=== PATIENT | male | born 1950 | race Caucasian/White ===

== ENCOUNTER 2020-11-16 20:34 | Inpatient (IN) | payer OTHER, SELFPAY ==
[2020-11-16 21:10] VITALS: BP 170/78; PULSE 84; RESP 18; TEMP 36.5; O2SAT 98
[2020-11-16 21:12] VITALS: BMI 17.2
[2020-11-16] MEDS: Docusate Sodium 100 MG CAPSULE 200 MG PO (23:01)
[2020-11-16] MEDS: OLANZapine 10 MG TABLET PO (23:02)
[2020-11-16] MEDS: Melatonin 3 MG TABLET 6 MG PO (23:02)
[2020-11-16] MEDS: clonazePAM 0.5 MG TABLET PO (23:37)
--- NOTE | 2020-11-17 | ECG_ITS ---
Test Reason : r/o qtc prolongation Blood Pressure : / mmHG Vent. Rate : 068 BPM Atrial Rate : 068 BPM P-R Int : 144 ms QRS Dur : 128 ms QT Int : 420 ms P-R-T Axes : 067 081 053 degrees QTc Int : 446 ms Normal sinus rhythm Right bundle branch block Abnormal ECG No previous ECGs available Referred By: Ivan Bello Electronically Signed By:DANIEL WEST
--- NOTE | 2020-11-17 03:40 | PC.ADMIT ---
Pt. admitted to the [facility] on 11/16/2020 at 2055 from [facility] ([facility]) with a diagnosis of OCD. Pt. signed a CV. Pt. alert and oriented x3. Pt. denied SI, HI, AH and VH. Pt. presented with an anxious mood and affect. Pt. cooperative with admission assessment. Pt. reports medical history includes: BPH, arthritis, sleep apnea (pt. does not use a CPAP), constipation, hemorrhoid, high cholesterol. Pt. witnessed ambulating with slow but steady gait. Pt. reports he fell at [facility] due to disorientation. Pt. does not use DME for ambulation. Pt. wears glasses for near/farsightedness. Glasses are at home. Pt. is hard of hearing. Hearing aids are at home. Pt. reports he does not receive services at home but [facility] paperwork indicates pt. has an outpatient RN, Kraig. Pt. reports history of medication noncompliance. Pharmacy is reported to be [facility] which was closed at time of admission. Medications reconciled by list of medications pt. was taking at [facility]. windows server administrator provider notified. Admission orders received. Pt. has a hx of OCD characterized by frequent hand washing and fixation on bowel functioning. Pt. reports I'm covered with feces. RN assisting pt. with toileting noted small amount of feces upon cleaning pt. Pt. attempted to sit on the toilet but was unable to have a BM. Pt. wears a pull up. Pt. voided without difficulty. Pt. reported he has been neglecting ADLs stating, I'm getting lazy. I'm not even brushing my teeth everyday. Pt. reports he is very concerned about his housing. He has been in his apartment since 2013, but reports it's not safe because wild animals can enter it, like squirrels, mice and bats. Pt. reports he is fearful of being evicted, but denies any action on the part of the landlord. Pt. also reports he doesn't want to live there anymore but has nowhere else to go. Pt. lacks support in the community. Pt. feels lonely. Pt. requires assistance with ADLs. Pt. reports noncompliance with personal and dental hygiene. Pt. is 6ft and weighs 56kg. He reports poor appetite, difficulty chewing due to poor dentition, and GI issues. Pt. took HS medications. He is resting quietly. Pt. contracts for safety.
[2020-11-17 06:00] VITALS: BP 144/70; PULSE 58; TEMP 36.3; O2SAT 100
[2020-11-17] MEDS: Atorvastatin Calcium 20 MG TABLET PO (09:59)
[2020-11-17] MEDS: OLANZapine 5 MG TABLET PO (09:59)
[2020-11-17] MEDS: Thiamine HCL 100 MG TABLET PO (09:59)
[2020-11-17] MEDS: Memantine HCl 5 MG TABLET PO (09:59)
[2020-11-17] MEDS: Folic Acid 1 MG TABLET PO (09:59)
[2020-11-17] MEDS: clonazePAM 1 MG TABLET PO (09:59)
[2020-11-17] MEDS: Escitalopram Oxalate 20 MG TABLET PO (10:00)
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
[2020-11-17 15:33] VITALS: BMI 17.2
--- NOTE | 2020-11-17 15:42 | MHC.CLN ---
PT IS SEVERELY MALNOURISHED PT WITH SEVERELY DEPLETED SUBCUTANEOUS FAT AND MUSCLE MASS, BMI 17.2, CHRONIC POOR PO INTAKE AND PT REPORTED 90# WT LOSS X 1 YEAR DIET RX: REGULAR-APPROPRIATE PT PREFERS SOFT FOODS NSG REPORTED PT WITH SELF LIMITING FOOD RESTRICTIONS THAT AFFECT HIS DIET/WT. 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 PT DISLIKES: JELLY, GRILLED CHEESE, GREASY FOODS PT DOES LIKE ICE CREAM, BANANA, TURKEY, MASHED, GRAVY RECOMMEND TRIAL OF NUTRITION SUPPLEMENTS ENSURE TID TO PROVIDE 1050KCALS, 60G PROTEIN KITCHEN AWARE OF PT'S LIMITING FOOD PREFERENCES; GSR TO ASSIST IN MENU CHOICES MONITOR PO INTAKE AND WEEKLY WEIGHTS SEE ALSO CLINICAL NUTRITION ASSESSMENT
[2020-11-17 21:05] VITALS: BP 133/80; PULSE 107; RESP 20; TEMP 36.3; O2SAT 97
[2020-11-17] MEDS: Docusate Sodium 100 MG CAPSULE 200 MG PO (21:47)
[2020-11-17] MEDS: OLANZapine 10 MG TABLET PO (21:47)
[2020-11-17] MEDS: Melatonin 3 MG TABLET 6 MG PO (21:47)
[2020-11-17] MEDS: clonazePAM 0.5 MG TABLET PO (21:49)
[2020-11-18 07:12] LABS: MANUAL DIFF FLAG NO
[2020-11-18 07:21] LABS: Basophils Percent Auto 0.2 % (0-2); Hematocrit 37.8 % (42-52); Hemoglobin 12.7 g/dl (14.0-18.0); Imm Gran Abs Auto 0.01 X10*3/uL (0.00-0.03); Imm Gran Pct Auto 0.2 % (0.0-0.4); Lymphocytes Percent Auto 24.7 % (20-40); Mean Corpuscular HGB Conc 33.6 g/dl (31.0-36.0); Mean Corpuscular Hemoglobin 32.4 pg (27.0-33.0); Mean Corpuscular Volume 96.4 fL (80-98); Monocytes Absolute Auto 0.4 X10*3/uL (0.1-1.2); Monocytes Percent Auto 9.6 % (2-11); Neutrophils Absolute Auto 2.7 X10*3/uL (2.0-8.3); Neutrophils Percent Auto 64.3 % (45-73); Red Blood Count 3.92 X10*6/uL (4.60-5.80); Red Cell Distribution Width 12.4 % (11.0-16.0); White Blood Count 4.2 X10*3/uL (4.8-10.8)
[2020-11-18 07:34] LABS: Anion Gap 13 (12-20); Blood Urea Nitrogen 22 mg/dL (9-16); Calcium 8.7 mg/dL (8.4-10.2); Carbon Dioxide 29 mmol/L (22-29); Chloride 107 mmol/L (96-108); Cholesterol 134 mg/dL; Creatinine Clr Calc Pharmacy 83.6; Estimated Glomerular Filt Rate > 60; Glucose Random 96 mg/dL (60-115); HDL Cholesterol 64 mg/dL; LDL Cholesterol Calculated 63 mg/dl; Potassium 3.7 mmol/L (3.3-5.1); Sodium 145 mmol/L (135-145); Triglycerides 37 mg/dL
[2020-11-18 07:37] LABS: Mean Platelet Volume 9.6 fL (9.4-12.4); Platelet Count 91 X10*3/uL (160-400)
[2020-11-18 07:52] LABS: Thyroid Stimulating Hormone 0.73 uIU/mL (0.32-4.0)
[2020-11-18 08:11] LABS: Estimated Average Glucose 91 mg/dL; Hemoglobin A1c % 4.8 %
[2020-11-18 09:17] VITALS: BP 122/85; PULSE 60; RESP 18; TEMP 36.1; O2SAT 99
--- NOTE | 2020-11-18 10:22 | HO.PSYCHPN ---
Subjective Subjective Date of Service: 11/18/20 Reason For Visit: OCD F42.2 Subjective Notes: Conditional Voluntary Interim History: The nursing staff reported the patient has severe OCD, he has been washing his hands several times and he took a shower for several hours, he was convinced that he was covered in feces. He stated that he does not want to go back to his apartment. On interview, the patient denies new symptoms he reminds dysphoric, he has been sleeping most of the morning; we discussed treatment options and he agreed that [facility], but at the moment, we will increase his Lexapro up to 30 mg to target OCD. EKG came up with no qtc elongation. Review of Systems Acute medical concerns: No Medical Review of Systems: unchanged Mental Status Exam Mental Status Exam Patient Appearance: Unkempt Patient Orientation: Person and Situation Level of Consciousness: Awake and Alert Patient Behavior: Guarded, Passive and Suspicious Mood Description: Withdrawn, Constricted and Depressed Affect Description: Constricted Ability to Follow Directions: Fair Speech Pattern: Appropriate Hallucinations: None Delusions: Paranoid Ideation Thought Process: Disoriented Thought Content: positive for Circumstantial and positive for Perseveration Judgement: Fair Diagnostics Vital Signs (24Hr): Vital Signs - 24 hr 11/17/20 21:05 11/18/20 09:17 Temperature 97.3 F 96.9 F Pulse Rate 107 H 60 Respiratory Rate 20 18 Blood Pressure 133/80 122/85 Pulse Oximetry 97 99 Body Mass Index 17.2 Labs Results: 11/18/20 06:38 11/18/20 06:38 Labs: Laboratory Results - last 48 hr 11/18/20 11/18/20 11/18/20 06:38 06:38 06:38 WBC 4.2 L RBC 3.92 L Hgb 12.7 L Hct 37.8 L MCV 96.4 MCH 32.4 MCHC 33.6 RDW 12.4 Plt Count 91 L MPV 9.6 Immature Gran % (Auto) 0.2 Neut % (Auto) 64.3 Lymph % (Auto) 24.7 [place] % (Auto) 9.6 Eos % (Auto) 1.0 Baso % (Auto) 0.2 Lymph # (Auto) 1.0 L [place] # (Auto) 0.4 Eos # (Auto) 0.0 Baso # (Auto) 0.0 Abs Immat Gran (auto) 0.01 Absolute Neuts (auto) 2.7 Absolute Nucleated RBC 0.000 Nucleated RBC % (auto) 0.0 Sodium 145 Potassium 3.7 Chloride 107 Carbon Dioxide 29 Anion Gap 13 BUN 22 H Creatinine 0.65 Estim Creat Clear Calc 83.6 Estimated GFR > 60 Random Glucose 96 Estimat Average Glucose 91 Hemoglobin A1c % 4.8 Calcium 8.7 Triglycerides 37 Cholesterol 134 LDL Cholesterol, Calc 63 HDL Cholesterol 64 TSH 0.73 Medications Medications Current Medications Acetaminophen (Acetaminophen 325 Mg Tablet) 650 mg PO Q6H PRN PRN Reason: Headache/Pain Mild Scale (1-3) Al Hydroxide/Mg Hydroxide (Magnesium Hydrox/Alum Hydrox 30 Ml Oral.Susp) 30 ml PO Q6H PRN PRN Reason: Heartburn/Nausea Atorvastatin Calcium (Atorvastatin Calcium 20 Mg Tablet) 20 mg PO DAILY [facility] Last Admin: 11/17/20 09:59 Dose: 20 mg Documented by: Clonazepam (Clonazepam 1 Mg Tablet) 1 mg PO DAILY [facility] Last Admin: 11/17/20 09:59 Dose: 1 mg Documented by: Clonazepam (Clonazepam 0.5 Mg Tablet) 0.5 mg PO BEDTIME [facility] Last Admin: 11/17/20 21:49 Dose: 0.5 mg Documented by: Docusate Sodium (Docusate Sodium 100 Mg Capsule) 200 mg PO BID [facility] Last Admin: 11/17/20 21:47 Dose: 200 mg Documented by: Escitalopram Oxalate (Escitalopram Oxalate 20 Mg Tablet) 20 mg PO DAILY [facility] Last Admin: 11/17/20 10:00 Dose: 20 mg Documented by: Folic Acid (Folic Acid 1 Mg Tablet) 1 mg PO DAILY [facility] Last Admin: 11/17/20 09:59 Dose: 1 mg Documented by: Hydroxyzine HCl (Hydroxyzine Hcl 25 Mg Tablet) 25 mg PO BEDTIME PRN PRN Reason: Anxiety Magnesium Hydroxide (Milk Of Magnesia 30 Ml Oral.Susp) 30 ml PO DAILY PRN PRN Reason: Constipation Melatonin (Melatonin 3 Mg Tablet) 6 mg PO BEDTIME [facility] Last Admin: 11/17/20 21:47 Dose: 6 mg Documented by: Memantine (Memantine Hcl 5 Mg Tablet) 5 mg PO DAILY [facility] Last Admin: 11/17/20 09:59 Dose: 5 mg Documented by: Olanzapine (Olanzapine 5 Mg Tablet) 5 mg PO DAILY [facility] Last Admin: 09/28/21 09:59 Dose: 5 mg Documented by: Olanzapine (Olanzapine 10 Mg Tablet) 10 mg PO BEDTIME [facility] Last Admin: 11/17/20 21:47 Dose: 10 mg Documented by: Senna (Sennosides 8.6 Mg Tablet) 8.6 mg PO DAILY [facility] Last Admin: 11/17/20 10:03 Dose: Not Given Documented by: Thiamine HCl (Thiamine Hcl 100 Mg Tablet) 100 mg PO DAILY [facility] Last Admin: 11/17/20 09:59 Dose: 100 mg Documented by: Trazodone HCl (Trazodone Hcl 50 Mg Tablet) 50 mg PO BEDTIME PRN PRN Reason: Insomnia Allergies Allergies Allergy/AdvReac Type Severity Reaction Status Date / Time azithromycin Allergy Itching Verified 11/16/20 21:17 buspirone Allergy Headache Verified 11/16/20 21:17 mirtazapine Allergy Unknown Verified 11/16/20 21:17 Assessment & Plan Assessment & Plan (1) Major depressive disorder, recurrent episode with melancholic features: Status: Acute Code(s): F33.9 - Major depressive disorder, recurrent, unspecified (2) Obsessive compulsive disorder: Status: Acute Code(s): F42.9 - Obsessive-compulsive disorder, unspecified Assessment and Plan: The patient is an elderly male with a long history of OCD and depression who was admitted for an exacerbation of depressive symptoms of worsening in the last year with several neurovegetative symptoms such as severe weight loss, poor sleep and anhedonia. He also has severe OCD symptoms that impairs his functional eating a daily basis. Plan 1. Continue same medications. 2. Gather collateral information. 3. Consult with hospitalist. Greater than 50% of the session was spent on counseling and/or coordination of care Reason for contiued inpatient stay Substantial Risk for: inability to function and rapid decompensation
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
[2020-11-18] MEDS: Atorvastatin Calcium 20 MG TABLET PO (14:48)
[2020-11-18] MEDS: Memantine HCl 5 MG TABLET PO (14:48)
[2020-11-18] MEDS: Docusate Sodium 100 MG CAPSULE 200 MG PO ×2 (14:48→20:21)
[2020-11-18] MEDS: clonazePAM 1 MG TABLET PO (14:49)
[2020-11-18] MEDS: Thiamine HCL 100 MG TABLET PO (14:49)
[2020-11-18] MEDS: OLANZapine 5 MG TABLET PO (14:50)
[2020-11-18] MEDS: Folic Acid 1 MG TABLET PO (14:50)
[2020-11-18] MEDS: Escitalopram Oxalate 20 MG TABLET PO (14:50)
[2020-11-18] MEDS: Sennosides 8.6 MG TABLET PO (14:50)
[2020-11-18 18:00] VITALS: BP 100/65; PULSE 82; RESP 18; TEMP 36.5; O2SAT 100
[2020-11-18] MEDS: OLANZapine 10 MG TABLET PO (20:20)
[2020-11-18] MEDS: Melatonin 3 MG TABLET 6 MG PO (20:20)
[2020-11-18] MEDS: clonazePAM 0.5 MG TABLET PO (20:21)
[2020-11-19 09:42] VITALS: BP 107/63; PULSE 82; RESP 16; TEMP 37.2; O2SAT 100
[2020-11-19] MEDS: Folic Acid 1 MG TABLET PO (09:45)
[2020-11-19] MEDS: Escitalopram Oxalate 10 MG TABLET 30 MG PO (09:45)
[2020-11-19] MEDS: Memantine HCl 5 MG TABLET PO (09:46)
[2020-11-19] MEDS: Atorvastatin Calcium 20 MG TABLET PO (09:46)
[2020-11-19] MEDS: OLANZapine 5 MG TABLET PO (09:46)
[2020-11-19] MEDS: Thiamine HCL 100 MG TABLET PO (09:46)
[2020-11-19] MEDS: clonazePAM 1 MG TABLET PO (09:46)
--- NOTE | 2020-11-19 14:55 | MHC.CLN ---
F/U PT IS SEVERELY MALNOURISHED PT WITH SEVERELY DEPLETED SUBCUTANEOUS FAT AND MUSCLE MASS, BMI 17.2, CHRONIC POOR PO INTAKE AND PT REPORTED 90# WT LOSS X 1 YEAR DIET RX: REGULAR-APPROPRIATE PT PREFERS SOFT FOODS NSG REPORTED PT WITH SELF LIMITING FOOD RESTRICTIONS THAT AFFECT HIS DIET/WT. 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 PT RECEIVED TRIAL OF NUTRITION SUPPLEMENTS ENSURE TID TO PROVIDE 1050KCALS, 60G PROTEIN PT REPORTED HE DISLIKES ENSURE AND DOES NOT WANT WITH HIS MEALS PT STATED HE ATE ABOUT HALF HIS BREAKFAST TODAY, BUT REFUSED LUNCH KITCHEN AWARE OF PT'S LIMITING FOOD PREFERENCES; GSR TO ASSIST IN MENU CHOICES CONTINUE TO MONITOR PO INTAKE AND WEEKLY WEIGHTS WILL D/C ENSURE PER PT'S REQUEST
--- NOTE | 2020-11-19 15:58 | P.PNPSI_ITS ---
Subjective Subjective Date of Service: 11/19/20 Reason For Visit: OCD F42.2 Subjective Notes: Conditional Voluntary Interim History: The staff has reported that the patient has spent a lot of time in the shower, very OCD and concerned that he can have feces around him. He slept most of the day. On interview, the patient reports that he is very anxious perseverative Medication Compliance: Yes Review of Systems Acute medical concerns: No Medical Review of Systems: unchanged Mental Status Exam Mental Status Exam Patient Appearance: Well Grooomed (On hospital gowns) Patient Orientation: Person and Situation Level of Consciousness: Awake Patient Behavior: Passive, Suspicious and Restless Mood Description: Constricted Affect Description: Labile Patient Cognition Impaired: Yes Ability to Follow Directions: Good Speech Pattern: Clear Delusions: Not Present Thought Process: Slowed Thinking Thought Content: positive for Perseveration Judgement: Fair Diagnostics Vital Signs (24Hr): Vital Signs - 24 hr 11/18/20 18:00 11/19/20 09:42 Temperature 97.7 F 98.9 F Pulse Rate 82 82 Respiratory Rate 18 16 Blood Pressure 100/65 107/63 Pulse Oximetry 100 100 Body Mass Index 17.2 Labs Results: 11/18/20 06:38 11/18/20 06:38 Labs: Laboratory Results - last 48 hr 11/18/20 11/18/20 11/18/20 06:38 06:38 06:38 WBC 4.2 L RBC 3.92 L Hgb 12.7 L Hct 37.8 L MCV 96.4 MCH 32.4 MCHC 33.6 RDW 12.4 Plt Count 91 L MPV 9.6 Immature Gran % (Auto) 0.2 Neut % (Auto) 64.3 Lymph % (Auto) 24.7 [place] % (Auto) 9.6 Eos % (Auto) 1.0 Baso % (Auto) 0.2 Lymph # (Auto) 1.0 L [place] # (Auto) 0.4 Eos # (Auto) 0.0 Baso # (Auto) 0.0 Abs Immat Gran (auto) 0.01 Absolute Neuts (auto) 2.7 Absolute Nucleated RBC 0.000 Nucleated RBC % (auto) 0.0 Sodium 145 Potassium 3.7 Chloride 107 Carbon Dioxide 29 Anion Gap 13 BUN 22 H Creatinine 0.65 Estim Creat Clear Calc 83.6 Estimated GFR > 60 Random Glucose 96 Estimat Average Glucose 91 Hemoglobin A1c % 4.8 Calcium 8.7 Triglycerides 37 Cholesterol 134 LDL Cholesterol, Calc 63 HDL Cholesterol 64 TSH 0.73 Medications Medications Current Medications Acetaminophen (Acetaminophen 325 Mg Tablet) 650 mg PO Q6H PRN PRN Reason: Headache/Pain Mild Scale (1-3) Al Hydroxide/Mg Hydroxide (Magnesium Hydrox/Alum Hydrox 30 Ml Oral.Susp) 30 ml PO Q6H PRN PRN Reason: Heartburn/Nausea Atorvastatin Calcium (Atorvastatin Calcium 20 Mg Tablet) 20 mg PO DAILY [facility] Last Admin: 11/19/20 09:46 Dose: 20 mg Documented by: Clonazepam (Clonazepam 1 Mg Tablet) 1 mg PO DAILY [facility] Last Admin: 11/19/20 09:46 Dose: 1 mg Documented by: Clonazepam (Clonazepam 0.5 Mg Tablet) 0.5 mg PO BEDTIME [facility] Last Admin: 11/18/20 20:21 Dose: 0.5 mg Documented by: Docusate Sodium (Docusate Sodium 100 Mg Capsule) 200 mg PO BID [facility] Last Admin: 11/19/20 09:51 Dose: Not Given Documented by: Escitalopram Oxalate (Escitalopram Oxalate 10 Mg Tablet) 30 mg PO DAILY [facility] Last Admin: 11/19/20 09:45 Dose: 30 mg Documented by: Folic Acid (Folic Acid 1 Mg Tablet) 1 mg PO DAILY [facility] Last Admin: 11/19/20 09:45 Dose: 1 mg Documented by: Hydroxyzine HCl (Hydroxyzine Hcl 25 Mg Tablet) 25 mg PO BEDTIME PRN PRN Reason: Anxiety Magnesium Hydroxide (Milk Of Magnesia 30 Ml Oral.Susp) 30 ml PO DAILY PRN PRN Reason: Constipation Melatonin (Melatonin 3 Mg Tablet) 6 mg PO BEDTIME [facility] Last Admin: 11/18/20 20:20 Dose: 6 mg Documented by: Memantine (Memantine Hcl 5 Mg Tablet) 5 mg PO DAILY [facility] Last Admin: 11/19/20 09:46 Dose: 5 mg Documented by: Olanzapine (Olanzapine 5 Mg Tablet) 5 mg PO DAILY [facility] Last Admin: 11/19/20 09:46 Dose: 5 mg Documented by: Olanzapine (Olanzapine 10 Mg Tablet) 10 mg PO BEDTIME [facility] Last Admin: 11/18/20 20:20 Dose: 10 mg Documented by: Senna (Sennosides 8.6 Mg Tablet) 8.6 mg PO DAILY [facility] Last Admin: 11/19/20 09:51 Dose: Not Given Documented by: Thiamine HCl (Thiamine Hcl 100 Mg Tablet) 100 mg PO DAILY [facility] Last Admin: 11/19/20 09:46 Dose: 100 mg Documented by: Trazodone HCl (Trazodone Hcl 50 Mg Tablet) 50 mg PO BEDTIME PRN PRN Reason: Insomnia Allergies Allergies Allergy/AdvReac Type Severity Reaction Status Date / Time azithromycin Allergy Itching Verified 11/16/20 21:17 buspirone Allergy Headache Verified 11/16/20 21:17 mirtazapine Allergy Unknown Verified 11/16/20 21:17 Assessment & Plan Assessment & Plan (1) Major depressive disorder, recurrent episode with melancholic features: Status: Acute Code(s): F33.9 - Major depressive disorder, recurrent, unspecified (2) Obsessive compulsive disorder: Status: Acute Code(s): F42.9 - Obsessive-compulsive disorder, unspecified (3) Hyperlipidemia: Status: Acute Code(s): E78.5 - Hyperlipidemia, unspecified Assessment and Plan: 70-year-old man admitted to Geriatric psych at [facility] transferred from [facility]. Hyperlipidemia. LDL 63 Continue statin Pancytopenia May follow-up with PCP or Hematology as an outpatient, no need for acute inpatient follow-up Mental health Continue Lexapro increased up to 30 mg to target of OCD Greater than 50% of the session was spent on counseling and/or coordination of care Reason for contiued inpatient stay Substantial Risk for: inability to function, rapid decompensation and med/psych decompensation
[2020-11-19 18:00] VITALS: BP 110/64; PULSE 65; RESP 16; TEMP 37.1; O2SAT 99
[2020-11-19] MEDS: clonazePAM 0.5 MG TABLET PO (21:00)
[2020-11-19] MEDS: Docusate Sodium 100 MG CAPSULE 200 MG PO (21:00)
[2020-11-19] MEDS: Melatonin 3 MG TABLET 6 MG PO (21:00)
[2020-11-19] MEDS: OLANZapine 10 MG TABLET PO (21:00)
[2020-11-20 08:00] VITALS: BP 110/62; PULSE 76; TEMP 37; O2SAT 98
[2020-11-20] MEDS: Escitalopram Oxalate 10 MG TABLET 30 MG PO (09:32)
[2020-11-20] MEDS: Docusate Sodium 100 MG CAPSULE 200 MG PO (09:32)
[2020-11-20] MEDS: Atorvastatin Calcium 20 MG TABLET PO (09:32)
[2020-11-20] MEDS: Sennosides 8.6 MG TABLET PO (09:33)
[2020-11-20] MEDS: OLANZapine 5 MG TABLET PO (09:33)
[2020-11-20] MEDS: Thiamine HCL 100 MG TABLET PO (09:33)
[2020-11-20] MEDS: Memantine HCl 5 MG TABLET PO (09:33)
[2020-11-20] MEDS: Folic Acid 1 MG TABLET PO (09:33)
[2020-11-20] MEDS: clonazePAM 1 MG TABLET PO (09:33)
--- NOTE | 2020-11-20 13:57 | HO.PSYCHPN ---
Subjective Subjective Date of Service: 11/20/20 Reason For Visit: OCD F42.2 Subjective Notes: Conditional Voluntary Interim History: The nursing staff reported the patient has been isolative, he refused breakfast today in the morning and he has not been eating. We could contact the DC and that does collateral information. On interview, the patient was in bed most of the day a refused to participate home unit activities. Yesterday we increased Lexapro up to 30 mg p.o. daily and we continue Namenda in as per off FDA use for OCD. Review of Systems Acute medical concerns: No Medical Review of Systems: unchanged Mental Status Exam Mental Status Exam Patient Appearance: Fatigued and Disheveled Patient Orientation: Person Level of Consciousness: Drowsy Patient Behavior: Guarded Mood Description: Constricted Affect Description: Constricted Patient Cognition Impaired: Yes Ability to Follow Directions: Fair Speech Pattern: Clear Hallucinations: None Delusions: Paranoid Ideation Thought Process: Slowed Thinking Thought Content: positive for Perseveration and positive for Thought Blocking Judgement: Fair Diagnostics Vital Signs (24Hr): Vital Signs - 24 hr 11/19/20 18:00 Temperature 98.7 F Pulse Rate 65 Respiratory Rate 16 Blood Pressure 110/64 Pulse Oximetry 99 Body Mass Index 17.2 Labs Results: 11/18/20 06:38 11/18/20 06:38 Medications Medications Current Medications Acetaminophen (Acetaminophen 325 Mg Tablet) 650 mg PO Q6H PRN PRN Reason: Headache/Pain Mild Scale (1-3) Al Hydroxide/Mg Hydroxide (Magnesium Hydrox/Alum Hydrox 30 Ml Oral.Susp) 30 ml PO Q6H PRN PRN Reason: Heartburn/Nausea Atorvastatin Calcium (Atorvastatin Calcium 20 Mg Tablet) 20 mg PO DAILY [facility] Last Admin: 11/20/20 09:32 Dose: 20 mg Documented by: Clonazepam (Clonazepam 1 Mg Tablet) 1 mg PO DAILY [facility] Last Admin: 11/20/20 09:33 Dose: 1 mg Documented by: Clonazepam (Clonazepam 0.5 Mg Tablet) 0.5 mg PO BEDTIME [facility] Last Admin: 11/19/20 21:00 Dose: 0.5 mg Documented by: Escitalopram Oxalate (Escitalopram Oxalate 10 Mg Tablet) 30 mg PO DAILY [facility] Last Admin: 11/20/20 09:32 Dose: 30 mg Documented by: Folic Acid (Folic Acid 1 Mg Tablet) 1 mg PO DAILY [facility] Last Admin: 11/20/20 09:33 Dose: 1 mg Documented by: Hydrocortisone (Hydrocortisone 2.5 % Rectal Cr 30 Gm Tube) 1 appl [place] BID PRN PRN Reason: hemorrhoids Hydroxyzine HCl (Hydroxyzine Hcl 25 Mg Tablet) 25 mg PO BEDTIME PRN PRN Reason: Anxiety Magnesium Hydroxide (Milk Of Magnesia 30 Ml Oral.Susp) 30 ml PO DAILY PRN PRN Reason: Constipation Melatonin (Melatonin 3 Mg Tablet) 6 mg PO BEDTIME [facility] Last Admin: 11/19/20 21:00 Dose: 6 mg Documented by: Memantine (Memantine Hcl 5 Mg Tablet) 5 mg PO DAILY [facility] Last Admin: 11/20/20 09:33 Dose: 5 mg Documented by: Olanzapine (Olanzapine 5 Mg Tablet) 5 mg PO DAILY [facility] Last Admin: 11/20/20 09:33 Dose: 5 mg Documented by: Olanzapine (Olanzapine 10 Mg Tablet) 10 mg PO BEDTIME [facility] Last Admin: 11/19/20 21:00 Dose: 10 mg Documented by: Thiamine HCl (Thiamine Hcl 100 Mg Tablet) 100 mg PO DAILY [facility] Last Admin: 11/20/20 09:33 Dose: 100 mg Documented by: Trazodone HCl (Trazodone Hcl 50 Mg Tablet) 50 mg PO BEDTIME PRN PRN Reason: Insomnia Allergies Allergies Allergy/AdvReac Type Severity Reaction Status Date / Time azithromycin Allergy Itching Verified 11/16/20 21:17 buspirone Allergy Headache Verified 11/16/20 21:17 mirtazapine Allergy Unknown Verified 11/16/20 21:17 Assessment & Plan Assessment & Plan (1) Major depressive disorder, recurrent episode with melancholic features: Status: Acute Code(s): F33.9 - Major depressive disorder, recurrent, unspecified (2) Obsessive compulsive disorder: Status: Acute Code(s): F42.9 - Obsessive-compulsive disorder, unspecified (3) Hyperlipidemia: Status: Acute Code(s): E78.5 - Hyperlipidemia, unspecified Assessment and Plan: 70-year-old man admitted to Geriatric psych at [facility] transferred from [facility]. Hyperlipidemia. LDL 63 Continue statin Pancytopenia May follow-up with PCP or Hematology as an outpatient, no need for acute inpatient follow-up Mental health Continue Lexapro increased up to 30 mg to target of OCD Greater than 50% of the session was spent on counseling and/or coordination of care Reason for contiued inpatient stay Substantial Risk for: inability to function, rapid decompensation and med/psych decompensation
--- NOTE | 2020-11-20 13:57 | MHC.CLN ---
F/U NURSE REPORTED THAT PATIENT DID NOT EAT BREAKFAST TODAY AND ATE ABOUT 95% AT LUNCH. SUPPLEMENTS DISCONTINUED SINCE PATIENT DISLIKES. CONTINUE TO FOLLOW.
[2020-11-20] MEDS: OLANZapine 10 MG TABLET PO (20:15)
[2020-11-20] MEDS: clonazePAM 0.5 MG TABLET PO (20:15)
[2020-11-20] MEDS: Melatonin 3 MG TABLET 6 MG PO (20:16)
[2020-11-20 20:30] VITALS: BP 154/86; PULSE 80; RESP 18; TEMP 36.6; O2SAT 97
[2020-11-21 06:00] VITALS: BP 143/82; PULSE 64; TEMP 36.4; O2SAT 98
[2020-11-21] MEDS: Escitalopram Oxalate 10 MG TABLET 30 MG PO (10:43)
[2020-11-21] MEDS: Atorvastatin Calcium 20 MG TABLET PO (10:44)
[2020-11-21] MEDS: Memantine HCl 5 MG TABLET PO (10:44)
[2020-11-21] MEDS: Folic Acid 1 MG TABLET PO (10:44)
[2020-11-21] MEDS: OLANZapine 5 MG TABLET PO (10:44)
[2020-11-21] MEDS: Thiamine HCL 100 MG TABLET PO (10:44)
[2020-11-21] MEDS: clonazePAM 1 MG TABLET PO (10:44)
--- NOTE | 2020-11-21 12:51 | HO.PSYCHPN ---
Subjective Subjective Date of Service: 11/21/20 Reason For Visit: OCD F42.2 Interim History: pt reports he is having a hard time sleeping, asks for MD to review his meds and makes any changes which might help. somnolent during interview, falling asleep repeatedly throughout. no other complaints or requests. per staff, pt has been sleeping a lot during the day. obsessed with his bowel movements and feces. had watery stool yesterday, senna and docusate cancelled. wound consult for reddened coccyx pending. not eating very much. Mental Status Exam Mental Status Exam Patient Appearance: Fatigued and Disheveled Patient Orientation: Person Level of Consciousness: Drowsy Patient Behavior: Guarded Mood Description: Constricted Affect Description: Constricted Patient Cognition Impaired: Yes Ability to Follow Directions: Fair Speech Pattern: Clear Hallucinations: None Delusions: Paranoid Ideation Thought Process: Slowed Thinking Judgement: Fair Diagnostics Vital Signs (24Hr): Vital Signs - 24 hr 11/20/20 20:30 Temperature 97.8 F Pulse Rate 80 Respiratory Rate 18 Blood Pressure 154/86 H Pulse Oximetry 97 Body Mass Index 17.2 Labs Results: 11/18/20 06:38 11/18/20 06:38 Medications Medications Current Medications Acetaminophen (Acetaminophen 325 Mg Tablet) 650 mg PO Q6H PRN PRN Reason: Headache/Pain Mild Scale (1-3) Al Hydroxide/Mg Hydroxide (Magnesium Hydrox/Alum Hydrox 30 Ml Oral.Susp) 30 ml PO Q6H PRN PRN Reason: Heartburn/Nausea Atorvastatin Calcium (Atorvastatin Calcium 20 Mg Tablet) 20 mg PO DAILY [facility] Last Admin: 11/21/20 10:44 Dose: 20 mg Documented by: Clonazepam (Clonazepam 1 Mg Tablet) 1 mg PO DAILY [facility] Last Admin: 11/21/20 10:44 Dose: 1 mg Documented by: Clonazepam (Clonazepam 0.5 Mg Tablet) 0.5 mg PO BEDTIME [facility] Last Admin: 11/20/20 20:15 Dose: 0.5 mg Documented by: Escitalopram Oxalate (Escitalopram Oxalate 10 Mg Tablet) 30 mg PO DAILY [facility] Last Admin: 11/21/20 10:43 Dose: 30 mg Documented by: Folic Acid (Folic Acid 1 Mg Tablet) 1 mg PO DAILY [facility] Last Admin: 11/21/20 10:44 Dose: 1 mg Documented by: Hydrocortisone (Hydrocortisone 2.5 % Rectal Cr 30 Gm Tube) 1 appl [place] BID PRN PRN Reason: hemorrhoids Hydroxyzine HCl (Hydroxyzine Hcl 25 Mg Tablet) 25 mg PO BEDTIME PRN PRN Reason: Anxiety Magnesium Hydroxide (Milk Of Magnesia 30 Ml Oral.Susp) 30 ml PO DAILY PRN PRN Reason: Constipation Melatonin (Melatonin 3 Mg Tablet) 6 mg PO BEDTIME [facility] Last Admin: 11/20/20 20:16 Dose: 6 mg Documented by: Memantine (Memantine Hcl 5 Mg Tablet) 5 mg PO DAILY [facility] Last Admin: 11/21/20 10:44 Dose: 5 mg Documented by: Olanzapine (Olanzapine 5 Mg Tablet) 5 mg PO DAILY [facility] Last Admin: 11/21/20 10:44 Dose: 5 mg Documented by: Olanzapine (Olanzapine 10 Mg Tablet) 10 mg PO BEDTIME [facility] Last Admin: 11/20/20 20:15 Dose: 10 mg Documented by: Thiamine HCl (Thiamine Hcl 100 Mg Tablet) 100 mg PO DAILY [facility] Last Admin: 11/21/20 10:44 Dose: 100 mg Documented by: Trazodone HCl (Trazodone Hcl 50 Mg Tablet) 50 mg PO BEDTIME PRN PRN Reason: Insomnia Allergies Allergies Allergy/AdvReac Type Severity Reaction Status Date / Time azithromycin Allergy Itching Verified 11/16/20 21:17 buspirone Allergy Headache Verified 11/16/20 21:17 mirtazapine Allergy Unknown Verified 11/16/20 21:17 Assessment & Plan Assessment & Plan (1) Major depressive disorder, recurrent episode with melancholic features: Status: Acute Code(s): F33.9 - Major depressive disorder, recurrent, unspecified (2) Obsessive compulsive disorder: Status: Acute Code(s): F42.9 - Obsessive-compulsive disorder, unspecified (3) Hyperlipidemia: Status: Acute Code(s): E78.5 - Hyperlipidemia, unspecified Assessment and Plan: 70-year-old man admitted to Geriatric psych at [facility] transferred from [facility]. Hyperlipidemia. LDL 63 Continue statin Pancytopenia May follow-up with PCP or Hematology as an outpatient, no need for acute inpatient follow-up Mental health Continue Lexapro increased up to 30 mg to target of OCD Greater than 50% of the session was spent on counseling and/or coordination of care Reason for contiued inpatient stay Substantial Risk for: inability to function
--- NOTE | 2020-11-21 19:34 | PC.NURSE ---
Kelsey Geller gave order for EPC to coccyx (red area). Pt advised to sleep on his side not his back.
[2020-11-21] MEDS: Melatonin 3 MG TABLET 6 MG PO (20:35)
[2020-11-21] MEDS: OLANZapine 10 MG TABLET PO (20:37)
[2020-11-21] MEDS: clonazePAM 0.5 MG TABLET PO (20:38)
[2020-11-21 20:51] VITALS: BP 120/81; PULSE 95; RESP 18; TEMP 36.7; O2SAT 99
[2020-11-22] MEDS: Atorvastatin Calcium 20 MG TABLET PO (08:35)
[2020-11-22] MEDS: Memantine HCl 5 MG TABLET PO (08:35)
[2020-11-22] MEDS: Thiamine HCL 100 MG TABLET PO (08:35)
[2020-11-22] MEDS: Escitalopram Oxalate 10 MG TABLET 30 MG PO (08:35)
[2020-11-22] MEDS: Folic Acid 1 MG TABLET PO (08:35)
[2020-11-22] MEDS: OLANZapine 5 MG TABLET PO (08:35)
[2020-11-22] MEDS: clonazePAM 1 MG TABLET PO (08:35)
[2020-11-22 08:54] VITALS: BP 140/82; PULSE 75; RESP 20; TEMP 36.6; O2SAT 99
--- NOTE | 2020-11-22 13:55 | P.PNPSI_ITS ---
Subjective Subjective Date of Service: 11/22/20 Reason For Visit: OCD F42.2 Interim History: pt again found lying in his bed sleeping late morning. he was rousable to voice and stated he had not slept well last night. MD stated he would not make any changes to pt's regimen now as MD is aware the challenges he is facing are long-standing and better addressed with his attending physician. MD broached the concept of ECT and pt stated he would not be interested in such an approach. per staff, pt had poor appetite yesterday but at all of his breakfast this morning. contamination focus. barrier cream being applied to coccyx. Mental Status Exam Mental Status Exam Patient Appearance: Fatigued and Disheveled Patient Orientation: Person Level of Consciousness: Drowsy Patient Behavior: Guarded Mood Description: Constricted Affect Description: Constricted Patient Cognition Impaired: Yes Ability to Follow Directions: Fair Speech Pattern: Clear Hallucinations: None Delusions: Paranoid Ideation Thought Process: Slowed Thinking Judgement: Fair Diagnostics Vital Signs (24Hr): Vital Signs - 24 hr 11/21/20 20:51 11/22/20 08:54 Temperature 98.1 F 97.9 F Pulse Rate 95 75 Respiratory Rate 18 20 Blood Pressure 120/81 140/82 H Pulse Oximetry 99 99 Body Mass Index 17.2 Labs Results: 11/18/20 06:38 11/18/20 06:38 Medications Medications Current Medications Acetaminophen (Acetaminophen 325 Mg Tablet) 650 mg PO Q6H PRN PRN Reason: Headache/Pain Mild Scale (1-3) Al Hydroxide/Mg Hydroxide (Magnesium Hydrox/Alum Hydrox 30 Ml Oral.Susp) 30 ml PO Q6H PRN PRN Reason: Heartburn/Nausea Atorvastatin Calcium (Atorvastatin Calcium 20 Mg Tablet) 20 mg PO DAILY [facility] Last Admin: 11/22/20 08:35 Dose: 20 mg Documented by: Clonazepam (Clonazepam 1 Mg Tablet) 1 mg PO DAILY [facility] Last Admin: 11/22/20 08:35 Dose: 1 mg Documented by: Clonazepam (Clonazepam 0.5 Mg Tablet) 0.5 mg PO BEDTIME [facility] Last Admin: 11/21/20 20:38 Dose: 0.5 mg Documented by: Escitalopram Oxalate (Escitalopram Oxalate 10 Mg Tablet) 30 mg PO DAILY [facility] Last Admin: 11/22/20 08:35 Dose: 30 mg Documented by: Folic Acid (Folic Acid 1 Mg Tablet) 1 mg PO DAILY [facility] Last Admin: 11/22/20 08:35 Dose: 1 mg Documented by: Hydrocortisone (Hydrocortisone 2.5 % Rectal Cr 30 Gm Tube) 1 appl [place] BID PRN PRN Reason: hemorrhoids Hydroxyzine HCl (Hydroxyzine Hcl 25 Mg Tablet) 25 mg PO BEDTIME PRN PRN Reason: Anxiety Magnesium Hydroxide (Milk Of Magnesia 30 Ml Oral.Susp) 30 ml PO DAILY PRN PRN Reason: Constipation Melatonin (Melatonin 3 Mg Tablet) 6 mg PO BEDTIME [facility] Last Admin: 11/21/20 20:35 Dose: 6 mg Documented by: Memantine (Memantine Hcl 5 Mg Tablet) 5 mg PO DAILY [facility] Last Admin: 11/22/20 08:35 Dose: 5 mg Documented by: Olanzapine (Olanzapine 5 Mg Tablet) 5 mg PO DAILY [facility] Last Admin: 11/22/20 08:35 Dose: 5 mg Documented by: Olanzapine (Olanzapine 10 Mg Tablet) 10 mg PO BEDTIME [facility] Last Admin: 11/21/20 20:37 Dose: 10 mg Documented by: Thiamine HCl (Thiamine Hcl 100 Mg Tablet) 100 mg PO DAILY [facility] Last Admin: 11/22/20 08:35 Dose: 100 mg Documented by: Trazodone HCl (Trazodone Hcl 50 Mg Tablet) 50 mg PO BEDTIME PRN PRN Reason: Insomnia Allergies Allergies Allergy/AdvReac Type Severity Reaction Status Date / Time azithromycin Allergy Itching Verified 11/16/20 21:17 buspirone Allergy Headache Verified 11/16/20 21:17 mirtazapine Allergy Unknown Verified 11/16/20 21:17 Assessment & Plan Assessment & Plan (1) Major depressive disorder, recurrent episode with melancholic features: Status: Acute Code(s): F33.9 - Major depressive disorder, recurrent, unspecified (2) Obsessive compulsive disorder: Status: Acute Code(s): F42.9 - Obsessive-compulsive disorder, unspecified (3) Hyperlipidemia: Status: Acute Code(s): E78.5 - Hyperlipidemia, unspecified Assessment and Plan: 70-year-old man admitted to Geriatric psych at [facility] transferred from [facility]. Hyperlipidemia. LDL 63 Continue statin Pancytopenia May follow-up with PCP or Hematology as an outpatient, no need for acute inpatie nt follow-up Mental health Continue Lexapro increased up to 30 mg to target of OCD Greater than 50% of the session was spent on counseling and/or coordination of care Reason for contiued inpatient stay Substantial Risk for: inability to function and med/psych decompensation
[2020-11-22 18:00] VITALS: BP 107/67; PULSE 82; RESP 18; TEMP 36.6; O2SAT 98
[2020-11-22] MEDS: clonazePAM 0.5 MG TABLET PO (20:18)
[2020-11-22] MEDS: Melatonin 3 MG TABLET 6 MG PO (20:18)
[2020-11-22] MEDS: OLANZapine 10 MG TABLET PO (20:18)
[2020-11-23] MEDS: clonazePAM 1 MG TABLET PO (09:29)
[2020-11-23] MEDS: Escitalopram Oxalate 10 MG TABLET 30 MG PO (09:29)
[2020-11-23] MEDS: Memantine HCl 5 MG TABLET PO (09:29)
[2020-11-23] MEDS: Folic Acid 1 MG TABLET PO (09:29)
[2020-11-23] MEDS: Atorvastatin Calcium 20 MG TABLET PO (09:29)
[2020-11-23] MEDS: OLANZapine 5 MG TABLET PO (09:29)
[2020-11-23] MEDS: Thiamine HCL 100 MG TABLET PO (09:29)
--- NOTE | 2020-11-23 12:14 | HO.PSYCHPN ---
Subjective Subjective Date of Service: 11/23/20 Reason For Visit: OCD F42.2 Subjective Notes: Conditional Voluntary Interim History: The nursing staff reported that he was angry since the staff is not wiping his anus for 15 minutes since he is obsessed with feces. His appetite is low, he has eaten minimally. On interview, he was sleeping on his room, he was mostly secclussive. [facility] Memantadine off FDA for OCD. Review of Systems Acute medical concerns: No Medical Review of Systems: unchanged Mental Status Exam Mental Status Exam Patient Appearance: Disheveled and Unkempt Patient Orientation: Person Level of Consciousness: Awake and Disoriented Patient Behavior: Guarded and Passive Mood Description: Constricted Affect Description: Constricted Patient Cognition Impaired: Yes Ability to Follow Directions: Good Speech Pattern: Appropriate Delusions: Paranoid Ideation Thought Content: positive for Perseveration and positive for Poverty of Content Judgement: Poor Diagnostics Vital Signs (24Hr): Vital Signs - 24 hr 11/22/20 18:00 Temperature 97.9 F Pulse Rate 82 Respiratory Rate 18 Blood Pressure 107/67 Pulse Oximetry 98 Body Mass Index 17.2 Labs Results: 11/18/20 06:38 11/18/20 06:38 Medications Medications Current Medications Acetaminophen (Acetaminophen 325 Mg Tablet) 650 mg PO Q6H PRN PRN Reason: Headache/Pain Mild Scale (1-3) Al Hydroxide/Mg Hydroxide (Magnesium Hydrox/Alum Hydrox 30 Ml Oral.Susp) 30 ml PO Q6H PRN PRN Reason: Heartburn/Nausea Atorvastatin Calcium (Atorvastatin Calcium 20 Mg Tablet) 20 mg PO DAILY [facility] Last Admin: 11/23/20 09:29 Dose: 20 mg Documented by: Clonazepam (Clonazepam 1 Mg Tablet) 1 mg PO DAILY [facility] Last Admin: 11/23/20 09:29 Dose: 1 mg Documented by: Escitalopram Oxalate (Escitalopram Oxalate 10 Mg Tablet) 30 mg PO DAILY [facility] Last Admin: 11/23/20 09:29 Dose: 30 mg Documented by: Folic Acid (Folic Acid 1 Mg Tablet) 1 mg PO DAILY [facility] Last Admin: 11/23/20 09:29 Dose: 1 mg Documented by: Hydrocortisone (Hydrocortisone 2.5 % Rectal Cr 30 Gm Tube) 1 appl [place] BID PRN PRN Reason: hemorrhoids Hydroxyzine HCl (Hydroxyzine Hcl 25 Mg Tablet) 25 mg PO BEDTIME PRN PRN Reason: Anxiety Magnesium Hydroxide (Milk Of Magnesia 30 Ml Oral.Susp) 30 ml PO DAILY PRN PRN Reason: Constipation Melatonin (Melatonin 3 Mg Tablet) 6 mg PO BEDTIME [facility] Last Admin: 11/22/20 20:18 Dose: 6 mg Documented by: Memantine (Memantine Hcl 5 Mg Tablet) 5 mg PO DAILY [facility] Last Admin: 11/23/20 09:29 Dose: 5 mg Documented by: Olanzapine (Olanzapine 5 Mg Tablet) 5 mg PO DAILY [facility] Last Admin: 11/23/20 09:29 Dose: 5 mg Documented by: Olanzapine (Olanzapine 10 Mg Tablet) 10 mg PO BEDTIME [facility] Last Admin: 11/22/20 20:18 Dose: 10 mg Documented by: Thiamine HCl (Thiamine Hcl 100 Mg Tablet) 100 mg PO DAILY [facility] Last Admin: 11/23/20 09:29 Dose: 100 mg Documented by: Trazodone HCl (Trazodone Hcl 50 Mg Tablet) 50 mg PO BEDTIME PRN PRN Reason: Insomnia Allergies Allergies Allergy/AdvReac Type Severity Reaction Status Date / Time azithromycin Allergy Itching Verified 11/16/20 21:17 buspirone Allergy Headache Verified 11/16/20 21:17 mirtazapine Allergy Unknown Verified 11/16/20 21:17 Assessment & Plan Assessment & Plan (1) Major depressive disorder, recurrent episode with melancholic features: Status: Acute Code(s): F33.9 - Major depressive disorder, recurrent, unspecified (2) Obsessive compulsive disorder: Status: Acute Code(s): F42.9 - Obsessive-compulsive disorder, unspecified (3) Hyperlipidemia: Status: Acute Code(s): E78.5 - Hyperlipidemia, unspecified Assessment and Plan: 70-year-old man admitted to Geriatric psych at [facility] transferred from [facility]. Hyperlipidemia. LDL 63 Continue statin Pancytopenia May follow-up with PCP or Hematology as an outpatient, no need for acute inpatient follow-up Mental health Continue Lexapro increased up to 40 mg to target of OCD Greater than 50% of the session was spent on counseling and/or coordination of care Reason for contiued inpatient stay Substantial Risk for: inability to function, rapid decompensation and med/psych decompensation
--- NOTE | 2020-11-23 15:12 | MHC.CLN ---
NUTRITION CONSULT PATIENT WITH STAGE I TO COCCYX. DIET=REGULAR. SUPPLEMENT ENSURE 240 ML TID (1050 KCAL, 60 G PROTEIN). STAFF REPORTS THAT PATIENT ATE BOTH MEALS TODAY. CONTINUE REGULAR DIET WITH ENSURE TID.
[2020-11-23 18:00] VITALS: BP 126/75; PULSE 83; RESP 17; TEMP 37.2; O2SAT 99
[2020-11-23] MEDS: Melatonin 3 MG TABLET 6 MG PO (20:40)
[2020-11-23] MEDS: OLANZapine 10 MG TABLET PO (20:40)
[2020-11-23] MEDS: Escitalopram Oxalate 20 MG TABLET PO (20:40)
[2020-11-24 06:00] VITALS: BP 111/75; PULSE 73; RESP 16; TEMP 36; O2SAT 97
[2020-11-24] MEDS: Folic Acid 1 MG TABLET PO (09:09)
[2020-11-24] MEDS: Thiamine HCL 100 MG TABLET PO (09:10)
[2020-11-24] MEDS: clonazePAM 1 MG TABLET PO (09:10)
[2020-11-24] MEDS: OLANZapine 5 MG TABLET PO (09:10)
[2020-11-24] MEDS: Memantine HCl 5 MG TABLET PO (09:10)
[2020-11-24] MEDS: Atorvastatin Calcium 20 MG TABLET PO (09:11)
[2020-11-24] MEDS: Escitalopram Oxalate 20 MG TABLET PO ×2 (09:11→20:43)
--- NOTE | 2020-11-24 15:04 | HO.PSYCHPN ---
Subjective Subjective Date of Service: 11/24/20 Reason For Visit: OCD F42.2 Subjective Notes: Conditional Voluntary Interim History: The nursing staff reports the patient states most of the time in his room, he eats minimally his meals. The staff reported that yesterday he has not spoken regarding ?feces? . On interview, the patient reports feeling dysphoric and anxious with poor appetite Review of Systems Acute medical concerns: No Medical Review of Systems: unchanged Mental Status Exam Mental Status Exam Patient Appearance: Disheveled and Unkempt Patient Orientation: Person and Situation Level of Consciousness: Awake Patient Behavior: Guarded and Suspicious Mood Description: Depressed Affect Description: Constricted Patient Cognition Impaired: Yes Ability to Follow Directions: Fair Speech Pattern: Monotone Hallucinations: None Delusions: Paranoid Ideation Thought Process: Linear Thought Content: positive for Perseveration and positive for Poverty of Content Judgement: Poor Diagnostics Vital Signs (24Hr): Vital Signs - 24 hr 11/23/20 18:00 11/24/20 06:00 Temperature 99 F 96.8 F Pulse Rate 83 73 Respiratory Rate 17 16 Blood Pressure 126/75 111/75 Pulse Oximetry 99 97 Body Mass Index 17.2 Labs Results: 11/18/20 06:38 11/18/20 06:38 Medications Medications Current Medications Acetaminophen (Acetaminophen 325 Mg Tablet) 650 mg PO Q6H PRN PRN Reason: Headache/Pain Mild Scale (1-3) Al Hydroxide/Mg Hydroxide (Magnesium Hydrox/Alum Hydrox 30 Ml Oral.Susp) 30 ml PO Q6H PRN PRN Reason: Heartburn/Nausea Atorvastatin Calcium (Atorvastatin Calcium 20 Mg Tablet) 20 mg PO DAILY [facility] B[facility]S AT [facility] Last Admin: 11/24/20 09:11 Dose: 20 mg Documented by: Clonazepam (Clonazepam 1 Mg Tablet) 1 mg PO DAILY [facility] B[facility]S AT [facility] Last Admin: 11/24/20 09:10 Dose: 1 mg Documented by: Escitalopram Oxalate (Escitalopram Oxalate 20 Mg Tablet) 20 mg PO BID [facility] 234 BEDS AT [facility] Last Admin: 11/24/20 09:11 Dose: 20 mg Documented by: Folic Acid (Folic Acid 1 Mg Tablet) 1 mg PO DAILY [facility] 234 BEDS AT [facility] Last Admin: 11/24/20 09:09 Dose: 1 mg Documented by: Hydrocortisone (Hydrocortisone 2.5 % Rectal Cr 30 Gm Tube) 1 appl [place] BID PRN PRN Reason: hemorrhoids Hydroxyzine HCl (Hydroxyzine Hcl 25 Mg Tablet) 25 mg PO BEDTIME PRN PRN Reason: Anxiety Magnesium Hydroxide (Milk Of Magnesia 30 Ml Oral.Susp) 30 ml PO DAILY PRN PRN Reason: Constipation Melatonin (Melatonin 3 Mg Tablet) 6 mg PO BEDTIME [facility] 234 BEDS AT [facility] Last Admin: 11/23/20 20:40 Dose: 6 mg Documented by: Memantine (Memantine Hcl 5 Mg Tablet) 5 mg PO DAILY [facility] 234 BEDS AT [facility] Last Admin: 11/24/20 09:10 Dose: 5 mg Documented by: Olanzapine (Olanzapine 5 Mg Tablet) 5 mg PO DAILY [facility] 234 BEDS AT [facility] Last Admin: 11/24/20 09:10 Dose: 5 mg Documented by: Olanzapine (Olanzapine 10 Mg Tablet) 10 mg PO BEDTIME [facility] 234 BEDS AT [facility] Last Admin: 11/23/20 20:40 Dose: 10 mg Documented by: Thiamine HCl (Thiamine Hcl 100 Mg Tablet) 100 mg PO DAILY [facility] 234 BEDS AT [facility] Last Admin: 11/24/20 09:10 Dose: 100 mg Documented by: Trazodone HCl (Trazodone Hcl 50 Mg Tablet) 50 mg PO BEDTIME PRN PRN Reason: Insomnia Allergies Allergies Allergy/AdvReac Type Severity Reaction Status Date / Time azithromycin Allergy Itching Verified 11/16/20 21:17 buspirone Allergy Headache Verified 11/16/20 21:17 mirtazapine Allergy Unknown Verified 11/16/20 21:17 Assessment & Plan Assessment & Plan (1) Major depressive disorder, recurrent episode with melancholic features: Status: Acute Code(s): F33.9 - Major depressive disorder, recurrent, unspecified (2) Obsessive compulsive disorder: Status: Acute Code(s): F42.9 - Obsessive-compulsive disorder, unspecified (3) Hyperlipidemia: Status: Acute Code(s): E78.5 - Hyperlipidemia, unspecified Assessment and Plan: 70-year-old man admitted to Geriatric psych at [facility] transferred from [facility] due to exacerbation of depression and OCD symptoms. The patient [facility] but he has refused any treatment at the [facility] due to past but experiences. Plan 1. Keep Celexa increased up to 20 mg p.o. b.i.d. to target depression and OCD. 2. Add Ensure t.i.d. formal nutrition. Greater than 50% of the session was spent on counseling and/or coordination of care Reason for contiued inpatient stay Substantial Risk for: inability to function, rapid decompensation and med/psych decompensation
[2020-11-24 18:00] VITALS: BP 108/57; PULSE 88; RESP 18; TEMP 36.1; O2SAT 99
[2020-11-24] MEDS: OLANZapine 10 MG TABLET PO (20:43)
[2020-11-24] MEDS: Melatonin 3 MG TABLET 6 MG PO (20:43)
[2020-11-25] MEDS: Atorvastatin Calcium 20 MG TABLET PO (08:15)
[2020-11-25] MEDS: Thiamine HCL 100 MG TABLET PO (08:15)
[2020-11-25] MEDS: Folic Acid 1 MG TABLET PO (08:15)
[2020-11-25] MEDS: clonazePAM 1 MG TABLET PO (08:15)
[2020-11-25] MEDS: Memantine HCl 5 MG TABLET PO (08:16)
[2020-11-25] MEDS: OLANZapine 5 MG TABLET PO (08:16)
[2020-11-25] MEDS: Escitalopram Oxalate 20 MG TABLET PO ×2 (08:16→20:19)
[2020-11-25 09:26] VITALS: BP 134/69; PULSE 87; RESP 20; TEMP 36.4; O2SAT 98
--- NOTE | 2020-11-25 09:56 | MHC.CLN ---
F/U CONTINUES WITH STAGE I TO COCCYX. REPORTED THAT ATE WELL THIS MORNING. WILL TAKE ENSURE, ASKED FOR TWICE A DAY, [employer] FLAVOR. UPDATED ORDER AND ADVISED KITCHEN OF FLAVOR PREFERENCE. ENSURE TO PROVIDE 700 KCAL, 40 G PROTEIN. CONTINUE TO FOLLOW.
--- NOTE | 2020-11-25 13:40 | P.PNPSI_ITS ---
Subjective Subjective Date of Service: 11/25/20 Reason For Visit: OCD F42.2 Subjective Notes: Conditional Voluntary Interim History: The nursing staff reported the patient has been isolative mostly in his room. He admitted that he feels depressed and anxious but denies suicidal ideation. The social worker health services contacted the [facility] and got part of his records. On interview, the patient reports that he still feeling dysphoric but no active suicidal ideation. He has not decided whether to go either, his apartment or any other facility. Mental Status Exam Mental Status Exam Patient Appearance: Well Grooomed Patient Orientation: Person Level of Consciousness: Awake Patient Behavior: Appropriate and Passive Mood Description: Depressed Affect Description: Constricted Patient Cognition Impaired: No Ability to Follow Directions: Good Speech Pattern: Clear Hallucinations: None Delusions: Not Present Thought Process: Goal Oriented Thought Content: positive for Poverty of Content Judgement: Fair Diagnostics Vital Signs (24Hr): Vital Signs - 24 hr 11/24/20 18:00 11/25/20 09:26 Temperature 97.0 F 97.5 F Pulse Rate 88 87 Respiratory Rate 18 20 Blood Pressure 108/57 L 134/69 Pulse Oximetry 99 98 Body Mass Index 17.2 Labs Results: 11/18/20 06:38 11/18/20 06:38 Medications Medications Current Medications Acetaminophen (Acetaminophen 325 Mg Tablet) 650 mg PO Q6H PRN PRN Reason: Headache/Pain Mild Scale (1-3) Al Hydroxide/Mg Hydroxide (Magnesium Hydrox/Alum Hydrox 30 Ml Oral.Susp) 30 ml PO Q6H PRN PRN Reason: Heartburn/Nausea Atorvastatin Calcium (Atorvastatin Calcium 20 Mg Tablet) 20 mg PO DAILY [facility] Last Admin: 11/25/20 08:15 Dose: 20 mg Documented by: Clonazepam (Clonazepam 1 Mg Tablet) 1 mg PO DAILY [facility] Last Admin: 11/25/20 08:15 Dose: 1 mg Documented by: Escitalopram Oxalate (Escitalopram Oxalate 20 Mg Tablet) 20 mg PO BID [facility] Last Admin: 11/25/20 08:16 Dose: 20 mg Documented by: Folic Acid (Folic Acid 1 Mg Tablet) 1 mg PO DAILY [facility] Last Admin: 11/25/20 08:15 Dose: 1 mg Documented by: Hydrocortisone (Hydrocortisone 2.5 % Rectal Cr 30 Gm Tube) 1 appl [place] BID PRN PRN Reason: hemorrhoids Hydroxyzine HCl (Hydroxyzine Hcl 25 Mg Tablet) 25 mg PO BEDTIME PRN PRN Reason: Anxiety Magnesium Hydroxide (Milk Of Magnesia 30 Ml Oral.Susp) 30 ml PO DAILY PRN PRN Reason: Constipation Melatonin (Melatonin 3 Mg Tablet) 6 mg PO BEDTIME [facility] Last Admin: 11/24/20 20:43 Dose: 6 mg Documented by: Memantine (Memantine Hcl 5 Mg Tablet) 5 mg PO DAILY [facility] Last Admin: 11/25/20 08:16 Dose: 5 mg Documented by: Olanzapine (Olanzapine 5 Mg Tablet) 5 mg PO DAILY [facility] Last Admin: 11/25/20 08:16 Dose: 5 mg Documented by: Olanzapine (Olanzapine 10 Mg Tablet) 10 mg PO BEDTIME [facility] Last Admin: 11/24/20 20:43 Dose: 10 mg Documented by: Thiamine HCl (Thiamine Hcl 100 Mg Tablet) 100 mg PO DAILY [facility] Last Admin: 11/25/20 08:15 Dose: 100 mg Documented by: Trazodone HCl (Trazodone Hcl 50 Mg Tablet) 50 mg PO BEDTIME PRN PRN Reason: Insomnia Allergies Allergies Allergy/AdvReac Type Severity Reaction Status Date / Time azithromycin Allergy Itching Verified 11/16/20 21:17 buspirone Allergy Headache Verified 11/16/20 21:17 mirtazapine Allergy Unknown Verified 11/16/20 21:17 Assessment & Plan Assessment & Plan (1) Major depressive disorder, recurrent episode with melancholic features: Status: Acute Code(s): F33.9 - Major depressive disorder, recurrent, unspecified (2) Obsessive compulsive disorder: Status: Acute Code(s): F42.9 - Obsessive-compulsive disorder, unspecified (3) Hyperlipidemia: Status: Acute Code(s): E78.5 - Hyperlipidemia, unspecified Assessment and Plan: 70-year-old man admitted to Geriatric psych at [facility] transferred from [facility] due to exacerbation of depression and OCD symptoms. The [facility] but he has refused any treatment at the [facility] due to past but experiences. Plan 1. Keep Celexa increased up to 20 mg p.o. b.i.d. to target depression and OCD. 2. Add Ensure t.i.d. formal nutrition. Greater than 50% of the session was spent on counseling and/or coordination of care Reason for contiued inpatient stay Substantial Risk for: inability to function, rapid decompensation and med/psych decompensation
[2020-11-25 19:47] VITALS: BP 104/64; PULSE 75; RESP 18; TEMP 36.4; O2SAT 98
[2020-11-25] MEDS: Melatonin 3 MG TABLET 6 MG PO (20:19)
[2020-11-25] MEDS: OLANZapine 10 MG TABLET PO (20:19)
[2020-11-26 06:00] VITALS: BP 122/81; PULSE 102; RESP 16; TEMP 36.1; O2SAT 99
[2020-11-26 07:00] VITALS: BMI 17.5
[2020-11-26] MEDS: OLANZapine 5 MG TABLET PO (08:57)
[2020-11-26] MEDS: Escitalopram Oxalate 20 MG TABLET PO ×2 (08:57→20:11)
[2020-11-26] MEDS: Memantine HCl 5 MG TABLET PO (08:57)
[2020-11-26] MEDS: Atorvastatin Calcium 20 MG TABLET PO (08:58)
[2020-11-26] MEDS: Folic Acid 1 MG TABLET PO (08:58)
[2020-11-26] MEDS: clonazePAM 1 MG TABLET PO (08:58)
[2020-11-26] MEDS: Thiamine HCL 100 MG TABLET PO (08:58)
--- NOTE | 2020-11-26 11:23 | P.PNPSI_ITS ---
Subjective Subjective Date of Service: 11/26/20 Reason For Visit: OCD F42.2 Subjective Notes: Conditional Voluntary Interim History: The nursing staff reported the patient was complaining of pain yesterday that he took some p.r.n. medications. He has been eating more he slept well but he has been isolative in his room. The social service director talk with him and he was ambivalent about his disposition. He does not want to go back to his home but he is unsure her she should go. On interview, the patient denies new symptoms he still is feeling depressed but we have not seen the obsessive-compulsive behaviors of the admission regarding feces. Still he has hypoactive mostly in bed during the day. Medication Compliance: Yes Side effects from medications: No Attending Groups: No Review of Systems Acute medical concerns: No Medical Review of Systems: unchanged Mental Status Exam Mental Status Exam Patient Appearance: Disheveled and Unkempt Patient Orientation: Person, Place and Situation Level of Consciousness: Awake Patient Behavior: Guarded and Passive Mood Description: Calm Affect Description: Depressed Patient Cognition Impaired: Yes Ability to Follow Directions: Fair Speech Pattern: Clear Hallucinations: None Delusions: Paranoid Ideation Thought Process: Evasive Thought Content: positive for Perseveration, positive for Poverty of Content and positive for Thought Blocking Depressive Symptoms: Feelings of Guilt Judgement: Poor Diagnostics Vital Signs (24Hr): Vital Signs - 24 hr 11/25/20 19:47 11/26/20 06:00 Temperature 97.6 F 97.0 F Pulse Rate 75 102 H Respiratory Rate 18 16 Blood Pressure 104/64 122/81 Pulse Oximetry 98 99 Body Mass Index 17.2 Labs Results: 11/18/20 06:38 11/18/20 06:38 Medications Medications Current Medications Acetaminophen (Acetaminophen 325 Mg Tablet) 650 mg PO Q6H PRN PRN Reason: Headache/Pain Mild Scale (1-3) Al Hydroxide/Mg Hydroxide (Magnesium Hydrox/Alum Hydrox 30 Ml Oral.Susp) 30 ml PO Q6H PRN PRN Reason: Heartburn/Nausea Atorvastatin Calcium (Atorvastatin Calcium 20 Mg Tablet) 20 mg PO DAILY [facility] Last Admin: 11/26/20 08:58 Dose: 20 mg Documented by: Clonazepam (Clonazepam 1 Mg Tablet) 1 mg PO DAILY [facility] Last Admin: 11/26/20 08:58 Dose: 1 mg Documented by: Escitalopram Oxalate (Escitalopram Oxalate 20 Mg Tablet) 20 mg PO BID [facility] Last Admin: 11/26/20 08:57 Dose: 20 mg Documented by: Folic Acid (Folic Acid 1 Mg Tablet) 1 mg PO DAILY [facility] Last Admin: 11/26/20 08:58 Dose: 1 mg Documented by: Hydrocortisone (Hydrocortisone 2.5 % Rectal Cr 30 Gm Tube) 1 appl [place] BID PRN PRN Reason: hemorrhoids Hydroxyzine HCl (Hydroxyzine Hcl 25 Mg Tablet) 25 mg PO BEDTIME PRN PRN Reason: Anxiety Magnesium Hydroxide (Milk Of Magnesia 30 Ml Oral.Susp) 30 ml PO DAILY PRN PRN Reason: Constipation Melatonin (Melatonin 3 Mg Tablet) 6 mg PO BEDTIME [facility] Last Admin: 11/25/20 20:19 Dose: 6 mg Documented by: Memantine (Memantine Hcl 5 Mg Tablet) 5 mg PO DAILY [facility] Last Admin: 11/26/20 08:57 Dose: 5 mg Documented by: Olanzapine (Olanzapine 5 Mg Tablet) 5 mg PO DAILY [facility] Last Admin: 11/26/20 08:57 Dose: 5 mg Documented by: Olanzapine (Olanzapine 10 Mg Tablet) 10 mg PO BEDTIME [facility] Last Admin: 11/25/20 20:19 Dose: 10 mg Documented by: Thiamine HCl (Thiamine Hcl 100 Mg Tablet) 100 mg PO DAILY [facility] Last Admin: 11/26/20 08:58 Dose: 100 mg Documented by: Trazodone HCl (Trazodone Hcl 50 Mg Tablet) 50 mg PO BEDTIME PRN PRN Reason: Insomnia Allergies Allergies Allergy/AdvReac Type Severity Reaction Status Date / Time azithromycin Allergy Itching Verified 11/16/20 21:17 buspirone Allergy Headache Verified 11/16/20 21:17 mirtazapine Allergy Unknown Verified 11/16/20 21:17 Assessment & Plan Assessment & Plan (1) Major depressive disorder, recurrent episode with melancholic features: Status: Acute Code(s): F33.9 - Major depressive disorder, recurrent, unspecified (2) Obsessive compulsive disorder: Status: Acute Code(s): F42.9 - Obsessive-compulsive disorder, unspecified (3) Hyperlipidemia: Status: Acute Code(s): E78.5 - Hyperlipidemia, unspecified Assessment and Plan: 70-year-old man [facility] due to exacerbation of depression and OCD symptoms. The patient follows treatment at the [facility] but he has refused any treatment at the [facility] due to past but experiences. Plan 1. Keep Celexa increased up to 20 mg p.o. b.i.d. to target depression and OCD. 2. Add Ensure t.i.d. formal nutrition. Greater than 50% of the session was spent on counseling and/or coordination of care Reason for contiued inpatient stay Substantial Risk for: inability to function, rapid decompensation and med/psych decompensation
[2020-11-26 18:00] VITALS: BP 104/68; PULSE 69; RESP 16; TEMP 36; O2SAT 97
[2020-11-26] MEDS: OLANZapine 10 MG TABLET PO (20:10)
[2020-11-26] MEDS: Melatonin 3 MG TABLET 6 MG PO (20:10)
[2020-11-27 06:00] VITALS: BP 122/85; PULSE 93; TEMP 35.8; O2SAT 99
[2020-11-27] MEDS: Atorvastatin Calcium 20 MG TABLET PO (08:18)
[2020-11-27] MEDS: OLANZapine 5 MG TABLET PO (08:18)
[2020-11-27] MEDS: Memantine HCl 5 MG TABLET PO (08:18)
[2020-11-27] MEDS: Escitalopram Oxalate 20 MG TABLET PO ×2 (08:18→20:12)
[2020-11-27] MEDS: Thiamine HCL 100 MG TABLET PO (08:18)
[2020-11-27] MEDS: Folic Acid 1 MG TABLET PO (08:18)
--- NOTE | 2020-11-27 09:50 | MHC.CLN ---
F/U NO CHANGE NOTED TO STAGE I ON COCCYX. WENT TO [facility] FOR BREAKFAST TODAY WITH FAIR INTAKE. SMALL, FAVORABLE WEIGHT GAIN X 1 WEEK.
--- NOTE | 2020-11-27 17:35 | P.PNPSI_ITS ---
Subjective Subjective Date of Service: 11/27/20 Reason For Visit: OCD F42.2 Subjective Notes: Conditional Voluntary Interim History: I evaluated the pt this evening and upon interview he reports he is not very well and that its my GI problem that's killing me, I cant control my bowels. He reports having frequent soft stool, denies that any PRN medication helps with this. Says he is mostly eating. Reports interrupted sleep due to needing to get up to use the bathroom. Says his mood is depressed and im suffering from anxiety and OCD. Denies SI/SIB/HI. Says he feels safe in the hospital. Denies agitation or aggression, feels more frustration. Denies h allucinations. Has been walking some in the halls. Fixated on issues with BM throughout interview. Medication Compliance: Yes Side effects from medications: No Attending Groups: No Review of Systems Medical Review of Systems: unchanged Mental Status Exam Mental Status Exam Narrative: Patient Appearance:?Disheveled and Unkempt Patient Orientation:?Person, Place and Situation Level of Consciousness:?Awake Patient Behavior:?Guarded and Passive Mood Description:?Calm Affect Description:?Depressed Patient Cognition Impaired:?Yes Ability to Follow Directions:?Fair Speech Pattern:?Clear Hallucinations:?None Delusions:?Paranoid Ideation Thought Process:?Evasive Thought Content:?positive for Perseveration, positive for Poverty of Content and positive for Thought Blocking Depressive Symptoms:?Feelings of Guilt Judgement:?Poor Diagnostics Vital Signs (24Hr): Vital Signs - 24 hr 11/26/20 18:00 11/27/20 06:00 Temperature 96.8 F 96.5 F L Pulse Rate 69 93 Respiratory Rate 16 Blood Pressure 104/68 122/85 Pulse Oximetry 97 99 Body Mass Index 17.5 Labs Results: 11/18/20 06:38 11/18/20 06:38 Medications Medications Current Medications Acetaminophen (Acetaminophen 325 Mg Tablet) 650 mg PO Q6H PRN PRN Reason: Headache/Pain Mild Scale (1-3) Al Hydroxide/Mg Hydroxide (Magnesium Hydrox/Alum Hydrox 30 Ml Oral.Susp) 30 ml PO Q6H PRN PRN Reason: Heartburn/Nausea Atorvastatin Calcium (Atorvastatin Calcium 20 Mg Tablet) 20 mg PO DAILY [facility] Last Admin: 11/27/20 08:18 Dose: 20 mg Documented by: Escitalopram Oxalate (Escitalopram Oxalate 20 Mg Tablet) 20 mg PO BID [facility] Last Admin: 11/27/20 08:18 Dose: 20 mg Documented by: Folic Acid (Folic Acid 1 Mg Tablet) 1 mg PO DAILY [facility] Last Admin: 11/27/20 08:18 Dose: 1 mg Documented by: Hydrocortisone (Hydrocortisone 2.5 % Rectal Cr 30 Gm Tube) 1 appl [place] BID PRN PRN Reason: hemorrhoids Hydroxyzine HCl (Hydroxyzine Hcl 25 Mg Tablet) 25 mg PO BEDTIME PRN PRN Reason: Anxiety Magnesium Hydroxide (Milk Of Magnesia 30 Ml Oral.Susp) 30 ml PO DAILY PRN PRN Reason: Constipation Melatonin (Melatonin 3 Mg Tablet) 6 mg PO BEDTIME [facility] Last Admin: 11/26/20 20:10 Dose: 6 mg Documented by: Memantine (Memantine Hcl 5 Mg Tablet) 5 mg PO DAILY [facility] Last Admin: 11/27/20 08:18 Dose: 5 mg Documented by: Olanzapine (Olanzapine 5 Mg Tablet) 5 mg PO DAILY [facility] Last Admin: 11/27/20 08:18 Dose: 5 mg Documented by: Olanzapine (Olanzapine 10 Mg Tablet) 10 mg PO BEDTIME [facility] Last Admin: 11/26/20 20:10 Dose: 10 mg Documented by: Thiamine HCl (Thiamine Hcl 100 Mg Tablet) 100 mg PO DAILY [facility] Last Admin: 11/27/20 08:18 Dose: 100 mg Documented by: Trazodone HCl (Trazodone Hcl 50 Mg Tablet) 50 mg PO BEDTIME PRN PRN Reason: Insomnia Allergies Allergies Allergy/AdvReac Type Severity Reaction Status Date / Time azithromycin Allergy Itching Verified 11/16/20 21:17 buspirone Allergy Headache Verified 11/16/20 21:17 mirtazapine Allergy Unknown Verified 11/16/20 21:17 Assessment & Plan Assessment & Plan (1) Major depressive disorder, recurrent episode with melancholic features: Status: Acute Code(s): F33.9 - Major depressive disorder, recurrent, unspecified (2) Obsessive compulsive disorder: Status: Acute Code(s): F42.9 - Obsessive-compulsive disorder, unspecified (3) Hyperlipidemia: Status: Acute Code(s): E78.5 - Hyperlipidemia, unspecified Assessment and Plan: 70-year-old man admitted to Geriatric psych at [facility] from [facility] due to exacerbation of depression and OCD symptoms. The patient follows treatment at the [facility] but he has refused any treatment at the [facility] due to past but experiences. Plan 1. Keep Lexapro 20 mg p.o. b.i.d. to target depression and OCD. 2. Add Ensure t.i.d. formal nutrition. Greater than 50% of the session was spent on counseling and/or coordination of care Reason for contiued inpatient stay Substantial Risk for: inability to function, rapid decompensation and med/psych decompensation
[2020-11-27 18:00] VITALS: BP 146/82; PULSE 87; RESP 18; TEMP 36.3; O2SAT 99
[2020-11-27] MEDS: OLANZapine 10 MG TABLET PO (20:12)
[2020-11-27] MEDS: Melatonin 3 MG TABLET 6 MG PO (20:12)
[2020-11-28 08:45] VITALS: BP 110/58; PULSE 95; RESP 14; TEMP 36.4; O2SAT 100
[2020-11-28] MEDS: Thiamine HCL 100 MG TABLET PO (09:07)
[2020-11-28] MEDS: Memantine HCl 5 MG TABLET PO (09:08)
[2020-11-28] MEDS: Escitalopram Oxalate 20 MG TABLET PO ×2 (09:08→20:16)
[2020-11-28] MEDS: Atorvastatin Calcium 20 MG TABLET PO (09:08)
[2020-11-28] MEDS: OLANZapine 5 MG TABLET PO (09:08)
[2020-11-28] MEDS: Folic Acid 1 MG TABLET PO (09:08)
[2020-11-28] MEDS: hydrOXYzine HCL 25 MG TABLET PO (12:11)
[2020-11-28 18:00] VITALS: BP 122/75; PULSE 88; RESP 17; TEMP 37; O2SAT 100
[2020-11-28] MEDS: Melatonin 3 MG TABLET 6 MG PO (20:16)
[2020-11-28] MEDS: OLANZapine 10 MG TABLET PO (20:17)
--- NOTE | 2020-11-28 22:23 | HO.PSYCHPN ---
Subjective Subjective Date of Service: 11/28/20 Reason For Visit: OCD F42.2 Interim History: pt reports he's not too good... he says feces are leaking out constantly, though nursing denies this. Diet Attendant asked when this started to which he says i don't know...since it started. He also says he's lost much weight, 100 lbs and that no one seems to be doing anything about it. Reports depression but denies any SI/HI. Diet Attendant discussed with nursing who will re-order nutrition consult; pt has ensure ordered and group underwriter increased to TID. Mental Status Exam Mental Status Exam Narrative: Patient Appearance:?Unkempt hair and facial hair Patient Orientation:?Person, Place Level of Consciousness:?Awake Patient Behavior:?cooperative but irritable Mood Description: Not too good Affect Description:?Depressed and frustrated Patient Cognition Impaired:?Yes Ability to Follow Directions:?Fair Speech Pattern:?Clear Hallucinations:?None Delusions of constant diarrhea Thought Process:?goal oriented but concrete Thought Content:?perseverative on bowel issues and lost wt; denies any SI/HI Judgment:?Poor Diagnostics Vital Signs (24Hr): Vital Signs - 24 hr 11/28/20 08:45 11/28/20 18:00 Temperature 97.6 F 98.6 F Pulse Rate 95 88 Respiratory Rate 14 17 Blood Pressure 110/58 L 122/75 Pulse Oximetry 100 100 Body Mass Index 17.5 Labs Results: 11/18/20 06:38 11/18/20 06:38 Medications Medications Current Medications Acetaminophen (Acetaminophen 325 Mg Tablet) 650 mg PO Q6H PRN PRN Reason: Headache/Pain Mild Scale (1-3) Al Hydroxide/Mg Hydroxide (Magnesium Hydrox/Alum Hydrox 30 Ml Oral.Susp) 30 ml PO Q6H PRN PRN Reason: Heartburn/Nausea Atorvastatin Calcium (Atorvastatin Calcium 20 Mg Tablet) 20 mg PO DAILY [facility] Last Admin: 11/28/20 09:08 Dose: 20 mg Documented by: Escitalopram Oxalate (Escitalopram Oxalate 20 Mg Tablet) 20 mg PO BID [facility] Last Admin: 11/28/20 20:16 Dose: 20 mg Documented by: Folic Acid (Folic Acid 1 Mg Tablet) 1 mg PO DAILY [facility] Last Admin: 11/28/20 09:08 Dose: 1 mg Documented by: Hydrocortisone (Hydrocortisone 2.5 % Rectal Cr 30 Gm Tube) 1 appl [place] BID PRN PRN Reason: hemorrhoids Hydroxyzine HCl (Hydroxyzine Hcl 25 Mg Tablet) 25 mg PO TID PRN PRN Reason: Anxiety Magnesium Hydroxide (Milk Of Magnesia 30 Ml Oral.Susp) 30 ml PO DAILY PRN PRN Reason: Constipation Melatonin (Melatonin 3 Mg Tablet) 6 mg PO BEDTIME [facility] Last Admin: 11/28/20 20:16 Dose: 6 mg Documented by: Memantine (Memantine Hcl 5 Mg Tablet) 5 mg PO DAILY [facility] Last Admin: 11/28/20 09:08 Dose: 5 mg Documented by: Olanzapine (Olanzapine 5 Mg Tablet) 5 mg PO DAILY [facility] Last Admin: 11/28/20 09:08 Dose: 5 mg Documented by: Olanzapine (Olanzapine 10 Mg Tablet) 10 mg PO BEDTIME [facility] Last Admin: 11/28/20 20:17 Dose: 10 mg Documented by: Thiamine HCl (Thiamine Hcl 100 Mg Tablet) 100 mg PO DAILY [facility] Last Admin: 11/28/20 09:07 Dose: 100 mg Documented by: Trazodone HCl (Trazodone Hcl 50 Mg Tablet) 50 mg PO BEDTIME PRN PRN Reason: Insomnia Allergies Allergies Allergy/AdvReac Type Severity Reaction Status Date / Time azithromycin Allergy Itching Verified 11/16/20 21:17 buspirone Allergy Headache Verified 11/16/20 21:17 mirtazapine Allergy Unknown Verified 11/16/20 21:17 Assessment & Plan Assessment & Plan (1) Major depressive disorder, recurrent episode with melancholic features: Status: Acute Code(s): F33.9 - Major depressive disorder, recurrent, unspecified (2) Obsessive compulsive disorder: Status: Acute Code(s): F42.9 - Obsessive-compulsive disorder, unspecified (3) Hyperlipidemia: Status: Acute Code(s): E78.5 - Hyperlipidemia, unspecified Assessment and Plan: Diet Attendant covering pt seen on 11/28 -no changes to current tx plan (other than reordered dietary consult) -might consider increasing lexapro or switching olanzapine to Risperdal -might consider work up for wt loss; will defer to primary team -hydroxyzine in there as PRN; while typically avoid anti-cholinergic meds in geriatric pt, nursing gave so will leave as option to see if helpful 70-year-old man admitted to Geriatric psych at [facility] transferred from [facility] due to exacerbation of depression and OCD symptoms. The patient follows treatment at the [facility] but he has refused any treatment at the [facility] due to past but experiences. Plan 1. Keep Lexapro 20 mg p.o. b.i.d. to target depression and OCD. 2. Add Ensure t.i.d. formal nutrition. Greater than 50% of the session was spent on counseling and/or coordination of care Reason for contiued inpatient stay Substantial Risk for: inability to function
[2020-11-29 06:00] VITALS: BP 141/84; PULSE 92; RESP 20; TEMP 36.6; O2SAT 100
[2020-11-29] MEDS: OLANZapine 5 MG TABLET PO (08:14)
[2020-11-29] MEDS: Escitalopram Oxalate 20 MG TABLET PO ×2 (08:14→20:08)
[2020-11-29] MEDS: Atorvastatin Calcium 20 MG TABLET PO (08:15)
[2020-11-29] MEDS: Thiamine HCL 100 MG TABLET PO (08:15)
[2020-11-29] MEDS: Memantine HCl 5 MG TABLET PO (08:15)
[2020-11-29] MEDS: Folic Acid 1 MG TABLET PO (08:15)
[2020-11-29 20:00] VITALS: BP 106/65; PULSE 90; RESP 18; TEMP 36.6; O2SAT 100
[2020-11-29] MEDS: OLANZapine 10 MG TABLET PO (20:08)
[2020-11-29] MEDS: Melatonin 3 MG TABLET 6 MG PO (20:08)
--- NOTE | 2020-11-30 | ECG_ITS ---
Test Reason : chest pain Blood Pressure : / mmHG Vent. Rate : 082 BPM Atrial Rate : 082 BPM P-R Int : 136 ms QRS Dur : 128 ms QT Int : 422 ms P-R-T Axes : 067 085 067 degrees QTc Int : 493 ms Normal sinus rhythm with sinus arrhythmia Right bundle branch block Abnormal ECG When compared with ECG of 17-NOV-2020 15:06, No significant change was found Referred By: Fermin Barroso Electronically Signed By:FRANCES LEE MD
[2020-11-30 08:48] VITALS: BP 139/71; PULSE 87; RESP 18; TEMP 36.3; O2SAT 100
[2020-11-30] MEDS: OLANZapine 5 MG TABLET PO (08:58)
[2020-11-30] MEDS: Folic Acid 1 MG TABLET PO (08:58)
[2020-11-30] MEDS: Thiamine HCL 100 MG TABLET PO (08:58)
[2020-11-30] MEDS: Atorvastatin Calcium 20 MG TABLET PO (08:58)
[2020-11-30] MEDS: Escitalopram Oxalate 20 MG TABLET PO ×2 (08:58→19:46)
[2020-11-30] MEDS: Memantine HCl 5 MG TABLET PO (08:58)
--- NOTE | 2020-11-30 12:36 | PC.NURSE ---
Pt had post void residual of 74ml (1230 on 11/30/2020).
[2020-11-30 14:32] LABS: Troponin-I High Sensitivity < 3.5 ng/L (<3.5-35.0)
--- NOTE | 2020-11-30 16:14 | MHC.CLN ---
Addendum entered by Jo Beth, MARQUISE 11/30/20 16:18: RD TO FOLLOW WEEKLY. Original Note: F/U PATIENT NOT AVAILABLE AT TIME OF VISIT. MD INCREASED ENSURE FROM BID TO TID. STAFF REPORTED THAT HE WILL TAKE ENSURE AT LUNCH ONLY. CONTINUE TO SEND TID/OFFER THREE TIMES DAILY. HAS SPECIFIC FOOD CHOICES THAT LIMITS FOOD VARIETY. GSRs AWARE OF FOOD PREFERENCES. CONTINUE TO ENCOURAGE MEAL AND SUPPLEMENT INTAKE.
[2020-11-30 18:00] VITALS: BP 112/70; PULSE 76; RESP 18; TEMP 37.6; O2SAT 99
[2020-11-30] MEDS: OLANZapine 10 MG TABLET PO (19:47)
[2020-11-30] MEDS: Melatonin 3 MG TABLET 6 MG PO (19:47)
--- NOTE | 2020-11-30 21:44 | P.PNPSI_ITS ---
Subjective Subjective Date of Service: 11/29/20 Reason For Visit: OCD F42.2 Interim History: pt seen 11/29 pt says he's not so good today, formed stool feel out of his underwear and pt was yelling, distressed that feces were all over him despite showering and being clean; however, soon a fterward, he was no longer on leaking stool but rather reported he cannot urinate and then when did urinate, could not empty his bladder. Post void residual showed ~350cc's but not done right after voided. Pt willing to drink more fluids. Anxious and easily upset Mental Status Exam Mental Status Exam Narrative: Patient Appearance:?Unkempt hair and facial hair but clean Patient Orientation:?Person, Place? Level of Consciousness:?Awake Patient Behavior:?cooperative but irritable Mood Description: Not too good Affect Description:?Depressed and frustrated Patient Cognition Impaired:?Yes Ability to Follow Directions:?Fair Speech Pattern:?Clear Hallucinations:?None Delusions of being covered in stool Thought Process:?goal oriented but concrete Thought Content:?perseverative on tolieting issues; denies any SI/HI insight/Judgment:?Poor Diagnostics Vital Signs (24Hr): Vital Signs - 24 hr 11/30/20 08:48 11/30/20 18:00 Temperature 97.4 F 99.6 F Pulse Rate 87 76 Respiratory Rate 18 18 Blood Pressure 139/71 112/70 Pulse Oximetry 100 99 Body Mass Index 17.5 Labs Results: 11/18/20 06:38 11/18/20 06:38 Labs: Laboratory Results - last 48 hr 11/30/20 14:04 Troponin I High Sens < 3.5 Medications Medications Current Medications Acetaminophen (Acetaminophen 325 Mg Tablet) 650 mg PO Q6H PRN PRN Reason: Headache/Pain Mild Scale (1-3) Al Hydroxide/Mg Hydroxide (Magnesium Hydrox/Alum Hydrox 30 Ml Oral.Susp) 30 ml PO Q6H PRN PRN Reason: Heartburn/Nausea Artificial Tears (Artificial Tears 15 Ml Drops) 1 drop EYE-BOTH Q4H PRN PRN Reason: Dry Eyes Atorvastatin Calcium (Atorvastatin Calcium 20 Mg Tablet) 20 mg PO DAILY [facility] Last Admin: 11/30/20 08:58 Dose: 20 mg Documented by: Escitalopram Oxalate (Escitalopram Oxalate 20 Mg Tablet) 20 mg PO BID [facility] Last Admin: 11/30/20 19:46 Dose: 20 mg Documented by: Folic Acid (Folic Acid 1 Mg Tablet) 1 mg PO DAILY [facility] Last Admin: 11/30/20 08:58 Dose: 1 mg Documented by: Hydrocortisone (Hydrocortisone 2.5 % Rectal Cr 30 Gm Tube) 1 appl [place] BID PRN PRN Reason: hemorrhoids Hydroxyzine HCl (Hydroxyzine Hcl 25 Mg Tablet) 25 mg PO TID PRN PRN Reason: Anxiety Magnesium Hydroxide (Milk Of Magnesia 30 Ml Oral.Susp) 30 ml PO DAILY PRN PRN Reason: Constipation Melatonin (Melatonin 3 Mg Tablet) 6 mg PO BEDTIME [facility] Last Admin: 11/30/20 19:47 Dose: 6 mg Documented by: Memantine (Memantine Hcl 5 Mg Tablet) 5 mg PO DAILY [facility] Last Admin: 11/30/20 08:58 Dose: 5 mg Documented by: Olanzapine (Olanzapine 5 Mg Tablet) 5 mg PO DAILY [facility] Last Admin: 11/30/20 08:58 Dose: 5 mg Documented by: Olanzapine (Olanzapine 10 Mg Tablet) 10 mg PO BEDTIME [facility] Last Admin: 11/30/20 19:47 Dose: 10 mg Documented by: Thiamine HCl (Thiamine Hcl 100 Mg Tablet) 100 mg PO DAILY [facility] Last Admin: 11/30/20 08:58 Dose: 100 mg Documented by: Trazodone HCl (Trazodone Hcl 50 Mg Tablet) 50 mg PO BEDTIME PRN PRN Reason: Insomnia Allergies Allergies Allergy/AdvReac Type Severity Reaction Status Date / Time azithromycin Allergy Itching Verified 11/16/20 21:17 buspirone Allergy Headache Verified 11/16/20 21:17 mirtazapine Allergy Unknown Verified 11/16/20 21:17 Assessment & Plan Assessment & Plan (1) Major depressive disorder, recurrent episode with melancholic features: Status: Acute Code(s): F33.9 - Major depressive disorder, recurrent, unspecified (2) Obsessive compulsive disorder: Status: Acute Code(s): F42.9 - Obsessive-compulsive disorder, unspecified (3) Hyperlipidemia: Status: Acute Code(s): E78.5 - Hyperlipidemia, unspecified Assessment and Plan: Manager Managed Care covering pt seen on 11/29 -no changes to current tx plan (other than reordered dietary consult) - consider increasing lexapro as OCD frequently takes higher than typical max doses; consider switching olanzapine to Risperdal; however, will defer to primary team for med change - consider work up for wt loss; will defer to primary team -hydroxyzine in there as PRN; while typically avoid anti-cholinergic meds in geriatric pt, nursing gave so will leave as option to see if helpful 70-year-old man admitted to Geriatric psych at [facility] transferred from [facility] due to exacerbation of depression and OCD symptoms. The patient follows treatment at the [facility] but he has refused any treatment at the [facility] due to past but experiences. Plan 1. Keep Lexapro 20 mg p.o. b.i.d. to target depression and OCD. 2. Add Ensure t.i.d. formal nutrition. Greater than 50% of the session was spent on counseling and/or coordination of care Reason for contiued inpatient stay Substantial Risk for: inability to function
--- NOTE | 2020-11-30 21:51 | HO.PSYCHPN ---
Subjective Subjective Date of Service: 11/30/20 Reason For Visit: OCD F42.2 Interim History: pt c/o chest pain in AM before editorial writer arrived; nursing staff reported Vitals WNL, no diaphoresis, SOB and that pain quickly dissipated and did not return. Pt is distressed with questions often saying i don't know the answers to the questions you are asking me however was able to calm down when reassured this was ok; he said it was a sharp stabbing pain; he thinks it was short lived but is not sure; has not returned; denies radiated down arm; denies being SOB or diaphoretic or that it's happened before. EKG unremarkable Trops ordered and WNL Hospitalist contacted who reviewed results and said no furhter work up needed. regarding OCD, pt says he hopes for some relief from symptoms soon and is open to med changes nursing reports: pt cleaning hands but insisted still not clean at first refused post-void US; later allowed and it was 74CC's Mental Status Exam Mental Status Exam Narrative: Patient Appearance:?Unkempt hair and facial hair but clean Patient Orientation:?Person, Place? Level of Consciousness:?Awake Patient Behavior:?cooperative but irritable Mood Description: Not good Affect Description:?Depressed and frustrated Patient Cognition Impaired:?Yes Ability to Follow Directions:?Fair Speech Pattern:?Clear Hallucinations:?None Delusions of being covered in stool Thought Process:?goal oriented but concrete Thought Content:?perseverative on tolieting issues; denies any SI/HI insight/Judgment:?Poor Diagnostics Vital Signs (24Hr): Vital Signs - 24 hr 11/30/20 08:48 11/30/20 18:00 Temperature 97.4 F 99.6 F Pulse Rate 87 76 Respiratory Rate 18 18 Blood Pressure 139/71 112/70 Pulse Oximetry 100 99 Body Mass Index 17.5 Labs Results: 11/18/20 06:38 11/18/20 06:38 Labs: Laboratory Results - last 48 hr 11/30/20 14:04 Troponin I High Sens < 3.5 Medications Medications Current Medications Acetaminophen (Acetaminophen 325 Mg Tablet) 650 mg PO Q6H PRN PRN Reason: Headache/Pain Mild Scale (1-3) Al Hydroxide/Mg Hydroxide (Magnesium Hydrox/Alum Hydrox 30 Ml Oral.Susp) 30 ml PO Q6H PRN PRN Reason: Heartburn/Nausea Artificial Tears (Artificial Tears 15 Ml Drops) 1 drop EYE-BOTH Q4H PRN PRN Reason: Dry Eyes Atorvastatin Calcium (Atorvastatin Calcium 20 Mg Tablet) 20 mg PO DAILY [facility] Last Admin: 11/30/20 08:58 Dose: 20 mg Documented by: Escitalopram Oxalate (Escitalopram Oxalate 20 Mg Tablet) 20 mg PO BID [facility] Last Admin: 11/30/20 19:46 Dose: 20 mg Documented by: Folic Acid (Folic Acid 1 Mg Tablet) 1 mg PO DAILY [facility] Last Admin: 11/30/20 08:58 Dose: 1 mg Documented by: Hydrocortisone (Hydrocortisone 2.5 % Rectal Cr 30 Gm Tube) [address] BID PRN PRN Reason: hemorrhoids Hydroxyzine HCl (Hydroxyzine Hcl 25 Mg Tablet) 25 mg PO TID PRN PRN Reason: Anxiety Magnesium Hydroxide (Milk Of Magnesia 30 Ml Oral.Susp) 30 ml PO DAILY PRN PRN Reason: Constipation Melatonin (Melatonin 3 Mg Tablet) 6 mg PO BEDTIME [facility] Last Admin: 11/30/20 19:47 Dose: 6 mg Documented by: Memantine (Memantine Hcl 5 Mg Tablet) 5 mg PO DAILY [facility] Last Admin: 11/30/20 08:58 Dose: 5 mg Documented by: Olanzapine (Olanzapine 5 Mg Tablet) 5 mg PO DAILY [facility] Last Admin: 11/30/20 08:58 Dose: 5 mg Documented by: Olanzapine (Olanzapine 10 Mg Tablet) 10 mg PO BEDTIME [facility] Last Admin: 11/30/20 19:47 Dose: 10 mg Documented by: Thiamine HCl (Thiamine Hcl 100 Mg Tablet) 100 mg PO DAILY [facility] Last Admin: 11/30/20 08:58 Dose: 100 mg Documented by: Trazodone HCl (Trazodone Hcl 50 Mg Tablet) 50 mg PO BEDTIME PRN PRN Reason: Insomnia Allergies Allergies Allergy/AdvReac Type Severity Reaction Status Date / Time azithromycin Allergy Itching Verified 11/16/20 21:17 buspirone Allergy Headache Verified 11/16/20 21:17 mirtazapine Allergy Unknown Verified 11/16/20 21:17 Assessment & Plan Assessment & Plan (1) Major depressive disorder, recurrent episode with melancholic features: Status: Acute Code(s): F33.9 - Major depressive disorder, recurrent, unspecified (2) Obsessive compulsive disorder: Status: Acute Code(s): F42.9 - Obsessive-compulsive disorder, unspecified (3) Hyperlipidemia: Status: Acute Code(s): E78.5 - Hyperlipidemia, unspecified Assessment and Plan: Computer Numerical Control Grinder covering pt seen on 11/30 -chest pain in AM; EKG unremarkable; Trops WnL; hospitalist signed off -no changes to current tx plan (other than reordered dietary consult) - consider increasing lexapro as OCD frequently takes higher than typical max doses; consider switching olanzapine to Risperdal; however, will defer to primary team for med change - consider work up for wt loss; will defer to primary team -hydroxyzine in there as PRN; while typically avoid anti-cholinergic meds in geriatric pt, nursing gave so will leave as option to see if helpful 70-year-old man admitted to Geriatric psych at [facility] transferred from [facility] due to exacerbation of depression and OCD symptoms. The patient follows treatment at the [facility] but he has refused any treatment at the [facility] due to past but experiences. Plan 1. Keep Lexapro 20 mg p.o. b.i.d. to target depression and OCD. 2. Add Ensure t.i.d. formal nutrition. Greater than 50% of the session was spent on counseling and/or coordination of care Reason for contiued inpatient stay Substantial Risk for: inability to function
[2020-12-01 06:00] VITALS: BP 109/60; PULSE 86; RESP 16; TEMP 36; O2SAT 100
[2020-12-01] MEDS: OLANZapine 5 MG TABLET PO (08:52)
[2020-12-01] MEDS: Escitalopram Oxalate 20 MG TABLET PO ×2 (08:52→20:28)
[2020-12-01] MEDS: Memantine HCl 5 MG TABLET PO (08:53)
[2020-12-01] MEDS: Folic Acid 1 MG TABLET PO (08:53)
[2020-12-01] MEDS: Atorvastatin Calcium 20 MG TABLET PO (08:53)
[2020-12-01] MEDS: Thiamine HCL 100 MG TABLET PO (08:53)
[2020-12-01] MEDS: hydrOXYzine HCL 25 MG TABLET PO (12:05)
--- NOTE | 2020-12-01 13:56 | P.PNPSI_ITS ---
Subjective Subjective Date of Service: 12/01/20 Reason For Visit: OCD F42.2 Interim History: The nursing staff reported that yesterday had problems with a prominent and his bathroom was soiled with feces and his anxiety worsened. On interview, the patient was very disturbed and anxious and with more symptoms of OCD. Apparently yesterday he had an EKG for chest pain any was negative, it seems that his chest pain is most related to anxiety. He agreed to the change of p.r.n. medications Review of Systems Acute medical concerns: No Medical Review of Systems: changed Mental Status Exam Mental Status Exam Patient Appearance: Well Grooomed Patient Orientation: Person Level of Consciousness: Restless Patient Behavior: Guarded and Suspicious Mood Description: Labile, Nervous and Apprehensive Affect Description: Anxious Patient Cognition Impaired: No Ability to Follow Directions: Good Speech Pattern: Rambling Memory Description: Intact Hallucinations: None Delusions: Not Present Thought Process: Distracted Thought Content: positive for Preoccupation and positive for Thought Blocking Judgement: Fair Diagnostics Vital Signs (24Hr): Vital Signs - 24 hr 11/30/20 18:00 12/01/20 06:00 Temperature 99.6 F 96.8 F Pulse Rate 76 86 Respiratory Rate 18 16 Blood Pressure 112/70 109/60 Pulse Oximetry 99 100 Body Mass Index 17.5 Labs Results: 11/18/20 06:38 11/18/20 06:38 Labs: Laboratory Results - last 48 hr 11/30/20 14:04 Troponin I High Sens < 3.5 Medications Medications Current Medications Acetaminophen (Acetaminophen 325 Mg Tablet) 650 mg PO Q6H PRN PRN Reason: Headache/Pain Mild Scale (1-3) Al Hydroxide/Mg Hydroxide (Magnesium Hydrox/Alum Hydrox 30 Ml Oral.Susp) 30 ml PO Q6H PRN PRN Reason: Heartburn/Nausea Artificial Tears (Artificial Tears 15 Ml Drops) 1 drop EYE-BOTH Q4H PRN PRN Reason: Dry Eyes Atorvastatin Calcium (Atorvastatin Calcium 20 Mg Tablet) 20 mg PO DAILY [facility] Last Admin: 12/01/20 08:53 Dose: 20 mg Documented by: Escitalopram Oxalate (Escitalopram Oxalate 20 Mg Tablet) 20 mg PO BID [facility] Last Admin: 12/01/20 08:52 Dose: 20 mg Documented by: Folic Acid (Folic Acid 1 Mg Tablet) 1 mg PO DAILY [facility] Last Admin: 12/01/20 08:53 Dose: 1 mg Documented by: Hydrocortisone (Hydrocortisone 2.5 % Rectal Cr 30 Gm Tube) 1 appl [place] BID PRN PRN Reason: hemorrhoids Hydroxyzine HCl (Hydroxyzine Hcl 25 Mg Tablet) 25 mg PO TID PRN PRN Reason: Anxiety Last Admin: 12/01/20 12:05 Dose: 25 mg Documented by: Magnesium Hydroxide (Milk Of Magnesia 30 Ml Oral.Susp) 30 ml PO DAILY PRN PRN Reason: Constipation Melatonin (Melatonin 3 Mg Tablet) 6 mg PO BEDTIME [facility] Last Admin: 11/30/20 19:47 Dose: 6 mg Documented by: Memantine (Memantine Hcl 5 Mg Tablet) 5 mg PO DAILY [facility] Last Admin: 12/01/20 08:53 Dose: 5 mg Documented by: Olanzapine (Olanzapine 5 Mg Tablet) 5 mg PO DAILY [facility] Last Admin: 12/01/20 08:52 Dose: 5 mg Documented by: Olanzapine (Olanzapine 10 Mg Tablet) 10 mg PO BEDTIME [facility] Last Admin: 11/30/20 19:47 Dose: 10 mg Documented by: Thiamine HCl (Thiamine Hcl 100 Mg Tablet) 100 mg PO DAILY [facility] Last Admin: 12/01/20 08:53 Dose: 100 mg Documented by: Trazodone HCl (Trazodone Hcl 50 Mg Tablet) 50 mg PO BEDTIME PRN PRN Reason: Insomnia Allergies Allergies Allergy/AdvReac Type Severity Reaction Status Date / Time azithromycin Allergy Itching Verified 11/16/20 21:17 buspirone Allergy Headache Verified 11/16/20 21:17 mirtazapine Allergy Unknown Verified 11/16/20 21:17 Assessment & Plan Assessment & Plan (1) Major depressive disorder, recurrent episode with melancholic features: Status: Acute Code(s): F33.9 - Major depressive disorder, recurrent, unspecified (2) Obsessive compulsive disorder: Status: Acute Code(s): F42.9 - Obsessive-compulsive disorder, unspecified (3) Hyperlipidemia: Status: Acute Code(s): E78.5 - Hyperlipidemia, unspecified Assessment and Plan: Special Education Assistant covering pt seen on 11/30 -chest pain in AM; EKG unremarkable; Trops WnL; hospitalist signed off -no changes to current tx plan (other than reordered dietary consult) - consider increasing lexapro as OCD frequently takes higher than typical max doses; consider switching olanzapine to Risperdal; however, will defer to primary team for med change - consider work up for wt loss; will defer to primary team -hydroxyzine in there as PRN; while typically avoid anti-cholinergic meds in geriatric pt, nursing gave so will leave as option to see if helpful 70-year-old man admitted to Geriatric psych at [facility] transferred from [facility] due to exacerbation of depression and OCD symptoms. The [facility] but he has refused any treatment at the [facility] due to past but experiences. Plan 1. Keep Lexapro 20 mg p.o. b.i.d. to target depression and OCD. 2. Add Ensure t.i.d. formal nutrition. 3. Increase the dose of the p.r.n. Klonopin. Greater than 50% of the session was spent on counseling and/or coordination of care Reason for contiued inpatient stay Substantial Risk for: inability to function, rapid decompensation and med/psych decompensation
[2020-12-01 18:00] VITALS: BP 124/71; PULSE 69; RESP 18; TEMP 35.9; O2SAT 100
[2020-12-01] MEDS: Melatonin 3 MG TABLET 6 MG PO (20:28)
[2020-12-01] MEDS: OLANZapine 10 MG TABLET PO (20:29)
[2020-12-02] MEDS: Thiamine HCL 100 MG TABLET PO (07:39)
[2020-12-02] MEDS: Escitalopram Oxalate 20 MG TABLET PO ×2 (07:39→20:29)
[2020-12-02] MEDS: Memantine HCl 5 MG TABLET PO (07:39)
[2020-12-02] MEDS: Folic Acid 1 MG TABLET PO (07:39)
[2020-12-02] MEDS: Atorvastatin Calcium 20 MG TABLET PO (07:39)
[2020-12-02] MEDS: OLANZapine 5 MG TABLET PO (07:40)
[2020-12-02 09:37] VITALS: BP 128/79; PULSE 80; TEMP 36.6; O2SAT 100
[2020-12-02] MEDS: clonazePAM 0.5 MG TABLET PO (14:18)
--- NOTE | 2020-12-02 15:12 | HO.PSYCHPN ---
Subjective Subjective Date of Service: 12/02/20 Reason For Visit: OCD F42.2 Subjective Notes: Conditional Voluntary Interim History: The nursing staff reports that he has been more anxious than usual due to the problems in the bathroom. He is given the loose thinking that he is covered in feces. He refused to go out or interact with any other peer. On interview the patient denies that he is feeling well, he is very anxious and OCD. Mental Status Exam Mental Status Exam Patient Appearance: Disheveled, Inappropriate and Unkempt Patient Orientation: Person, Place, Time and Situation Level of Consciousness: Awake, Restless and Alert Patient Behavior: Guarded, Suspicious, Wandering and Anxious Mood Description: Depressed Affect Description: Constricted Patient Cognition Impaired: Yes Ability to Follow Directions: Fair Speech Pattern: Clear and Rapid Hallucinations: None Delusions: Not Present Thought Process: Linear Thought Content: positive for Perseveration and positive for Poverty of Content Judgement: Fair Diagnostics Vital Signs (24Hr): Vital Signs - 24 hr 12/01/20 18:00 12/02/20 09:37 Temperature 96.6 F L 97.8 F Pulse Rate 69 80 Respiratory Rate 18 Blood Pressure 124/71 128/79 Pulse Oximetry 100 100 Body Mass Index 17.5 Labs Results: 11/18/20 06:38 11/18/20 06:38 Medications Medications Current Medications Acetaminophen (Acetaminophen 325 Mg Tablet) 650 mg PO Q6H PRN PRN Reason: Headache/Pain Mild Scale (1-3) Al Hydroxide/Mg Hydroxide (Magnesium Hydrox/Alum Hydrox 30 Ml Oral.Susp) 30 ml PO Q6H PRN PRN Reason: Heartburn/Nausea Artificial Tears (Artificial Tears 15 Ml Drops) 1 drop EYE-BOTH Q4H PRN PRN Reason: Dry Eyes Atorvastatin Calcium (Atorvastatin Calcium 20 Mg Tablet) 20 mg PO DAILY [facility] Last Admin: 12/02/20 07:39 Dose: 20 mg Documented by: Clonazepam (Clonazepam 0.5 Mg Tablet) 0.5 mg PO TID PRN PRN Reason: Anxiety Last Admin: 12/02/20 14:18 Dose: 0.5 mg Documented by: Escitalopram Oxalate (Escitalopram Oxalate 20 Mg Tablet) 20 mg PO BID [facility] Last Admin: 12/02/20 07:39 Dose: 20 mg Documented by: Folic Acid (Folic Acid 1 Mg Tablet) 1 mg PO DAILY [facility] Last Admin: 12/02/20 07:39 Dose: 1 mg Documented by: Hydrocortisone (Hydrocortisone 2.5 % Rectal Cr 30 Gm Tube) 1 appl [place] BID PRN PRN Reason: hemorrhoids Hydroxyzine HCl (Hydroxyzine Hcl 25 Mg Tablet) 25 mg PO TID PRN PRN Reason: Anxiety Last Admin: 12/01/20 12:05 Dose: 25 mg Documented by: Magnesium Hydroxide (Milk Of Magnesia 30 Ml Oral.Susp) 30 ml PO DAILY PRN PRN Reason: Constipation Melatonin (Melatonin 3 Mg Tablet) 6 mg PO BEDTIME [facility] Last Admin: 12/01/20 20:28 Dose: 6 mg Documented by: Memantine (Memantine Hcl 5 Mg Tablet) 5 mg PO DAILY [facility] Last Admin: 12/02/20 07:39 Dose: 5 mg Documented by: Olanzapine (Olanzapine 5 Mg Tablet) 5 mg PO DAILY [facility] Last Admin: 12/02/20 07:40 Dose: 5 mg Documented by: Olanzapine (Olanzapine 10 Mg Tablet) 10 mg PO BEDTIME [facility] Last Admin: 12/01/20 20:29 Dose: 10 mg Documented by: Thiamine HCl (Thiamine Hcl 100 Mg Tablet) 100 mg PO DAILY [facility] Last Admin: 12/02/20 07:39 Dose: 100 mg Documented by: Trazodone HCl (Trazodone Hcl 50 Mg Tablet) 50 mg PO BEDTIME PRN PRN Reason: Insomnia Allergies Allergies Allergy/AdvReac Type Severity Reaction Status Date / Time azithromycin Allergy Itching Verified 11/16/20 21:17 buspirone Allergy Headache Verified 11/16/20 21:17 mirtazapine Allergy Unknown Verified 11/16/20 21:17 Assessment & Plan Assessment & Plan (1) Major depressive disorder, recurrent episode with melancholic features: Status: Acute Code(s): F33.9 - Major depressive disorder, recurrent, unspecified (2) Obsessive compulsive disorder: Status: Acute Code(s): F42.9 - Obsessive-compulsive disorder, unspecified (3) Hyperlipidemia: Status: Acute Code(s): E78.5 - Hyperlipidemia, unspecified Assessment and Plan: Net Sql Developer covering pt seen on 11/30 -chest pain in AM; EKG unremarkable; Trops WnL; hospitalist signed off -no changes to current tx plan (other than reordered dietary consult) - consider increasing lexapro as OCD frequently takes higher than typical max doses; consider switching olanzapine to Risperdal; however, will defer to primary team for med change - consider work up for wt loss; will defer to primary team -hydroxyzine in there as PRN; while typically avoid anti-cholinergic meds in geriatric pt, nursing gave so will leave as option to see if helpful 70-year-old man admitted to Geriatric psych at [facility] transferred from [facility] due to exacerbation of depression and OCD symptoms. The [facility] but he has refused any treatment at the [facility] due to past but experiences. Plan 1. Keep Lexapro 20 mg p.o. b.i.d. to target depression and OCD. 2. Add Ensure t.i.d. formal nutrition. 3. Increase the dose of the p.r.n. Klonopin. 4. Increase Zyprexa Greater than 50% of the session was spent on counseling and/or coordination of care Reason for contiued inpatient stay Substantial Risk for: inability to function, rapid decompensation and med/psych decompensation
[2020-12-02 18:00] VITALS: BP 119/70; PULSE 78; RESP 18; TEMP 36.2; O2SAT 98
[2020-12-02] MEDS: Melatonin 3 MG TABLET 6 MG PO (20:29)
[2020-12-02] MEDS: OLANZapine 10 MG TABLET PO (20:29)
[2020-12-02] MEDS: hydrOXYzine HCL 25 MG TABLET PO (20:46)
[2020-12-03 06:00] VITALS: BP 107/71; PULSE 91; RESP 18; TEMP 36.4; O2SAT 97
[2020-12-03 07:00] VITALS: BMI 17.6
[2020-12-03] MEDS: Memantine HCl 5 MG TABLET PO (10:21)
[2020-12-03] MEDS: Folic Acid 1 MG TABLET PO (10:22)
[2020-12-03] MEDS: OLANZapine 7.5 MG TABLET PO (10:22)
[2020-12-03] MEDS: Thiamine HCL 100 MG TABLET PO (10:22)
[2020-12-03] MEDS: Atorvastatin Calcium 20 MG TABLET PO (10:22)
[2020-12-03] MEDS: Escitalopram Oxalate 20 MG TABLET PO ×2 (10:22→21:04)
--- NOTE | 2020-12-03 11:53 | P.PNPSI_ITS ---
Subjective Subjective Date of Service: 12/03/20 Reason For Visit: OCD F42.2 Subjective Notes: Conditional Voluntary and 3 Day Interim History: The nursing staff reported the patient was very anxious at night but to cataracts and responded fairly well. Yesterday he has been isolated and is scared of being covered in feces and contaminating. The social services manager yesterday work with him and try to have meals outside. The patient has refused to go to the [facility] [place] [facility]. On interview, the patient is very anxious and he does not have a clear idea about disposition. Medication Compliance: Yes Side effects from medications: No Attending Groups: Intermittent Mental Status Exam Mental Status Exam Patient Appearance: Disheveled and Unkempt Patient Orientation: Person and Situation Level of Consciousness: Awake, Restless and Alert Patient Behavior: Timid, Avoidant and Isolative Mood Description: Depressed Affect Description: Constricted Patient Cognition Impaired: Yes Ability to Follow Directions: Fair Speech Pattern: Appropriate and Rapid Hallucinations: None Delusions: Paranoid Ideation Thought Process: Linear and Evasive Thought Content: positive for Obsessional Thoughts, positive for Poverty of Content and positive for Hypochondriasis Judgement: Fair Diagnostics Vital Signs (24Hr): Vital Signs - 24 hr 12/02/20 18:00 12/03/20 06:00 Temperature 97.1 F 97.6 F Pulse Rate 78 91 Respiratory Rate 18 18 Blood Pressure 119/70 107/71 Pulse Oximetry 98 97 Body Mass Index 17.6 Labs Results: 11/18/20 06:38 11/18/20 06:38 Medications Medications Current Medications Acetaminophen (Acetaminophen 325 Mg Tablet) 650 mg PO Q6H PRN PRN Reason: Headache/Pain Mild Scale (1-3) Al Hydroxide/Mg Hydroxide (Magnesium Hydrox/Alum Hydrox 30 Ml Oral.Susp) 30 ml PO Q6H PRN PRN Reason: Heartburn/Nausea Artificial Tears (Artificial Tears 15 Ml Drops) 1 drop EYE-BOTH Q4H PRN PRN Reason: Dry Eyes Atorvastatin Calcium (Atorvastatin Calcium 20 Mg Tablet) 20 mg PO DAILY [facility] Last Admin: 12/03/20 10:22 Dose: 20 mg Documented by: Clonazepam (Clonazepam 0.5 Mg Tablet) 0.5 mg PO TID PRN PRN Reason: Anxiety Last Admin: 12/02/20 14:18 Dose: 0.5 mg Documented by: Escitalopram Oxalate (Escitalopram Oxalate 20 Mg Tablet) 20 mg PO BID [facility] Last Admin: 12/03/20 10:22 Dose: 20 mg Documented by: Folic Acid (Folic Acid 1 Mg Tablet) 1 mg PO DAILY [facility] Last Admin: 12/03/20 10:22 Dose: 1 mg Documented by: Hydrocortisone (Hydrocortisone 2.5 % Rectal Cr 30 Gm Tube) [address] BID PRN PRN Reason: hemorrhoids Hydroxyzine HCl (Hydroxyzine Hcl 25 Mg Tablet) 25 mg PO TID PRN PRN Reason: Anxiety Last Admin: 12/02/20 20:46 Dose: 25 mg Documented by: Magnesium Hydroxide (Milk Of Magnesia 30 Ml Oral.Susp) 30 ml PO DAILY PRN PRN Reason: Constipation Melatonin (Melatonin 3 Mg Tablet) 6 mg PO BEDTIME [facility] Last Admin: 12/02/20 20:29 Dose: 6 mg Documented by: Memantine (Memantine Hcl 5 Mg Tablet) 5 mg PO DAILY [facility] Last Admin: 12/03/20 10:21 Dose: 5 mg Documented by: Olanzapine (Olanzapine 10 Mg Tablet) 10 mg PO BEDTIME [facility] Last Admin: 12/02/20 20:29 Dose: 10 mg Documented by: Olanzapine (Olanzapine 7.5 Mg Tablet) 7.5 mg PO DAILY [facility] Last Admin: 12/03/20 10:22 Dose: 7.5 mg Documented by: Thiamine HCl (Thiamine Hcl 100 Mg Tablet) 100 mg PO DAILY [facility] Last Admin: 12/03/20 10:22 Dose: 100 mg Documented by: Trazodone HCl (Trazodone Hcl 50 Mg Tablet) 50 mg PO BEDTIME PRN PRN Reason: Insomnia Allergies Allergies Allergy/AdvReac Type Severity Reaction Status Date / Time azithromycin Allergy Itching Verified 11/16/20 21:17 buspirone Allergy Headache Verified 11/16/20 21:17 mirtazapine Allergy Unknown Verified 11/16/20 21:17 Assessment & Plan Assessment & Plan (1) Major depressive disorder, recurrent episode with melancholic features: Status: Acute Code(s): F33.9 - Major depressive disorder, recurrent, unspecified (2) Obsessive compulsive disorder: Status: Acute Code(s): F42.9 - Obsessive-compulsive disorder, unspecified (3) Hyperlipidemia: Status: Acute Code(s): E78.5 - Hyperlipidemia, unspecified Assessment and Plan: Pie Baker covering pt seen on 11/30 -chest pain in AM; EKG unremarkable; Trops WnL; hospitalist signed off -no changes to current tx plan (other than reordered dietary consult) - consider increasing lexapro as OCD frequently takes higher than typical max doses; consider switching olanzapine to Risperdal; however, will defer to primary team for med change - consider work up for wt loss; will defer to primary team -hydroxyzine in there as PRN; while typically avoid anti-cholinergic meds in geriatric pt, nursing gave so will leave as option to see if helpful 70-year-old man admitted to Geriatric psych at [facility] transferred from [facility] due to exacerbation of depression and OCD symptoms. The patient follows [facility] but he has refused any treatment at the [facility] due to past but experiences. Plan 1. Keep Lexapro 20 mg p.o. b.i.d. to target depression and OCD. 2. Keep Ensure t.i.d. but the patient is taking only once a day 3. Keep the dose of the p.r.n. Klonopin. 4. Keep Zyprexa 7.5 p.o. q.a.m. and 10 mg p.o. q.h.s. Greater than 50% of the session was spent on counseling and/or coordination of care Reason for contiued inpatient stay Substantial Risk for: inability to function, rapid decompensation and med/psych decompensation
[2020-12-03] MEDS: Artificial Tears 15 ML DROPS 1 DROP EYE-BOTH ×2 (12:43→21:11)
[2020-12-03 20:23] VITALS: BP 120/75; PULSE 79; RESP 18; TEMP 36.9; O2SAT 100
[2020-12-03] MEDS: OLANZapine 10 MG TABLET PO (21:04)
[2020-12-03] MEDS: Melatonin 3 MG TABLET 6 MG PO (21:04)
[2020-12-03] MEDS: clonazePAM 0.5 MG TABLET PO (21:11)
[2020-12-04 06:00] VITALS: BP 145/81; PULSE 82; RESP 18; TEMP 36.1; O2SAT 100
[2020-12-04] MEDS: Folic Acid 1 MG TABLET PO (08:06)
[2020-12-04] MEDS: Memantine HCl 5 MG TABLET PO (08:06)
[2020-12-04] MEDS: Escitalopram Oxalate 20 MG TABLET PO ×2 (08:06→20:12)
[2020-12-04] MEDS: Atorvastatin Calcium 20 MG TABLET PO (08:06)
[2020-12-04] MEDS: Thiamine HCL 100 MG TABLET PO (08:06)
[2020-12-04] MEDS: OLANZapine 7.5 MG TABLET PO ×2 (08:06→08:09)
--- NOTE | 2020-12-04 11:44 | MHC.CLN ---
F/U PATIENT LYING IN BED AND RECEPTIVE TO VISIT. STATED THAT HAS NO APPETITE BUT IS TAKING ENSURE. STAGE I TO [facility]. SMALL, FAVORABLE WEIGHT GAIN SINCE ADMISSION, +2.6%. LIMITED FOOD LIKES. ASKED PATIENT WHAT HE WOULD LIKE TO EAT AND REPLIED I CAN'T THINK OF ANYTHING . SAID HE WOULD EAT A TURKEY BURGER AND ADVISED STAFF OF LUNCH CHOICE. CONTINUE TO PROVIDE FOOD PREFERENCES AND SUPPLEMENT. ENCOURAGE FOOD AND SUPPLEMENT INTAKE.
--- NOTE | 2020-12-04 14:10 | HO.PSYCHPN ---
Subjective Subjective Date of Service: 12/04/20 Reason For Visit: OCD F42.2 Subjective Notes: Conditional Voluntary Interim History: The nursing staff reported that the patient complained of urinary retention but her bladder scan was negative. On interview, the patient denies new symptoms still with OCD Mental Status Exam Mental Status Exam Patient Appearance: Disheveled and Unkempt Patient Orientation: Person Level of Consciousness: Awake Patient Behavior: Guarded and Suspicious Mood Description: Depressed Affect Description: Constricted Patient Cognition Impaired: No Ability to Follow Directions: Fair Speech Pattern: Clear Hallucinations: None Delusions: Not Present Thought Process: Goal Oriented Thought Content: positive for Intact Judgement: Fair Diagnostics Vital Signs (24Hr): Vital Signs - 24 hr 12/03/20 20:23 12/04/20 06:00 Temperature 98.5 F 97.0 F Pulse Rate 79 82 Respiratory Rate 18 18 Blood Pressure 120/75 145/81 H Pulse Oximetry 100 100 Body Mass Index 17.6 Labs Results: 11/18/20 06:38 11/18/20 06:38 Medications Medications Current Medications Acetaminophen (Acetaminophen 325 Mg Tablet) 650 mg PO Q6H PRN PRN Reason: Headache/Pain Mild Scale (1-3) Al Hydroxide/Mg Hydroxide (Magnesium Hydrox/Alum Hydrox 30 Ml Oral.Susp) 30 ml PO Q6H PRN PRN Reason: Heartburn/Nausea Artificial Tears (Artificial Tears 15 Ml Drops) 1 drop EYE-BOTH Q4H PRN PRN Reason: Dry Eyes Last Admin: 12/03/20 21:11 Dose: 1 drop Documented by: Atorvastatin Calcium (Atorvastatin Calcium 20 Mg Tablet) 20 mg PO DAILY [facility] Last Admin: 12/04/20 08:06 Dose: 20 mg Documented by: Clonazepam (Clonazepam 0.5 Mg Tablet) 0.5 mg PO TID PRN PRN Reason: Anxiety Last Admin: 12/03/20 21:11 Dose: 0.5 mg Documented by: Escitalopram Oxalate (Escitalopram Oxalate 20 Mg Tablet) 20 mg PO BID [facility] Last Admin: 12/04/20 08:06 Dose: 20 mg Documented by: Folic Acid (Folic Acid 1 Mg Tablet) 1 mg PO DAILY [facility] Last Admin: 12/04/20 08:06 Dose: 1 mg Documented by: Hydrocortisone (Hydrocortisone 2.5 % Rectal Cr 30 Gm Tube) 1 appl [place] BID PRN PRN Reason: hemorrhoids Hydroxyzine HCl (Hydroxyzine Hcl 25 Mg Tablet) 25 mg PO TID PRN PRN Reason: Anxiety Last Admin: 12/02/20 20:46 Dose: 25 mg Documented by: Magnesium Hydroxide (Milk Of Magnesia 30 Ml Oral.Susp) 30 ml PO DAILY PRN PRN Reason: Constipation Melatonin (Melatonin 3 Mg Tablet) 6 mg PO BEDTIME [facility] Last Admin: 12/03/20 21:04 Dose: 6 mg Documented by: Memantine (Memantine Hcl 5 Mg Tablet) 5 mg PO DAILY [facility] Last Admin: 12/04/20 08:06 Dose: 5 mg Documented by: Olanzapine (Olanzapine 10 Mg Tablet) 10 mg PO BEDTIME [facility] Last Admin: 12/03/20 21:04 Dose: 10 mg Documented by: Olanzapine (Olanzapine 7.5 Mg Tablet) 7.5 mg PO DAILY [facility] Last Admin: 12/04/20 08:09 Dose: 7.5 mg Documented by: Thiamine HCl (Thiamine Hcl 100 Mg Tablet) 100 mg PO DAILY [facility] Last Admin: 12/04/20 08:06 Dose: 100 mg Documented by: Trazodone HCl (Trazodone Hcl 50 Mg Tablet) 50 mg PO BEDTIME PRN PRN Reason: Insomnia Allergies Allergies Allergy/AdvReac Type Severity Reaction Status Date / Time azithromycin Allergy Itching Verified 11/16/20 21:17 buspirone Allergy Headache Verified 11/16/20 21:17 mirtazapine Allergy Unknown Verified 11/16/20 21:17 Assessment & Plan Assessment & Plan (1) Major depressive disorder, recurrent episode with melancholic features: Status: Acute Code(s): F33.9 - Major depressive disorder, recurrent, unspecified (2) Obsessive compulsive disorder: Status: Acute Code(s): F42.9 - Obsessive-compulsive disorder, unspecified (3) Hyperlipidemia: Status: Acute Code(s): E78.5 - Hyperlipidemia, unspecified Assessment and Plan: Neurosurgical Nurse covering pt seen on 11/30 -chest pain in AM; EKG unremarkable; Trops WnL; hospitalist signed off -no changes to current tx plan (other than reordered dietary consult) - consider increasing lexapro as OCD frequently takes higher than typical max doses; consider switching olanzapine to Risperdal; however, will defer to primary team for med change - consider work up for wt loss; will defer to primary team -hydroxyzine in there as PRN; while typically avoid anti-cholinergic meds in geriatric pt, nursing gave so will leave as option to see if helpful 70-year-old man admitted to Geriatric psych at [facility] transferred from [facility] due to exacerbation of depression and OCD symptoms. The [facility] but he has refused any treatment at the [facility] due to past but experiences. Plan 1. Keep Lexapro 20 mg p.o. b.i.d. to target depression and OCD. 2. Keep Ensure t.i.d. but the patient is taking only once a day 3. Keep the dose of the p.r.n. Klonopin. 4. Keep Zyprexa 7.5 p.o. q.a.m. and 10 mg p.o. q.h.s. Greater than 50% of the session was spent on counseling and/or coordination of care Reason for contiued inpatient stay Substantial Risk for: inability to function, rapid decompensation and med/psych decompensation
[2020-12-04] MEDS: clonazePAM 0.5 MG TABLET PO (16:42)
[2020-12-04 20:09] VITALS: BP 95/62; PULSE 72; RESP 18; TEMP 36.9; O2SAT 100
[2020-12-04] MEDS: OLANZapine 10 MG TABLET PO (20:11)
[2020-12-04] MEDS: hydrOXYzine HCL 25 MG TABLET PO (20:12)
[2020-12-04] MEDS: Melatonin 3 MG TABLET 6 MG PO (20:12)
[2020-12-05 06:00] VITALS: BP 120/65; PULSE 81; RESP 16; TEMP 36; O2SAT 100
[2020-12-05] MEDS: Folic Acid 1 MG TABLET PO (09:55)
[2020-12-05] MEDS: Thiamine HCL 100 MG TABLET PO (09:56)
[2020-12-05] MEDS: Memantine HCl 5 MG TABLET PO (09:56)
[2020-12-05] MEDS: Atorvastatin Calcium 20 MG TABLET PO (09:56)
[2020-12-05] MEDS: Escitalopram Oxalate 20 MG TABLET PO ×2 (09:56→20:20)
[2020-12-05] MEDS: clonazePAM 0.5 MG TABLET PO ×2 (14:40→20:20)
[2020-12-05] MEDS: Artificial Tears 15 ML DROPS 1 DROP EYE-BOTH (14:42)
[2020-12-05 18:00] VITALS: BP 95/62; PULSE 80; RESP 16; TEMP 36.1; O2SAT 99
--- NOTE | 2020-12-05 18:15 | HO.PSYCHPN ---
Subjective Subjective Date of Service: 12/05/20 Reason For Visit: OCD F42.2 Interim History: Patient seen and discussed with team. Patient evaluated this morning and upon interview he reports he is not too good, im a bundle of nerves, i got a lot of anxiety. Says he is anxious about where im gonna end up, wants to be [facility] in [facility] care but concerned he will get a bed placement that's far from his family. Says he is not sure if his meds are helping. Discussed situational anxiety.? In the milieu, patient is safe but isolative and withdrawn in behavior. Denies SI/SIB/HI upon inquiry. Denies irritability or assaultive ideation. Says he feels safe. Medication Compliance: Yes Side effects from medications: No Attending Groups: No Review of Systems Acute medical concerns: No Medical Review of Systems: unchanged Mental Status Exam Mental Status Exam Narrative: Patient Appearance:?Disheveled and Unkempt Patient Orientation:?Person Level of Consciousness:?Awake Patient Behavior:?Guarded and Suspicious Mood Description:?Depressed Affect Description:?Constricted Patient Cognition Impaired:?No Ability to Follow Directions:?Fair Speech Pattern:?Clear Hallucinations:?None Delusions:?Not Present Thought Process:?Goal Oriented Thought Content:?positive for Intact Judgement:?Fair Diagnostics Vital Signs (24Hr): Vital Signs - 24 hr 12/04/20 20:09 12/05/20 06:00 Temperature 98.4 F 96.8 F Pulse Rate 72 81 Respiratory Rate 18 16 Blood Pressure 95/62 120/65 Pulse Oximetry 100 100 Body Mass Index 17.6 Labs Results: 11/18/20 06:38 11/18/20 06:38 Medications Medications Current Medications Acetaminophen (Acetaminophen 325 Mg Tablet) 650 mg PO Q6H PRN PRN Reason: Headache/Pain Mild Scale (1-3) Al Hydroxide/Mg Hydroxide (Magnesium Hydrox/Alum Hydrox 30 Ml Oral.Susp) 30 ml PO Q6H PRN PRN Reason: Heartburn/Nausea Artificial Tears (Artificial Tears 15 Ml Drops) 1 drop EYE-BOTH Q4H PRN PRN Reason: Dry Eyes Last Admin: 12/05/20 14:42 Dose: 1 drop Documented by: Atorvastatin Calcium (Atorvastatin Calcium 20 Mg Tablet) 20 mg PO DAILY [facility] Last Admin: 12/05/20 09:56 Dose: 20 mg Documented by: Clonazepam (Clonazepam 0.5 Mg Tablet) 0.5 mg PO TID PRN PRN Reason: Anxiety Last Admin: 12/05/20 14:40 Dose: 0.5 mg Documented by: Escitalopram Oxalate (Escitalopram Oxalate 20 Mg Tablet) 20 mg PO BID [facility] Last Admin: 12/05/20 09:56 Dose: 20 mg Documented by: Folic Acid (Folic Acid 1 Mg Tablet) 1 mg PO DAILY [facility] Last Admin: 12/05/20 09:55 Dose: 1 mg Documented by: Hydrocortisone (Hydrocortisone 2.5 % Rectal Cr 30 Gm Tube) 1 appl [place] BID PRN PRN Reason: hemorrhoids Hydroxyzine HCl (Hydroxyzine Hcl 25 Mg Tablet) 25 mg PO TID PRN PRN Reason: Anxiety Last Admin: 12/04/20 20:12 Dose: 25 mg Documented by: Magnesium Hydroxide (Milk Of Magnesia 30 Ml Oral.Susp) 30 ml PO DAILY PRN PRN Reason: Constipation Melatonin (Melatonin 3 Mg Tablet) 6 mg PO BEDTIME [facility] Last Admin: 12/04/20 20:12 Dose: 6 mg Documented by: Memantine (Memantine Hcl 5 Mg Tablet) 5 mg PO DAILY [facility] Last Admin: 12/05/20 09:56 Dose: 5 mg Documented by: Olanzapine (Olanzapine 10 Mg Tablet) 10 mg PO BEDTIME [facility] Last Admin: 12/04/20 20:11 Dose: 10 mg Documented by: Olanzapine (Olanzapine 7.5 Mg Tablet) 7.5 mg PO DAILY [facility] Last Admin: 12/04/20 08:09 Dose: 7.5 mg Documented by: Thiamine HCl (Thiamine Hcl 100 Mg Tablet) 100 mg PO DAILY [facility] Last Admin: 12/05/20 09:56 Dose: 100 mg Documented by: Trazodone HCl (Trazodone Hcl 50 Mg Tablet) 50 mg PO BEDTIME PRN PRN Reason: Insomnia Allergies Allergies Allergy/AdvReac Type Severity Reaction Status Date / Time azithromycin Allergy Itching Verified 11/16/20 21:17 buspirone Allergy Headache Verified 11/16/20 21:17 mirtazapine Allergy Unknown Verified 11/16/20 21:17 Assessment & Plan Assessment & Plan (1) Major depressive disorder, recurrent episode with melancholic features: Status: Acute Code(s): F33.9 - Major depressive disorder, recurrent, unspecified (2) Obsessive compulsive disorder: Status: Acute Code(s): F42.9 - Obsessive-compulsive disorder, unspecified (3) Hyperlipidemia: Status: Acute Code(s): E78.5 - Hyperlipidemia, unspecified Assessment and Plan: 70-year-old man admitted to Geriatric psych at [facility] transferred from [facility] due to exacerbation of depression and OCD symptoms. The patient follows treatment at the [facility] but he has refused any treatment at the [facility] due to past but experiences. Plan 1. Keep Lexapro 20 mg p.o. b.i.d. to target depression and OCD. 2. Keep Ensure t.i.d. but the patient is taking only once a day 3. Keep the dose of the p.r.n. Klonopin. 4. Keep Zyprexa 7.5 p.o. q.a.m. and 10 mg p.o. q.h.s. Weekend coverage: no changes made to primary med plan, pt continues to present with feelings of helplessness, hopelessness. Greater than 50% of the session was spent on counseling and/or coordination of care Reason for contiued inpatient stay Substantial Risk for: inability to function and med/psych decompensation
[2020-12-05] MEDS: OLANZapine 10 MG TABLET PO (20:19)
[2020-12-05] MEDS: Melatonin 3 MG TABLET 6 MG PO (20:19)
[2020-12-05] MEDS: hydrOXYzine HCL 25 MG TABLET PO (20:19)
[2020-12-06 06:00] VITALS: BP 124/71; PULSE 81; RESP 16; TEMP 36.1; O2SAT 99
[2020-12-06] MEDS: Thiamine HCL 100 MG TABLET PO (10:12)
[2020-12-06] MEDS: OLANZapine 7.5 MG TABLET PO (10:12)
[2020-12-06] MEDS: Folic Acid 1 MG TABLET PO (10:13)
[2020-12-06] MEDS: Escitalopram Oxalate 20 MG TABLET PO ×2 (10:13→21:04)
[2020-12-06] MEDS: Memantine HCl 5 MG TABLET PO (10:13)
[2020-12-06] MEDS: Atorvastatin Calcium 20 MG TABLET PO (10:13)
--- NOTE | 2020-12-06 12:46 | P.PNPSI_ITS ---
Subjective Subjective Date of Service: 12/06/20 Reason For Visit: OCD F42.2 Interim History: Patient seen and discussed with team. Patient evaluated this morning and upon interview he reports Im not very good but that I don't want to get into it, prefers to speak to primary psychiatris t. When T/W gently appreoached him again, he presented as agitated, stated I already said i dont want to talk. Has no questions or concerns. Says sleep was not good. Appetite is okay, ate meals.? In the milieu, patient is withdrawn and isolative in behavior. Denies SI/SIB/HI upon inquiry. Denies irritability or assaultive ideation. Says he feels safe. Mental Status Exam Mental Status Exam Narrative: Narrative:?Patient Appearance:?Disheveled and Unkempt Patient Orientation:?Person Level of Consciousness:?Awake Patient Behavior:?Guarded and Suspicious Mood Description:?Depressed Affect Description:?Constricted Patient Cognition Impaired:?No Ability to Follow Directions:?Fair Speech Pattern:?Clear Hallucinations:?None Delusions:?Not Present Thought Process:?Goal Oriented Thought Content:?positive for Intact Judgement:?Fair Diagnostics Vital Signs (24Hr): Vital Signs - 24 hr 12/05/20 18:00 12/06/20 06:00 Temperature 97.0 F 97.0 F Pulse Rate 80 81 Respiratory Rate 16 16 Blood Pressure 95/62 124/71 Pulse Oximetry 99 99 Body Mass Index 17.6 Labs Results: 11/18/20 06:38 11/18/20 06:38 Medications Medications Current Medications Acetaminophen (Acetaminophen 325 Mg Tablet) 650 mg PO Q6H PRN PRN Reason: Headache/Pain Mild Scale (1-3) Al Hydroxide/Mg Hydroxide (Magnesium Hydrox/Alum Hydrox 30 Ml Oral.Susp) 30 ml PO Q6H PRN PRN Reason: Heartburn/Nausea Artificial Tears (Artificial Tears 15 Ml Drops) 1 drop EYE-BOTH Q4H PRN PRN Reason: Dry Eyes Last Admin: 12/05/20 14:42 Dose: 1 drop Documented by: Atorvastatin Calcium (Atorvastatin Calcium 20 Mg Tablet) 20 mg PO DAILY [facility] Last Admin: 12/06/20 10:13 Dose: 20 mg Documented by: Clonazepam (Clonazepam 0.5 Mg Tablet) 0.5 mg PO TID PRN PRN Reason: Anxiety Last Admin: 12/05/20 20:20 Dose: 0.5 mg Documented by: Escitalopram Oxalate (Escitalopram Oxalate 20 Mg Tablet) 20 mg PO BID [facility] Last Admin: 12/06/20 10:13 Dose: 20 mg Documented by: Folic Acid (Folic Acid 1 Mg Tablet) 1 mg PO DAILY [facility] Last Admin: 12/06/20 10:13 Dose: 1 mg Documented by: Hydrocortisone (Hydrocortisone 2.5 % Rectal Cr 30 Gm Tube) 1 appl [place] BID PRN PRN Reason: hemorrhoids Hydroxyzine HCl (Hydroxyzine Hcl 25 Mg Tablet) 25 mg PO TID PRN PRN Reason: Anxiety Last Admin: 12/05/20 20:19 Dose: 25 mg Documented by: Magnesium Hydroxide (Milk Of Magnesia 30 Ml Oral.Susp) 30 ml PO DAILY PRN PRN Reason: Constipation Melatonin (Melatonin 3 Mg Tablet) 6 mg PO BEDTIME [facility] Last Admin: 12/05/20 20:19 Dose: 6 mg Documented by: Memantine (Memantine Hcl 5 Mg Tablet) 5 mg PO DAILY [facility] Last Admin: 12/06/20 10:13 Dose: 5 mg Documented by: Olanzapine (Olanzapine 10 Mg Tablet) 10 mg PO BEDTIME [facility] Last Admin: 12/05/20 20:19 Dose: 10 mg Documented by: Olanzapine (Olanzapine 7.5 Mg Tablet) 7.5 mg PO DAILY [facility] Last Admin: 12/06/20 10:12 Dose: 7.5 mg Documented by: Thiamine HCl (Thiamine Hcl 100 Mg Tablet) 100 mg PO DAILY [facility] Last Admin: 12/06/20 10:12 Dose: 100 mg Documented by: Trazodone HCl (Trazodone Hcl 50 Mg Tablet) 50 mg PO BEDTIME PRN PRN Reason: Insomnia Allergies Allergies Allergy/AdvReac Type Severity Reaction Status Date / Time azithromycin Allergy Itching Verified 11/16/20 21:17 buspirone Allergy Headache Verified 11/16/20 21:17 mirtazapine Allergy Unknown Verified 11/16/20 21:17 Assessment & Plan Assessment & Plan (1) Major depressive disorder, recurrent episode with melancholic features: Status: Acute Code(s): F33.9 - Major depressive disorder, recurrent, unspecified (2) Obsessive compulsive disorder: Status: Acute Code(s): F42.9 - Obsessive-compulsive disorder, unspecified (3) Hyperlipidemia: Status: Acute Code(s): E78.5 - Hyperlipidemia, unspecified Assessment and Plan: 70-year-old man admitted to Geriatric psych at [facility] transferred from [facility] due to exacerbation of depression and OCD symptoms. The patient follows treatment at the [facility] but he has refused any treatment at the [facility] due to past but experiences. Plan 1. Keep Lexapro 20 mg p.o. b.i.d. to target depression and OCD. 2. Keep Ensure t.i.d. but the patient is taking only once a day 3. Keep the dose of the p.r.n. Klonopin. 4. Keep Zyprexa 7.5 p.o. q.a.m. and 10 mg p.o. q.h.s. Weekend coverage: no changes in medication regimen, pt continues to present with sx of depression including helplessness, hopelessness. Greater than 50% of the session was spent on counseling and/or coordination of care Reason for contiued inpatient stay Substantial Risk for: inability to function and med/psych decompensation
[2020-12-06] MEDS: Artificial Tears 15 ML DROPS 1 DROP EYE-BOTH (13:54)
[2020-12-06 18:00] VITALS: BP 139/78; PULSE 71; RESP 16; TEMP 36.4; O2SAT 100
[2020-12-06] MEDS: OLANZapine 10 MG TABLET PO (21:04)
[2020-12-06] MEDS: Melatonin 3 MG TABLET 6 MG PO (21:04)
[2020-12-07] MEDS: Escitalopram Oxalate 20 MG TABLET PO ×2 (08:23→21:25)
[2020-12-07] MEDS: Memantine HCl 5 MG TABLET PO (08:23)
[2020-12-07] MEDS: Thiamine HCL 100 MG TABLET PO (08:23)
[2020-12-07] MEDS: Folic Acid 1 MG TABLET PO (08:23)
[2020-12-07] MEDS: Atorvastatin Calcium 20 MG TABLET PO (08:23)
[2020-12-07] MEDS: OLANZapine 7.5 MG TABLET PO (08:23)
[2020-12-07 09:30] VITALS: BP 109/71; PULSE 94; RESP 18; TEMP 36.6; O2SAT 100
--- NOTE | 2020-12-07 10:39 | P.PNPSI_ITS ---
Subjective Subjective Date of Service: 12/07/20 Reason For Visit: OCD F42.2 Subjective Notes: Conditional Voluntary Medication Compliance: Yes Side effects from medications: No Attending Groups: No Review of Systems Acute medical concerns: No Medical Review of Systems: unchanged Mental Status Exam Mental Status Exam Patient Appearance: Well Grooomed Patient Orientation: Person and Place Level of Consciousness: Awake and Restless Patient Behavior: Guarded and Suspicious Mood Description: Depressed Affect Description: Constricted Ability to Follow Directions: Good Speech Pattern: Clear Hallucinations: None Delusions: Not Present Thought Process: Linear and Evasive Thought Content: positive for Circumstantial Judgement: Fair Diagnostics Vital Signs (24Hr): Vital Signs - 24 hr 12/06/20 18:00 12/07/20 09:30 Temperature 97.6 F 97.8 F Pulse Rate 71 94 Respiratory Rate 16 18 Blood Pressure 139/78 109/71 Pulse Oximetry 100 100 Body Mass Index 17.6 Labs Results: 11/18/20 06:38 11/18/20 06:38 Medications Medications Current Medications Acetaminophen (Acetaminophen 325 Mg Tablet) 650 mg PO Q6H PRN PRN Reason: Headache/Pain Mild Scale (1-3) Al Hydroxide/Mg Hydroxide (Magnesium Hydrox/Alum Hydrox 30 Ml Oral.Susp) 30 ml PO Q6H PRN PRN Reason: Heartburn/Nausea Artificial Tears (Artificial Tears 15 Ml Drops) 1 drop EYE-BOTH Q4H PRN PRN Reason: Dry Eyes Last Admin: 12/06/20 13:54 Dose: 1 drop Documented by: Atorvastatin Calcium (Atorvastatin Calcium 20 Mg Tablet) 20 mg PO DAILY [facility] Last Admin: 12/07/20 08:23 Dose: 20 mg Documented by: Escitalopram Oxalate (Escitalopram Oxalate 20 Mg Tablet) 20 mg PO BID [facility] Last Admin: 12/07/20 08:23 Dose: 20 mg Documented by: Folic Acid (Folic Acid 1 Mg Tablet) 1 mg PO DAILY [facility] Last Admin: 12/07/20 08:23 Dose: 1 mg Documented by: Hydrocortisone (Hydrocortisone 2.5 % Rectal Cr 30 Gm Tube) 1 appl [place] BID PRN PRN Reason: hemorrhoids Hydroxyzine HCl (Hydroxyzine Hcl 25 Mg Tablet) 25 mg PO TID PRN PRN Reason: Anxiety Last Admin: 12/05/20 20:19 Dose: 25 mg Documented by: Magnesium Hydroxide (Milk Of Magnesia 30 Ml Oral.Susp) 30 ml PO DAILY PRN PRN Reason: Constipation Melatonin (Melatonin 3 Mg Tablet) 6 mg PO BEDTIME [facility] Last Admin: 12/06/20 21:04 Dose: 6 mg Documented by: Memantine (Memantine Hcl 5 Mg Tablet) 5 mg PO DAILY [facility] Last Admin: 12/07/20 08:23 Dose: 5 mg Documented by: Olanzapine (Olanzapine 10 Mg Tablet) 10 mg PO BEDTIME [facility] Last Admin: 12/06/20 21:04 Dose: 10 mg Documented by: Olanzapine (Olanzapine 7.5 Mg Tablet) 7.5 mg PO DAILY [facility] Last Admin: 12/07/20 08:23 Dose: 7.5 mg Documented by: Thiamine HCl (Thiamine Hcl 100 Mg Tablet) 100 mg PO DAILY [facility] Last Admin: 12/07/20 08:23 Dose: 100 mg Documented by: Trazodone HCl (Trazodone Hcl 50 Mg Tablet) 50 mg PO BEDTIME PRN PRN Reason: Insomnia Allergies Allergies Allergy/AdvReac Type Severity Reaction Status Date / Time azithromycin Allergy Itching Verified 11/16/20 21:17 buspirone Allergy Headache Verified 11/16/20 21:17 mirtazapine Allergy Unknown Verified 11/16/20 21:17 Assessment & Plan Assessment & Plan (1) Major depressive disorder, recurrent episode with melancholic features: Status: Acute Code(s): F33.9 - Major depressive disorder, recurrent, unspecified (2) Obsessive compulsive disorder: Status: Acute Code(s): F42.9 - Obsessive-compulsive disorder, unspecified (3) Hyperlipidemia: Status: Acute Code(s): E78.5 - Hyperlipidemia, unspecified Assessment and Plan: 70-year-old man admitted to Geriatric psych at [facility] from [facility] due to exacerbation of depression and OCD symptoms. The patient follows treatment at the [facility] but he has refused any treatment at the [facility] due to past but experiences. Plan 1. Keep same treatment. Greater than 50% of the session was spent on counseling and/or coordination of care Reason for contiued inpatient stay Substantial Risk for: inability to function, rapid decompensation and med/psych decompensation
--- NOTE | 2020-12-07 14:54 | MHC.CLN ---
F/U CONTINUES REGULAR DIET WITH ENSURE SUPPLEMENT TID. NO NEW NUTRITION CONCERNS REPORTED. RD TO FOLLOW WEEKLY.
[2020-12-07] MEDS: Artificial Tears 15 ML DROPS 1 DROP EYE-BOTH (16:07)
[2020-12-07] MEDS: Melatonin 3 MG TABLET 6 MG PO (21:25)
[2020-12-07] MEDS: OLANZapine 10 MG TABLET PO (21:25)
[2020-12-07 21:30] VITALS: BP 144/93; PULSE 76; RESP 18; TEMP 36.5; O2SAT 100
[2020-12-08] MEDS: Thiamine HCL 100 MG TABLET PO (08:58)
[2020-12-08] MEDS: Folic Acid 1 MG TABLET PO (08:58)
[2020-12-08] MEDS: Escitalopram Oxalate 20 MG TABLET PO ×2 (08:58→21:25)
[2020-12-08] MEDS: Atorvastatin Calcium 20 MG TABLET PO (08:58)
[2020-12-08] MEDS: Memantine HCl 5 MG TABLET PO (08:58)
[2020-12-08] MEDS: OLANZapine 7.5 MG TABLET PO (08:58)
[2020-12-08 09:00] VITALS: BP 106/67; PULSE 91; TEMP 35.7; O2SAT 99
--- NOTE | 2020-12-08 15:05 | P.PNPSI_ITS ---
Subjective Subjective Date of Service: 12/08/20 Reason For Visit: OCD F42.2 Subjective Notes: Conditional Voluntary Interim History: The nursing staff reports no changes in his mental status. On interview the patient reminds with depressive mood and obsessive-compulsive symptoms. Medication Compliance: Yes Side effects from medications: No Attending Groups: No Review of Systems Acute medical concerns: No Medical Review of Systems: unchanged Mental Status Exam Mental Status Exam Patient Appearance: Well Grooomed Patient Orientation: Person, Place and Situation Level of Consciousness: Awake Patient Behavior: Guarded and Suspicious Mood Description: Depressed Affect Description: Constricted Ability to Follow Directions: Fair Speech Pattern: Clear Hallucinations: None Delusions: Paranoid Ideation Thought Process: Distracted Thought Content: positive for Perseveration, positive for Poverty of Content and positive for Thought Blocking Judgement: Fair Diagnostics Vital Signs (24Hr): Vital Signs - 24 hr 12/07/20 21:30 12/08/20 09:00 Temperature 97.7 F 96.2 F L Pulse Rate 76 91 Respiratory Rate 18 Blood Pressure 144/93 H 106/67 Pulse Oximetry 100 99 Body Mass Index 17.6 Labs Results: 11/18/20 06:38 11/18/20 06:38 Medications Medications Current Medications Acetaminophen (Acetaminophen 325 Mg Tablet) 650 mg PO Q6H PRN PRN Reason: Headache/Pain Mild Scale (1-3) Al Hydroxide/Mg Hydroxide (Magnesium Hydrox/Alum Hydrox 30 Ml Oral.Susp) 30 ml PO Q6H PRN PRN Reason: Heartburn/Nausea Artificial Tears (Artificial Tears 15 Ml Drops) 1 drop EYE-BOTH Q4H PRN PRN Reason: Dry Eyes Last Admin: 12/07/20 16:07 Dose: 1 drop Documented by: Atorvastatin Calcium (Atorvastatin Calcium 20 Mg Tablet) 20 mg PO DAILY [facility] Last Admin: 12/08/20 08:58 Dose: 20 mg Documented by: Escitalopram Oxalate (Escitalopram Oxalate 20 Mg Tablet) 20 mg PO BID [facility] Last Admin: 12/08/20 08:58 Dose: 20 mg Documented by: Folic Acid (Folic Acid 1 Mg Tablet) 1 mg PO DAILY [facility] Last Admin: 12/08/20 08:58 Dose: 1 mg Documented by: Hydrocortisone (Hydrocortisone 2.5 % Rectal Cr 30 Gm Tube) 1 appl [place] BID PRN PRN Reason: hemorrhoids Hydroxyzine HCl (Hydroxyzine Hcl 25 Mg Tablet) 25 mg PO TID PRN PRN Reason: Anxiety Last Admin: 12/05/20 20:19 Dose: 25 mg Documented by: Magnesium Hydroxide (Milk Of Magnesia 30 Ml Oral.Susp) 30 ml PO DAILY PRN PRN Reason: Constipation Melatonin (Melatonin 3 Mg Tablet) 6 mg PO BEDTIME [facility] Last Admin: 12/07/20 21:25 Dose: 6 mg Documented by: Memantine (Memantine Hcl 5 Mg Tablet) 5 mg PO DAILY [facility] Last Admin: 12/08/20 08:58 Dose: 5 mg Documented by: Olanzapine (Olanzapine 10 Mg Tablet) 10 mg PO BEDTIME [facility] Last Admin: 12/07/20 21:25 Dose: 10 mg Documented by: Olanzapine (Olanzapine 7.5 Mg Tablet) 7.5 mg PO DAILY [facility] Last Admin: 12/08/20 08:58 Dose: 7.5 mg Documented by: Thiamine HCl (Thiamine Hcl 100 Mg Tablet) 100 mg PO DAILY [facility] Last Admin: 12/08/20 08:58 Dose: 100 mg Documented by: Trazodone HCl (Trazodone Hcl 50 Mg Tablet) 50 mg PO BEDTIME PRN PRN Reason: Insomnia Allergies Allergies Allergy/AdvReac Type Severity Reaction Status Date / Time azithromycin Allergy Itching Verified 11/16/20 21:17 buspirone Allergy Headache Verified 11/16/20 21:17 mirtazapine Allergy Unknown Verified 11/16/20 21:17 Assessment & Plan Assessment & Plan (1) Major depressive disorder, recurrent episode with melancholic features: Status: Acute Code(s): F33.9 - Major depressive disorder, recurrent, unspecified (2) Obsessive compulsive disorder: Status: Acute Code(s): F42.9 - Obsessive-compulsive disorder, unspecified (3) Hyperlipidemia: Status: Acute Code(s): E78.5 - Hyperlipidemia, unspecified Assessment and Plan: 70-year-old man admitted to Geriatric psych at [facility] transferred from [facility] due to exacerbation of depression and OCD symptoms. The patient [facility] but [facility]. Plan 1. Keep same treatment. I spent minutes with the patient and/or on the patient floor today, greater than?50% of which was spent counseling/coordinating care. Reason for contiued inpatient stay Substantial Risk for: inability to function, rapid decompensation and med/psych decompensation
[2020-12-08 20:58] VITALS: BP 131/82; PULSE 82; RESP 20; TEMP 36.3; O2SAT 100
[2020-12-08] MEDS: OLANZapine 10 MG TABLET PO (21:25)
[2020-12-08] MEDS: Melatonin 3 MG TABLET 6 MG PO (21:25)
[2020-12-08] MEDS: hydrOXYzine HCL 25 MG TABLET PO (23:33)
[2020-12-09 06:00] VITALS: BP 123/62; PULSE 88; TEMP 36.8; O2SAT 92
[2020-12-09] MEDS: Memantine HCl 5 MG TABLET PO (08:08)
[2020-12-09] MEDS: Folic Acid 1 MG TABLET PO (08:08)
[2020-12-09] MEDS: Escitalopram Oxalate 20 MG TABLET PO ×2 (08:08→20:21)
[2020-12-09] MEDS: Atorvastatin Calcium 20 MG TABLET PO (08:08)
[2020-12-09] MEDS: Thiamine HCL 100 MG TABLET PO (08:08)
[2020-12-09] MEDS: OLANZapine 7.5 MG TABLET PO (08:08)
[2020-12-09] MEDS: clonazePAM 0.5 MG TABLET PO ×2 (14:56→22:10)
--- NOTE | 2020-12-09 15:47 | P.PNPSI_ITS ---
Subjective Subjective Date of Service: 12/09/20 Reason For Visit: OCD F42.2 Subjective Notes: Conditional Voluntary Interim History: The nursing staff reports no change in his mental status, yesterday he used all the toilet paper in his room. Yesterday, the staff d iscussed the possibility of other treatment options such as ECT and he refused any other intervention. On interview, the patient denies new symptoms, he is unable to take care by himself without help due to his OCD symptoms that has not respond to previous trials. We are waiting for placement Medication Compliance: Yes Side effects from medications: No Attending Groups: Intermittent Review of Systems Acute medical concerns: No Medical Review of Systems: unchanged Mental Status Exam Mental Status Exam Patient Appearance: Disheveled and Unkempt Patient Orientation: Person and Situation Level of Consciousness: Awake Patient Behavior: Guarded and Suspicious Mood Description: Depressed Affect Description: Constricted Ability to Follow Directions: Fair Speech Pattern: Monotone Hallucinations: None Delusions: Paranoid Ideation Thought Process: Linear Thought Content: positive for Perseveration and positive for Poverty of Content Judgement: Fair Diagnostics Vital Signs (24Hr): Vital Signs - 24 hr 12/08/20 20:58 12/09/20 06:00 Temperature 97.4 F 98.3 F Pulse Rate 82 88 Respiratory Rate 20 Blood Pressure 131/82 123/62 Pulse Oximetry 100 92 Body Mass Index 17.6 Labs Results: 11/18/20 06:38 11/18/20 06:38 Medications Medications Current Medications Acetaminophen (Acetaminophen 325 Mg Tablet) 650 mg PO Q6H PRN PRN Reason: Headache/Pain Mild Scale (1-3) Al Hydroxide/Mg Hydroxide (Magnesium Hydrox/Alum Hydrox 30 Ml Oral.Susp) 30 ml PO Q6H PRN PRN Reason: Heartburn/Nausea Artificial Tears (Artificial Tears 15 Ml Drops) 1 drop EYE-BOTH Q4H PRN PRN Reason: Dry Eyes Last Admin: 12/07/20 16:07 Dose: 1 drop Documented by: Atorvastatin Calcium (Atorvastatin Calcium 20 Mg Tablet) 20 mg PO DAILY [facility] Last Admin: 12/09/20 08:08 Dose: 20 mg Documented by: Clonazepam (Clonazepam 0.5 Mg Tablet) 0.5 mg PO TID PRN PRN Reason: Anxiety Last Admin: 12/09/20 14:56 Dose: 0.5 mg Documented by: Escitalopram Oxalate (Escitalopram Oxalate 20 Mg Tablet) 20 mg PO BID [facility] Last Admin: 12/09/20 08:08 Dose: 20 mg Documented by: Folic Acid (Folic Acid 1 Mg Tablet) 1 mg PO DAILY [facility] Last Admin: 12/09/20 08:08 Dose: 1 mg Documented by: Hydrocortisone (Hydrocortisone 2.5 % Rectal Cr 30 Gm Tube) 1 appl [place] BID PRN PRN Reason: hemorrhoids Hydroxyzine HCl (Hydroxyzine Hcl 25 Mg Tablet) 25 mg PO TID PRN PRN Reason: Anxiety Last Admin: 12/08/20 23:33 Dose: 25 mg Documented by: Magnesium Hydroxide (Milk Of Magnesia 30 Ml Oral.Susp) 30 ml PO DAILY PRN PRN Reason: Constipation Melatonin (Melatonin 3 Mg Tablet) 6 mg PO BEDTIME [facility] Last Admin: 12/08/20 21:25 Dose: 6 mg Documented by: Memantine (Memantine Hcl 5 Mg Tablet) 5 mg PO DAILY [facility] Last Admin: 12/09/20 08:08 Dose: 5 mg Documented by: Olanzapine (Olanzapine 10 Mg Tablet) 10 mg PO BEDTIME [facility] Last Admin: 12/08/20 21:25 Dose: 10 mg Documented by: Olanzapine (Olanzapine 7.5 Mg Tablet) 7.5 mg PO DAILY [facility] Last Admin: 12/09/20 08:08 Dose: 7.5 mg Documented by: Thiamine HCl (Thiamine Hcl 100 Mg Tablet) 100 mg PO DAILY [facility] Last Admin: 12/09/20 08:08 Dose: 100 mg Documented by: Trazodone HCl (Trazodone Hcl 50 Mg Tablet) 50 mg PO BEDTIME PRN PRN Reason: Insomnia Allergies Allergies Allergy/AdvReac Type Severity Reaction Status Date / Time azithromycin Allergy Itching Verified 11/16/20 21:17 buspirone Allergy Headache Verified 11/16/20 21:17 mirtazapine Allergy Unknown Verified 11/16/20 21:17 Assessment & Plan Assessment & Plan (1) Major depressive disorder, recurrent episode with melancholic features: Status: Acute Code(s): F33.9 - Major depressive disorder, recurrent, unspecified (2) Obsessive compulsive disorder: Status: Acute Code(s): F42.9 - Obsessive-compulsive disorder, unspecified (3) Hyperlipidemia: Status: Acute Code(s): E78.5 - Hyperlipidemia, unspecified Assessment and Plan: 70-year-old man admitted to Geriatric psych at [facility] transferred from [facility] due to exacerbation of depression and OCD symptoms. [facility] but [facility]. Plan 1. Keep same treatment. I spent minutes with the patient and/or on the patient floor today, greater than?50% of which was spent counseling/coordinating care. Reason for contiued inpatient stay Substantial Risk for: inability to function, rapid decompensation and med/psych decompensation
[2020-12-09] MEDS: Melatonin 3 MG TABLET 6 MG PO (20:21)
[2020-12-09] MEDS: OLANZapine 10 MG TABLET PO (20:21)
[2020-12-09 21:00] VITALS: BP 140/93; PULSE 86; RESP 18; TEMP 36.4; O2SAT 95
[2020-12-10] MEDS: Memantine HCl 5 MG TABLET PO (08:40)
[2020-12-10] MEDS: Atorvastatin Calcium 20 MG TABLET PO (08:40)
[2020-12-10] MEDS: OLANZapine 7.5 MG TABLET PO (08:40)
[2020-12-10] MEDS: Escitalopram Oxalate 20 MG TABLET PO ×2 (08:40→20:23)
[2020-12-10] MEDS: Thiamine HCL 100 MG TABLET PO (08:41)
[2020-12-10] MEDS: Folic Acid 1 MG TABLET PO (08:41)
[2020-12-10 08:51] VITALS: BP 125/82; PULSE 97; TEMP 35.5; O2SAT 99
[2020-12-10] MEDS: Acetaminophen 325 MG TABLET 650 MG PO (10:54)
[2020-12-10] MEDS: Magnesium Hydrox/Alum Hydrox 30 ML ORAL.SUSP PO (10:56)
--- NOTE | 2020-12-10 12:09 | P.PNPSI_ITS ---
Subjective Subjective Date of Service: 12/10/20 Reason For Visit: OCD F42.2 Subjective Notes: Conditional Voluntary Interim History: The nursing staff reports that he stills with OCD symptoms still perseverative and washing his hands frequently. He responds to verbal redirection but still he seclusive. On interview, the patient reports depression and he is worried about his disposition. He refused other interventions for OCD. Medication Compliance: Yes Side effects from medications: No Attending Groups: Intermittent Review of Systems Acute medical concerns: No Medical Review of Systems: unchanged Mental Status Exam Mental Status Exam Patient Appearance: Disheveled (very thin) and Unkempt Patient Orientation: Person, Place and Situation Level of Consciousness: Awake and Restless Patient Behavior: Passive, Suspicious and Avoidant Mood Description: Depressed Affect Description: Constricted Ability to Follow Directions: Good Speech Pattern: Clear Hallucinations: None Thought Process: Goal Oriented Judgement: Fair Diagnostics Vital Signs (24Hr): Vital Signs - 24 hr 12/09/20 21:00 12/10/20 08:51 Temperature 97.6 F 96 F L Pulse Rate 86 97 Respiratory Rate 18 Blood Pressure 140/93 H 125/82 Pulse Oximetry 95 99 Body Mass Index 17.6 Labs Results: 11/18/20 06:38 11/18/20 06:38 Medications Medications Current Medications Acetaminophen (Acetaminophen 325 Mg Tablet) 650 mg PO Q6H PRN PRN Reason: Headache/Pain Mild Scale (1-3) Last Admin: 12/10/20 10:54 Dose: 650 mg Documented by: Al Hydroxide/Mg Hydroxide (Magnesium Hydrox/Alum Hydrox 30 Ml Oral.Susp) 30 ml PO Q6H PRN PRN Reason: Heartburn/Nausea Last Admin: 12/10/20 10:56 Dose: 30 ml Documented by: Artificial Tears (Artificial Tears 15 Ml Drops) 1 drop EYE-BOTH Q4H PRN PRN Reason: Dry Eyes Last Admin: 12/07/20 16:07 Dose: 1 drop Documented by: Atorvastatin Calcium (Atorvastatin Calcium 20 Mg Tablet) 20 mg PO DAILY [facility] Last Admin: 12/10/20 08:40 Dose: 20 mg Documented by: Clonazepam (Clonazepam 0.5 Mg Tablet) 0.5 mg PO TID PRN PRN Reason: Anxiety Last Admin: 12/09/20 22:10 Dose: 0.5 mg Documented by: Escitalopram Oxalate (Escitalopram Oxalate 20 Mg Tablet) 20 mg PO BID [facility] Last Admin: 12/10/20 08:40 Dose: 20 mg Documented by: Folic Acid (Folic Acid 1 Mg Tablet) 1 mg PO DAILY [facility] Last Admin: 12/10/20 08:41 Dose: 1 mg Documented by: Hydrocortisone (Hydrocortisone 2.5 % Rectal Cr 30 Gm Tube) 1 appl [place] BID PRN PRN Reason: hemorrhoids Hydroxyzine HCl (Hydroxyzine Hcl 25 Mg Tablet) 25 mg PO TID PRN PRN Reason: Anxiety Last Admin: 12/08/20 23:33 Dose: 25 mg Documented by: Magnesium Hydroxide (Milk Of Magnesia 30 Ml Oral.Susp) 30 ml PO DAILY PRN PRN Reason: Constipation Melatonin (Melatonin 3 Mg Tablet) 6 mg PO BEDTIME [facility] Last Admin: 12/09/20 20:21 Dose: 6 mg Documented by: Memantine (Memantine Hcl 5 Mg Tablet) 5 mg PO DAILY [facility] Last Admin: 12/10/20 08:40 Dose: 5 mg Documented by: Olanzapine (Olanzapine 10 Mg Tablet) 10 mg PO BEDTIME [facility] Last Admin: 12/09/20 20:21 Dose: 10 mg Documented by: Olanzapine (Olanzapine 7.5 Mg Tablet) 7.5 mg PO DAILY [facility] Last Admin: 12/10/20 08:40 Dose: 7.5 mg Documented by: Thiamine HCl (Thiamine Hcl 100 Mg Tablet) 100 mg PO DAILY [facility] Last Admin: 12/10/20 08:41 Dose: 100 mg Documented by: Trazodone HCl (Trazodone Hcl 50 Mg Tablet) 50 mg PO BEDTIME PRN PRN Reason: Insomnia Allergies Allergies Allergy/AdvReac Type Severity Reaction Status Date / Time azithromycin Allergy Itching Verified 11/16/20 21:17 buspirone Allergy Headache Verified 11/16/20 21:17 mirtazapine Allergy Unknown Verified 11/16/20 21:17 Assessment & Plan Assessment & Plan (1) Major depressive disorder, recurrent episode with melancholic features: Status: Acute Code(s): F33.9 - Major depressive disorder, recurrent, unspecified (2) Obsessive compulsive disorder: Status: Acute Code(s): F42.9 - Obsessive-compulsive disorder, unspecified (3) Hyperlipidemia: Status: Acute Code(s): E78.5 - Hyperlipidemia, unspecified Assessment and Plan: 70-year-old man admitted to Geriatric psych at [facility] transferred from [facility] due to exacerbation of depression and OCD symptoms. [facility] due to past but experiences. Plan 1. Keep same treatment. 2. [facility]. I spent minutes with the patient and/or on the patient floor today, greater than?50% of which was spent counseling/coordinating care. Reason for contiued inpatient stay Substantial Risk for: inability to function, rapid decompensation and med/psych decompensation
[2020-12-10] MEDS: Artificial Tears 15 ML DROPS 1 DROP EYE-BOTH (14:38)
[2020-12-10 20:00] VITALS: BP 139/79; PULSE 91; RESP 16; TEMP 36.6; O2SAT 95
[2020-12-10] MEDS: clonazePAM 0.5 MG TABLET PO (20:23)
[2020-12-10] MEDS: OLANZapine 10 MG TABLET PO (20:23)
[2020-12-10] MEDS: Melatonin 3 MG TABLET 6 MG PO (20:23)
[2020-12-10] MEDS: Loperamide HCl 2 MG CAPSULE PO (22:50)
[2020-12-10] MEDS: traZODone HCL 50 MG TABLET PO (22:53)
[2020-12-11 06:00] VITALS: BP 118/68; PULSE 60; TEMP 36.9; O2SAT 98
[2020-12-11] MEDS: OLANZapine 7.5 MG TABLET PO (08:03)
[2020-12-11] MEDS: Folic Acid 1 MG TABLET PO (08:03)
[2020-12-11] MEDS: hydrOXYzine HCL 25 MG TABLET PO ×2 (08:03→13:04)
[2020-12-11] MEDS: Atorvastatin Calcium 20 MG TABLET PO (08:03)
[2020-12-11] MEDS: Memantine HCl 5 MG TABLET PO (08:03)
[2020-12-11] MEDS: Escitalopram Oxalate 20 MG TABLET PO ×2 (08:03→20:45)
[2020-12-11] MEDS: clonazePAM 0.5 MG TABLET PO ×3 (08:03→20:44)
[2020-12-11] MEDS: Thiamine HCL 100 MG TABLET PO (08:03)
[2020-12-11] MEDS: Loperamide HCl 2 MG CAPSULE PO ×3 (08:03→20:43)
--- NOTE | 2020-12-11 13:59 | P.PNPSI_ITS ---
Subjective Subjective Date of Service: 12/11/20 Reason For Visit: OCD F42.2 Subjective Notes: Conditional Voluntary Interim History: The nursing staff reported the patient has loose stools that he has been awake all night long very obsessive. He has took Imodium but so far he is very anxious. On interview, the patient was dysphoric and at baseline with OCD behaviors We will order new bloodwork for Monday. Medication Compliance: Yes Side effects from medications: No Attending Groups: No Review of Systems Acute medical concerns: No Medical Review of Systems: unchanged Review of Systems Review of Systems Yes all other systems are reviewed and are negative Mental Status Exam Mental Status Exam Patient Appearance: Unkempt Patient Orientation: Person, Place and Situation Level of Consciousness: Awake, Restless and Alert Patient Behavior: Guarded Mood Description: Constricted Affect Description: Constricted Ability to Follow Directions: Fair Speech Pattern: Rapid Hallucinations: None Delusions: Paranoid Ideation Thought Process: Evasive Thought Content: positive for Perseveration and positive for Poverty of Content Judgement: Fair Diagnostics Vital Signs (24Hr): Vital Signs - 24 hr 12/10/20 20:00 12/11/20 06:00 Temperature 97.8 F 98.4 F Pulse Rate 91 60 Respiratory Rate 16 Blood Pressure 139/79 118/68 Pulse Oximetry 95 98 Body Mass Index 17.6 Labs Results: 11/18/20 06:38 11/18/20 06:38 Medications Medications Current Medications Acetaminophen (Acetaminophen 325 Mg Tablet) 650 mg PO Q6H PRN PRN Reason: Headache/Pain Mild Scale (1-3) Last Admin: 12/10/20 10:54 Dose: 650 mg Documented by: Al Hydroxide/Mg Hydroxide (Magnesium Hydrox/Alum Hydrox 30 Ml Oral.Susp) 30 ml PO Q6H PRN PRN Reason: Heartburn/Nausea Last Admin: 12/10/20 10:56 Dose: 30 ml Documented by: Artificial Tears (Artificial Tears 15 Ml Drops) 1 drop EYE-BOTH Q4H PRN PRN Reason: Dry Eyes Last Admin: 12/10/20 14:38 Dose: 1 drop Documented by: Atorvastatin Calcium (Atorvastatin Calcium 20 Mg Tablet) 20 mg PO DAILY [facility] Last Admin: 12/11/20 08:03 Dose: 20 mg Documented by: Clonazepam (Clonazepam 0.5 Mg Tablet) 0.5 mg PO TID PRN PRN Reason: Anxiety Last Admin: 12/11/20 08:03 Dose: 0.5 mg Documented by: Escitalopram Oxalate (Escitalopram Oxalate 20 Mg Tablet) 20 mg PO BID [facility] Last Admin: 12/11/20 08:03 Dose: 20 mg Documented by: Folic Acid (Folic Acid 1 Mg Tablet) 1 mg PO DAILY [facility] Last Admin: 12/11/20 08:03 Dose: 1 mg Documented by: Hydrocortisone (Hydrocortisone 2.5 % Rectal Cr 30 Gm Tube) 1 appl [place] BID PRN PRN Reason: hemorrhoids Hydroxyzine HCl (Hydroxyzine Hcl 25 Mg Tablet) 25 mg PO TID PRN PRN Reason: Anxiety Last Admin: 12/11/20 13:04 Dose: 25 mg Documented by: Loperamide HCl (Loperamide Hcl 2 Mg Capsule) 2 mg PO Q4H PRN PRN Reason: Diarrhea Last Admin: 12/11/20 13:04 Dose: 2 mg Documented by: Magnesium Hydroxide (Milk Of Magnesia 30 Ml Oral.Susp) 30 ml PO DAILY PRN PRN Reason: Constipation Melatonin (Melatonin 3 Mg Tablet) 6 mg PO BEDTIME [facility] Last Admin: 12/10/20 20:23 Dose: 6 mg Documented by: Memantine (Memantine Hcl 5 Mg Tablet) 5 mg PO DAILY [facility] Last Admin: 12/11/20 08:03 Dose: 5 mg Documented by: Olanzapine (Olanzapine 10 Mg Tablet) 10 mg PO BEDTIME [facility] Last Admin: 12/10/20 20:23 Dose: 10 mg Documented by: Olanzapine (Olanzapine 7.5 Mg Tablet) 7.5 mg PO DAILY [facility] Last Admin: 12/11/20 08:03 Dose: 7.5 mg Documented by: Thiamine HCl (Thiamine Hcl 100 Mg Tablet) 100 mg PO DAILY [facility] Last Admin: 12/11/20 08:03 Dose: 100 mg Documented by: Trazodone HCl (Trazodone Hcl 50 Mg Tablet) 50 mg PO BEDTIME PRN PRN Reason: Insomnia Last Admin: 12/10/20 22:53 Dose: 50 mg Documented by: Allergies Allergies Allergy/AdvReac Type Severity Reaction Status Date / Time azithromycin Allergy Itching Verified 11/16/20 21:17 buspirone Allergy Headache Verified 11/16/20 21:17 mirtazapine Allergy Unknown Verified 11/16/20 21:17 Assessment & Plan Assessment & Plan (1) Major depressive disorder, recurrent episode with melancholic features: Status: Acute Code(s): F33.9 - Major depressive disorder, recurrent, unspecified (2) Obsessive compulsive disorder: Status: Acute Code(s): F42.9 - Obsessive-compulsive disorder, unspecified (3) Hyperlipidemia: Status: Acute Code(s): E78.5 - Hyperlipidemia, unspecified Assessment and Plan: 70-year-old man admitted to Geriatric psych at [facility] transferred from [facility] due to exacerbation of depression and OCD symptoms. [facility] due to past but experiences. Plan 1. Keep same treatment. 2. [facility]. I spent minutes with the patient and/or on the patient floor today, greater than?50% of which was spent counseling/coordinating care. Reason for contiued inpatient stay Substantial Risk for: inability to function, rapid decompensation and med/psych decompensation
[2020-12-11 20:00] VITALS: BP 128/72; PULSE 88; RESP 18; TEMP 36.6; O2SAT 98
[2020-12-11] MEDS: OLANZapine 10 MG TABLET PO (20:43)
[2020-12-11] MEDS: Melatonin 3 MG TABLET 6 MG PO (20:43)
[2020-12-12 06:00] VITALS: BP 122/68; PULSE 60; TEMP 36.9; O2SAT 98
[2020-12-12 08:20] LABS: Basophils Percent Auto 0.2 % (0-2); Imm Gran Abs Auto 0.01 X10*3/uL (0.00-0.03); Imm Gran Pct Auto 0.2 % (0.0-0.4); MANUAL DIFF FLAG SCAN; PLT CLUMP 1; Red Cell Distribution Width 13.4 % (11.0-16.0); SCAN SMEAR FLAG 1
[2020-12-12] MEDS: hydrOXYzine HCL 25 MG TABLET PO (08:21)
[2020-12-12] MEDS: Memantine HCl 5 MG TABLET PO (08:21)
[2020-12-12] MEDS: Atorvastatin Calcium 20 MG TABLET PO (08:21)
[2020-12-12] MEDS: Thiamine HCL 100 MG TABLET PO (08:21)
[2020-12-12] MEDS: OLANZapine 7.5 MG TABLET PO (08:21)
[2020-12-12] MEDS: clonazePAM 0.5 MG TABLET PO ×2 (08:21→20:57)
[2020-12-12] MEDS: Escitalopram Oxalate 20 MG TABLET PO ×2 (08:21→20:57)
[2020-12-12] MEDS: Folic Acid 1 MG TABLET PO (08:21)
[2020-12-12] MEDS: Loperamide HCl 2 MG CAPSULE PO ×2 (08:21→20:57)
[2020-12-12 08:22] LABS: Eosinophils Percent Auto 0.7 % (0-4); Hematocrit 37.1 % (42-52); Hemoglobin 12.4 g/dl (14.0-18.0); Lymphocytes Absolute Auto 1.1 X10*3/uL (1.2-4.9); Lymphocytes Percent Auto 23.7 % (20-40); Mean Corpuscular HGB Conc 33.4 g/dl (31.0-36.0); Mean Corpuscular Hemoglobin 33.1 pg (27.0-33.0); Mean Corpuscular Volume 98.9 fL (80-98); Mean Platelet Volume 9.4 fL (9.4-12.4); Monocytes Absolute Auto 0.5 X10*3/uL (0.1-1.2); Neutrophils Percent Auto 65.2 % (45-73); Platelet Count 150 X10*3/uL (160-400); Red Blood Count 3.75 X10*6/uL (4.60-5.80); White Blood Count 4.6 X10*3/uL (4.8-10.8)
[2020-12-12 08:34] LABS: Anion Gap 10 (12-20); Blood Urea Nitrogen 20 mg/dL (9-16); Calcium 8.8 mg/dL (8.4-10.2); Carbon Dioxide 32 mmol/L (22-29); Chloride 104 mmol/L (96-108); Creatinine Clr Calc Pharmacy 84.5; Estimated Glomerular Filt Rate > 60; Glucose Random 79 mg/dL (60-115); Sodium 142 mmol/L (135-145)
--- NOTE | 2020-12-12 12:37 | HO.PSYCHPN ---
Subjective Subjective Date of Service: 12/12/20 Reason For Visit: OCD F42.2 Interim History: The nursing staff reported the patient has loose stools. On Imodium. Continues obsessive. Perseverating on his BM's. Washes excessively. Refuses to have bowel movement in the hat so it can b e sent for analysis. 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 Bloodwork reviewed. Medication Compliance: Yes Side effects from medications: No Attending Groups: No Review of Systems Acute medical concerns: No Medical Review of Systems: unchanged Review of Systems Review of Systems Denies any recent fever chills or decrease in appetite respiratory denies any shortness of breath coverage production cardiovascular denies chest pain gastrointestinal denies any dysphagia abdominal pain nausea vomiting or diarrhea genitourinary denies any dysuria frequency or hematuria musculoskeletal denies any joint pain or swelling neuropsych denies any weakness or seizures all other systems reviewed are negative Yes all other systems are reviewed and are negative Mental Status Exam Mental Status Exam Narrative: Narrative:?Patient Appearance:?Disheveled and Unkempt Patient Orientation:?Person Level of Consciousness:?Awake Patient Behavior:?Guarded and Suspicious Mood Description:?Depressed Affect Description:?Constricted Patient Cognition Impaired:?No Ability to Follow Directions:?Fair Speech Pattern:?Clear Hallucinations:?None Delusions:?Not Present Thought Process:?Goal Oriented Thought Content:?positive for Intact Judgement:?Fair Patient Appearance: Unkempt Patient Orientation: Person, Place and Situation Level of Consciousness: Awake, Restless and Alert Patient Behavior: Guarded Mood Description: Constricted Affect Description: Constricted Patient Cognition Impaired: No Ability to Follow Directions: Fair Speech Pattern: Rapid Memory Description: Intact Diagnostics Vital Signs (24Hr): Vital Signs - 24 hr 12/11/20 20:00 12/12/20 06:00 Temperature 97.9 F 98.4 F Pulse Rate 88 60 Respiratory Rate 18 Blood Pressure 128/72 122/68 Pulse Oximetry 98 98 Body Mass Index 17.6 Labs Results: 12/12/20 08:10 12/12/20 08:10 Labs: Laboratory Results - last 48 hr 12/12/20 12/12/20 08:10 08:10 WBC 4.6 L RBC 3.75 L Hgb 12.4 L Hct 37.1 L MCV 98.9 H MCH 33.1 H MCHC 33.4 RDW 13.4 Plt Count 150 L D MPV 9.4 Immature Gran % (Auto) 0.2 Neut % (Auto) 65.2 Lymph % (Auto) 23.7 [place] % (Auto) 10.0 Eos % (Auto) 0.7 Baso % (Auto) 0.2 Lymph # (Auto) 1.1 L [place] # (Auto) 0.5 Eos # (Auto) 0.0 Baso # (Auto) 0.0 Abs Immat Gran (auto) 0.01 Absolute Neuts (auto) 3.0 Absolute Nucleated RBC 0.000 Nucleated RBC % (auto) 0.0 Smear Tech's Comments Not Reportable Sodium 142 Potassium 4.0 Chloride 104 Carbon Dioxide 32 H Anion Gap 10 L BUN 20 H Creatinine 0.66 Estim Creat Clear Calc 84.5 Estimated GFR > 60 Random Glucose 79 Calcium 8.8 Medications Medications Current Medications Acetaminophen (Acetaminophen 325 Mg Tablet) 650 mg PO Q6H PRN PRN Reason: Headache/Pain Mild Scale (1-3) Last Admin: 12/10/20 10:54 Dose: 650 mg Documented by: Al Hydroxide/Mg Hydroxide (Magnesium Hydrox/Alum Hydrox 30 Ml Oral.Susp) 30 ml PO Q6H PRN PRN Reason: Heartburn/Nausea Last Admin: 12/10/20 10:56 Dose: 30 ml Documented by: Artificial Tears (Artificial Tears 15 Ml Drops) 1 drop EYE-BOTH Q4H PRN PRN Reason: Dry Eyes Last Admin: 12/10/20 14:38 Dose: 1 drop Documented by: Atorvastatin Calcium (Atorvastatin Calcium 20 Mg Tablet) 20 mg PO DAILY [facility] Last Admin: 12/12/20 08:21 Dose: 20 mg Documented by: Clonazepam (Clonazepam 0.5 Mg Tablet) 0.5 mg PO TID PRN PRN Reason: Anxiety Last Admin: 12/12/20 08:21 Dose: 0.5 mg Documented by: Escitalopram Oxalate (Escitalopram Oxalate 20 Mg Tablet) 20 mg PO BID [facility] Last Admin: 12/12/20 08:21 Dose: 20 mg Documented by: Folic Acid (Folic Acid 1 Mg Tablet) 1 mg PO DAILY [facility] Last Admin: 12/12/20 08:21 Dose: 1 mg Documented by: Hydrocortisone (Hydrocortisone 2.5 % Rectal Cr 30 Gm Tube) 1 appl [place] BID PRN PRN Reason: hemorrhoids Hydroxyzine HCl (Hydroxyzine Hcl 25 Mg Tablet) 25 mg PO TID PRN PRN Reason: Anxiety Last Admin: 12/12/20 08:21 Dose: 25 mg Documented by: Loperamide HCl (Loperamide Hcl 2 Mg Capsule) 2 mg PO Q4H PRN PRN Reason: Diarrhea Last Admin: 12/12/20 08:21 Dose: 2 mg Documented by: Magnesium Hydroxide (Milk Of Magnesia 30 Ml Oral.Susp) 30 ml PO DAILY PRN PRN Reason: Constipation Melatonin (Melatonin 3 Mg Tablet) 6 mg PO BEDTIME [facility] Last Admin: 12/11/20 20:43 Dose: 6 mg Documented by: Memantine (Memantine Hcl 5 Mg Tablet) 5 mg PO DAILY [facility] Last Admin: 12/12/20 08:21 Dose: 5 mg Documented by: Olanzapine (Olanzapine 10 Mg Tablet) 10 mg PO BEDTIME [facility] Last Admin: 12/11/20 20:43 Dose: 10 mg Documented by: Olanzapine (Olanzapine 7.5 Mg Tablet) 7.5 mg PO DAILY [facility] Last Admin: 12/12/20 08:21 Dose: 7.5 mg Documented by: Thiamine HCl (Thiamine Hcl 100 Mg Tablet) 100 mg PO DAILY [facility] Last Admin: 12/12/20 08:21 Dose: 100 mg Documented by: Trazodone HCl (Trazodone Hcl 50 Mg Tablet) 50 mg PO BEDTIME PRN PRN Reason: Insomnia Last Admin: 12/10/20 22:53 Dose: 50 mg Documented by: Allergies Allergies Allergy/AdvReac Type Severity Reaction Status Date / Time azithromycin Allergy Itching Verified 11/16/20 21:17 buspirone Allergy Headache Verified 11/16/20 21:17 mirtazapine Allergy Unknown Verified 11/16/20 21:17 Assessment & Plan Assessment & Plan (1) Major depressive disorder, recurrent episode with melancholic features: Status: Acute Code(s): F33.9 - Major depressive disorder, recurrent, unspecified (2) Obsessive compulsive disorder: Status: Acute Code(s): F42.9 - Obsessive-compulsive disorder, unspecified (3) Hyperlipidemia: Status: Acute Code(s): E78.5 - Hyperlipidemia, unspecified Assessment and Plan: 70-year-old man admitted to Geriatric psych at [facility] transferred from [facility] due to exacerbation of depression and OCD symptoms. [facility] due to past but experiences. Plan 1. Keep same treatment. 2. [facility] the [facility]. I spent minutes with the patient and/or on the patient floor today, greater than?50% of which was spent counseling/coordinating care. Reason for contiued inpatient stay Substantial Risk for: inability to function and rapid decompensation
[2020-12-12] MEDS: Melatonin 3 MG TABLET 6 MG PO (20:56)
[2020-12-12] MEDS: OLANZapine 10 MG TABLET PO (20:56)
[2020-12-12 21:12] VITALS: BP 132/78; PULSE 81; TEMP 36.9; O2SAT 98
[2020-12-13 06:00] VITALS: BP 172/88; PULSE 87; RESP 14; TEMP 36.5; O2SAT 99
[2020-12-13] MEDS: OLANZapine 7.5 MG TABLET PO (07:43)
[2020-12-13] MEDS: Thiamine HCL 100 MG TABLET PO (07:43)
[2020-12-13] MEDS: Memantine HCl 5 MG TABLET PO (07:43)
[2020-12-13] MEDS: Folic Acid 1 MG TABLET PO (07:43)
[2020-12-13] MEDS: Atorvastatin Calcium 20 MG TABLET PO (07:44)
[2020-12-13] MEDS: Escitalopram Oxalate 20 MG TABLET PO ×2 (07:44→20:32)
[2020-12-13] MEDS: clonazePAM 0.5 MG TABLET PO (14:47)
--- NOTE | 2020-12-13 16:55 | PC.NURSE ---
Addendum entered by Suad Mcghee RN 12/13/20 17:45: PVR 87 ml's following catheterization. Original Note: Patient has been perseverating on not being able to urinate or have BM. He was retaining urine on previous shift and was catheterized. Patient urinated normally this morning at start of shift. At 1100 Patient began c/o retention. Bladder scan at that time showed 543 ml. Patient attempted to urinate but was unable to do so. Next bladder scan at 1600 was [address] reporter attempted to catheterize and was unsuccessful. [facility] was called and patient was catheterized for 1000mls. Will continue to monitor with bladder scanning q 4 hours. Will also notify
--- NOTE | 2020-12-13 19:28 | P.PNPSI_ITS ---
Subjective Subjective Date of Service: 12/13/20 Reason For Visit: OCD F42.2 Interim History: Patient reports he doing lousy . He was seen in the dining room and he was eating. He had a good appetite. He had not been eating well the last couple of days prior. He continues obsessive. Perseverating on his BM's. Washes excessively. Discussed with the patient ECT as an option. He refused considering it. Discussed with the [facility] on the floor who was accampanying the patient. Provided some educational material about ECT to the [facility] and encouraged the patient to watch the videos together. 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 Bloodwork reviewed. Review of Systems Review of Systems Denies any recent fever chills or decrease in appetite respiratory denies any shortness of breath coverage production cardiovascular denies chest pain gastrointestinal denies any dysphagia abdominal pain nausea vomiting or diarrhea genitourinary denies any dysuria frequency or hematuria musculoskeletal denies any joint pain or swelling neuropsych denies any weakness or seizures all other systems reviewed are negative Yes all other systems are reviewed and are negative Mental Status Exam Mental Status Exam Narrative: Narrative:?Patient Appearance:?Disheveled and Unkempt Patient Orientation:?Person Level of Consciousness:?Awake Patient Behavior:?Guarded and Suspicious Mood Description:?Depressed Affect Description:?Constricted Patient Cognition Impaired:?No Ability to Follow Directions:?Fair Speech Pattern:?Clear Hallucinations:?None Delusions:?Not Present Thought Process:?Goal Oriented Thought Content:?positive for Intact Judgement:?Fair Patient Appearance: Unkempt Patient Orientation: Person, Place and Situation Level of Consciousness: Awake, Restless and Alert Patient Behavior: Guarded Mood Description: Constricted Affect Description: Constricted Patient Cognition Impaired: No Ability to Follow Directions: Fair Speech Pattern: Rapid Memory Description: Intact Diagnostics Vital Signs (24Hr): Vital Signs - 24 hr 12/12/20 21:12 12/13/20 06:00 Temperature 98.5 F 97.7 F Pulse Rate 81 87 Respiratory Rate 14 Blood Pressure 132/78 172/88 H Pulse Oximetry 98 99 Body Mass Index 17.6 Labs Results: 12/12/20 08:10 12/12/20 08:10 Labs: Laboratory Results - last 48 hr 12/12/20 12/12/20 08:10 08:10 WBC 4.6 L RBC 3.75 L Hgb 12.4 L Hct 37.1 L MCV 98.9 H MCH 33.1 H MCHC 33.4 RDW 13.4 Plt Count 150 L D MPV 9.4 Immature Gran % (Auto) 0.2 Neut % (Auto) 65.2 Lymph % (Auto) 23.7 Marin % (Auto) 10.0 Eos % (Auto) 0.7 Baso % (Auto) 0.2 Lymph # (Auto) 1.1 L Marin # (Auto) 0.5 Eos # (Auto) 0.0 Baso # (Auto) 0.0 Abs Immat Gran (auto) 0.01 Absolute Neuts (auto) 3.0 Absolute Nucleated RBC 0.000 Nucleated RBC % (auto) 0.0 Smear Tech's Comments Not Reportable Sodium 142 Potassium 4.0 Chloride 104 Carbon Dioxide 32 H Anion Gap 10 L BUN 20 H Creatinine 0.66 Estim Creat Clear Calc 84.5 Estimated GFR > 60 Random Glucose 79 Calcium 8.8 Medications Medications Current Medications Acetaminophen (Acetaminophen 325 Mg Tablet) 650 mg PO Q6H PRN PRN Reason: Headache/Pain Mild Scale (1-3) Last Admin: 12/10/20 10:54 Dose: 650 mg Documented by: Al Hydroxide/Mg Hydroxide (Magnesium Hydrox/Alum Hydrox 30 Ml Oral.Susp) 30 ml PO Q6H PRN PRN Reason: Heartburn/Nausea Last Admin: 12/10/20 10:56 Dose: 30 ml Documented by: Artificial Tears (Artificial Tears 15 Ml Drops) 1 drop EYE-BOTH Q4H PRN PRN Reason: Dry Eyes Last Admin: 12/10/20 14:38 Dose: 1 drop Documented by: Atorvastatin Calcium (Atorvastatin Calcium 20 Mg Tablet) 20 mg PO DAILY TRINH Last Admin: 12/13/20 07:44 Dose: 20 mg Documented by: Clonazepam (Clonazepam 0.5 Mg Tablet) 0.5 mg PO TID PRN PRN Reason: Anxiety Last Admin: 12/13/20 14:47 Dose: 0.5 mg Documented by: Escitalopram Oxalate (Escitalopram Oxalate 20 Mg Tablet) 20 mg PO BID TRINH Last Admin: 12/13/20 07:44 Dose: 20 mg Documented by: Folic Acid (Folic Acid 1 Mg Tablet) 1 mg PO DAILY [facility] Last Admin: 12/13/20 07:43 Dose: 1 mg Documented by: Hydrocortisone (Hydrocortisone 2.5 % Rectal Cr 30 Gm Tube) 1 appl [place] BID PRN PRN Reason: hemorrhoids Hydroxyzine HCl (Hydroxyzine Hcl 25 Mg Tablet) 25 mg PO TID PRN PRN Reason: Anxiety Last Admin: 12/12/20 08:21 Dose: 25 mg Documented by: Loperamide HCl (Loperamide Hcl 2 Mg Capsule) 2 mg PO Q4H PRN PRN Reason: Diarrhea Last Admin: 12/12/20 20:57 Dose: 2 mg Documented by: Magnesium Hydroxide (Milk Of Magnesia 30 Ml Oral.Susp) 30 ml PO DAILY PRN PRN Reason: Constipation Melatonin (Melatonin 3 Mg Tablet) 6 mg PO BEDTIME [facility] Last Admin: 12/12/20 20:56 Dose: 6 mg Documented by: Memantine (Memantine Hcl 5 Mg Tablet) 5 mg PO DAILY [facility] Last Admin: 12/13/20 07:43 Dose: 5 mg Documented by: Olanzapine (Olanzapine 10 Mg Tablet) 10 mg PO BEDTIME [facility] Last Admin: 12/12/20 20:56 Dose: 10 mg Documented by: Olanzapine (Olanzapine 7.5 Mg Tablet) 7.5 mg PO DAILY [facility] Last Admin: 12/13/20 07:43 Dose: 7.5 mg Documented by: Thiamine HCl (Thiamine Hcl 100 Mg Tablet) 100 mg PO DAILY [facility] Last Admin: 12/13/20 07:43 Dose: 100 mg Documented by: Trazodone HCl (Trazodone Hcl 50 Mg Tablet) 50 mg PO BEDTIME PRN PRN Reason: Insomnia Last Admin: 12/10/20 22:53 Dose: 50 mg Documented by: Allergies Allergies Allergy/AdvReac Type Severity Reaction Status Date / Time azithromycin Allergy Itching Verified 11/16/20 21:17 buspirone Allergy Headache Verified 11/16/20 21:17 mirtazapine Allergy Unknown Verified 11/16/20 21:17 Assessment & Plan Assessment & Plan (1) Major depressive disorder, recurrent episode with melancholic features: Status: Acute Code(s): F33.9 - Major depressive disorder, recurrent, unspecified (2) Obsessive compulsive disorder: Status: Acute Code(s): F42.9 - Obsessive-compulsive disorder, unspecified (3) Hyperlipidemia: Status: Acute Code(s): E78.5 - Hyperlipidemia, unspecified Assessment and Plan: 70-year-old man admitted to Geriatric psych at [facility] transferred from [facility] due to exacerbation of depression and OCD symptoms. [facility] due [facility] but experiences. Plan 1. Keep same treatment. Encouraged him to review educational material on ECT. 2. [facility]. I spent minutes with the patient and/or on the patient floor today, greater than?50% of which was spent counseling/coordinating care. Reason for contiued inpatient stay Substantial Risk for: inability to function and rapid decompensation
[2020-12-13] MEDS: OLANZapine 10 MG TABLET PO (20:32)
[2020-12-13] MEDS: Melatonin 3 MG TABLET 6 MG PO (20:32)
[2020-12-13 20:56] VITALS: BP 100/56; PULSE 90; RESP 18; TEMP 36.7; O2SAT 100
[2020-12-14 06:00] VITALS: BP 158/88; PULSE 90; RESP 14; TEMP 36.4; O2SAT 100
[2020-12-14] MEDS: Atorvastatin Calcium 20 MG TABLET PO (08:11)
[2020-12-14] MEDS: Folic Acid 1 MG TABLET PO (08:11)
[2020-12-14] MEDS: OLANZapine 7.5 MG TABLET PO (08:12)
[2020-12-14] MEDS: Escitalopram Oxalate 20 MG TABLET PO ×2 (08:12→21:03)
[2020-12-14] MEDS: Thiamine HCL 100 MG TABLET PO (08:12)
[2020-12-14] MEDS: Memantine HCl 5 MG TABLET PO (08:12)
--- NOTE | 2020-12-14 13:01 | P.PNPSI_ITS ---
Subjective Subjective Date of Service: 12/14/20 Reason For Visit: OCD F42.2 Subjective Notes: Conditional Voluntary Interim History: The nursing staff reported that over the weekend the patient has been laying on his bed most of the time. On Monday he complained that he could not urinate he was a straight cath. Apparently he has been complaining of urinary retention. On interview, the patient reports that he sign shows. I discussed with him that that were already she is going to see him. Still waiting for placement Mental Status Exam Mental Status Exam Patient Appearance: Disheveled Patient Orientation: Person and Situation Level of Consciousness: Appropriate Patient Behavior: Guarded, Cooperative and Passive Mood Description: Constricted Affect Description: Depressed Patient Cognition Impaired: Yes Ability to Follow Directions: Good Speech Pattern: Clear Hallucinations: None Delusions: Not Present Thought Process: Linear Thought Content: positive for Circumstantial and positive for Perseveration Judgement: Fair Diagnostics Vital Signs (24Hr): Vital Signs - 24 hr 12/13/20 20:56 12/14/20 06:00 Temperature 98.0 F 97.5 F Pulse Rate 90 90 Respiratory Rate 18 14 Blood Pressure 100/56 L 158/88 H Pulse Oximetry 100 100 Body Mass Index 17.6 Labs Results: 12/12/20 08:10 12/12/20 08:10 Medications Medications Current Medications Acetaminophen (Acetaminophen 325 Mg Tablet) 650 mg PO Q6H PRN PRN Reason: Headache/Pain Mild Scale (1-3) Last Admin: 12/10/20 10:54 Dose: 650 mg Documented by: Al Hydroxide/Mg Hydroxide (Magnesium Hydrox/Alum Hydrox 30 Ml Oral.Susp) 30 ml PO Q6H PRN PRN Reason: Heartburn/Nausea Last Admin: 12/10/20 10:56 Dose: 30 ml Documented by: Artificial Tears (Artificial Tears 15 Ml Drops) 1 drop EYE-BOTH Q4H PRN PRN Reason: Dry Eyes Last Admin: 12/10/20 14:38 Dose: 1 drop Documented by: Atorvastatin Calcium (Atorvastatin Calcium 20 Mg Tablet) 20 mg PO DAILY TRINH Last Admin: 12/14/20 08:11 Dose: 20 mg Documented by: Clonazepam (Clonazepam 0.5 Mg Tablet) 0.5 mg PO TID PRN PRN Reason: Anxiety Last Admin: 12/13/20 14:47 Dose: 0.5 mg Documented by: Escitalopram Oxalate (Escitalopram Oxalate 20 Mg Tablet) 20 mg PO BID [facility] Last Admin: 12/14/20 08:12 Dose: 20 mg Documented by: Folic Acid (Folic Acid 1 Mg Tablet) 1 mg PO DAILY [facility] Last Admin: 12/14/20 08:11 Dose: 1 mg Documented by: Hydrocortisone (Hydrocortisone 2.5 % Rectal Cr 30 Gm Tube) 1 appl [place] BID PRN PRN Reason: hemorrhoids Hydroxyzine HCl (Hydroxyzine Hcl 25 Mg Tablet) 25 mg PO TID PRN PRN Reason: Anxiety Last Admin: 12/12/20 08:21 Dose: 25 mg Documented by: Loperamide HCl (Loperamide Hcl 2 Mg Capsule) 2 mg PO Q4H PRN PRN Reason: Diarrhea Last Admin: 12/12/20 20:57 Dose: 2 mg Documented by: Magnesium Hydroxide (Milk Of Magnesia 30 Ml Oral.Susp) 30 ml PO DAILY PRN PRN Reason: Constipation Melatonin (Melatonin 3 Mg Tablet) 6 mg PO BEDTIME [facility] Last Admin: 12/13/20 20:32 Dose: 6 mg Documented by: Memantine (Memantine Hcl 5 Mg Tablet) 5 mg PO DAILY [facility] Last Admin: 12/14/20 08:12 Dose: 5 mg Documented by: Olanzapine (Olanzapine 10 Mg Tablet) 10 mg PO BEDTIME [facility] Last Admin: 12/13/20 20:32 Dose: 10 mg Documented by: Olanzapine (Olanzapine 7.5 Mg Tablet) 7.5 mg PO DAILY [facility] Last Admin: 12/14/20 08:12 Dose: 7.5 mg Documented by: Thiamine HCl (Thiamine Hcl 100 Mg Tablet) 100 mg PO DAILY [facility] Last Admin: 12/14/20 08:12 Dose: 100 mg Documented by: Trazodone HCl (Trazodone Hcl 50 Mg Tablet) 50 mg PO BEDTIME PRN PRN Reason: Insomnia Last Admin: 12/10/20 22:53 Dose: 50 mg Documented by: Allergies Allergies Allergy/AdvReac Type Severity Reaction Status Date / Time azithromycin Allergy Itching Verified 11/16/20 21:17 buspirone Allergy Headache Verified 11/16/20 21:17 mirtazapine Allergy Unknown Verified 11/16/20 21:17 Assessment & Plan Assessment & Plan (1) Major depressive disorder, recurrent episode with melancholic features: Status: Acute Code(s): F33.9 - Major depressive disorder, recurrent, unspecified (2) Obsessive compulsive disorder: Status: Acute Code(s): F42.9 - Obsessive-compulsive disorder, unspecified (3) Hyperlipidemia: Status: Acute Code(s): E78.5 - Hyperlipidemia, unspecified Assessment and Plan: 70-year-old man admitted to Geriatric psych at [facility] transferred from [facility] due to exacerbation of depression and OCD symptoms. The [facility] but he has refused any treatment at the [facility] due to past but experiences. Plan 1. Keep same treatment. Encouraged him to review educational material on ECT. 2. [facility] 3. Urology consult I spent minutes with the patient and/or on the patient floor today, greater than?50% of which was spent counseling/coordinating care. Reason for contiued inpatient stay Substantial Risk for: inability to function, rapid decompensation and med/psych decompensation
[2020-12-14] MEDS: hydrOXYzine HCL 25 MG TABLET PO ×2 (14:50→21:05)
--- NOTE | 2020-12-14 15:21 | MHC.CLN ---
F/U STAGE I TO COCCYX CONTINUES. DIET=REGULAR, ENSURE TID (1050 KCAL, 60 G PROTEIN). NO NEW REPORTED NUTRITION CONCERNS. CONTINUE TO FOLLOW WEEKLY.
[2020-12-14 16:21] LABS: Appearance Urine CLEAR; Color Urine YELLOW; Glucose Urine UA NEG (NEG); Leukocyte Esterase Urine NEG (NEG); Nitrite Urine NEG (NEG); Urine Blood NEG (NEG); Urine Ketones NEG (NEG); Urine Protein NEG (NEG-TRACE)
[2020-12-14] MEDS: Melatonin 3 MG TABLET 6 MG PO (21:02)
[2020-12-14] MEDS: Loperamide HCl 2 MG CAPSULE PO (21:02)
[2020-12-14] MEDS: OLANZapine 10 MG TABLET PO (21:02)
[2020-12-15 06:00] VITALS: BP 121/73; PULSE 98; RESP 16; TEMP 36.8; O2SAT 95
--- NOTE | 2020-12-15 08:38 | P.CNUR_ITS ---
History of Present Illness Consult details Consult date: 12/15/20 Narrative: Incomplete bladder emptying Initiate alpha-tamika and finasteride Bladder protocol Review of Systems 2 Constitutional: Constitutional: Reports as per HPI and Reports no additional constitutional complaints Cardiovascular: Cardiovascular: Reports as per HPI and Reports no additional cardiovascular complaints Respiratory: Respiratory: Reports as per HPI and Reports no additional respiratory complaints Gastrointestinal: Gastrointestinal: Reports as per HPI and Reports no additional gastrointestinal complaints Genitourinary: Genitourinary: Reports as per HPI Musculoskeletal: Musculoskeletal: Reports no additional musculoskeletal complaints and Reports as per HPI Neurologic: Reports system reviewed and no additional complaints, except as documented and Reports as per HPI PMF Past Medical History Medical History Arthritis BPH (benign prostatic hyperplasia) GERD (gastroesophageal reflux disease) Obstructive sleep apnea PTSD (post-traumatic stress disorder) Surgical History Surgical History Cataract extraction status H/O cystoscopy H/O hernia repair History of esophagogastroduodenoscopy (EGD) S/P TURP Social History Social History Household Members: None Housing: Apartment Do you presently have visiting nurse or other home services: No Comment: 1:1 Sitter Patient Tobacco Use Status: Former Tobacco user Quit Date: 17 years ago Tobacco use type: Cigarette Cigarette Packs Per Day: 2 Cigarettes Per Day: 40.0 Years Smoked: many e-Cigarette/Vaping Use: Never Used Second Hand Smoke Exposure: No service: Yes Current occupational status: retired Meds Allergies Allergy/AdvReac Type Severity Reaction Status Date / Time azithromycin Allergy Itching Verified 11/16/20 21:17 buspirone Allergy Headache Verified 11/16/20 21:17 mirtazapine Allergy Unknown Verified 11/16/20 21:17 Active Medications: Current Medications Acetaminophen (Acetaminophen 325 Mg Tablet) 650 mg PO Q6H PRN PRN Reason: Headache/Pain Mild Scale (1-3) Last Admin: 12/10/20 10:54 Dose: 650 mg Documented by: Al Hydroxide/Mg Hydroxide (Magnesium Hydrox/Alum Hydrox 30 Ml Oral.Susp) 30 ml PO Q6H PRN PRN Reason: Heartburn/Nausea Last Admin: 12/10/20 10:56 Dose: 30 ml Documented by: Artificial Tears (Artificial Tears 15 Ml Drops) 1 drop EYE-BOTH Q4H PRN PRN Reason: Dry Eyes Last Admin: 12/10/20 14:38 Dose: 1 drop Documented by: Atorvastatin Calcium (Atorvastatin Calcium 20 Mg Tablet) 20 mg PO DAILY [facility] Last Admin: 12/14/20 08:11 Dose: 20 mg Documented by: Escitalopram Oxalate (Escitalopram Oxalate 20 Mg Tablet) 20 mg PO BID [facility] Last Admin: 12/14/20 21:03 Dose: 20 mg Documented by: Folic Acid (Folic Acid 1 Mg Tablet) 1 mg PO DAILY [facility] Last Admin: 12/14/20 08:11 Dose: 1 mg Documented by: Hydrocortisone (Hydrocortisone 2.5 % Rectal Cr 30 Gm Tube) 1 appl HI BID PRN PRN Reason: hemorrhoids Hydroxyzine HCl (Hydroxyzine Hcl 25 Mg Tablet) 25 mg PO TID PRN PRN Reason: Anxiety Last Admin: 12/14/20 21:05 Dose: 25 mg Documented by: Loperamide HCl (Loperamide Hcl 2 Mg Capsule) 2 mg PO Q4H PRN PRN Reason: Diarrhea Last Admin: 12/14/20 21:02 Dose: 2 mg Documented by: Magnesium Hydroxide (Milk Of Magnesia 30 Ml Oral.Susp) 30 ml PO DAILY PRN PRN Reason: Constipation Melatonin (Melatonin 3 Mg Tablet) 6 mg PO BEDTIME [facility] Last Admin: 12/14/20 21:02 Dose: 6 mg Documented by: Memantine (Memantine Hcl 5 Mg Tablet) 5 mg PO DAILY [facility] Last Admin: 12/14/20 08:12 Dose: 5 mg Documented by: Olanzapine (Olanzapine 10 Mg Tablet) 10 mg PO BEDTIME [facility] Last Admin: 12/14/20 21:02 Dose: 10 mg Documented by: Olanzapine (Olanzapine 7.5 Mg Tablet) 7.5 mg PO DAILY [facility] Last Admin: 12/14/20 08:12 Dose: 7.5 mg Documented by: Thiamine HCl (Thiamine Hcl 100 Mg Tablet) 100 mg PO DAILY [facility] Last Admin: 12/14/20 08:12 Dose: 100 mg Documented by: Trazodone HCl (Trazodone Hcl 50 Mg Tablet) 50 mg PO BEDTIME PRN PRN Reason: Insomnia Last Admin: 12/10/20 22:53 Dose: 50 mg Documented by: Home Medications Medication Instructions Recorded Confirmed Last Taken Type clonazepam 0.5 mg PO BEDTIME 11/16/20 12/25/20 Unknown History clonazepam 1 mg tablet 1 mg PO DAILY 11/16/20 12/25/20 Unknown History docusate sodium 100 mg capsule 200 mg PO BID 11/16/20 12/25/20 Unknown History escitalopram oxalate 20 mg tablet 20 mg PO DAILY 11/16/20 12/25/20 Unknown History folic acid 1 mg tablet 1 mg PO DAILY 11/16/20 12/25/20 Unknown History melatonin 5 mg tablet 5 mg PO BEDTIME 11/16/20 12/25/20 Unknown History memantine 5 mg tablet 5 mg PO QAM 11/16/20 12/25/20 Unknown History olanzapine 10 mg tablet 10 mg PO BEDTIME 11/16/20 12/25/20 Unknown History olanzapine 5 mg tablet 5 mg PO DAILY 11/16/20 12/25/20 Unknown History sennosides 8.6 mg tablet (senna) 8.6 mg PO DAILY 11/16/20 12/25/20 Unknown History simvastatin 40 mg tablet 40 mg PO DAILY 11/16/20 12/25/20 Unknown History thiamine HCl (vitamin B1) 100 mg 100 mg PO DAILY 11/16/20 12/25/20 Unknown History tablet Physical Exam 2 Vital Signs: Vital Signs: Last Vital Signs Temp 97.5 F 12/14/20 06:00 Pulse 90 12/14/20 06:00 Resp 14 12/14/20 06:00 BP 158/88 H 12/14/20 06:00 Pulse Ox 100 12/14/20 06:00 Body Mass Index 17.6 Const: General: cooperative, healthy appearing, comfortable and no acute distress Orientation/consciousness: patient oriented x3 HENMT: Face and sinus: Yes normal facial exam Mouth: moist mucous membranes Neck: Neck: Yes normal visual inspection, Yes full ROM and Yes trachea midline Chest: Chest palpation & inspection: normal inspection of the chest Resp: Effort & Inspection: normal respiratory effort, able to speak in complete sentences and no respiratory distress GI: Inspection: Yes normal to inspection Back/Spine/Pelvis: Cervical Spine: normal cervical lordosis Thoracic/Lumbar Spine: thoracic and lumbar spine normal to inspection Skin: General skin exam: no rashes or lesions noted Neuro: General: patient oriented x3, tone normal and moves all extremities Extrem: General: Yes normal to inspection and Yes capillary refill normal Results Labs 12/25/20 16:39 12/25/20 16:39 Labs: Urine 12/14/20 Range/Units 10:23 Urine Color YELLOW Urine Appearance CLEAR Urine pH 6.0 (5.0-8.0) Ur Specific [place] 1.020 (1.005-1.025) Urine Protein NEG (NEG-TRACE) MG/DL Urine Glucose (UA) NEG (NEG) MG/DL All other labs normal. Assessment and Plan (1) Urinary retention with incomplete bladder emptying: Status: Acute Plan voding trial per protocol Procedures Date of Service Date of Service: 12/15/20
[2020-12-15] MEDS: Escitalopram Oxalate 20 MG TABLET PO ×2 (08:56→21:36)
[2020-12-15] MEDS: Memantine HCl 5 MG TABLET PO (08:56)
[2020-12-15] MEDS: OLANZapine 7.5 MG TABLET PO (08:56)
[2020-12-15] MEDS: Folic Acid 1 MG TABLET PO (08:56)
[2020-12-15] MEDS: Thiamine HCL 100 MG TABLET PO (08:57)
[2020-12-15] MEDS: Finasteride 5 MG TABLET PO (08:57)
[2020-12-15] MEDS: Atorvastatin Calcium 20 MG TABLET PO (08:57)
[2020-12-15] MEDS: hydrOXYzine HCL 25 MG TABLET PO (09:43)
[2020-12-15] MEDS: Acetaminophen 325 MG TABLET 650 MG PO (09:43)
[2020-12-15] MEDS: Loperamide HCl 2 MG CAPSULE PO (10:23)
--- NOTE | 2020-12-15 15:48 | P.PNPSI_ITS ---
Subjective Subjective Date of Service: 12/15/20 Reason For Visit: OCD F42.2 Subjective Notes: Conditional Voluntary Interim History: The nursing staff reported the patient remains in his room most of the time. Darin he was so him and they will assess the he will need a straight catheter. He was started on alpha blockers. On interview the patient remains anxious use, no changes in his mental status. Continue waiting for [facility] Mental Status Exam Mental Status Exam Patient Appearance: Disheveled Patient Orientation: Person Level of Consciousness: Awake Patient Behavior: Guarded Mood Description: Constricted Affect Description: Constricted Ability to Follow Directions: Good Speech Pattern: Clear Memory Description: Intact Hallucinations: None Delusions: Not Present Thought Process: Evasive Thought Content: positive for Circumstantial, positive for Perseveration and positive for Poverty of Content Judgement: Fair Diagnostics Vital Signs (24Hr): Vital Signs - 24 hr 12/15/20 06:00 Temperature 98.3 F Pulse Rate 98 Respiratory Rate 16 Blood Pressure 121/73 Pulse Oximetry 95 Body Mass Index 17.6 Labs Results: 12/12/20 08:10 12/12/20 08:10 Labs: Laboratory Results - last 48 hr 12/14/20 10:23 Urine Color YELLOW Urine Appearance CLEAR Urine pH 6.0 Ur Specific [place] 1.020 Urine Protein NEG Urine Glucose (UA) NEG Urine Ketones NEG Urine Blood NEG Urine Nitrite NEG Ur Leukocyte Esterase NEG Medications Medications Current Medications Acetaminophen (Acetaminophen 325 Mg Tablet) 650 mg PO Q6H PRN PRN Reason: Headache/Pain Mild Scale (1-3) Last Admin: 12/15/20 09:43 Dose: 650 mg Documented by: Al Hydroxide/Mg Hydroxide (Magnesium Hydrox/Alum Hydrox 30 Ml Oral.Susp) 30 ml PO Q6H PRN PRN Reason: Heartburn/Nausea Last Admin: 12/10/20 10:56 Dose: 30 ml Documented by: Artificial Tears (Artificial Tears 15 Ml Drops) 1 drop EYE-BOTH Q4H PRN PRN Reason: Dry Eyes Last Admin: 12/10/20 14:38 Dose: 1 drop Documented by: Atorvastatin Calcium (Atorvastatin Calcium 20 Mg Tablet) 20 mg PO DAILY [facility] Last Admin: 12/15/20 08:57 Dose: 20 mg Documented by: Doxazosin Mesylate (Doxazosin Mesylate 2 Mg Tablet) 4 mg PO BEDTIME [facility]; Protocol Escitalopram Oxalate (Escitalopram Oxalate 20 Mg Tablet) 20 mg PO BID [facility] Last Admin: 12/15/20 08:56 Dose: 20 mg Documented by: Finasteride (Finasteride 5 Mg Tablet) 5 mg PO DAILY [facility] Last Admin: 12/15/20 08:57 Dose: 5 mg Documented by: Folic Acid (Folic Acid 1 Mg Tablet) 1 mg PO DAILY [facility] Last Admin: 12/15/20 08:56 Dose: 1 mg Documented by: Hydrocortisone (Hydrocortisone 2.5 % Rectal Cr 30 Gm Tube) 1 appl [place] BID PRN PRN Reason: hemorrhoids Hydroxyzine HCl (Hydroxyzine Hcl 25 Mg Tablet) 25 mg PO TID PRN PRN Reason: Anxiety Last Admin: 12/15/20 09:43 Dose: 25 mg Documented by: Loperamide HCl (Loperamide Hcl 2 Mg Capsule) 2 mg PO Q4H PRN PRN Reason: Diarrhea Last Admin: 12/15/20 10:23 Dose: 2 mg Documented by: Magnesium Hydroxide (Milk Of Magnesia 30 Ml Oral.Susp) 30 ml PO DAILY PRN PRN Reason: Constipation Melatonin (Melatonin 3 Mg Tablet) 6 mg PO BEDTIME [facility] Last Admin: 12/14/20 21:02 Dose: 6 mg Documented by: Memantine (Memantine Hcl 5 Mg Tablet) 5 mg PO DAILY [facility] Last Admin: 12/15/20 08:56 Dose: 5 mg Documented by: Olanzapine (Olanzapine 10 Mg Tablet) 10 mg PO BEDTIME [facility] Last Admin: 12/14/20 21:02 Dose: 10 mg Documented by: Olanzapine (Olanzapine 7.5 Mg Tablet) 7.5 mg PO DAILY [facility] Last Admin: 12/15/20 08:56 Dose: 7.5 mg Documented by: Thiamine HCl (Thiamine Hcl 100 Mg Tablet) 100 mg PO DAILY [facility] Last Admin: 12/15/20 08:57 Dose: 100 mg Documented by: Trazodone HCl (Trazodone Hcl 50 Mg Tablet) 50 mg PO BEDTIME PRN PRN Reason: Insomnia Last Admin: 12/10/20 22:53 Dose: 50 mg Documented by: Allergies Allergies Allergy/AdvReac Type Severity Reaction Status Date / Time azithromycin Allergy Itching Verified 11/16/20 21:17 buspirone Allergy Headache Verified 11/16/20 21:17 mirtazapine Allergy Unknown Verified 11/16/20 21:17 Assessment & Plan Assessment & Plan (1) Major depressive disorder, recurrent episode with melancholic features: Status: Acute Code(s): F33.9 - Major depressive disorder, recurrent, unspecified (2) Obsessive compulsive disorder: Status: Acute Code(s): F42.9 - Obsessive-compulsive disorder, unspecified (3) Hyperlipidemia: Status: Acute Code(s): E78.5 - Hyperlipidemia, unspecified Assessment and Plan: 70-year-old man admitted to Geriatric psych at [facility] transferre d from [facility] due to exacerbation of depression and OCD symptoms. The [facility] but he has refused any treatment [facility] due to past but experiences. Plan 1. Keep same treatment. Encouraged him to review educational material on ECT. [facility]. [facility] 3. Urology consult I spent minutes with the patient and/or on the patient floor today, greater than?50% of which was spent counseling/coordinating care. Reason for contiued inpatient stay Substantial Risk for: inability to function, rapid decompensation and med/psych decompensation
[2020-12-15 18:00] VITALS: BP 136/80; PULSE 88; RESP 17; TEMP 36.3; O2SAT 100
[2020-12-15] MEDS: Melatonin 3 MG TABLET 6 MG PO (21:36)
[2020-12-15] MEDS: Doxazosin Mesylate 2 MG TABLET 4 MG PO (21:36)
[2020-12-15] MEDS: OLANZapine 10 MG TABLET PO (21:36)
--- NOTE | 2020-12-16 00:31 | PC.NURSE ---
Addendum entered by Judith Lewis RN 12/16/20 00:35: PVR 0cc after straight cath Original Note: Patient was in bathroom several times between 9pm and midnight, reported urinating and having bowel movements. Bladder scanned at midnight, PRV 515cc; straight catheterization 650cc concentrated yellow urine.
[2020-12-16] MEDS: Atorvastatin Calcium 20 MG TABLET PO (08:18)
[2020-12-16] MEDS: Finasteride 5 MG TABLET PO (08:18)
[2020-12-16] MEDS: Escitalopram Oxalate 20 MG TABLET PO ×2 (08:18→20:41)
[2020-12-16] MEDS: Folic Acid 1 MG TABLET PO (08:18)
[2020-12-16] MEDS: Thiamine HCL 100 MG TABLET PO (08:18)
[2020-12-16] MEDS: Memantine HCl 5 MG TABLET PO (08:18)
[2020-12-16] MEDS: OLANZapine 7.5 MG TABLET PO (08:18)
[2020-12-16 08:22] VITALS: BP 137/84; PULSE 111; TEMP 35.9; O2SAT 99
--- NOTE | 2020-12-16 08:43 | PC.NURSE ---
Patient was complaining that he was not urinate from midnight until this morning. Bladder scanned PRV : 317 cc. Will monitor and scan again around 11: 00 Am.
--- NOTE | 2020-12-16 12:26 | PC.NURSE ---
Patient reported difficulty to urinate . Bladder scanned this morning around 8:00 AM:317 ml. Scanned again at 11:30 AM :464 ml. Will continue to monitor, and will scan again PRV around 2:00PM for eventual catheterization.
--- NOTE | 2020-12-16 14:51 | PC.NURSE ---
Patient was complaining for suprapubic pain with difficulty to urinate. Bladder scanned at 2:25 PM, PRV : 644 ml. Straight catheterized 620 ml yellow concentrate urine out. Will continue to monitor.
--- NOTE | 2020-12-16 15:53 | HO.PSYCHPN ---
Subjective Subjective Date of Service: 12/16/20 Reason For Visit: OCD F42.2 Subjective Notes: Conditional Voluntary Interim History: The nursing staff reports the patient remains obsessive when he comes to the bathroom every 5 minutes. He was seen by Neurology and he was started the medication. On interview the patient denies new symptoms he reported he is still dysphoric. Waiting for placement Mental Status Exam Mental Status Exam Patient Appearance: Disheveled Patient Orientation: Person Level of Consciousness: Awake Patient Behavior: Guarded and Passive Mood Description: Constricted Affect Description: Constricted Patient Cognition Impaired: No Ability to Follow Directions: Fair Speech Pattern: Clear Hallucinations: None Delusions: Not Present Thought Process: Linear Thought Content: positive for Poverty of Content Judgement: Fair Diagnostics Vital Signs (24Hr): Vital Signs - 24 hr 12/15/20 18:00 12/16/20 08:22 Temperature 97.4 F 96.6 F L Pulse Rate 88 111 H Respiratory Rate 17 Blood Pressure 136/80 137/84 Pulse Oximetry 100 99 Body Mass Index 17.6 Labs Results: 12/12/20 08:10 12/12/20 08:10 Labs: Laboratory Results - last 48 hr 12/14/20 10:23 Urine Color YELLOW Urine Appearance CLEAR Urine pH 6.0 Ur Specific [place] 1.020 Urine Protein NEG Urine Glucose (UA) NEG Urine Ketones NEG Urine Blood NEG Urine Nitrite NEG Ur Leukocyte Esterase NEG Medications Medications Current Medications Acetaminophen (Acetaminophen 325 Mg Tablet) 650 mg PO Q6H PRN PRN Reason: Headache/Pain Mild Scale (1-3) Last Admin: 12/15/20 09:43 Dose: 650 mg Documented by: Al Hydroxide/Mg Hydroxide (Magnesium Hydrox/Alum Hydrox 30 Ml Oral.Susp) 30 ml PO Q6H PRN PRN Reason: Heartburn/Nausea Last Admin: 12/10/20 10:56 Dose: 30 ml Documented by: Artificial Tears (Artificial Tears 15 Ml Drops) 1 drop EYE-BOTH Q4H PRN PRN Reason: Dry Eyes Last Admin: 12/10/20 14:38 Dose: 1 drop Documented by: Atorvastatin Calcium (Atorvastatin Calcium 20 Mg Tablet) 20 mg PO DAILY [facility] Last Admin: 12/16/20 08:18 Dose: 20 mg Documented by: Doxazosin Mesylate (Doxazosin Mesylate 2 Mg Tablet) 4 mg PO BEDTIME [facility]; Protocol Last Admin: 12/15/20 21:36 Dose: 4 mg Documented by: Escitalopram Oxalate (Escitalopram Oxalate 20 Mg Tablet) 20 mg PO BID [facility] Last Admin: 12/16/20 08:18 Dose: 20 mg Documented by: Finasteride (Finasteride 5 Mg Tablet) 5 mg PO DAILY [facility] Last Admin: 12/16/20 08:18 Dose: 5 mg Documented by: Folic Acid (Folic Acid 1 Mg Tablet) 1 mg PO DAILY [facility] Last Admin: 12/16/20 08:18 Dose: 1 mg Documented by: Hydrocortisone (Hydrocortisone 2.5 % Rectal Cr 30 Gm Tube) 1 appl [place] BID PRN PRN Reason: hemorrhoids Hydroxyzine HCl (Hydroxyzine Hcl 25 Mg Tablet) 25 mg PO TID PRN PRN Reason: Anxiety Last Admin: 12/15/20 09:43 Dose: 25 mg Documented by: Loperamide HCl (Loperamide Hcl 2 Mg Capsule) 2 mg PO Q4H PRN PRN Reason: Diarrhea Last Admin: 12/15/20 10:23 Dose: 2 mg Documented by: Magnesium Hydroxide (Milk Of Magnesia 30 Ml Oral.Susp) 30 ml PO DAILY PRN PRN Reason: Constipation Melatonin (Melatonin 3 Mg Tablet) 6 mg PO BEDTIME [facility] Last Admin: 12/15/20 21:36 Dose: 6 mg Documented by: Memantine (Memantine Hcl 5 Mg Tablet) 5 mg PO DAILY [facility] Last Admin: 12/16/20 08:18 Dose: 5 mg Documented by: Olanzapine (Olanzapine 10 Mg Tablet) 10 mg PO BEDTIME [facility] Last Admin: 12/15/20 21:36 Dose: 10 mg Documented by: Olanzapine (Olanzapine 7.5 Mg Tablet) 7.5 mg PO DAILY [facility] Last Admin: 12/16/20 08:18 Dose: 7.5 mg Documented by: Thiamine HCl (Thiamine Hcl 100 Mg Tablet) 100 mg PO DAILY [facility] Last Admin: 12/16/20 08:18 Dose: 100 mg Documented by: Trazodone HCl (Trazodone Hcl 50 Mg Tablet) 50 mg PO BEDTIME PRN PRN Reason: Insomnia Last Admin: 12/10/20 22:53 Dose: 50 mg Documented by: Allergies Allergies Allergy/AdvReac Type Severity Reaction Status Date / Time azithromycin Allergy Itching Verified 11/16/20 21:17 buspirone Allergy Headache Verified 11/16/20 21:17 mirtazapine Allergy Unknown Verified 11/16/20 21:17 Assessment & Plan Assessment & Plan (1) Major depressive disorder, recurrent episode with melancholic features: Status: Acute Code(s): F33.9 - Major depressive disorder, recurrent, unspecified (2) Obsessive compulsive disorder: Status: Acute Code(s): F42.9 - Obsessive-compulsive disorder, unspecified (3) Hyperlipidemia: Status: Acute Code(s): E78.5 - Hyperlipidemia, unspecified Assessment and Plan: 70-year-old man admitted to Geriatric psych at [facility] transferred from [facility] due to exacerbation of depression and OCD symptoms. The [facility] but [facility]. Plan 1. Keep same treatment. Encouraged him to review educational material on ECT. 2. [facility]. 3. Urology consult I spent minutes with the patient and/or on the patient floor today, greater than?50% of which was spent counseling/coordinating care. Reason for contiued inpatient stay Substantial Risk for: inability to function, rapid decompensation and med/psych decompensation
[2020-12-16 18:00] VITALS: BP 132/88; PULSE 103; RESP 18; TEMP 36.9; O2SAT 100
[2020-12-16] MEDS: OLANZapine 10 MG TABLET PO (20:41)
[2020-12-16 20:42] VITALS: BP 132/88; PULSE 103
[2020-12-16] MEDS: Doxazosin Mesylate 2 MG TABLET 4 MG PO (20:42)
[2020-12-16] MEDS: Melatonin 3 MG TABLET 6 MG PO (20:42)
[2020-12-17] MEDS: OLANZapine 7.5 MG TABLET PO (09:10)
[2020-12-17] MEDS: Folic Acid 1 MG TABLET PO (09:10)
[2020-12-17] MEDS: Escitalopram Oxalate 20 MG TABLET PO ×2 (09:10→21:31)
[2020-12-17] MEDS: Memantine HCl 5 MG TABLET PO (09:10)
[2020-12-17] MEDS: Finasteride 5 MG TABLET PO (09:10)
[2020-12-17] MEDS: Thiamine HCL 100 MG TABLET PO (09:10)
[2020-12-17] MEDS: Atorvastatin Calcium 20 MG TABLET PO (09:10)
[2020-12-17 10:18] VITALS: BP 120/62; PULSE 91; TEMP 35.8; O2SAT 97
[2020-12-17] MEDS: hydrOXYzine HCL 25 MG TABLET PO ×2 (14:39→21:32)
--- NOTE | 2020-12-17 16:39 | HO.PSYCHPN ---
Subjective Subjective Date of Service: 12/17/20 Reason For Visit: OCD F42.2 Subjective Notes: Conditional Voluntary Interim History: The nursing staff reported that the patient has being mostly his room. He has bladder scans frequently he is obsessed with his urination. On interview the patient reported that there were no improvement on his OCD symptoms Mental Status Exam Mental Status Exam Patient Appearance: Disheveled Patient Orientation: Person Level of Consciousness: Disoriented Patient Behavior: Guarded and Passive Mood Description: Depressed Affect Description: Constricted Patient Cognition Impaired: Yes Ability to Follow Directions: Good Speech Pattern: Clear Hallucinations: None Delusions: Not Present Thought Process: Linear Thought Content: positive for Perseveration and positive for Poverty of Content Judgement: Fair Diagnostics Vital Signs (24Hr): Vital Signs - 24 hr 12/16/20 18:00 12/16/20 20:42 12/17/20 10:18 Temperature 98.5 F 96.4 F L Pulse Rate 103 H 103 H 91 Respiratory Rate 18 Blood Pressure 132/88 132/88 120/62 Pulse Oximetry 100 97 Body Mass Index 17.6 Labs Results: 12/12/20 08:10 12/12/20 08:10 Medications Medications Current Medications Acetaminophen (Acetaminophen 325 Mg Tablet) 650 mg PO Q6H PRN PRN Reason: Headache/Pain Mild Scale (1-3) Last Admin: 12/15/20 09:43 Dose: 650 mg Documented by: Al Hydroxide/Mg Hydroxide (Magnesium Hydrox/Alum Hydrox 30 Ml Oral.Susp) 30 ml PO Q6H PRN PRN Reason: Heartburn/Nausea Last Admin: 12/10/20 10:56 Dose: 30 ml Documented by: Artificial Tears (Artificial Tears 15 Ml Drops) 1 drop EYE-BOTH Q4H PRN PRN Reason: Dry Eyes Last Admin: 12/10/20 14:38 Dose: 1 drop Documented by: Atorvastatin Calcium (Atorvastatin Calcium 20 Mg Tablet) 20 mg PO DAILY [facility] Last Admin: 12/17/20 09:10 Dose: 20 mg Documented by: Doxazosin Mesylate (Doxazosin Mesylate 2 Mg Tablet) 4 mg PO BEDTIME [facility]; Protocol Last Admin: 12/16/20 20:42 Dose: 4 mg Documented by: Escitalopram Oxalate (Escitalopram Oxalate 20 Mg Tablet) 20 mg PO BID [facility] Last Admin: 12/17/20 09:10 Dose: 20 mg Documented by: Finasteride (Finasteride 5 Mg Tablet) 5 mg PO DAILY [facility] Last Admin: 12/17/20 09:10 Dose: 5 mg Documented by: Folic Acid (Folic Acid 1 Mg Tablet) 1 mg PO DAILY [facility] Last Admin: 12/17/20 09:10 Dose: 1 mg Documented by: Hydrocortisone (Hydrocortisone 2.5 % Rectal Cr 30 Gm Tube) 1 appl [place] BID PRN PRN Reason: hemorrhoids Hydroxyzine HCl (Hydroxyzine Hcl 25 Mg Tablet) 25 mg PO TID PRN PRN Reason: Anxiety Last Admin: 12/17/20 14:39 Dose: 25 mg Documented by: Loperamide HCl (Loperamide Hcl 2 Mg Capsule) 2 mg PO Q4H PRN PRN Reason: Diarrhea Last Admin: 12/15/20 10:23 Dose: 2 mg Documented by: Magnesium Hydroxide (Milk Of Magnesia 30 Ml Oral.Susp) 30 ml PO DAILY PRN PRN Reason: Constipation Melatonin (Melatonin 3 Mg Tablet) 6 mg PO BEDTIME [facility] Last Admin: 12/16/20 20:42 Dose: 6 mg Documented by: Memantine (Memantine Hcl 5 Mg Tablet) 5 mg PO DAILY [facility] Last Admin: 12/17/20 09:10 Dose: 5 mg Documented by: Olanzapine (Olanzapine 10 Mg Tablet) 10 mg PO BEDTIME [facility] Last Admin: 12/16/20 20:41 Dose: 10 mg Documented by: Olanzapine (Olanzapine 7.5 Mg Tablet) 7.5 mg PO DAILY [facility] Last Admin: 12/17/20 09:10 Dose: 7.5 mg Documented by: Thiamine HCl (Thiamine Hcl 100 Mg Tablet) 100 mg PO DAILY [facility] Last Admin: 12/17/20 09:10 Dose: 100 mg Documented by: Trazodone HCl (Trazodone Hcl 50 Mg Tablet) 50 mg PO BEDTIME PRN PRN Reason: Insomnia Last Admin: 12/10/20 22:53 Dose: 50 mg Documented by: Allergies Allergies Allergy/AdvReac Type Severity Reaction Status Date / Time azithromycin Allergy Itching Verified 11/16/20 21:17 buspirone Allergy Headache Verified 11/16/20 21:17 mirtazapine Allergy Unknown Verified 11/16/20 21:17 Assessment & Plan Assessment & Plan (1) Major depressive disorder, recurrent episode with melancholic features: Status: Acute Code(s): F33.9 - Major depressive disorder, recurrent, unspecified (2) Obsessive compulsive disorder: Status: Acute Code(s): F42.9 - Obsessive-compulsive disorder, unspecified (3) Hyperlipidemia: Status: Acute Code(s): E78.5 - Hyperlipidemia, unspecified Assessment and Plan: 70-year-old man admitted to Geriatric psych at [facility] transferred from [facility] due to exacerbation of depression and OCD symptoms. The patient [facility] but he has refused any treatment at the [facility] due to past but experiences. Plan 1. Keep same treatment. Encouraged him to review educational material on ECT. 2. [facility] 3. Urology consult I spent minutes with the patient and/or on the patient floor today, greater than?50% of which was spent counseling/coordinating care. Reason for contiued inpatient stay Substantial Risk for: inability to function, rapid decompensation and med/psych decompensation
--- NOTE | 2020-12-17 18:50 | PC.NURSE ---
Patient complained of discomfort and unable to urinate. Patient bladder scanned at 947 mls. Patient then urinated and post residual bladder scan at 87 mls.
[2020-12-17 21:14] VITALS: BP 129/74; PULSE 92; RESP 19; TEMP 36.4; O2SAT 100
[2020-12-17] MEDS: Melatonin 3 MG TABLET 6 MG PO (21:31)
[2020-12-17 21:32] VITALS: BP 110/62; PULSE 88
[2020-12-17] MEDS: OLANZapine 10 MG TABLET PO (21:32)
[2020-12-17] MEDS: Doxazosin Mesylate 2 MG TABLET 4 MG PO (21:32)
[2020-12-17] MEDS: traZODone HCL 50 MG TABLET PO (21:33)
[2020-12-18] MEDS: OLANZapine 7.5 MG TABLET PO (08:23)
[2020-12-18] MEDS: Escitalopram Oxalate 20 MG TABLET PO ×2 (08:23→21:27)
[2020-12-18] MEDS: Thiamine HCL 100 MG TABLET PO (08:23)
[2020-12-18] MEDS: Memantine HCl 5 MG TABLET PO (08:23)
[2020-12-18] MEDS: Finasteride 5 MG TABLET PO (08:23)
[2020-12-18] MEDS: Atorvastatin Calcium 20 MG TABLET PO (08:24)
[2020-12-18] MEDS: Folic Acid 1 MG TABLET PO (08:24)
--- NOTE | 2020-12-18 14:08 | HO.PSYCHPN ---
Subjective Subjective Date of Service: 12/18/20 Reason For Visit: OCD F42.2 Subjective Notes: Conditional Voluntary Interim History: The nursing staff reported that the patient remains obsessive with going to the bathroom every 5 minutes. We came up with a behavior contract and he would have access to the bathroom in an assertive manner. On interview, the patient denies new symptoms he remains obsessed with urine, feces and washing his hands Medication Compliance: Yes Side effects from medications: No Attending Groups: No Review of Systems Acute medical concerns: No Medical Review of Systems: unchanged Mental Status Exam Mental Status Exam Patient Appearance: Disheveled Patient Orientation: Person Level of Consciousness: Awake Patient Behavior: Guarded and Passive Mood Description: Depressed Affect Description: Constricted Patient Cognition Impaired: No Ability to Follow Directions: Fair Speech Pattern: Clear Hallucinations: None Delusions: Not Present Thought Process: Distracted and Evasive Thought Content: positive for Circumstantial, positive for Perseveration and positive for Poverty of Content Judgement: Fair Diagnostics Vital Signs (24Hr): Vital Signs - 24 hr 12/17/20 21:14 12/17/20 21:32 Temperature 97.6 F Pulse Rate 92 88 Respiratory Rate 19 Blood Pressure 129/74 110/62 Pulse Oximetry 100 Body Mass Index 17.6 Labs Results: 12/12/20 08:10 12/12/20 08:10 Medications Medications Current Medications Acetaminophen (Acetaminophen 325 Mg Tablet) 650 mg PO Q6H PRN PRN Reason: Headache/Pain Mild Scale (1-3) Last Admin: 12/15/20 09:43 Dose: 650 mg Documented by: Al Hydroxide/Mg Hydroxide (Magnesium Hydrox/Alum Hydrox 30 Ml Oral.Susp) 30 ml PO Q6H PRN PRN Reason: Heartburn/Nausea Last Admin: 12/10/20 10:56 Dose: 30 ml Documented by: Artificial Tears (Artificial Tears 15 Ml Drops) 1 drop EYE-BOTH Q4H PRN PRN Reason: Dry Eyes Last Admin: 12/10/20 14:38 Dose: 1 drop Documented by: Atorvastatin Calcium (Atorvastatin Calcium 20 Mg Tablet) 20 mg PO DAILY [facility] Last Admin: 12/18/20 08:24 Dose: 20 mg Documented by: Doxazosin Mesylate (Doxazosin Mesylate 2 Mg Tablet) 4 mg PO BEDTIME [facility]; Protocol Last Admin: 12/17/20 21:32 Dose: 4 mg Documented by: Escitalopram Oxalate (Escitalopram Oxalate 20 Mg Tablet) 20 mg PO BID [facility] Last Admin: 12/18/20 08:23 Dose: 20 mg Documented by: Finasteride (Finasteride 5 Mg Tablet) 5 mg PO DAILY [facility] Last Admin: 12/18/20 08:23 Dose: 5 mg Documented by: Folic Acid (Folic Acid 1 Mg Tablet) 1 mg PO DAILY [facility] Last Admin: 12/18/20 08:24 Dose: 1 mg Documented by: Hydrocortisone (Hydrocortisone 2.5 % Rectal Cr 30 Gm Tube) 1 appl [place] BID PRN PRN Reason: hemorrhoids Hydroxyzine HCl (Hydroxyzine Hcl 25 Mg Tablet) 25 mg PO TID PRN PRN Reason: Anxiety Last Admin: 12/17/20 21:32 Dose: 25 mg Documented by: Loperamide HCl (Loperamide Hcl 2 Mg Capsule) 2 mg PO Q4H PRN PRN Reason: Diarrhea Last Admin: 12/15/20 10:23 Dose: 2 mg Documented by: Magnesium Hydroxide (Milk Of Magnesia 30 Ml Oral.Susp) 30 ml PO DAILY PRN PRN Reason: Constipation Melatonin (Melatonin 3 Mg Tablet) 6 mg PO BEDTIME [facility] Last Admin: 12/17/20 21:31 Dose: 6 mg Documented by: Memantine (Memantine Hcl 5 Mg Tablet) 5 mg PO DAILY [facility] Last Admin: 12/18/20 08:23 Dose: 5 mg Documented by: Olanzapine (Olanzapine 10 Mg Tablet) 10 mg PO BEDTIME [facility] Last Admin: 12/17/20 21:32 Dose: 10 mg Documented by: Olanzapine (Olanzapine 7.5 Mg Tablet) 7.5 mg PO DAILY [facility] Last Admin: 12/18/20 08:23 Dose: 7.5 mg Documented by: Thiamine HCl (Thiamine Hcl 100 Mg Tablet) 100 mg PO DAILY [facility] Last Admin: 12/18/20 08:23 Dose: 100 mg Documented by: Trazodone HCl (Trazodone Hcl 50 Mg Tablet) 50 mg PO BEDTIME PRN PRN Reason: Insomnia Last Admin: 12/17/20 21:33 Dose: 50 mg Documented by: Allergies Allergies Allergy/AdvReac Type Severity Reaction Status Date / Time azithromycin Allergy Itching Verified 11/16/20 21:17 buspirone Allergy Headache Verified 11/16/20 21:17 mirtazapine Allergy Unknown Verified 11/16/20 21:17 Assessment & Plan Assessment & Plan (1) Major depressive disorder, recurrent episode with melancholic features: Status: Acute Code(s): F33.9 - Major depressive disorder, recurrent, unspecified (2) Obsessive compulsive disorder: Status: Acute Code(s): F42.9 - Obsessive-compulsive disorder, unspecified (3) Hyperlipidemia: Status: Acute Code(s): E78.5 - Hyperlipidemia, unspecified Assessment and Plan: 70-year-old man admitted to Geriatric psych at [facility] transferred from [facility] due to exacerbation of depression and OCD symptoms. The patient [facility] but [facility] but [facility]. Plan 1. Keep same treatment. Encouraged him to review educational material on ECT. 2. [facility]. she is waiting for placement I spent minutes with the patient and/or on the patient floor today, greater than?50% of which was spent counseling/coordinating care. Reason for contiued inpatient stay Substantial Risk for: inability to function, rapid decompensation and med/psych decompensation
[2020-12-18] MEDS: Loperamide HCl 2 MG CAPSULE PO ×2 (17:26→21:27)
[2020-12-18] MEDS: hydrOXYzine HCL 25 MG TABLET PO (17:26)
[2020-12-18 18:00] VITALS: BP 133/84; PULSE 99; RESP 18; TEMP 36.6; O2SAT 100
[2020-12-18 21:26] VITALS: BP 112/64; PULSE 66
[2020-12-18] MEDS: Doxazosin Mesylate 2 MG TABLET 4 MG PO (21:26)
[2020-12-18] MEDS: OLANZapine 10 MG TABLET PO (21:28)
[2020-12-18] MEDS: Melatonin 3 MG TABLET 6 MG PO (21:28)
[2020-12-19] MEDS: Finasteride 5 MG TABLET PO (08:50)
[2020-12-19] MEDS: Escitalopram Oxalate 20 MG TABLET PO ×2 (08:50→19:39)
[2020-12-19] MEDS: Atorvastatin Calcium 20 MG TABLET PO (08:51)
[2020-12-19] MEDS: Memantine HCl 5 MG TABLET PO (08:51)
[2020-12-19] MEDS: Thiamine HCL 100 MG TABLET PO (08:51)
[2020-12-19] MEDS: OLANZapine 7.5 MG TABLET PO (08:51)
[2020-12-19] MEDS: Folic Acid 1 MG TABLET PO (08:51)
[2020-12-19 08:59] VITALS: BP 107/67; PULSE 82; TEMP 35.5; O2SAT 98
[2020-12-19] MEDS: Loperamide HCl 2 MG CAPSULE PO ×2 (14:27→19:44)
--- NOTE | 2020-12-19 17:23 | HO.PSYCHPN ---
Subjective Subjective Date of Service: 12/19/20 Reason For Visit: OCD F42.2 Interim History: pt found lying in bed in his room. awake, alert. c/o loose stools and anxiety, not real good sleep. per staff, pt spending the lion's share of his time in bed. med-compliant. calm, quiet. loperamide PRN. loose BMs this morning. sleeping nights. Mental Status Exam Mental Status Exam Patient Appearance: Disheveled Patient Orientation: Person Level of Consciousness: Awake Patient Behavior: Guarded and Passive Mood Description: Depressed Affect Description: Constricted Patient Cognition Impaired: No Ability to Follow Directions: Fair Speech Pattern: Clear Hallucinations: None Delusions: Not Present Thought Process: Distracted and Evasive Thought Content: positive for Circumstantial, positive for Perseveration and positive for Poverty of Content Judgement: Fair Diagnostics Vital Signs (24Hr): Vital Signs - 24 hr 12/18/20 18:00 12/18/20 21:26 12/19/20 08:59 Temperature 98 F 96 F L Pulse Rate 99 66 82 Respiratory Rate 18 Blood Pressure 133/84 112/64 107/67 Pulse Oximetry 100 98 Body Mass Index 17.6 Labs Results: 12/12/20 08:10 12/12/20 08:10 Medications Medications Current Medications Acetaminophen (Acetaminophen 325 Mg Tablet) 650 mg PO Q6H PRN PRN Reason: Headache/Pain Mild Scale (1-3) Last Admin: 12/15/20 09:43 Dose: 650 mg Documented by: Al Hydroxide/Mg Hydroxide (Magnesium Hydrox/Alum Hydrox 30 Ml Oral.Susp) 30 ml PO Q6H PRN PRN Reason: Heartburn/Nausea Last Admin: 12/10/20 10:56 Dose: 30 ml Documented by: Artificial Tears (Artificial Tears 15 Ml Drops) 1 drop EYE-BOTH Q4H PRN PRN Reason: Dry Eyes Last Admin: 12/10/20 14:38 Dose: 1 drop Documented by: Atorvastatin Calcium (Atorvastatin Calcium 20 Mg Tablet) 20 mg PO DAILY [facility] Last Admin: 12/19/20 08:51 Dose: 20 mg Documented by: Doxazosin Mesylate (Doxazosin Mesylate 2 Mg Tablet) 4 mg PO BEDTIME [facility]; Protocol Last Admin: 12/18/20 21:26 Dose: 4 mg Documented by: Escitalopram Oxalate (Escitalopram Oxalate 20 Mg Tablet) 20 mg PO BID [facility] Last Admin: 12/19/20 08:50 Dose: 20 mg Documented by: Finasteride (Finasteride 5 Mg Tablet) 5 mg PO DAILY [facility] Last Admin: 12/19/20 08:50 Dose: 5 mg Documented by: Folic Acid (Folic Acid 1 Mg Tablet) 1 mg PO DAILY [facility] Last Admin: 12/19/20 08:51 Dose: 1 mg Documented by: Hydrocortisone (Hydrocortisone 2.5 % Rectal Cr 30 Gm Tube) 1 appl [place] BID PRN PRN Reason: hemorrhoids Hydroxyzine HCl (Hydroxyzine Hcl 25 Mg Tablet) 25 mg PO TID PRN PRN Reason: Anxiety Last Admin: 12/18/20 17:26 Dose: 25 mg Documented by: Loperamide HCl (Loperamide Hcl 2 Mg Capsule) 2 mg PO Q4H PRN PRN Reason: Diarrhea Last Admin: 12/19/20 14:27 Dose: 2 mg Documented by: Magnesium Hydroxide (Milk Of Magnesia 30 Ml Oral.Susp) 30 ml PO DAILY PRN PRN Reason: Constipation Melatonin (Melatonin 3 Mg Tablet) 6 mg PO BEDTIME [facility] Last Admin: 12/18/20 21:28 Dose: 6 mg Documented by: Memantine (Memantine Hcl 5 Mg Tablet) 5 mg PO DAILY [facility] Last Admin: 12/19/20 08:51 Dose: 5 mg Documented by: Olanzapine (Olanzapine 10 Mg Tablet) 10 mg PO BEDTIME [facility] Last Admin: 12/18/20 21:28 Dose: 10 mg Documented by: Olanzapine (Olanzapine 7.5 Mg Tablet) 7.5 mg PO DAILY [facility] Last Admin: 12/19/20 08:51 Dose: 7.5 mg Documented by: Thiamine HCl (Thiamine Hcl 100 Mg Tablet) 100 mg PO DAILY [facility] Last Admin: 12/19/20 08:51 Dose: 100 mg Documented by: Trazodone HCl (Trazodone Hcl 50 Mg Tablet) 50 mg PO BEDTIME PRN PRN Reason: Insomnia Last Admin: 12/17/20 21:33 Dose: 50 mg Documented by: Allergies Allergies Allergy/AdvReac Type Severity Reaction Status Date / Time azithromycin Allergy Itching Verified 11/16/20 21:17 buspirone Allergy Headache Verified 11/16/20 21:17 mirtazapine Allergy Unknown Verified 11/16/20 21:17 Assessment & Plan Assessment & Plan (1) Major depressive disorder, recurrent episode with melancholic features: Status: Acute Code(s): F33.9 - Major depressive disorder, recurrent, unspecified (2) Obsessive compulsive disorder: Status: Acute Code(s): F42.9 - Obsessive-compulsive disorder, unspecified (3) Hyperlipidemia: Status: Acute Code(s): E78.5 - Hyperlipidemia, unspecified Assessment and Plan: 70-year-old man admitted to Geriatric psych at [facility] transferred from [facility] due to exacerbation of depression and OCD symptoms. [facility]. Plan 1. Keep same treatment. Encouraged him to review educational material on ECT. 2. [facility]. he is [facility] for placement I spent minutes with the patient and/or on the patient floor today, greater than?50% of which was spent counseling/coordinating care. Reason for contiued inpatient stay Substantial Risk for: inability to function and rapid decompensation
[2020-12-19 19:39] VITALS: BP 116/94; PULSE 94
[2020-12-19] MEDS: Doxazosin Mesylate 2 MG TABLET 4 MG PO (19:39)
[2020-12-19] MEDS: Melatonin 3 MG TABLET 6 MG PO (19:44)
[2020-12-19] MEDS: hydrOXYzine HCL 25 MG TABLET PO (19:44)
[2020-12-19] MEDS: OLANZapine 10 MG TABLET PO (19:44)
[2020-12-19 19:47] VITALS: BP 116/86; PULSE 94; RESP 18; TEMP 36.7; O2SAT 94
[2020-12-20] MEDS: Loperamide HCl 2 MG CAPSULE PO ×3 (03:25→20:13)
[2020-12-20] MEDS: OLANZapine 7.5 MG TABLET PO (08:45)
[2020-12-20] MEDS: Memantine HCl 5 MG TABLET PO (08:46)
[2020-12-20] MEDS: Folic Acid 1 MG TABLET PO (08:46)
[2020-12-20] MEDS: Atorvastatin Calcium 20 MG TABLET PO (08:46)
[2020-12-20] MEDS: Finasteride 5 MG TABLET PO (08:46)
[2020-12-20] MEDS: Thiamine HCL 100 MG TABLET PO (08:46)
[2020-12-20] MEDS: Escitalopram Oxalate 20 MG TABLET PO ×2 (08:46→20:13)
[2020-12-20 08:51] VITALS: BP 116/71; PULSE 96; TEMP 36; O2SAT 98
[2020-12-20 14:59] LABS: Appearance Urine HAZY; Color Urine YELLOW; Glucose Urine UA NEG (NEG); Leukocyte Esterase Urine 3+ (NEG); Nitrite Urine POS (NEG); Specific Gravity - Urine 1.025 (1.005-1.025); UACC Culture Trigger YES; Urine Blood TRACE (NEG); Urine Ketones 5 MG/DL (NEG); Urine Protein NEG (NEG-TRACE)
--- NOTE | 2020-12-20 15:00 | P.PNPSI_ITS ---
Subjective Subjective Date of Service: 12/20/20 Reason For Visit: OCD F42.2 Interim History: pt reports he did not really sleep well last night. he otherwise has no complaints or requests for MD. per staff, med-compliant, ate breakfast, slept on and off through the night. c/o inability to urinate, UA ordered. perseverative re bowels and bladder. loose BMs today. Mental Status Exam Mental Status Exam Patient Appearance: Well Grooomed Patient Orientation: Person Level of Consciousness: Awake Patient Behavior: Guarded and Passive Mood Description: Depressed Affect Description: Constricted Patient Cognition Impaired: No Ability to Follow Directions: Fair Speech Pattern: Clear Delusions: Not Present Thought Process: Distracted and Evasive Thought Content: positive for Circumstantial, positive for Perseveration and positive for Poverty of Content Judgement: Fair Diagnostics Vital Signs (24Hr): Vital Signs - 24 hr 12/19/20 19:39 12/19/20 19:47 12/20/20 08:51 Temperature 98.1 F 96.8 F Pulse Rate 94 94 96 Respiratory Rate 18 Blood Pressure 116/94 H 116/86 116/71 Pulse Oximetry 94 98 Body Mass Index 17.6 Labs Results: 12/12/20 08:10 12/12/20 08:10 Medications Medications Current Medications Acetaminophen (Acetaminophen 325 Mg Tablet) 650 mg PO Q6H PRN PRN Reason: Headache/Pain Mild Scale (1-3) Last Admin: 12/15/20 09:43 Dose: 650 mg Documented by: Al Hydroxide/Mg Hydroxide (Magnesium Hydrox/Alum Hydrox 30 Ml Oral.Susp) 30 ml PO Q6H PRN PRN Reason: Heartburn/Nausea Last Admin: 12/10/20 10:56 Dose: 30 ml Documented by: Artificial Tears (Artificial Tears 15 Ml Drops) 1 drop EYE-BOTH Q4H PRN PRN Reason: Dry Eyes Last Admin: 12/10/20 14:38 Dose: 1 drop Documented by: Atorvastatin Calcium (Atorvastatin Calcium 20 Mg Tablet) 20 mg PO DAILY [facility] Last Admin: 12/20/20 08:46 Dose: 20 mg Documented by: Doxazosin Mesylate (Doxazosin Mesylate 2 Mg Tablet) 4 mg PO BEDTIME [facility]; Protocol Last Admin: 12/19/20 19:39 Dose: 4 mg Documented by: Escitalopram Oxalate (Escitalopram Oxalate 20 Mg Tablet) 20 mg PO BID [facility] Last Admin: 12/20/20 08:46 Dose: 20 mg Documented by: Finasteride (Finasteride 5 Mg Tablet) 5 mg PO DAILY [facility] Last Admin: 12/20/20 08:46 Dose: 5 mg Documented by: Folic Acid (Folic Acid 1 Mg Tablet) 1 mg PO DAILY [facility] Last Admin: 12/20/20 08:46 Dose: 1 mg Documented by: Hydrocortisone (Hydrocortisone 2.5 % Rectal Cr 30 Gm Tube) 1 appl [place] BID PRN PRN Reason: hemorrhoids Hydroxyzine HCl (Hydroxyzine Hcl 25 Mg Tablet) 25 mg PO TID PRN PRN Reason: Anxiety Last Admin: 12/19/20 19:44 Dose: 25 mg Documented by: Loperamide HCl (Loperamide Hcl 2 Mg Capsule) 2 mg PO Q4H PRN PRN Reason: Diarrhea Last Admin: 12/20/20 08:46 Dose: 2 mg Documented by: Magnesium Hydroxide (Milk Of Magnesia 30 Ml Oral.Susp) 30 ml PO DAILY PRN PRN Reason: Constipation Melatonin (Melatonin 3 Mg Tablet) 6 mg PO BEDTIME [facility] Last Admin: 12/19/20 19:44 Dose: 6 mg Documented by: Memantine (Memantine Hcl 5 Mg Tablet) 5 mg PO DAILY [facility] Last Admin: 12/20/20 08:46 Dose: 5 mg Documented by: Olanzapine (Olanzapine 10 Mg Tablet) 10 mg PO BEDTIME [facility] Last Admin: 12/19/20 19:44 Dose: 10 mg Documented by: Olanzapine (Olanzapine 7.5 Mg Tablet) 7.5 mg PO DAILY [facility] Last Admin: 12/20/20 08:45 Dose: 7.5 mg Documented by: Thiamine HCl (Thiamine Hcl 100 Mg Tablet) 100 mg PO DAILY [facility] Last Admin: 12/20/20 08:46 Dose: 100 mg Documented by: Trazodone HCl (Trazodone Hcl 50 Mg Tablet) 50 mg PO BEDTIME PRN PRN Reason: Insomnia Last Admin: 12/17/20 21:33 Dose: 50 mg Documented by: Allergies Allergies Allergy/AdvReac Type Severity Reaction Status Date / Time azithromycin Allergy Itching Verified 11/16/20 21:17 buspirone Allergy Headache Verified 11/16/20 21:17 mirtazapine Allergy Unknown Verified 11/16/20 21:17 Assessment & Plan Assessment & Plan (1) Major depressive disorder, recurrent episode with melancholic features: Status: Acute Code(s): F33.9 - Major depressive disorder, recurrent, unspecified (2) Obsessive compulsive disorder: Status: Acute Code(s): F42.9 - Obsessive-compulsive disorder, unspecified (3) Hyperlipidemia: Status: Acute Code(s): E78.5 - Hyperlipidemia, unspecified Assessment and Plan: 70-year-old man admitted to Geriatric psych at [facility] transferred from [facility] due to exacerbation of depression and OCD symptoms. The patient [facility] but [facility]. Plan 1. Keep same treatment. Encouraged him to review educational material on ECT. 2. [facility]. he is waiting for placement 3. UA being sent 12/20 for dysuria I spent minutes with the patient and/or on the patient floor today, greater than?50% of which was spent counseling/coordinating care. Reason for contiued inpatient stay Substantial Risk for: inability to function and rapid decompensation
[2020-12-20] MEDS: hydrOXYzine HCL 25 MG TABLET PO (15:14)
[2020-12-20 15:22] LABS: Bacteria Urine 3+ /LPF; Mucus Urine TRACE /LPF; RBC Urine 0-2 /HPF (0); Squamous Epithelial Cell Urine TRACE /LPF; WBC Urine TNTC /HPF (0-4)
[2020-12-20] MEDS: levoFLOXacin 750 MG TABLET PO (17:24)
[2020-12-20 18:00] VITALS: BP 131/63; PULSE 92; RESP 20; TEMP 36.6; O2SAT 95
[2020-12-20 20:13] VITALS: BP 131/63; PULSE 92
[2020-12-20] MEDS: OLANZapine 10 MG TABLET PO (20:13)
[2020-12-20] MEDS: Melatonin 3 MG TABLET 6 MG PO (20:13)
[2020-12-20] MEDS: Doxazosin Mesylate 2 MG TABLET 4 MG PO (20:13)
[2020-12-20 21:00] VITALS: BP 123/75; PULSE 110; RESP 20; TEMP 36.8; O2SAT 94
--- NOTE | 2020-12-20 23:52 | PC.NURSE ---
At 2100 patient found on his hands and knees after slipping on diarrhea, No injury patient assisted to bathroom given hygiene care, Slight pink to bilateral knees. HR 110 other vs stable. Neuros intact. Reported to Dr. Perez and rehabilitation supervisor Mary. Patient denies and c/o pain.
[2020-12-21 01:05] VITALS: BP 132/78; PULSE 86; RESP 19; O2SAT 98
[2020-12-21] MEDS: hydrOXYzine HCL 25 MG TABLET PO (01:12)
[2020-12-21] MEDS: traZODone HCL 50 MG TABLET PO (01:24)
--- NOTE | 2020-12-21 05:03 | PC.NURSE ---
At about 00:50, patient was observed pacing the room confused with hallucinations. patient reports that place is full of asbestos and its dangerous. I can't go in there. Patient was redirected to bed to which patient declined. This RN offered to sit in [facility] area with patient and patient agreed. while walking from patient's room to [facility] area, patient was observed by this RN grabbing side bar and slowly lowering to floor. This RN immediately assisted patient to floor to a sitting position. This RN immediately proceeded to assess and ensure patient was stable. No injuries present, noted or reported and vital signs are all stable (check flow-sheet). MD Perez and nursing supervisors informed
[2020-12-21 08:15] VITALS: BP 106/63; PULSE 103; RESP 16; O2SAT 94
[2020-12-21] MEDS: Thiamine HCL 100 MG TABLET PO (09:00)
[2020-12-21] MEDS: OLANZapine 7.5 MG TABLET PO (09:00)
[2020-12-21] MEDS: Memantine HCl 5 MG TABLET PO (09:01)
[2020-12-21] MEDS: Finasteride 5 MG TABLET PO (09:01)
[2020-12-21] MEDS: Atorvastatin Calcium 20 MG TABLET PO (09:01)
[2020-12-21] MEDS: Escitalopram Oxalate 20 MG TABLET PO ×2 (09:01→21:22)
[2020-12-21] MEDS: Folic Acid 1 MG TABLET PO (09:01)
--- NOTE | 2020-12-21 15:54 | MHC.CLN ---
F/U STAGE I TO COCCYX CONTINUES. LAST WEIGHT 12/03=59.1 KG. INTAKE IS VARIABLE. CONTINUE REGULAR DIET PLUS ENSURE TID. RD TO FOLLOW WEEKLY.
[2020-12-21] MEDS: Loperamide HCl 2 MG CAPSULE PO (16:27)
[2020-12-21] MEDS: levoFLOXacin 750 MG TABLET PO (16:27)
--- NOTE | 2020-12-21 16:36 | HO.PSYCHPN ---
Subjective Subjective Date of Service: 12/21/20 Reason For Visit: OCD F42.2 Subjective Notes: Conditional Voluntary Interim History: The nursing staff reports that the patient has been on one-to-one since he fell twice. He has been a straight catheter and apparently he has a UTI on antibiotics with Levaquin right 9. He reported auditory hallucinations last evening. On interview, the patient was on his room, very tired unable to fully engage in the interview Mental Status Exam Mental Status Exam Patient Appearance: Unkempt Patient Orientation: Person Level of Consciousness: Awake Patient Behavior: Guarded and Passive Mood Description: Depressed Affect Description: Constricted Patient Cognition Impaired: Yes Ability to Follow Directions: Fair Speech Pattern: Clear Hallucinations: None Delusions: Not Present Thought Process: Linear Thought Content: positive for Perseveration and positive for Poverty of Content Judgement: Poor Diagnostics Vital Signs (24Hr): Vital Signs - 24 hr 12/20/20 18:00 12/20/20 20:13 12/20/20 21:00 Temperature 98 F 98.2 F Pulse Rate 92 92 110 H Respiratory Rate 20 20 Blood Pressure 131/63 131/63 123/75 Pulse Oximetry 95 94 12/21/20 01:05 12/21/20 08:15 Temperature Pulse Rate 86 103 H Respiratory Rate 19 16 Blood Pressure 132/78 106/63 Pulse Oximetry 98 94 Body Mass Index 17.6 Labs Results: 12/12/20 08:10 12/12/20 08:10 Labs: Laboratory Results - last 48 hr 12/20/20 14:00 Urine Color YELLOW Urine Appearance HAZY Urine pH 6.0 Ur Specific [place] 1.025 Urine Protein NEG Urine Glucose (UA) NEG Urine Ketones 5 Urine Blood TRACE Urine Nitrite POS H Ur Leukocyte Esterase 3+ H Urine RBC 0-2 Urine WBC TNTC H Ur Squamous Epith Cells TRACE Urine Bacteria 3+ Urine Mucus TRACE Medications Medications Current Medications Acetaminophen (Acetaminophen 325 Mg Tablet) 650 mg PO Q6H PRN PRN Reason: Headache/Pain Mild Scale (1-3) Last Admin: 12/15/20 09:43 Dose: 650 mg Documented by: Al Hydroxide/Mg Hydroxide (Magnesium Hydrox/Alum Hydrox 30 Ml Oral.Susp) 30 ml PO Q6H PRN PRN Reason: Heartburn/Nausea Last Admin: 12/10/20 10:56 Dose: 30 ml Documented by: Artificial Tears (Artificial Tears 15 Ml Drops) 1 drop EYE-BOTH Q4H PRN PRN Reason: Dry Eyes Last Admin: 12/10/20 14:38 Dose: 1 drop Documented by: Atorvastatin Calcium (Atorvastatin Calcium 20 Mg Tablet) 20 mg PO DAILY [facility] Last Admin: 12/21/20 09:01 Dose: 20 mg Documented by: Doxazosin Mesylate (Doxazosin Mesylate 2 Mg Tablet) 4 mg PO BEDTIME [facility]; Protocol Last Admin: 12/20/20 20:13 Dose: 4 mg Documented by: Escitalopram Oxalate (Escitalopram Oxalate 20 Mg Tablet) 20 mg PO BID [facility] Last Admin: 12/21/20 09:01 Dose: 20 mg Documented by: Finasteride (Finasteride 5 Mg Tablet) 5 mg PO DAILY [facility] Last Admin: 12/21/20 09:01 Dose: 5 mg Documented by: Folic Acid (Folic Acid 1 Mg Tablet) 1 mg PO DAILY [facility] Last Admin: 12/21/20 09:01 Dose: 1 mg Documented by: Hydrocortisone (Hydrocortisone 2.5 % Rectal Cr 30 Gm Tube) 1 appl [place] BID PRN PRN Reason: hemorrhoids Hydroxyzine HCl (Hydroxyzine Hcl 25 Mg Tablet) 25 mg PO TID PRN PRN Reason: Anxiety Last Admin: 12/21/20 01:12 Dose: 25 mg Documented by: Levofloxacin (Levofloxacin 750 Mg Tablet) 750 mg PO Q24H [facility] Last Admin: 12/21/20 16:27 Dose: 750 mg Documented by: Loperamide HCl (Loperamide Hcl 2 Mg Capsule) 2 mg PO Q4H PRN PRN Reason: Diarrhea Last Admin: 12/21/20 16:27 Dose: 2 mg Documented by: Magnesium Hydroxide (Milk Of Magnesia 30 Ml Oral.Susp) 30 ml PO DAILY PRN PRN Reason: Constipation Melatonin (Melatonin 3 Mg Tablet) 6 mg PO BEDTIME [facility] Last Admin: 12/20/20 20:13 Dose: 6 mg Documented by: Memantine (Memantine Hcl 5 Mg Tablet) 5 mg PO DAILY [facility] Last Admin: 12/21/20 09:01 Dose: 5 mg Documented by: Olanzapine (Olanzapine 10 Mg Tablet) 10 mg PO BEDTIME [facility] Last Admin: 12/20/20 20:13 Dose: 10 mg Documented by: Olanzapine (Olanzapine 7.5 Mg Tablet) 7.5 mg PO DAILY [facility] Last Admin: 12/21/20 09:00 Dose: 7.5 mg Documented by: Thiamine HCl (Thiamine Hcl 100 Mg Tablet) 100 mg PO DAILY [facility] Last Admin: 12/21/20 09:00 Dose: 100 mg Documented by: Trazodone HCl (Trazodone Hcl 50 Mg Tablet) 50 mg PO BEDTIME PRN PRN Reason: Insomnia Last Admin: 12/21/20 01:24 Dose: 50 mg Documented by: Allergies Allergies Allergy/AdvReac Type Severity Reaction Status Date / Time azithromycin Allergy Itching Verified 11/16/20 21:17 buspirone Allergy Headache Verified 11/16/20 21:17 mirtazapine Allergy Unknown Verified 11/16/20 21:17 Assessment & Plan Assessment & Plan (1) Major depressive disorder, recurrent episode with melancholic features: Status: Acute Code(s): F33.9 - Major depressive disorder, recurrent, unspecified (2) Obsessive compulsive disorder: Status: Acute Code(s): F42.9 - Obsessive-compulsive disorder, unspecified (3) Hyperlipidemia: Status: Acute Code(s): E78.5 - Hyperlipidemia, unspecified Assessment and Plan: 70-year-old man admitted to Geriatric psych at [facility] transferred from [facility] due to exacerbation of depression and OCD symptoms. The patient follows [facility] but [facility]. Plan 1. Keep same treatment. Encouraged him to review educational material on ECT. 2. [facility]. he is waiting for placement 3. UA being sent 12/20 for dysuria I spent minutes with the patient and/or on the patient floor today, greater than?50% of which was spent counseling/coordinating care. Reason for contiued inpatient stay Substantial Risk for: inability to function, rapid decompensation and med/psych decompensation
[2020-12-21 18:00] VITALS: BP 104/71; PULSE 92; RESP 18; TEMP 36.2; O2SAT 100
[2020-12-21 21:21] VITALS: BP 104/71; PULSE 92
[2020-12-21] MEDS: Doxazosin Mesylate 2 MG TABLET 4 MG PO (21:21)
[2020-12-21] MEDS: Melatonin 3 MG TABLET 6 MG PO (21:22)
[2020-12-21] MEDS: OLANZapine 10 MG TABLET PO (21:23)
[2020-12-22] MEDS: traZODone HCL 50 MG TABLET PO ×2 (00:17→03:01)
[2020-12-22] MEDS: hydrOXYzine HCL 25 MG TABLET PO ×2 (00:25→20:17)
[2020-12-22 06:00] VITALS: BP 104/59; PULSE 84; RESP 18; TEMP 36.7; O2SAT 96
[2020-12-22 07:16] LABS: MANUAL DIFF FLAG NO
[2020-12-22 07:18] LABS: Eosinophils Percent Auto 0.2 % (0-4); Hematocrit 31.8 % (42.0-52.0); Hemoglobin 10.6 g/dl (14.0-18.0); Imm Gran Abs Auto 0.02 X10*3/uL (0.00-0.03); Imm Gran Pct Auto 0.5 % (0.0-0.4); Lymphocytes Absolute Auto 0.5 X10*3/uL (1.2-4.9); Lymphocytes Percent Auto 10.9 % (20-40); Mean Corpuscular HGB Conc 33.3 g/dl (31.0-36.0); Mean Corpuscular Hemoglobin 32.6 pg (27.0-33.0); Mean Corpuscular Volume 97.8 fL (80.0-98.0); Mean Platelet Volume 8.9 fL (9.4-12.4); Monocytes Absolute Auto 0.4 X10*3/uL (0.1-1.2); Monocytes Percent Auto 8.8 % (2-11); Neutrophils Absolute Auto 3.45 x10*3/uL (2.0-8.3); Neutrophils Percent Auto 79.6 % (45-73); Platelet Count 116 X10*3/uL (160-400); Red Blood Count 3.25 X10*6/uL (4.60-5.80); Red Cell Distribution Width 13.2 % (11.0-16.0); White Blood Count 4.3 X10*3/uL (4.8-10.8)
[2020-12-22 07:41] LABS: Anion Gap 11 (12-20); Blood Urea Nitrogen 29 mg/dL (9-16); Calcium 8.3 mg/dL (8.4-10.2); Carbon Dioxide 28 mmol/L (22-29); Chloride 108 mmol/L (96-108); Creatinine Clr Calc Pharmacy 74.4; Estimated Glomerular Filt Rate > 60; Glucose Random 129 mg/dL (60-115); Potassium 3.8 mmol/L (3.3-5.1); Sodium 143 mmol/L (135-145)
[2020-12-22] MEDS: Atorvastatin Calcium 20 MG TABLET PO (09:14)
[2020-12-22] MEDS: Thiamine HCL 100 MG TABLET PO (09:14)
[2020-12-22] MEDS: Memantine HCl 5 MG TABLET PO (09:14)
[2020-12-22] MEDS: OLANZapine 7.5 MG TABLET PO (09:14)
[2020-12-22] MEDS: Folic Acid 1 MG TABLET PO (09:14)
[2020-12-22] MEDS: Finasteride 5 MG TABLET PO (09:15)
[2020-12-22] MEDS: Escitalopram Oxalate 20 MG TABLET PO ×2 (09:15→20:03)
--- NOTE | 2020-12-22 14:30 | P.PNPSI_ITS ---
Subjective Subjective Date of Service: 12/22/20 Reason For Visit: OCD F42.2 Subjective Notes: Conditional Voluntary Interim History: The nursing staff reported the patient has been on one-to-one, on his bed, he looks acutely sick. The urine culture came back to aphylococcus epidermidis that he is resistant to several antibiotics. He was assessed at bedside he looks acutely sick, he was partially alert and oriented. We will consult with Medicine regarding antibiotic treatment. Review of Systems Acute medical concerns: Yes UTI Mental Status Exam Mental Status Exam Patient Appearance: Disheveled and Unkempt Patient Orientation: Person Level of Consciousness: Awake, Drowsy and Disoriented Patient Behavior: Cooperative Mood Description: Depressed Affect Description: Constricted Patient Cognition Impaired: Yes Ability to Follow Directions: Good Speech Pattern: Clear Hallucinations: None Delusions: Not Present Thought Process: Evasive and Slowed Thinking Thought Content: positive for Circumstantial Judgement: Fair Diagnostics Vital Signs (24Hr): Vital Signs - 24 hr 12/21/20 18:00 12/21/20 21:21 12/22/20 06:00 Temperature 97.2 F 98.1 F Pulse Rate 92 92 84 Respiratory Rate 18 18 Blood Pressure 104/71 104/71 104/59 L Pulse Oximetry 100 96 Body Mass Index 17.6 Labs Results: 12/22/20 07:11 12/22/20 07:11 Labs: Laboratory Results - last 48 hr 12/20/20 12/22/20 12/22/20 14:00 07:11 07:11 WBC 4.3 L RBC 3.25 L Hgb 10.6 L Hct 31.8 L MCV 97.8 MCH 32.6 MCHC 33.3 RDW 13.2 Plt Count 116 L MPV 8.9 L Immature Gran % (Auto) 0.5 H Neut % (Auto) 79.6 H Lymph % (Auto) 10.9 L [place] % (Auto) 8.8 Eos % (Auto) 0.2 Baso % (Auto) 0.0 Lymph # (Auto) 0.5 L [place] # (Auto) 0.4 Eos # (Auto) 0.0 Baso # (Auto) 0.0 Abs Immat Gran (auto) 0.02 Absolute Neuts (auto) 3.45 Absolute Nucleated RBC 0.000 Nucleated RBC % (auto) 0.0 Sodium 143 Potassium 3.8 Chloride 108 Carbon Dioxide 28 Anion Gap 11 L BUN 29 H Creatinine 0.75 Estim Creat Clear Calc 74.4 Estimated GFR > 60 Random Glucose 129 H D Calcium 8.3 L Urine Color YELLOW Urine Appearance HAZY Urine pH 6.0 Ur Specific [place] 1.025 Urine Protein NEG Urine Glucose (UA) NEG Urine Ketones 5 Urine Blood TRACE Urine Nitrite POS H Ur Leukocyte Esterase 3+ H Urine RBC 0-2 Urine WBC TNTC H Ur Squamous Epith Cells TRACE Urine Bacteria 3+ Urine Mucus TRACE Medications Medications Current Medications Acetaminophen (Acetaminophen 325 Mg Tablet) 650 mg PO Q6H PRN PRN Reason: Headache/Pain Mild Scale (1-3) Last Admin: 12/15/20 09:43 Dose: 650 mg Documented by: Al Hydroxide/Mg Hydroxide (Magnesium Hydrox/Alum Hydrox 30 Ml Oral.Susp) 30 ml PO Q6H PRN PRN Reason: Heartburn/Nausea Last Admin: 12/10/20 10:56 Dose: 30 ml Documented by: Artificial Tears (Artificial Tears 15 Ml Drops) 1 drop EYE-BOTH Q4H PRN PRN Reason: Dry Eyes Last Admin: 12/10/20 14:38 Dose: 1 drop Documented by: Atorvastatin Calcium (Atorvastatin Calcium 20 Mg Tablet) 20 mg PO DAILY [facility] Last Admin: 12/22/20 09:14 Dose: 20 mg Documented by: Doxazosin Mesylate (Doxazosin Mesylate 2 Mg Tablet) 4 mg PO BEDTIME [facility]; Protocol Last Admin: 12/21/20 21:21 Dose: 4 mg Documented by: Escitalopram Oxalate (Escitalopram Oxalate 20 Mg Tablet) 20 mg PO BID [facility] Last Admin: 12/22/20 09:15 Dose: 20 mg Documented by: Finasteride (Finasteride 5 Mg Tablet) 5 mg PO DAILY [facility] Last Admin: 12/22/20 09:15 Dose: 5 mg Documented by: Folic Acid (Folic Acid 1 Mg Tablet) 1 mg PO DAILY [facility] Last Admin: 12/22/20 09:14 Dose: 1 mg Documented by: Hydrocortisone (Hydrocortisone 2.5 % Rectal Cr 30 Gm Tube) 1 appl [place] BID PRN PRN Reason: hemorrhoids Hydroxyzine HCl (Hydroxyzine Hcl 25 Mg Tablet) 25 mg PO TID PRN PRN Reason: Anxiety Last Admin: 12/22/20 00:25 Dose: 25 mg Documented by: Levofloxacin (Levofloxacin 750 Mg Tablet) 750 mg PO Q24H [facility] Last Admin: 12/21/20 16:27 Dose: 750 mg Documented by: Loperamide HCl (Loperamide Hcl 2 Mg Capsule) 2 mg PO Q4H PRN PRN Reason: Diarrhea Last Admin: 12/21/20 16:27 Dose: 2 mg Documented by: Magnesium Hydroxide (Milk Of Magnesia 30 Ml Oral.Susp) 30 ml PO DAILY PRN PRN Reason: Constipation Melatonin (Melatonin 3 Mg Tablet) 6 mg PO BEDTIME [facility] Last Admin: 12/21/20 21:22 Dose: 6 mg Documented by: Memantine (Memantine Hcl 5 Mg Tablet) 5 mg PO DAILY [facility] Last Admin: 12/22/20 09:14 Dose: 5 mg Documented by: Olanzapine (Olanzapine 10 Mg Tablet) 10 mg PO BEDTIME [facility] Last Admin: 12/21/20 21:23 Dose: 10 mg Documented by: Olanzapine (Olanzapine 7.5 Mg Tablet) 7.5 mg PO DAILY [facility] Last Admin: 12/22/20 09:14 Dose: 7.5 mg Documented by: Thiamine HCl (Thiamine Hcl 100 Mg Tablet) 100 mg PO DAILY [facility] Last Admin: 12/22/20 09:14 Dose: 100 mg Documented by: Trazodone HCl (Trazodone Hcl 50 Mg Tablet) 50 mg PO BEDTIME PRN PRN Reason: Insomnia Last Admin: 12/22/20 03:01 Dose: 50 mg Documented by: Allergies Allergies Allergy/AdvReac Type Severity Reaction Status Date / Time azithromycin Allergy Itching Verified 11/16/20 21:17 buspirone Allergy Headache Verified 11/16/20 21:17 mirtazapine Allergy Unknown Verified 11/16/20 21:17 Assessment & Plan Assessment & Plan (1) Major depressive disorder, recurrent episode with melancholic features: Status: Acute Code(s): F33.9 - Major depressive disorder, recurrent, unspecified (2) Obsessive compulsive disorder: Status: Acute Code(s): F42.9 - Obsessive-compulsive disorder, unspecified (3) Hyperlipidemia: Status: Acute Code(s): E78.5 - Hyperlipidemia, unspecified Assessment and Plan: 70-year-old man admitted to Geriatric psych at [facility] transferred from [facility] due to exacerbation of depression and OCD symptoms. The patient follows treatment at the [facility] but he has refused any treatment at the [facility] due to past bad experiences. Plan 1. Keep same treatment. Encouraged him to review educational material on ECT. 2. [facility] for [facility] 3. UA being sent 12/20 for dysuria. 4. Hospitalist consult for antibiotic therapy. The patient is acutely sick on acute delirium. Blood work came back without any major changes I spent minutes with the patient and/or on the patient floor today, greater than?50% of which was spent counseling/coordinating care. Reason for contiued inpatient stay Substantial Risk for: inability to function, rapid decompensation and med/psych decompensation
[2020-12-22] MEDS: levoFLOXacin 750 MG TABLET PO (16:53)
[2020-12-22 18:00] VITALS: BP 127/76; PULSE 97; RESP 18; TEMP 36.8; O2SAT 97
[2020-12-22 20:02] VITALS: BP 127/76; PULSE 98
[2020-12-22] MEDS: Doxazosin Mesylate 2 MG TABLET 4 MG PO (20:02)
[2020-12-22] MEDS: Melatonin 3 MG TABLET 6 MG PO (20:02)
[2020-12-22] MEDS: OLANZapine 10 MG TABLET PO (20:03)
[2020-12-22] MEDS: Loperamide HCl 2 MG CAPSULE PO (20:17)
[2020-12-23] MEDS: traZODone HCL 50 MG TABLET PO (00:51)
[2020-12-23] MEDS: Loperamide HCl 2 MG CAPSULE PO ×3 (00:51→20:37)
--- NOTE | 2020-12-23 01:30 | PC.NURSE ---
Pt. was bladder scanned after voiding scant amount in the toilet. PVR 622ml. Straight cath 700ml yellow urine. Pt. tolerated the intervention.
[2020-12-23] MEDS: hydrOXYzine HCL 25 MG TABLET PO ×2 (04:48→20:36)
[2020-12-23 06:00] VITALS: BP 121/59; PULSE 74; RESP 14; TEMP 36.3; O2SAT 98
[2020-12-23] MEDS: Memantine HCl 5 MG TABLET PO (08:30)
[2020-12-23] MEDS: Folic Acid 1 MG TABLET PO (08:30)
[2020-12-23] MEDS: Atorvastatin Calcium 20 MG TABLET PO (08:30)
[2020-12-23] MEDS: Thiamine HCL 100 MG TABLET PO (08:30)
[2020-12-23] MEDS: Finasteride 5 MG TABLET PO (08:30)
[2020-12-23] MEDS: Escitalopram Oxalate 20 MG TABLET PO ×2 (08:30→20:37)
[2020-12-23] MEDS: OLANZapine 7.5 MG TABLET PO (08:30)
--- NOTE | 2020-12-23 12:52 | HO.PSYCHPN ---
Subjective Subjective Date of Service: 12/23/20 Reason For Visit: OCD F42.2 Subjective Notes: Conditional Voluntary Interim History: The patient remains acutely seek, he is shaking, his bed with episodes of confusion. On interview, the patient reports that he is feeling very bad and seek. The nursing staff reported episodic disorientation. We ordered a hospitalist consult for assessment. Still on antibiotics for UTI Mental Status Exam Mental Status Exam Patient Appearance: Disheveled Patient Orientation: Person and Situation Level of Consciousness: Disoriented and Lethargic Patient Behavior: Suspicious and Asleep Mood Description: Constricted Affect Description: Constricted and Depressed Patient Cognition Impaired: No Ability to Follow Directions: Fair Speech Pattern: Whisper Delusions: Paranoid Ideation Thought Process: Distracted and Slowed Thinking Thought Content: positive for Poverty of Content Judgement: Poor Diagnostics Vital Signs (24Hr): Vital Signs - 24 hr 12/22/20 18:00 12/22/20 20:02 12/23/20 06:00 Temperature 98.2 F 97.4 F Pulse Rate 97 98 74 Respiratory Rate 18 14 Blood Pressure 127/76 127/76 121/59 L Pulse Oximetry 97 98 Body Mass Index 17.6 Labs Results: 12/22/20 07:11 12/22/20 07:11 Labs: Laboratory Results - last 48 hr 12/22/20 12/22/20 07:11 07:11 WBC 4.3 L RBC 3.25 L Hgb 10.6 L Hct 31.8 L MCV 97.8 MCH 32.6 MCHC 33.3 RDW 13.2 Plt Count 116 L MPV 8.9 L Immature Gran % (Auto) 0.5 H Neut % (Auto) 79.6 H Lymph % (Auto) 10.9 L [place] % (Auto) 8.8 Eos % (Auto) 0.2 Baso % (Auto) 0.0 Lymph # (Auto) 0.5 L [place] # (Auto) 0.4 Eos # (Auto) 0.0 Baso # (Auto) 0.0 Abs Immat Gran (auto) 0.02 Absolute Neuts (auto) 3.45 Absolute Nucleated RBC 0.000 Nucleated RBC % (auto) 0.0 Sodium 143 Potassium 3.8 Chloride 108 Carbon Dioxide 28 Anion Gap 11 L BUN 29 H Creatinine 0.75 Estim Creat Clear Calc 74.4 Estimated GFR > 60 Random Glucose 129 H D Calcium 8.3 L Medications Medications Current Medications Acetaminophen (Acetaminophen 325 Mg Tablet) 650 mg PO Q6H PRN PRN Reason: Headache/Pain Mild Scale (1-3) Last Admin: 12/15/20 09:43 Dose: 650 mg Documented by: Al Hydroxide/Mg Hydroxide (Magnesium Hydrox/Alum Hydrox 30 Ml Oral.Susp) 30 ml PO Q6H PRN PRN Reason: Heartburn/Nausea Last Admin: 12/10/20 10:56 Dose: 30 ml Documented by: Artificial Tears (Artificial Tears 15 Ml Drops) 1 drop EYE-BOTH Q4H PRN PRN Reason: Dry Eyes Last Admin: 12/10/20 14:38 Dose: 1 drop Documented by: Atorvastatin Calcium (Atorvastatin Calcium 20 Mg Tablet) 20 mg PO DAILY [facility] Last Admin: 12/23/20 08:30 Dose: 20 mg Documented by: Doxazosin Mesylate (Doxazosin Mesylate 2 Mg Tablet) 4 mg PO BEDTIME [facility]; Protocol Last Admin: 12/22/20 20:02 Dose: 4 mg Documented by: Escitalopram Oxalate (Escitalopram Oxalate 20 Mg Tablet) 20 mg PO BID [facility] Last Admin: 12/23/20 08:30 Dose: 20 mg Documented by: Finasteride (Finasteride 5 Mg Tablet) 5 mg PO DAILY [facility] Last Admin: 12/23/20 08:30 Dose: 5 mg Documented by: Folic Acid (Folic Acid 1 Mg Tablet) 1 mg PO DAILY [facility] Last Admin: 12/23/20 08:30 Dose: 1 mg Documented by: Hydrocortisone (Hydrocortisone 2.5 % Rectal Cr 30 Gm Tube) 1 appl [place] BID PRN PRN Reason: hemorrhoids Hydroxyzine HCl (Hydroxyzine Hcl 25 Mg Tablet) 25 mg PO TID PRN PRN Reason: Anxiety Last Admin: 12/23/20 04:48 Dose: 25 mg Documented by: Levofloxacin (Levofloxacin 750 Mg Tablet) 750 mg PO Q24H [facility] Last Admin: 12/22/20 16:53 Dose: 750 mg Documented by: Loperamide HCl (Loperamide Hcl 2 Mg Capsule) 2 mg PO Q4H PRN PRN Reason: Diarrhea Last Admin: 12/23/20 04:48 Dose: 2 mg Documented by: Magnesium Hydroxide (Milk Of Magnesia 30 Ml Oral.Susp) 30 ml PO DAILY PRN PRN Reason: Constipation Melatonin (Melatonin 3 Mg Tablet) 6 mg PO BEDTIME [facility] Last Admin: 12/22/20 20:02 Dose: 6 mg Documented by: Memantine (Memantine Hcl 5 Mg Tablet) 5 mg PO DAILY [facility] Last Admin: 12/23/20 08:30 Dose: 5 mg Documented by: Olanzapine (Olanzapine 10 Mg Tablet) 10 mg PO BEDTIME [facility] Last Admin: 12/22/20 20:03 Dose: 10 mg Documented by: Olanzapine (Olanzapine 7.5 Mg Tablet) 7.5 mg PO DAILY [facility] Last Admin: 12/23/20 08:30 Dose: 7.5 mg Documented by: Thiamine HCl (Thiamine Hcl 100 Mg Tablet) 100 mg PO DAILY [facility] Last Admin: 12/23/20 08:30 Dose: 100 mg Documented by: Trazodone HCl (Trazodone Hcl 50 Mg Tablet) 50 mg PO BEDTIME PRN PRN Reason: Insomnia Last Admin: 12/23/20 00:51 Dose: 50 mg Documented by: Allergies Allergies Allergy/AdvReac Type Severity Reaction Status Date / Time azithromycin Allergy Itching Verified 11/16/20 21:17 buspirone Allergy Headache Verified 11/16/20 21:17 mirtazapine Allergy Unknown Verified 11/16/20 21:17 Assessment & Plan Assessment & Plan (1) Major depressive disorder, recurrent episode with melancholic features: Status: Acute Code(s): F33.9 - Major depressive disorder, recurrent, unspecified (2) Obsessive compulsive disorder: Status: Acute Code(s): F42.9 - Obsessive-compulsive disorder, unspecified (3) Hyperlipidemia: Status: Acute Code(s): E78.5 - Hyperlipidemia, unspecified Assessment and Plan: 70-year-old man admitted to Geriatric psych at [facility] transferred from [facility] due to exacerbation of depression and OCD symptoms. [facility]. Plan 1. Keep same treatment. Encouraged him to review educational material on ECT. 2. [facility]. [facility] 3. UA being sent 12/20 for dysuria. 4. Hospitalist consult for antibiotic therapy. The patient is acutely sick on acute delirium. Blood work came back without any major changes I spent minutes with the patient and/or on the patient floor today, greater than?50% of which was spent counseling/coordinating care. Reason for contiued inpatient stay Substantial Risk for: inability to function, rapid decompensation and med/psych decompensation
[2020-12-23] MEDS: levoFLOXacin 750 MG TABLET PO (16:51)
[2020-12-23] MEDS: Milk of Magnesia 30 ML ORAL.SUSP PO (17:28)
[2020-12-23 19:45] VITALS: BP 120/74; PULSE 95; RESP 18; TEMP 37.1; O2SAT 98
[2020-12-23] MEDS: Melatonin 3 MG TABLET 6 MG PO (20:36)
[2020-12-23 20:37] VITALS: BP 120/74; PULSE 95
[2020-12-23] MEDS: Doxazosin Mesylate 2 MG TABLET 4 MG PO (20:37)
[2020-12-23] MEDS: OLANZapine 10 MG TABLET PO (20:37)
[2020-12-24] MEDS: Loperamide HCl 2 MG CAPSULE PO ×3 (00:54→23:48)
--- NOTE | 2020-12-24 02:57 | PC.NURSE ---
Pt. unable to void. Bladder scan 499ml. Straight cath 600ml yellow urine. Pt. tolerated well.
[2020-12-24 06:22] VITALS: BP 117/77; PULSE 79; RESP 18; TEMP 37.2; O2SAT 98
[2020-12-24 07:00] VITALS: BMI 17.9
[2020-12-24 08:48] VITALS: BP 131/79; PULSE 97; RESP 14; TEMP 36.9; O2SAT 97
[2020-12-24] MEDS: Folic Acid 1 MG TABLET PO (09:30)
[2020-12-24] MEDS: Atorvastatin Calcium 20 MG TABLET PO (09:30)
[2020-12-24] MEDS: Escitalopram Oxalate 20 MG TABLET PO ×2 (09:30→20:05)
[2020-12-24] MEDS: Memantine HCl 5 MG TABLET PO (09:30)
[2020-12-24] MEDS: Finasteride 5 MG TABLET PO (09:30)
[2020-12-24] MEDS: OLANZapine 7.5 MG TABLET PO (09:30)
[2020-12-24] MEDS: Thiamine HCL 100 MG TABLET PO (09:30)
--- NOTE | 2020-12-24 14:44 | P.PNPSI_ITS ---
Subjective Subjective Date of Service: 12/24/20 Reason For Visit: OCD F42.2 Subjective Notes: Conditional Voluntary Interim History: The nursing staff reports the patient is oriented to self and has hallucinations at times. On interview, the patient was outside taking his breakfast and he seemed cooperative and pleasant but he is acutely sick with frequent tremors. As per nursing staff, his vital signs are stable at this moment Mental Status Exam Mental Status Exam Patient Appearance: Disheveled and Unkempt Patient Orientation: Person and Situation Level of Consciousness: Follows Commands Patient Behavior: Cooperative and Timid Mood Description: Depressed Affect Description: Constricted Patient Cognition Impaired: No Ability to Follow Directions: Fair Speech Pattern: Appropriate Hallucinations: None Delusions: Not Present Thought Content: positive for Circumstantial Judgement: Fair Diagnostics Vital Signs (24Hr): Vital Signs - 24 hr 12/23/20 19:45 12/23/20 20:37 12/24/20 06:22 Temperature 98.7 F 98.9 F Pulse Rate 95 95 79 Respiratory Rate 18 18 Blood Pressure 120/74 120/74 117/77 Pulse Oximetry 98 98 12/24/20 08:48 Temperature 98.4 F Pulse Rate 97 Respiratory Rate 14 Blood Pressure 131/79 Pulse Oximetry 97 Body Mass Index 17.9 Labs Results: 12/22/20 07:11 12/22/20 07:11 Medications Medications Current Medications Acetaminophen (Acetaminophen 325 Mg Tablet) 650 mg PO Q6H PRN PRN Reason: Headache/Pain Mild Scale (1-3) Last Admin: 12/15/20 09:43 Dose: 650 mg Documented by: Al Hydroxide/Mg Hydroxide (Magnesium Hydrox/Alum Hydrox 30 Ml Oral.Susp) 30 ml PO Q6H PRN PRN Reason: Heartburn/Nausea Last Admin: 12/10/20 10:56 Dose: 30 ml Documented by: Artificial Tears (Artificial Tears 15 Ml Drops) 1 drop EYE-BOTH Q4H PRN PRN Reason: Dry Eyes Last Admin: 12/10/20 14:38 Dose: 1 drop Documented by: Atorvastatin Calcium (Atorvastatin Calcium 20 Mg Tablet) 20 mg PO DAILY [facility] Last Admin: 12/24/20 09:30 Dose: 20 mg Documented by: Doxazosin Mesylate (Doxazosin Mesylate 2 Mg Tablet) 4 mg PO BEDTIME [facility]; Protocol Last Admin: 12/23/20 20:37 Dose: 4 mg Documented by: Escitalopram Oxalate (Escitalopram Oxalate 20 Mg Tablet) 20 mg PO BID [facility] Last Admin: 12/24/20 09:30 Dose: 20 mg Documented by: Finasteride (Finasteride 5 Mg Tablet) 5 mg PO DAILY [facility] Last Admin: 12/24/20 09:30 Dose: 5 mg Documented by: Folic Acid (Folic Acid 1 Mg Tablet) 1 mg PO DAILY [facility] Last Admin: 12/24/20 09:30 Dose: 1 mg Documented by: Hydrocortisone (Hydrocortisone 2.5 % Rectal Cr 30 Gm Tube) 1 appl [place] BID PRN PRN Reason: hemorrhoids Hydroxyzine HCl (Hydroxyzine Hcl 25 Mg Tablet) 25 mg PO TID PRN PRN Reason: Anxiety Last Admin: 12/23/20 20:36 Dose: 25 mg Documented by: Loperamide HCl (Loperamide Hcl 2 Mg Capsule) 2 mg PO Q4H PRN PRN Reason: Diarrhea Last Admin: 12/24/20 00:54 Dose: 2 mg Documented by: Magnesium Hydroxide (Milk Of Magnesia 30 Ml Oral.Susp) 30 ml PO DAILY PRN PRN Reason: Constipation Last Admin: 12/23/20 17:28 Dose: 30 ml Documented by: Melatonin (Melatonin 3 Mg Tablet) 6 mg PO BEDTIME [facility] Last Admin: 12/23/20 20:36 Dose: 6 mg Documented by: Memantine (Memantine Hcl 5 Mg Tablet) 5 mg PO DAILY [facility] Last Admin: 12/24/20 09:30 Dose: 5 mg Documented by: Olanzapine (Olanzapine 10 Mg Tablet) 10 mg PO BEDTIME [facility] Last Admin: 12/23/20 20:37 Dose: 10 mg Documented by: Olanzapine (Olanzapine 7.5 Mg Tablet) 7.5 mg PO DAILY [facility] Last Admin: 12/24/20 09:30 Dose: 7.5 mg Documented by: Thiamine HCl (Thiamine Hcl 100 Mg Tablet) 100 mg PO DAILY [facility] Last Admin: 12/24/20 09:30 Dose: 100 mg Documented by: Trazodone HCl (Trazodone Hcl 50 Mg Tablet) 50 mg PO BEDTIME PRN PRN Reason: Insomnia Last Admin: 12/23/20 00:51 Dose: 50 mg Documented by: Allergies Allergies Allergy/AdvReac Type Severity Reaction Status Date / Time azithromycin Allergy Itching Verified 11/16/20 21:17 buspirone Allergy Headache Verified 11/16/20 21:17 mirtazapine Allergy Unknown Verified 11/16/20 21:17 Assessment & Plan Assessment & Plan (1) Major depressive disorder, recurrent episode with melancholic features: Status: Acute Code(s): F33.9 - Major depressive disorder, recurrent, unspecified (2) Obsessive compulsive disorder: Status: Acute Code(s): F42.9 - Obsessive-compulsive disorder, unspecified (3) Hyperlipidemia: Status: Acute Code(s): E78.5 - Hyperlipidemia, unspecified Assessment and Plan: 70-year-old man admitted to Geriatric psych at [facility] transferred from [facility] due to exacerbation of depression and OCD symptoms. [facility] but [facility] due to past bad experiences. Plan 1. Keep same treatment. Continue antibiotics for UTI. 2. The patient has a sporadic delirium with alternated mental status but so far his vital signs are stable. Hospitalist consult was asked yesterday. 3. The social service assistant reported that he has been accepted for next week to [facility] I spent minutes with the patient and/or on the patient floor today, greater than?50% of which was spent counseling/coordinating care. Reason for contiued inpatient stay Substantial Risk for: inability to function, rapid decompensation and med/psych decompensation
[2020-12-24 18:00] VITALS: BP 130/71; PULSE 95; RESP 17; TEMP 36.3; O2SAT 96
[2020-12-24 20:00] VITALS: BP 130/71; PULSE 95
[2020-12-24] MEDS: Doxazosin Mesylate 2 MG TABLET 4 MG PO (20:00)
[2020-12-24] MEDS: Melatonin 3 MG TABLET 6 MG PO (20:05)
[2020-12-24] MEDS: OLANZapine 10 MG TABLET PO (20:06)
[2020-12-24 23:45] LABS: Appearance Urine CLEAR; Color Urine DK YELLOW; Glucose Urine UA NEG (NEG); Leukocyte Esterase Urine NEG (NEG); Nitrite Urine NEG (NEG); Specific Gravity - Urine >= 1.030 (1.005-1.025); Urine Blood NEG (NEG); Urine Ketones 5 MG/DL (NEG); Urine Protein NEG (NEG-TRACE)
[2020-12-25 00:06] LABS: Calcium Oxalate Crystals Urine TRACE /LPF; Mucus Urine 1+ /LPF; RBC Urine 0 /HPF (0); Squamous Epithelial Cell Urine TRACE /LPF; UACC CULT YES
[2020-12-25] MEDS: hydrOXYzine HCL 25 MG TABLET PO (01:53)
[2020-12-25] MEDS: Loperamide HCl 2 MG CAPSULE PO (03:50)
[2020-12-25 06:00] VITALS: BP 110/64; PULSE 78; RESP 16; TEMP 37.8; O2SAT 99
--- NOTE | 2020-12-25 11:59 | P.PNPSI_ITS ---
Subjective Subjective Date of Service: 12/25/20 Reason For Visit: OCD F42.2 Subjective Notes: Conditional Voluntary Interim History: The patient remains acutely sick, the nursing staff reported that he has been confused with auditory hallucinations and loose stools. He is on one-to-one now. On interview, the patient reported that he is not feeling well for several days. A new consult with hospitalist was none. Mental Status Exam Mental Status Exam Patient Appearance: Disheveled and Unkempt Patient Orientation: Person Level of Consciousness: Disoriented, Restless and Alert Patient Behavior: Suspicious Mood Description: Labile Affect Description: Constricted Patient Cognition Impaired: No Ability to Follow Directions: Fair Speech Pattern: Clear Hallucinations: Auditory Delusions: Not Present Thought Process: Distracted Thought Content: positive for Perseveration and positive for Poverty of Content Judgement: Poor Diagnostics Vital Signs (24Hr): Vital Signs - 24 hr 12/24/20 18:00 12/24/20 20:00 12/25/20 06:00 Temperature 97.4 F 100.1 F Pulse Rate 95 95 78 Respiratory Rate 17 16 Blood Pressure 130/71 130/71 110/64 Pulse Oximetry 96 99 Body Mass Index 17.9 Labs Results: 12/22/20 07:11 12/22/20 07:11 Labs: Laboratory Results - last 48 hr 12/24/20 23:31 Urine Color DK YELLOW Urine Appearance CLEAR Urine pH 6.0 Ur Specific [place] >= 1.030 H Urine Protein NEG Urine Glucose (UA) NEG Urine Ketones 5 Urine Blood NEG Urine Nitrite NEG Ur Leukocyte Esterase NEG Urine RBC 0 Urine WBC 5-9 H Ur Squamous Epith Cells TRACE Calcium Oxalate Crystal TRACE Urine Bacteria NONE Urine Mucus 1+ Medications Medications Current Medications Acetaminophen (Acetaminophen 325 Mg Tablet) 650 mg PO Q6H PRN PRN Reason: Headache/Pain Mild Scale (1-3) Last Admin: 12/15/20 09:43 Dose: 650 mg Documented by: Al Hydroxide/Mg Hydroxide (Magnesium Hydrox/Alum Hydrox 30 Ml Oral.Susp) 30 ml PO Q6H PRN PRN Reason: Heartburn/Nausea Last Admin: 12/10/20 10:56 Dose: 30 ml Documented by: Artificial Tears (Artificial Tears 15 Ml Drops) 1 drop EYE-BOTH Q4H PRN PRN Reason: Dry Eyes Last Admin: 12/10/20 14:38 Dose: 1 drop Documented by: Atorvastatin Calcium (Atorvastatin Calcium 20 Mg Tablet) 20 mg PO DAILY [facility] Last Admin: 12/24/20 09:30 Dose: 20 mg Documented by: Doxazosin Mesylate (Doxazosin Mesylate 2 Mg Tablet) 4 mg PO BEDTIME [facility]; Protocol Last Admin: 12/24/20 20:00 Dose: 4 mg Documented by: Escitalopram Oxalate (Escitalopram Oxalate 20 Mg Tablet) 20 mg PO BID [facility] Last Admin: 12/24/20 20:05 Dose: 20 mg Documented by: Finasteride (Finasteride 5 Mg Tablet) 5 mg PO DAILY [facility] Last Admin: 12/24/20 09:30 Dose: 5 mg Documented by: Folic Acid (Folic Acid 1 Mg Tablet) 1 mg PO DAILY [facility] Last Admin: 12/24/20 09:30 Dose: 1 mg Documented by: Hydrocortisone (Hydrocortisone 2.5 % Rectal Cr 30 Gm Tube) 1 appl [place] BID PRN PRN Reason: hemorrhoids Hydroxyzine HCl (Hydroxyzine Hcl 25 Mg Tablet) 25 mg PO TID PRN PRN Reason: Anxiety Last Admin: 12/25/20 01:53 Dose: 25 mg Documented by: Loperamide HCl (Loperamide Hcl 2 Mg Capsule) 2 mg PO Q4H PRN PRN Reason: Diarrhea Last Admin: 12/25/20 03:50 Dose: 2 mg Documented by: Magnesium Hydroxide (Milk Of Magnesia 30 Ml Oral.Susp) 30 ml PO DAILY PRN PRN Reason: Constipation Last Admin: 12/23/20 17:28 Dose: 30 ml Documented by: Melatonin (Melatonin 3 Mg Tablet) 6 mg PO BEDTIME [facility] Last Admin: 12/24/20 20:05 Dose: 6 mg Documented by: Memantine (Memantine Hcl 5 Mg Tablet) 5 mg PO DAILY [facility] Last Admin: 12/24/20 09:30 Dose: 5 mg Documented by: Olanzapine (Olanzapine 10 Mg Tablet) 10 mg PO BEDTIME [facility] Last Admin: 12/24/20 20:06 Dose: 10 mg Documented by: Olanzapine (Olanzapine 7.5 Mg Tablet) 7.5 mg PO DAILY [facility] Last Admin: 12/24/20 09:30 Dose: 7.5 mg Documented by: Thiamine HCl (Thiamine Hcl 100 Mg Tablet) 100 mg PO DAILY [facility] Last Admin: 12/24/20 09:30 Dose: 100 mg Documented by: Trazodone HCl (Trazodone Hcl 50 Mg Tablet) 50 mg PO BEDTIME PRN PRN Reason: Insomnia Last Admin: 12/23/20 00:51 Dose: 50 mg Documented by: Allergies Allergies Allergy/AdvReac Type Severity Reaction Status Date / Time azithromycin Allergy Itching Verified 11/16/20 21:17 buspirone Allergy Headache Verified 11/16/20 21:17 mirtazapine Allergy Unknown Verified 11/16/20 21:17 Assessment & Plan Assessment & Plan (1) Major depressive disorder, recurrent episode with melancholic features: Status: Acute Code(s): F33.9 - Major depressive disorder, recurrent, unspecified (2) Obsessive compulsive disorder: Status: Acute Code(s): F42.9 - Obsessive-compulsive disorder, unspecified (3) Hyperlipidemia: Status: Acute Code(s): E78.5 - Hyperlipidemia, unspecified Assessment and Plan: 70-year-old man admitted to Geriatric psych at [facility] transferred from [facility] due to exacerbation of depression and OCD symptoms. The patient [facility] treatment at the [facility] but he has refused any treatment at the [facility] due to past bad experiences. Plan 1. Keep same treatment. Continue antibiotics for UTI. 2. The patient has a sporadic delirium with alternated mental status but so far his vital signs are stable. Hospitalist consult was asked yesterday. 3. The medical social consultant reported that he has been accepted for next week to [facility] . 4. Hospitalist consult to assess possibility of transfer to Medicine I spent minutes with the patient and/or on the patient floor today, greater than?50% of which was spent counseling/coordinating care. Reason for contiued inpatient stay Substantial Risk for: inability to function, rapid decompensation and med/psych decompensation
[2020-12-25 12:36] LABS: MANUAL DIFF FLAG NO
[2020-12-25 12:38] LABS: Eosinophils Percent Auto 0.2 % (0-4); Hematocrit 31.3 % (42.0-52.0); Hemoglobin 10.2 g/dl (14.0-18.0); Imm Gran Abs Auto 0.01 X10*3/uL (0.00-0.03); Imm Gran Pct Auto 0.2 % (0.0-0.4); Lymphocytes Absolute Auto 0.6 X10*3/uL (1.2-4.9); Lymphocytes Percent Auto 12.2 % (20-40); Mean Corpuscular HGB Conc 32.6 g/dl (31.0-36.0); Mean Corpuscular Hemoglobin 32.2 pg (27.0-33.0); Mean Corpuscular Volume 98.7 fL (80.0-98.0); Mean Platelet Volume 8.8 fL (9.4-12.4); Monocytes Absolute Auto 0.4 X10*3/uL (0.1-1.2); Monocytes Percent Auto 8.8 % (2-11); Neutrophils Absolute Auto 3.7 x10*3/uL (2.0-8.3); Neutrophils Percent Auto 78.6 % (45-73); Platelet Count 128 X10*3/uL (160-400); Red Blood Count 3.17 X10*6/uL (4.60-5.80); Red Cell Distribution Width 13.1 % (11.0-16.0); White Blood Count 4.8 X10*3/uL (4.8-10.8)
[2020-12-25 12:59] LABS: Anion Gap 10 (12-20); Blood Urea Nitrogen 18 mg/dL (9-16); Calcium 7.7 mg/dL (8.4-10.2); Carbon Dioxide 28 mmol/L (22-29); Chloride 110 mmol/L (96-108); Creatinine Clr Calc Pharmacy 99.5; Estimated Glomerular Filt Rate > 60; Glucose Random 103 mg/dL (60-115); Potassium 3.6 mmol/L (3.3-5.1); Sodium 144 mmol/L (135-145)
[2020-12-25] MEDS: 0.9 % Sodium Chloride 1,000 ML 100 ML IVCONT (16:25)
[2020-12-25 16:43] LABS: MANUAL DIFF FLAG NO
[2020-12-25 16:50] LABS: Basophils Percent Auto 0.2 % (0-2); Eosinophils Percent Auto 0.2 % (0-4); Hematocrit 32.1 % (42.0-52.0); Hemoglobin 10.5 g/dl (14.0-18.0); Imm Gran Abs Auto 0.02 X10*3/uL (0.00-0.03); Imm Gran Pct Auto 0.4 % (0.0-0.4); Lymphocytes Absolute Auto 0.8 X10*3/uL (1.2-4.9); Lymphocytes Percent Auto 17.3 % (20-40); Mean Corpuscular HGB Conc 32.7 g/dl (31.0-36.0); Mean Corpuscular Hemoglobin 32.5 pg (27.0-33.0); Mean Corpuscular Volume 99.4 fL (80.0-98.0); Mean Platelet Volume 8.5 fL (9.4-12.4); Monocytes Absolute Auto 0.4 X10*3/uL (0.1-1.2); Monocytes Percent Auto 8.1 % (2-11); Neutrophils Absolute Auto 3.5 x10*3/uL (2.0-8.3); Neutrophils Percent Auto 73.8 % (45-73); Platelet Count 125 X10*3/uL (160-400); Red Blood Count 3.23 X10*6/uL (4.60-5.80); Red Cell Distribution Width 13.1 % (11.0-16.0); White Blood Count 4.8 X10*3/uL (4.8-10.8)
[2020-12-25 17:17] LABS: Alanine Aminotransferase 18 U/L (0-40); Albumin Level 3.3 g/dL (3.5-5.0); Alkaline Phosphatase 54 U/L (39-117); Anion Gap 8 (12-20); Aspartate Amino Transferase 15 U/L (5-37); Bilirubin Total 0.5 mg/dL (0.0-1.0); Blood Urea Nitrogen 15 mg/dL (9-16); Calcium 7.8 mg/dL (8.4-10.2); Carbon Dioxide 30 mmol/L (22-29); Chloride 109 mmol/L (96-108); Creatinine Clr Calc Pharmacy 97.7; Estimated Glomerular Filt Rate > 60; Glucose Random 97 mg/dL (60-115); Potassium 3.7 mmol/L (3.3-5.1); Sodium 143 mmol/L (135-145)
--- NOTE | 2020-12-25 18:45 | PC.NURSE ---
Pt to be transferred to [facility]-surg as pt is currently delirious, hallucinating, not accepting fluids/food.
--- NOTE | 2020-12-25 18:58 | PM.IMHP ---
History of Present Illness Date of Service: 12/25/20 70-year-old male patient of the [facility] who has been declining secondary to UTI. Staff states he has minimal p.o. intake and he has become more somnolent of recent. They denies fever and chills. At this point time he be admitted to medical service for more complete workup and IV fluids Review of Systems Review of Systems: Per staff denies chest pain Denies shortness of breath Admits diarrhea PMFSH Medical History Arthritis BPH (benign prostatic hyperplasia) GERD (gastroesophageal reflux disease) Obstructive sleep apnea PTSD (post-traumatic stress disorder) Surgical History Cataract extraction status H/O cystoscopy H/O hernia repair History of esophagogastroduodenoscopy (EGD) S/P TURP Social History Household Members: None Housing: Apartment Do you presently have visiting nurse or other home services: No Patient Tobacco Use Status: Former Tobacco user Quit Date: 17 years ago Tobacco use type: Cigarette Cigarette Packs Per Day: 2 Cigarettes Per Day: 40.0 Years Smoked: many e-Cigarette/Vaping Use: Never Used Second Hand Smoke Exposure: No Advance Directives: No Advance Directives Information Provided: No service: Yes Meds Allergies Allergy/AdvReac Type Severity Reaction Status Date / Time azithromycin Allergy Itching Verified 11/16/20 21:17 buspirone Allergy Headache Verified 11/16/20 21:17 mirtazapine Allergy Unknown Verified 11/16/20 21:17 Active Medications: Current Medications Acetaminophen (Acetaminophen 325 Mg Tablet) 650 mg PO Q6H PRN PRN Reason: Headache/Pain Mild Scale (1-3) Last Admin: 12/15/20 09:43 Dose: 650 mg Documented by: Al Hydroxide/Mg Hydroxide (Magnesium Hydrox/Alum Hydrox 30 Ml Oral.Susp) 30 ml PO Q6H PRN PRN Reason: Heartburn/Nausea Last Admin: 12/10/20 10:56 Dose: 30 ml Documented by: Artificial Tears (Artificial Tears 15 Ml Drops) 1 drop EYE-BOTH Q4H PRN PRN Reason: Dry Eyes Last Admin: 12/10/20 14:38 Dose: 1 drop Documented by: Atorvastatin Calcium (Atorvastatin Calcium 20 Mg Tablet) 20 mg PO DAILY [facility] Last Admin: 12/25/20 16:30 Dose: Not Given Documented by: Doxazosin Mesylate (Doxazosin Mesylate 2 Mg Tablet) 4 mg PO BEDTIME [facility]; Protocol Last Admin: 12/24/20 20:00 Dose: 4 mg Documented by: Escitalopram Oxalate (Escitalopram Oxalate 20 Mg Tablet) 20 mg PO BID [facility] Last Admin: 12/25/20 16:30 Dose: Not Given Documented by: Finasteride (Finasteride 5 Mg Tablet) 5 mg PO DAILY [facility] Last Admin: 12/25/20 16:30 Dose: Not Given Documented by: Folic Acid (Folic Acid 1 Mg Tablet) 1 mg PO DAILY [facility] Last Admin: 12/25/20 16:30 Dose: Not Given Documented by: Hydrocortisone (Hydrocortisone 2.5 % Rectal Cr 30 Gm Tube) 1 appl UT BID PRN PRN Reason: hemorrhoids Hydroxyzine HCl (Hydroxyzine Hcl 25 Mg Tablet) 25 mg PO TID PRN PRN Reason: Anxiety Last Admin: 12/25/20 01:53 Dose: 25 mg Documented by: Sodium Chloride (Ns) 1,000 mls @ 100 mls/hr IVCONT .Q10H TRINH Last Admin: 12/25/20 16:25 Dose: 100 mls/hr Documented by: Loperamide HCl (Loperamide Hcl 2 Mg Capsule) 2 mg PO Q4H PRN PRN Reason: Diarrhea Last Admin: 12/25/20 03:50 Dose: 2 mg Documented by: Magnesium Hydroxide (Milk Of Magnesia 30 Ml Oral.Susp) 30 ml PO DAILY PRN PRN Reason: Constipation Last Admin: 12/23/20 17:28 Dose: 30 ml Documented by: Melatonin (Melatonin 3 Mg Tablet) 6 mg PO BEDTIME [facility] Last Admin: 12/24/20 20:05 Dose: 6 mg Documented by: Memantine (Memantine Hcl 5 Mg Tablet) 5 mg PO DAILY [facility] Last Admin: 12/25/20 16:30 Dose: Not Given Documented by: Olanzapine (Olanzapine 10 Mg Tablet) 10 mg PO BEDTIME [facility] Last Admin: 12/24/20 20:06 Dose: 10 mg Documented by: Olanzapine (Olanzapine 7.5 Mg Tablet) 7.5 mg PO DAILY [facility] Last Admin: 12/25/20 16:30 Dose: Not Given Documented by: Thiamine HCl (Thiamine Hcl 100 Mg Tablet) 100 mg PO DAILY TRINH Last Admin: 12/25/20 16:31 Dose: Not Given Documented by: Trazodone HCl (Trazodone Hcl 50 Mg Tablet) 50 mg PO BEDTIME PRN PRN Reason: Insomnia Last Admin: 12/23/20 00:51 Dose: 50 mg Documented by: Home Medications Medication Instructions Recorded Confirmed Last Taken Type clonazepam 0.5 mg PO BEDTIME 11/16/20 11/16/20 Unknown History clonazepam 1 mg tablet 1 mg PO DAILY 11/16/20 11/16/20 Unknown History docusate sodium 100 mg capsule 200 mg PO BID 11/16/20 11/16/20 Unknown History escitalopram oxalate 20 mg tablet 20 mg PO DAILY 11/16/20 11/16/20 Unknown History folic acid 1 mg tablet 1 mg PO DAILY 11/16/20 11/16/20 Unknown History melatonin 5 mg tablet 5 mg PO BEDTIME 11/16/20 11/16/20 Unknown History memantine 5 mg tablet 5 mg PO QAM 11/16/20 11/16/20 Unknown History olanzapine 10 mg tablet 10 mg PO BEDTIME 11/16/20 11/16/20 Unknown History olanzapine 5 mg tablet 5 mg PO DAILY 11/16/20 11/16/20 Unknown History sennosides 8.6 mg tablet (senna) 8.6 mg PO DAILY 11/16/20 11/16/20 Unknown History simvastatin 40 mg tablet 40 mg PO DAILY 11/16/20 11/16/20 Unknown History thiamine HCl (vitamin B1) 100 mg 100 mg PO DAILY 11/16/20 11/16/20 Unknown History tablet Physical Exam Vital Signs and Narrative: Vital Signs: Last Vital Signs Temp 100.1 F 12/25/20 06:00 Pulse 78 12/25/20 06:00 Resp 16 12/25/20 06:00 BP 110/64 12/25/20 06:00 Pulse Ox 99 12/25/20 06:00 Body Mass Index 17.9 Const: Other: Ill-appearing; somnolent but arousable HENMT: Other: Mucous membranes dry Resp: Other: Clear to auscultation bilaterally. No rales rhonchi or wheezes Cardio: Other: No S4; positive S1-S2; no S3 murmurs of gallops GI: Other: Soft nontender nondistended with normoactive bowel sounds. No appreciable a paddle splenomegaly Extrem: Other: No edema bilaterally Results Labs CBC and Chem 7: 12/25/20 16:39 12/25/20 16:39 Labs: Laboratory Results - last 24 hr 12/24/20 12/25/20 12/25/20 23:31 12:33 12:33 MCV 98.7 H MCH 32.2 MCHC 32.6 RDW 13.1 Plt Count 128 L MPV 8.8 L Immature Gran % (Auto) 0.2 Neut % (Auto) 78.6 H Lymph % (Auto) 12.2 L [place] % (Auto) 8.8 Eos % (Auto) 0.2 Baso % (Auto) 0.0 Lymph # (Auto) 0.6 L [place] # (Auto) 0.4 Eos # (Auto) 0.0 Baso # (Auto) 0.0 Abs Immat Gran (auto) 0.01 Absolute Neuts (auto) 3.7 Absolute Nucleated RBC 0.000 Nucleated RBC % (auto) 0.0 Anion Gap 10 L Estim Creat Clear Calc 99.5 Estimated GFR > 60 Random Glucose 103 Calcium 7.7 L D Total Bilirubin AST ALT Alkaline Phosphatase Total Protein Albumin Urine Color DK YELLOW Urine Appearance CLEAR Urine pH 6.0 Ur Specific [place] >= 1.030 H Urine Protein NEG Urine Glucose (UA) NEG Urine Ketones 5 Urine Blood NEG Urine Nitrite NEG Ur Leukocyte Esterase NEG Urine RBC 0 Urine WBC 5-9 H Ur Squamous Epith Cells TRACE Calcium Oxalate Crystal TRACE Urine Bacteria NONE Urine Mucus 1+ 12/25/20 12/25/20 16:39 16:39 MCV 99.4 H MCH 32.5 MCHC 32.7 RDW 13.1 Plt Count 125 L MPV 8.5 L Immature Gran % (Auto) 0.4 Neut % (Auto) 73.8 H Lymph % (Auto) 17.3 L [place] % (Auto) 8.1 Eos % (Auto) 0.2 Baso % (Auto) 0.2 Lymph # (Auto) 0.8 L [place] # (Auto) 0.4 Eos # (Auto) 0.0 Baso # (Auto) 0.0 Abs Immat Gran (auto) 0.02 Absolute Neuts (auto) 3.5 Absolute Nucleated RBC 0.000 Nucleated RBC % (auto) 0.0 Anion Gap 8 L Estim Creat Clear Calc 97.7 Estimated GFR > 60 Random Glucose 97 Calcium 7.8 L Total Bilirubin 0.5 AST 15 ALT 18 Alkaline Phosphatase 54 Total Protein 5.0 L Albumin 3.3 L Urine Color Urine Appearance Urine pH Ur Specific [place] Urine Protein Urine Glucose (UA) Urine Ketones Urine Blood Urine Nitrite Ur Leukocyte Esterase Urine RBC Urine WBC Ur Squamous Epith Cells Calcium Oxalate Crystal Urine Bacteria Urine Mucus Assessment and Plan (1) UTI (urinary tract infection): Status: Acute (2) Diarrhea: Status: Acute 70-year-old male with progressive decline while on [facility]. Recently treated for UTI with Levaquin; developed diarrhea with poor p.o. intake became more lethargic and somnolent. 1. Dehydration mild Give IV fluids overnight and check labs in the morning. Will continue psych meds as tolerated 2. Diarrhea As per 1. Await culture 3. UTI by history No treatment pending culture Full code/Lovenox Quality Stroke Does the patient have a stroke diagnosis?: No VTE Prior VTE?: No VTE Risk Level:: Medical - moderate - high VTE Device Contraindication: Treatment Not Indicated VTE Drug Contraindication: N/A - Med Ordered
--- NOTE | 2021-07-08 16:39 | PM.PSYDC ---
DS: Providers Provider Date of Service: 12/26/19 Date of admission: 11/16/20 20:34 Primary care physician: Nonstaff Physician Consults: 11/18/20 10:58 Consult to Hospitalist Routine Consulting Provider: Hospitalist Reason For Exam: Direct admission, needs H&P 12/14/20 12:39 Consult to Urology Routine Consulting Provider: Jovon Johnson Reason for consultation: URINARY RETENTION Has provider been notified: Yes 12/20/20 16:47 Consult to Hospitalist Routine Consulting Provider: Hospitalist Reason For Exam: UTI in elderly male; Tx recommendations 12/22/20 10:58 Consult to Hospitalist Routine Consulting Provider: Hospitalist Reason For Exam: UTI, culture came back, reassess ATB? 12/23/20 10:58 Consult to Hospitalist Routine Consulting Provider: Hospitalist Reason For Exam: acutely sick for UTI, transfer? 12/25/20 10:58 Consult to Hospitalist Routine Consulting Provider: Hospitalist Reason For Exam: worse delirium, fever, no PO intake DS: Diagnosis Discharge Diagnosis (1) UTI (urinary tract infection): Status: Resolved (2) Diarrhea: Status: Acute DS: Medications Discharge Medications Home Medications: Home Medications Medication Instructions Recorded Confirmed clonazepam 0.5 mg PO BEDTIME 11/16/20 12/25/20 clonazepam 1 mg tablet 1 mg PO DAILY 11/16/20 12/25/20 docusate sodium 100 mg capsule 200 mg PO BID 11/16/20 12/25/20 escitalopram oxalate 20 mg tablet 20 mg PO DAILY 11/16/20 12/25/20 folic acid 1 mg tablet 1 mg PO DAILY 11/16/20 12/25/20 melatonin 5 mg tablet 5 mg PO BEDTIME 11/16/20 12/25/20 memantine 5 mg tablet 5 mg PO QAM 11/16/20 12/25/20 olanzapine 10 mg tablet 10 mg PO BEDTIME 11/16/20 12/25/20 olanzapine 5 mg tablet 5 mg PO DAILY 11/16/20 12/25/20 sennosides 8.6 mg tablet (senna) 8.6 mg PO DAILY 11/16/20 12/25/20 simvastatin 40 mg tablet 40 mg PO DAILY 11/16/20 12/25/20 thiamine HCl (vitamin B1) 100 mg 100 mg PO DAILY 11/16/20 12/25/20 tablet Previous Rx's Medication Instructions Recorded tamsulosin 0.4 mg capsule 0.8 mg PO BEDTIME #60 cap 01/25/21 Mental Status Exam Mental Status Exam Patient Appearance: Disheveled Patient Orientation: Person Level of Consciousness: Disoriented Patient Behavior: Appropriate Mood Description: Withdrawn Affect Description: Blunted Patient Cognition Impaired: Yes Ability to Follow Directions: Poor Speech Pattern: No Speech Hallucinations: Auditory Delusions: Paranoid Ideation Thought Process: Illogical Thought Content: positive for Bowman and positive for Poverty of Content Judgement: Fair Data Data Completed and Pending Completed studies during hospitalization [Text1]: 12/25/20 Unknown Urine clean catch - Urine lara top Urine Culture - Final No growth. 12/21/20 16:00 Stool Stool Culture - Final 12/20/20 15:04 Urine clean catch - Urine lara top Urine Culture - Final Staphylococcus epidermidis DS: Summary Hospital Course Hospital Course: the patient has been acutely sick with loose stools, poor p.o. intake and we have called the hospitalist. [facility] Time spent discussing smoking cessation with patient: 3 to 10 minutes Status at Discharge Functional status at discharge: bed bound Overall status at discharge: patient is not back to baseline Time Spent with Patient Time attestation: Total time spent providing and/or coordinating discharge services: Time spent: Less than 30 minutes Discharge Plan Discharge Patient Disposition: Xfer Other Discharge Diagnosis: delirium Referrals: Physician,Nonstaff [Primary Care Provider] - 1 Week Discharge Medications: No Action clonazepam 0.5 mg 0.5 mg PO BEDTIME 0RF clonazepam 1 mg Tablet 1 mg PO DAILY 0RF docusate sodium 100 mg Capsule 200 mg PO BID 0RF escitalopram oxalate 20 mg Tablet 20 mg PO DAILY 0RF folic acid 1 mg Tablet 1 mg PO DAILY 0RF melatonin 5 mg Tablet 5 mg PO BEDTIME 0RF memantine 5 mg Tablet 5 mg PO QAM 0RF olanzapine 5 mg Tablet 5 mg PO DAILY 0RF sennosides [senna] 8.6 mg Tablet 8.6 mg PO DAILY 0RF simvastatin 40 mg Tablet 40 mg PO DAILY 0RF thiamine HCl (vitamin B1) 100 mg Tablet 100 mg PO DAILY 0RF olanzapine 10 mg Tablet 10 mg PO BEDTIME 0RF tamsulosin 0.4 mg Capsule 0.8 mg PO BEDTIME Qty: 60 0RF Discharge Orders: Discharge Order (Routine); Ordered 12/25/20 Ordered By: Darlene Patel Activity on Discharge: As tolerated Stand Alone Forms: Patient Portal Discharge page, Community Support Care Plan Goals: the patient is acutely sick, transferred to Medicine Health Concerns: unstable, transferred to Medicine Plan of Treatment: transferred to Medicine Assessment: elderly male with delirium due to diarrhea, unstable needed to be transferred to medicine right away Discharge Date/Time: 12/25/20 19:10
== END 2020-12-25 19:10 | disposition other institution (70) | DRG 885 ==
PROVIDERS: Hospitalist; Physician Assistant Medical; Psychiatry & Neurology Psychiatry; Admitting Provider Psychiatry & Neurology Psychiatry; Visit Provider Psychiatry & Neurology Psychiatry
DX: F33.9 Major depressive disorder, recurrent, unspecified (principal); D61.818 Other pancytopenia; N40.1 Benign prostatic hyperplasia with lower urinary tract symptoms; R39.14 Feeling of incomplete bladder emptying; F42.2 Mixed obsessional thoughts and acts; E78.5 Hyperlipidemia, unspecified; F17.210 Nicotine dependence, cigarettes, uncomplicated; Z71.6 Tobacco abuse counseling; Z87.440 Personal history of urinary (tract) infections; Z23 Encounter for immunization; Z79.899 Other long term (current) drug therapy
CPT/HCPCS: 36415; 80048; 80053; 80061; 81001; 81003; 83036; 84443; 84484; 85025; 87045; 87046; 87086; 87088; 87186; 90686; 93005

== ENCOUNTER → 2020-11-16 20:34 | Outpatient (BNV) | payer OTHER, SELFPAY | PROVIDERS: Admitting Provider Psychiatry & Neurology Psychiatry; Visit Provider Urology | DX: R33.9 Retention of urine, unspecified (principal) | CPT/HCPCS: 99499 ==

== ENCOUNTER 2020-12-25 19:11 | Inpatient (IN) | payer MEDICARE, SELFPAY ==
--- NOTE | ~2020-12-25 | CT_ITS ---
EXAMINATION: CT ABDOMEN AND PELVIS WITHOUT CONTRAST CLINICAL INFORMATION: C. Difficile colitis with abdominal pain. COMPARISON: None TECHNIQUE: Multidetector volumetric imaging was performed from the superior aspect of the liver through the pubic symphysis. Sagittal and coronal reformatted images were obtained on the technologist's workstation. This CT examination was performed using dose optimization techniques as appropriate, variously including the following: *Automated exposure control *Adjustment of mA and/or kV according to patient size (this includes techniques or standardized protocols for targeted exams where dose is matched to indication/reason for exam; i.e. extremities or head) *Use of iterative reconstruction technique DLP: 338 mGy-cm FINDINGS: LUNG BASES: No suspicious lung masses identified. No pericardial effusion is seen. There is a small region of circumscribed fluid density measuring 3.6 x 1.9 cm in size within the posterior right lower lobe which may represent a small loculated effusion and is not of fat density to suggest herniated fat. LIVER, GALLBLADDER, AND BILIARY TREE: Multiple cysts are seen. No solid mass or intrahepatic bile duct dilatation is identified. The gallbladder is distended with thickened wall and surrounding edema, however, there is noted to be some edematous change within the mesentery elsewhere. Acute cholecystitis cannot be excluded with this appearance. PANCREAS: Unremarkable. No abnormal mass. SPLEEN: Unremarkable. ADRENAL GLANDS: Unremarkable. KIDNEYS AND URETERS: The kidneys are normal in size, shape, and attenuation. No hydronephrosis, hydroureter, or calculi seen. No perinephric stranding. BLADDER: There is nondependent gas seen within the urinary bladder which is likely iatrogenic in nature and clinical correlation is suggested. No gallbladder wall thickening is seen and no bladder calculi are noted. GASTROINTESTINAL TRACT: No dilated loops of large or small bowel are evident. No free air or significant free fluid is appreciated. There is soft tissue streaking noted within the mesentery. Stool is seen throughout the colon. No evidence of pneumatosis. There is pericolonic streaking within the fat. The appendix is not visualized. There is mild diverticulosis of the sigmoid colon. There is question of some wall thickening involving the rectosigmoid colon along with adjacent pericolonic fat stranding. There is mesenteric calcification present which may be related to calcified lymph nodes. Treated GIST tumor or carcinoid would seem less likely. ABDOMINAL WALL: No significant hernia is appreciated. LYMPH NODES: Question of mesenteric calcified lymph nodes. There are some noncalcified mesenteric lymph nodes measuring up to 9 mm in diameter. VASCULAR: There is moderate calcified plaque present within the aortoiliac system. No abdominal aortic aneurysm. PELVIC VISCERA: Prostate calcifications present. OSSEOUS STRUCTURES: No acute destructive bony lesions identified. There is multilevel degenerative disc disease seen. CT/CT abdomen pelvis wo con IMPRESSION: Distended gallbladder with thickened wall and surrounding edema. Even though there is mesenteric stranding elsewhere these findings can be seen with acute cholecystitis and clinical correlation is suggested. Thick-walled rectum and rectosigmoid colon with adjacent inflammatory change consistent with colitis. No drainable abscess is seen. Calcified mesenteric mass which may represent a calcified radha mass. Carcinoid tumor or GIST is not excluded. Gas within the urinary bladder. Correlate with possible iatrogenic cause.
--- NOTE | 2020-12-25 19:14 | PHA.MEDREC ---
Pharmacy Consult ? Medication Reconciliation Pharmacy has completed the medication reconciliation. Patient transfer from S1 to S3, home medication list is the same. Taryn Asif, HoaD
[2020-12-25 21:54] VITALS: BMI 19.5
[2020-12-25 22:01] VITALS: BP 85/69; PULSE 70; RESP 17; TEMP 36.2; O2SAT 98
[2020-12-25] MEDS: Enoxaparin Sodium 40 MG/0.4 ML SYRINGE SUBCUT (23:23)
[2020-12-25] MEDS: Lactated Ringers 1,000 ML 100 ML IVCONT (23:24)
[2020-12-26] VITALS: BP 106/57; PULSE 86; RESP 16; TEMP 37; O2SAT 97
[2020-12-26 04:00] VITALS: BP 113/61; PULSE 82; RESP 18; TEMP 37; O2SAT 97
[2020-12-26 06:30] LABS: MANUAL DIFF FLAG NO
[2020-12-26 06:52] LABS: Basophils Percent Auto 0.3 % (0-2); Eosinophils Percent Auto 0.3 % (0-4); Hematocrit 34.3 % (42.0-52.0); Imm Gran Abs Auto 0.02 X10*3/uL (0.00-0.03); Imm Gran Pct Auto 0.3 % (0.0-0.4); Lymphocytes Absolute Auto 0.7 X10*3/uL (1.2-4.9); Lymphocytes Percent Auto 11.5 % (20-40); Mean Corpuscular HGB Conc 32.1 g/dl (31.0-36.0); Mean Corpuscular Hemoglobin 31.9 pg (27.0-33.0); Mean Corpuscular Volume 99.4 fL (80.0-98.0); Mean Platelet Volume 9.2 fL (9.4-12.4); Monocytes Absolute Auto 0.6 X10*3/uL (0.1-1.2); Monocytes Percent Auto 8.8 % (2-11); Neutrophils Absolute Auto 4.9 x10*3/uL (2.0-8.3); Neutrophils Percent Auto 78.8 % (45-73); Platelet Count 165 X10*3/uL (160-400); Red Blood Count 3.45 X10*6/uL (4.60-5.80); Red Cell Distribution Width 13.1 % (11.0-16.0); White Blood Count 6.3 X10*3/uL (4.8-10.8)
[2020-12-26 06:55] LABS: Anion Gap 10 (12-20); Blood Urea Nitrogen 17 mg/dL (9-16); Calcium 7.7 mg/dL (8.4-10.2); Carbon Dioxide 28 mmol/L (22-29); Chloride 110 mmol/L (96-108); Creatinine Clr Calc Pharmacy 104.5; Estimated Glomerular Filt Rate > 60; Glucose Random 106 mg/dL (60-115); Potassium 3.8 mmol/L (3.3-5.1); Sodium 144 mmol/L (135-145)
[2020-12-26 08:00] VITALS: BP 122/61; PULSE 82; RESP 18; TEMP 36.5; O2SAT 96
--- NOTE | 2020-12-26 10:39 | MHC.CM.PN ---
PATIENT IS IN FROM [facility] CASE MANAGEMENT TO FOLLOW FOR DISCHARGE PLANS. NO HCP ON FILE. ACCORDING TO PREVIOUS RECORD, PAT[place] [facility] FOR INAPTIENT PSYCHIATRIC ASSISTANCE.
--- NOTE | 2020-12-26 11:05 | HO.PM.IMPN ---
Subjective Subjective Date of Service: 12/26/20 Interval History: Will much more alert today. Answering questions appropriately. Appetite good for breakfast. No further diarrhea Review of Systems Denies chest pain Denies shortness of breath Denies nausea vomiting; no further diarrhea Physical Exam Vital Signs: Vital Signs: Last Vital Signs Temp 98.6 F 12/26/20 04:00 Pulse 82 12/26/20 04:00 Resp 18 12/26/20 04:00 BP 113/61 12/26/20 04:00 Pulse Ox 97 12/26/20 04:00 Body Mass Index 19.5 Const: Other: He awake alert no acute distress HENMT: Other: Membranes dry but improved since yesterday Resp: Other: Clear to auscultation bilaterally. No rales rhonchi or wheezes Cardio: Other: No S4; positive S1-S2; no S3 murmurs or gallops GI: Other: Soft nontender nondistended with normoactive bowel sounds. No appreciable hepatosplenomegaly Extrem: Other: No edema bilaterally Objective Data Active Medications Acetaminophen (Acetaminophen 325 Mg Tablet) 650 mg PO Q6H PRN PRN Reason: Pain, Mild (Pain Scale 1-3) Atorvastatin Calcium (Atorvastatin Calcium 20 Mg Tablet) 20 mg PO DAILY [facility] Clonazepam (Clonazepam 1 Mg Tablet) 1 mg PO DAILY [facility] Clonazepam (Clonazepam 0.5 Mg Tablet) 0.5 mg PO BEDTIME [facility] Docusate Sodium (Docusate Sodium 100 Mg Capsule) 200 mg PO BID [facility] Enoxaparin Sodium (Enoxaparin Sodium 40 Mg/0.4 Ml Syringe) 40 mg SUBCUT Q24H [facility] Last Admin: 12/25/20 23:23 Dose: 40 mg Documented by: LITTLE Escitalopram Oxalate (Escitalopram Oxalate 20 Mg Tablet) 20 mg PO DAILY [facility] Folic Acid (Folic Acid 1 Mg Tablet) 1 mg PO DAILY [facility] Lactated Ringer's (Lr) 1,000 mls @ 100 mls/hr IVCONT .Q10H [facility] Last Admin: 12/25/20 23:24 Dose: 100 mls/hr Documented by: LITTLE Melatonin (Melatonin 3 Mg Tablet) 6 mg PO BEDTIME [facility] Memantine (Memantine Hcl 5 Mg Tablet) 5 mg PO DAILY [facility] Olanzapine (Olanzapine 5 Mg Tablet) 5 mg PO DAILY [facility] Olanzapine (Olanzapine 10 Mg Tablet) 10 mg PO BEDTIME [facility] Ondansetron HCl (Ondansetron Hcl 4 Mg/2 Ml Vial) 4 mg IVPUSH Q8H PRN PRN Reason: Nausea and Vomiting Senna (Sennosides 8.6 Mg Tablet) 8.6 mg PO DAILY [facility] Sodium Chloride (0.9 % Sodium Chloride Flush 3 Ml Syringe) 3 ml IVFLUSH QSHIFT [facility] Last Admin: 12/25/20 23:33 Dose: Not Given Documented by: LITTLE Non-Admin Reason: IV Running Thiamine HCl (Thiamine Hcl 100 Mg Tablet) 100 mg PO DAILY [facility] Labs CBC & Chem 7: 12/26/20 06:04 12/26/20 06:04 Labs: Laboratory Results - last 24 hr 12/26/20 12/26/20 06:04 06:04 MCV 99.4 H MCH 31.9 MCHC 32.1 RDW 13.1 Plt Count 165 D MPV 9.2 L Immature Gran % (Auto) 0.3 Neut % (Auto) 78.8 H Lymph % (Auto) 11.5 L [place] % (Auto) 8.8 Eos % (Auto) 0.3 Baso % (Auto) 0.3 Lymph # (Auto) 0.7 L [place] # (Auto) 0.6 Eos # (Auto) 0.0 Baso # (Auto) 0.0 Abs Immat Gran (auto) 0.02 Absolute Neuts (auto) 4.9 Absolute Nucleated RBC 0.000 Nucleated RBC % (auto) 0.0 Anion Gap 10 L Estim Creat Clear Calc 104.5 Estimated GFR > 60 Random Glucose 106 Calcium 7.7 L Assessment and Plan (1) Diarrhea: Status: Acute (2) Major depressive disorder, recurrent episode with melancholic features: Status: Acute Assessment and Plan: 70-year-old male with progressively declining on [facility] unit likely secondary to UTI and antibiotic associated diarrhea admitted yesterday for same. Given IV fluids overnight with marked improvement in overall status. He has had no further diarrhea and was able to take breakfast today 1. Diarrhea (antibiotic associated) Quiet hanging down. Will continue IV fluids over the next 24 hours; likely able to DC at that time. Will read consult psych for disposition 2. UTI Repeat urine culture negative. Completed antibiotics. No further indication indicated Full code/Lovenox Quality Stroke Does the patient have a stroke diagnosis?: No VTE Prior VTE?: No VTE Risk Level:: Medical - moderate - high VTE Device Contraindication: Treatment Not Indicated VTE Drug Contraindication: N/A - Med Ordered
--- NOTE | 2020-12-26 11:24 | MHC.CM.PN ---
INFORMATION OBTAINED FROM [facility] MATCHBOOK ASSEMBLER. PATIENT IS NOT CLEARED FROM PSYCHIATRIC STAY. CLOTH PATTERN MAKER ON THE UNIT IS WORKING TOWARDS PLACING PATIENT. NO FURTHER INTERVENTION NEEDED FROM CASE MANAGEMENT TODAY.
[2020-12-26] MEDS: Lactated Ringers 1,000 ML 100 ML IVCONT (11:49)
[2020-12-26] MEDS: OLANZapine 5 MG TABLET PO (11:49)
[2020-12-26] MEDS: Folic Acid 1 MG TABLET PO (11:49)
[2020-12-26] MEDS: Memantine HCl 5 MG TABLET PO (11:49)
[2020-12-26] MEDS: Thiamine HCL 100 MG TABLET PO (11:49)
[2020-12-26] MEDS: Escitalopram Oxalate 20 MG TABLET PO (11:49)
[2020-12-26] MEDS: clonazePAM 1 MG TABLET PO (11:50)
[2020-12-26] MEDS: Atorvastatin Calcium 20 MG TABLET PO (11:50)
[2020-12-26 12:00] VITALS: RESP 18
[2020-12-26 16:00] VITALS: BP 124/65; PULSE 88; RESP 14; TEMP 37.1; O2SAT 97
[2020-12-26 18:51] VITALS: BP 116/68; PULSE 88; RESP 18; TEMP 36.3; O2SAT 97
[2020-12-26] MEDS: clonazePAM 0.5 MG TABLET PO (19:32)
[2020-12-26] MEDS: OLANZapine 10 MG TABLET PO (19:32)
[2020-12-26] MEDS: Docusate Sodium 100 MG CAPSULE 200 MG PO (19:32)
[2020-12-26] MEDS: Melatonin 3 MG TABLET 6 MG PO (19:33)
[2020-12-26] MEDS: Enoxaparin Sodium 40 MG/0.4 ML SYRINGE SUBCUT (19:33)
--- NOTE | 2020-12-26 20:42 | MHC.CARE ---
CARE team contacted by nursing stockroom supervisor re: pt who was transferred from S1 older adult unit to S3 med surg for medical stabilization on 12/25/20. Request made for pt to be assessed for safety and to determine if there is a need for an in person sitter to be in the room with the patient or if he is safe to be monitored by camera. This press writer met with pt in 367. He was lethargic with blunted affect. He was oriented to person, place, and situation. Orientation to date/time was not assessed. He shared that he continues to feel awful medically. He denied experiencing any thoughts or urges to harm himself or others. He did not present as responding to internal stimuli or experiencing active disturbances of thought or perception. After several minutes he fell asleep mid-sentence. Information relayed to community administrator and nursing stockroom supervisor that pt is appropriate for being supervised and monitored via room camera.
[2020-12-27] VITALS (7 sets, daily range): BP systolic 119–138; BP diastolic 67–80; PULSE 72–97; RESP 15–18; TEMP 36.1–37.2; O2SAT 93–100
[2020-12-27] MEDS: Lactated Ringers 1,000 ML 100 ML IVCONT ×2 (01:06→09:55)
[2020-12-27] MEDS: 0.9 % Sodium Chloride Flush 3 ML SYRINGE IVFLUSH ×2 (01:06→09:41)
--- NOTE | 2020-12-27 05:31 | PC.NURSE ---
Notified hospitalist of frequent diarrhea approx 8 times from 2300 to 0500 small to moderate amounts
--- NOTE | 2020-12-27 05:46 | PC.NURSE ---
MD aware 1150 on 12/26 colace and senokot held for loose stools. Ordered CDIFF collection. Patient also straight cath approx 0100 for 600Ml beatrice urine. Very difficult to insert st cath. Assisted by loss prevention supervisor. No further void from st cath to 0550am.
[2020-12-27 06:21] LABS: MANUAL DIFF FLAG NO
[2020-12-27 06:27] LABS: Basophils Percent Auto 0.2 % (0-2); Eosinophils Percent Auto 0.4 % (0-4); Hematocrit 34.4 % (42.0-52.0); Hemoglobin 10.9 g/dl (14.0-18.0); Imm Gran Abs Auto 0.02 X10*3/uL (0.00-0.03); Imm Gran Pct Auto 0.4 % (0.0-0.4); Lymphocytes Absolute Auto 0.7 X10*3/uL (1.2-4.9); Lymphocytes Percent Auto 13.1 % (20-40); Mean Corpuscular HGB Conc 31.7 g/dl (31.0-36.0); Mean Corpuscular Hemoglobin 31.7 pg (27.0-33.0); Monocytes Absolute Auto 0.6 X10*3/uL (0.1-1.2); Monocytes Percent Auto 10.5 % (2-11); Neutrophils Absolute Auto 4.1 x10*3/uL (2.0-8.3); Neutrophils Percent Auto 75.4 % (45-73); Platelet Count 147 X10*3/uL (160-400); Red Blood Count 3.44 X10*6/uL (4.60-5.80); White Blood Count 5.4 X10*3/uL (4.8-10.8)
[2020-12-27 06:40] LABS: Alanine Aminotransferase 17 U/L (0-40); Albumin Level 3.1 g/dL (3.5-5.0); Alkaline Phosphatase 51 U/L (39-117); Anion Gap 12 (12-20); Aspartate Amino Transferase 18 U/L (5-37); Bilirubin Total 0.6 mg/dL (0.0-1.0); Blood Urea Nitrogen 14 mg/dL (9-16); Calcium 7.4 mg/dL (8.4-10.2); Carbon Dioxide 27 mmol/L (22-29); Chloride 109 mmol/L (96-108); Creatinine Clr Calc Pharmacy 110.1; Estimated Glomerular Filt Rate > 60; Glucose Fasting 104 mg/dL (60-99); Potassium 3.7 mmol/L (3.3-5.1); Sodium 144 mmol/L (135-145)
[2020-12-27] MEDS: Folic Acid 1 MG TABLET PO (09:44)
[2020-12-27] MEDS: Memantine HCl 5 MG TABLET PO (09:44)
[2020-12-27] MEDS: OLANZapine 5 MG TABLET PO (09:44)
[2020-12-27] MEDS: Thiamine HCL 100 MG TABLET PO (09:44)
[2020-12-27] MEDS: clonazePAM 1 MG TABLET PO (09:44)
[2020-12-27] MEDS: Atorvastatin Calcium 20 MG TABLET PO (09:44)
[2020-12-27] MEDS: Escitalopram Oxalate 20 MG TABLET PO (09:44)
[2020-12-27 11:13] LABS: CDiff Gene PCR POSITIVE (Negative)
[2020-12-27 11:55] LABS: CDiff Toxin Negative (Negative)
[2020-12-27 11:56] LABS: CDIFF Internal ctrl Dots and bkg OK (V)
[2020-12-27] MEDS: metroNIDAZOLE 500 MG TABLET PO ×2 (13:39→21:08)
--- NOTE | 2020-12-27 15:52 | HO.PM.IMPN ---
Subjective Subjective Date of Service: 12/27/20 Interval History: Continues with diarrhea over night; C diff positive. Mentation is clearing... Somewhat obsessive Review of Systems Denies chest pain Denies shortness of breath Denies nausea vomiting diarrhea Physical Exam Vital Signs: Vital Signs: Last Vital Signs Temp 98.6 F 12/27/20 15:18 Pulse 87 12/27/20 15:18 Resp 15 12/27/20 15:18 BP 131/76 12/27/20 15:18 Pulse Ox 99 12/27/20 15:18 Body Mass Index 19.5 Const: Other: He awake alert no acute distress HENMT: Other: Membranes dry but improved since yesterday Resp: Other: Clear to auscultation bilaterally. No rales rhonchi or wheezes Cardio: Other: No S4; positive S1-S2; no S3 murmurs or gallops GI: Other: Soft nontender nondistended with normoactive bowel sounds. No appreciable hepatosplenomegaly Extrem: Other: No edema bilaterally Objective Data Active Medications Acetaminophen (Acetaminophen 325 Mg Tablet) 650 mg PO Q6H PRN PRN Reason: Pain, Mild (Pain Scale 1-3) Atorvastatin Calcium (Atorvastatin Calcium 20 Mg Tablet) 20 mg PO DAILY [facility] Last Admin: 12/27/20 09:44 Dose: 20 mg Documented by: LÓPEZ Clonazepam (Clonazepam 1 Mg Tablet) 1 mg PO DAILY [facility] Last Admin: 12/27/20 09:44 Dose: 1 mg Documented by: LÓPEZ Clonazepam (Clonazepam 0.5 Mg Tablet) 0.5 mg PO BEDTIME [facility] Last Admin: 12/26/20 19:32 Dose: 0.5 mg Documented by: ARCHIE Docusate Sodium (Docusate Sodium 100 Mg Capsule) 200 mg PO BID [facility] Last Admin: 12/27/20 10:21 Dose: Not Given Documented by: LÓPEZ Non-Admin Reason: loose stool Enoxaparin Sodium (Enoxaparin Sodium 40 Mg/0.4 Ml Syringe) 40 mg SUBCUT Q24H [facility] Last Admin: 12/26/20 19:33 Dose: 40 mg Documented by: ARCHIE Escitalopram Oxalate (Escitalopram Oxalate 20 Mg Tablet) 20 mg PO DAILY [facility] Last Admin: 12/27/20 09:44 Dose: 20 mg Documented by: LÓPEZ Folic Acid (Folic Acid 1 Mg Tablet) 1 mg PO DAILY [facility] Last Admin: 12/27/20 09:44 Dose: 1 mg Documented by: LÓPEZ Lactated Ringer's (Lr) 1,000 mls @ 100 mls/hr IVCONT .Q10H [facility] Last Admin: 12/27/20 12:23 Dose: Not Given Documented by: LPÓEZ Non-Admin Reason: IV Running Melatonin (Melatonin 3 Mg Tablet) 6 mg PO BEDTIME [facility] Last Admin: 12/26/20 19:33 Dose: 6 mg Documented by: ARCHIE Memantine (Memantine Hcl 5 Mg Tablet) 5 mg PO DAILY [facility] Last Admin: 12/27/20 09:44 Dose: 5 mg Documented by: LÓPEZ Metronidazole (Metronidazole 500 Mg Tablet) 500 mg PO Q8H [facility] Last Admin: 12/27/20 13:39 Dose: 500 mg Documented by: LÓPEZ Olanzapine (Olanzapine 5 Mg Tablet) 5 mg PO DAILY [facility] Last Admin: 12/27/20 09:44 Dose: 5 mg Documented by: LÓPEZ Olanzapine (Olanzapine 10 Mg Tablet) 10 mg PO BEDTIME [facility] Last Admin: 12/26/20 19:32 Dose: 10 mg Documented by: ARCHIE Ondansetron HCl (Ondansetron Hcl 4 Mg/2 Ml Vial) 4 mg IVPUSH Q8H PRN PRN Reason: Nausea and Vomiting Senna (Sennosides 8.6 Mg Tablet) 8.6 mg PO DAILY [facility] Last Admin: 12/27/20 09:46 Dose: Not Given Documented by: LÓPEZ Non-Admin Reason: loose stool Sodium Chloride (0.9 % Sodium Chloride Flush 3 Ml Syringe) 3 ml IVFLUSH QSHIFT [facility] Last Admin: 12/27/20 15:36 Dose: Not Given Documented by: COTEMA Non-Admin Reason: IV Running Thiamine HCl (Thiamine Hcl 100 Mg Tablet) 100 mg PO DAILY [facility] Last Admin: 12/27/20 09:44 Dose: 100 mg Documented by: LÓPEZ Labs CBC & Chem 7: 12/27/20 05:51 12/27/20 05:51 Labs: Laboratory Results - last 24 hr 12/27/20 12/27/20 12/27/20 05:51 05:51 09:36 MCV 100.0 H MCH 31.7 MCHC 31.7 RDW 13.0 Plt Count 147 L MPV 9.0 L Immature Gran % (Auto) 0.4 Neut % (Auto) 75.4 H Lymph % (Auto) 13.1 L [place] % (Auto) 10.5 Eos % (Auto) 0.4 Baso % (Auto) 0.2 Lymph # (Auto) 0.7 L [place] # (Auto) 0.6 Eos # (Auto) 0.0 Baso # (Auto) 0.0 Abs Immat Gran (auto) 0.02 Absolute Neuts (auto) 4.1 Absolute Nucleated RBC 0.000 Nucleated RBC % (auto) 0.0 Anion Gap 12 Estim Creat Clear Calc 110.1 Estimated GFR > 60 Fasting Glucose 104 H Calcium 7.4 L Total Bilirubin 0.6 AST 18 ALT 17 Alkaline Phosphatase 51 Total Protein 5.0 L Albumin 3.1 L C. difficile Tox B Gene POSITIVE A* C. difficile Toxin A&B Negative C. difficile Interpret SEE NOTE Assessment and Plan (1) C. difficile diarrhea: Status: Acute Assessment and Plan: 70-year-old male with progressively declining on [facility] psych unit likely secondary to UTI and antibiotic associated diarrhea admitted yesterday for same. Given IV fluids overnight with marked improvement in overall status. He has had multiple stools over the last 24 hours. SPECT sent C diff positive 1. Diarrhea (antibiotic associated) tested positive for C diff Continue IV fluids and add metronidazole 500 t.i.d. p.o.. Discussed with psych... They are pursuing placement. Unclear if patient to be transferred back to psych for directly from a [facility] Case management aware 2. UTI Resolved left 3. OCD Therapies as per psych Full code/Lovenox Quality Stroke Does the patient have a stroke diagnosis?: No VTE Prior VTE?: No VTE Risk Level:: Medical - moderate - high VTE Device Contraindication: Treatment Not Indicated VTE Drug Contraindication: N/A - Med Ordered
[2020-12-27] MEDS: clonazePAM 0.5 MG TABLET PO (20:49)
[2020-12-27] MEDS: OLANZapine 10 MG TABLET PO (20:49)
[2020-12-27] MEDS: Enoxaparin Sodium 40 MG/0.4 ML SYRINGE SUBCUT (20:50)
[2020-12-27] MEDS: Melatonin 3 MG TABLET 6 MG PO (20:50)
[2020-12-28] MEDS: Lactated Ringers 1,000 ML 100 ML IVCONT ×3 (00:07→20:17)
[2020-12-28 04:00] VITALS: BP 137/79; PULSE 90; RESP 16; TEMP 36.5; O2SAT 95
[2020-12-28] MEDS: metroNIDAZOLE 500 MG TABLET PO (06:26)
[2020-12-28 07:31] VITALS: BP 133/76; PULSE 97; RESP 18; TEMP 36.7; O2SAT 97
[2020-12-28 08:20] LABS: MANUAL DIFF FLAG NO
[2020-12-28 08:25] LABS: Basophils Percent Auto 0.2 % (0-2); Eosinophils Percent Auto 0.4 % (0-4); Hematocrit 35.1 % (42.0-52.0); Hemoglobin 11.2 g/dl (14.0-18.0); Imm Gran Abs Auto 0.01 X10*3/uL (0.00-0.03); Imm Gran Pct Auto 0.2 % (0.0-0.4); Lymphocytes Absolute Auto 0.5 X10*3/uL (1.2-4.9); Lymphocytes Percent Auto 10.6 % (20-40); Mean Corpuscular HGB Conc 31.9 g/dl (31.0-36.0); Mean Corpuscular Hemoglobin 31.3 pg (27.0-33.0); Mean Platelet Volume 8.8 fL (9.4-12.4); Monocytes Absolute Auto 0.5 X10*3/uL (0.1-1.2); Monocytes Percent Auto 10.8 % (2-11); Neutrophils Absolute Auto 3.9 x10*3/uL (2.0-8.3); Neutrophils Percent Auto 77.8 % (45-73); Platelet Count 165 X10*3/uL (160-400); Red Blood Count 3.58 X10*6/uL (4.60-5.80); Red Cell Distribution Width 12.9 % (11.0-16.0)
--- NOTE | 2020-12-28 08:37 | MHC.CARE ---
CARE Team spoke with Dr. Bello who reported Pt was awaiting SNF from psychiatric unit and does not required further behavioral health intervention at this time.
[2020-12-28 08:43] LABS: Alanine Aminotransferase 29 U/L (0-40); Albumin Level 3.2 g/dL (3.5-5.0); Alkaline Phosphatase 56 U/L (39-117); Anion Gap 11 (12-20); Aspartate Amino Transferase 28 U/L (5-37); Bilirubin Total 0.3 mg/dL (0.0-1.0); Blood Urea Nitrogen 14 mg/dL (9-16); Calcium 7.5 mg/dL (8.4-10.2); Carbon Dioxide 26 mmol/L (22-29); Chloride 109 mmol/L (96-108); Creatinine Clr Calc Pharmacy 116.3; Estimated Glomerular Filt Rate > 60; Glucose Fasting 120 mg/dL (60-99); Potassium 3.8 mmol/L (3.3-5.1); Sodium 142 mmol/L (135-145); Total Protein 5.1 g/dL (6.5-8.0)
[2020-12-28] MEDS: Thiamine HCL 100 MG TABLET PO (10:13)
[2020-12-28] MEDS: 0.9 % Sodium Chloride Flush 3 ML SYRINGE IVFLUSH (10:13)
[2020-12-28] MEDS: clonazePAM 1 MG TABLET PO (10:13)
[2020-12-28] MEDS: vancomycin HCL 125 MG CAPSULE PO ×3 (10:13→20:11)
[2020-12-28] MEDS: OLANZapine 5 MG TABLET PO (10:13)
[2020-12-28] MEDS: Folic Acid 1 MG TABLET PO (10:13)
[2020-12-28] MEDS: Memantine HCl 5 MG TABLET PO (10:13)
[2020-12-28] MEDS: Escitalopram Oxalate 20 MG TABLET PO (10:13)
[2020-12-28] MEDS: Atorvastatin Calcium 20 MG TABLET PO (10:13)
[2020-12-28 11:32] VITALS: BP 121/65; PULSE 82; RESP 18; TEMP 36.7; O2SAT 98
--- NOTE | 2020-12-28 12:22 | PC.NURSE ---
Skin/Wound assessment completed. Patient has a stage 2 to coccyx with a pink/yellow wound bed, barrier cream applied covered with foam dressing. Also, there is redness under scrotum and on inner thighs. Barrier cream applied to area. No other skin issues noted at this time.
--- NOTE | 2020-12-28 13:41 | MHC.CM.PN ---
OF THIS NOTE, AWAITING PSYCHIATRIC CONSULT. CASE MANAGEMENT FOLLOWING FOR DISCHARGE PLAN FROM UNIT OR TRANSFER BACK TO INPATIENT PSYCHIATRIC UNIT AND DISCHARGE FROM THERE. ACCORDING TO CONVERSATION WITH [facility]-PSYCH SW, NO HCP IS ON FILE OR WAS COMPLETED. CASE MANAGEMENT AWAITING RESULTS OF CONSULT
[2020-12-28 14:01] VITALS: BMI 19.5
--- NOTE | 2020-12-28 14:13 | MHC.CLN ---
NUTRITION CONSULT CONSULT FOR STAGE II WOUND TO COCCYX. DIET=REGULAR. ADD SUPPLEMENT ENSURE TID (1050 KCAL, 48-60 G PROTEIN). QUALIFIES SEVERELY MALNOURISHED. HISTORY OF LIMITED PO INTAKE. SHOWS SIGNIFICANT WEIGHT GAIN X 30 DAYS, BUT OVERALL SIGNIFICANT LOSS X 1 YEAR REPORTED BY PATIENT.
--- NOTE | 2020-12-28 14:38 | MHC.CM.PN ---
NURSE HYDRODYNAMICS TEACHER NOTE ELECTRONIC MEDICAL RECORD REVIEWED PATIENT TRAN[facility] , ON 12/27/20 STOOL FOR C-DIFF CAME BACK POSITIVE PATIENT IS GETTING IV FLUIDS AT [facility], IV VANCOMYCIN AND IV FLAGUYL
--- NOTE | 2020-12-28 15:20 | P.PNIM_ITS ---
Subjective Subjective Date of Service: 12/28/20 Interval History: Pt minimally verbal to me; unable to obtain ROS. Appears comfortable. Diarrhea improving per energy sales broker of Systems Review of Systems: Yes Unobtainable due to mental status Physical Exam Vital Signs: Vital Signs: Last Vital Signs Temp 98.1 F 12/28/20 11:32 Pulse 82 12/28/20 11:32 Resp 18 12/28/20 11:32 BP 121/65 12/28/20 11:32 Pulse Ox 98 12/28/20 11:32 Body Mass Index 19.5 Gen: in no acute distress HEENT: sclera anicteric, moist mucus membranes Neck: supple Lungs: clear to auscultation bilaterally Heart: regular rate and rhythm, no murmurs Abd: soft, non-tender, non-distended Ext: no edema Skin: warm/well-perfused Neuro: alert, uncooperative with questions of orientation and commands Psych: impaired insight Objective Data Active Medications Acetaminophen (Acetaminophen 325 Mg Tablet) 650 mg PO Q6H PRN PRN Reason: Pain, Mild (Pain Scale 1-3) Atorvastatin Calcium (Atorvastatin Calcium 20 Mg Tablet) 20 mg PO DAILY [facility] Last Admin: 12/28/20 10:13 Dose: 20 mg Documented by: EFRAIN Clonazepam (Clonazepam 1 Mg Tablet) 1 mg PO DAILY [facility] Last Admin: 12/28/20 10:13 Dose: 1 mg Documented by: EFRAIN Clonazepam (Clonazepam 0.5 Mg Tablet) 0.5 mg PO BEDTIME [facility] Last Admin: 12/27/20 20:49 Dose: 0.5 mg Documented by: RHIANNON Docusate Sodium (Docusate Sodium 100 Mg Capsule) 200 mg PO BID [facility] Last Admin: 12/28/20 10:14 Dose: Not Given Documented by: EFRAIN Non-Admin Reason: loose stool Enoxaparin Sodium (Enoxaparin Sodium 40 Mg/0.4 Ml Syringe) 40 mg SUBCUT Q24H [facility] Last Admin: 12/27/20 20:50 Dose: 40 mg Documented by: RHIANNON Escitalopram Oxalate (Escitalopram Oxalate 20 Mg Tablet) 20 mg PO DAILY [facility] Last Admin: 12/28/20 10:13 Dose: 20 mg Documented by: EFRAIN Folic Acid (Folic Acid 1 Mg Tablet) 1 mg PO DAILY [facility] Last Admin: 12/28/20 10:13 Dose: 1 mg Documented by: EFRAIN Lactated Ringer's (Lr) 1,000 mls @ 100 mls/hr IVCONT .Q10H [facility] Last Admin: 12/28/20 10:14 Dose: 100 mls/hr Documented by: EFRAIN Melatonin (Melatonin 3 Mg Tablet) 6 mg PO BEDTIME [facility] Last Admin: 12/27/20 20:50 Dose: 6 mg Documented by: RHIANNON Memantine (Memantine Hcl 5 Mg Tablet) 5 mg PO DAILY [facility] Last Admin: 12/28/20 10:13 Dose: 5 mg Documented by: EFRAIN Olanzapine (Olanzapine 5 Mg Tablet) 5 mg PO DAILY [facility] Last Admin: 12/28/20 10:13 Dose: 5 mg Documented by: EFRAIN Olanzapine (Olanzapine 10 Mg Tablet) 10 mg PO BEDTIME [facility] Last Admin: 12/27/20 20:49 Dose: 10 mg Documented by: RHIANNON Ondansetron HCl (Ondansetron Hcl 4 Mg/2 Ml Vial) 4 mg IVPUSH Q8H PRN PRN Reason: Nausea and Vomiting Senna (Sennosides 8.6 Mg Tablet) 8.6 mg PO DAILY [facility] Last Admin: 12/28/20 10:14 Dose: Not Given Documented by: EFRAIN Non-Admin Reason: loose stool Sodium Chloride (0.9 % Sodium Chloride Flush 3 Ml Syringe) 3 ml IVFLUSH QSHIFT [facility] Last Admin: 12/28/20 10:13 Dose: 3 ml Documented by: EFRAIN Thiamine HCl (Thiamine Hcl 100 Mg Tablet) 100 mg PO DAILY [facility] Last Admin: 12/28/20 10:13 Dose: 100 mg Documented by: EFRAIN Vancomycin HCl (Vancomycin Hcl 125 Mg Capsule) 125 mg PO Q6H [facility] Last Admin: 12/28/20 10:13 Dose: 125 mg Documented by: EFRAIN Labs CBC & Chem 7: 12/28/20 08:05 12/28/20 08:05 Labs: Laboratory Results - last 24 hr 12/28/20 12/28/20 08:05 08:05 MCV 98.0 MCH 31.3 MCHC 31.9 RDW 12.9 Plt Count 165 MPV 8.8 L Immature Gran % (Auto) 0.2 Neut % (Auto) 77.8 H Lymph % (Auto) 10.6 L [place] % (Auto) 10.8 Eos % (Auto) 0.4 Baso % (Auto) 0.2 Lymph # (Auto) 0.5 L [place] # (Auto) 0.5 Eos # (Auto) 0.0 Baso # (Auto) 0.0 Abs Immat Gran (auto) 0.01 Absolute Neuts (auto) 3.9 Absolute Nucleated RBC 0.000 Nucleated RBC % (auto) 0.0 Anion Gap 11 L Estim Creat Clear Calc 116.3 Estimated GFR > 60 Fasting Glucose 120 H Calcium 7.5 L Total Bilirubin 0.3 AST 28 D ALT 29 Alkaline Phosphatase 56 Total Protein 5.1 L Albumin 3.2 L Assessment and Plan (1) C. difficile diarrhea: Status: Acute Assessment and Plan: hospital d#4 70yo M who was on geriatric psych unit and treated for Staphylococcus epidermidis UTI with levofloxacin, progressively declined and admitted to Med/Surg and found to have C. diff diarrhea # Clostridium difficile colitis - nonsevere, change PO MNZ to PO vanco which is 1st line, d#03/01 # UTI - resolved # mood disorder - clonazepam, olanazpine, escitalopram # VTE ppx - LMWH # dispo - psych re-eval; medically cleared Quality Stroke Does the patient have a stroke diagnosis?: No VTE Prior VTE?: No VTE Risk Level:: Medical - moderate - high VTE Device Contraindication: Treatment Not Indicated VTE Drug Contraindication: N/A - Med Ordered
[2020-12-28 15:50] VITALS: BP 158/92; PULSE 84; RESP 20; TEMP 36.8; O2SAT 100
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
[2020-12-28 19:30] VITALS: BP 145/83; PULSE 88; RESP 20; TEMP 37.2; O2SAT 100
[2020-12-28] MEDS: Enoxaparin Sodium 40 MG/0.4 ML SYRINGE SUBCUT (20:11)
[2020-12-28] MEDS: clonazePAM 0.5 MG TABLET PO (20:11)
[2020-12-28] MEDS: OLANZapine 10 MG TABLET PO (20:11)
[2020-12-28] MEDS: Melatonin 3 MG TABLET 6 MG PO (20:11)
[2020-12-28 23:38] VITALS: BP 145/84; PULSE 83; RESP 17; TEMP 36.9; O2SAT 97
[2020-12-29] MEDS: 0.9 % Sodium Chloride Flush 3 ML SYRINGE IVFLUSH ×2 (00:30→15:11)
[2020-12-29] MEDS: vancomycin HCL 125 MG CAPSULE PO ×4 (03:20→20:41)
[2020-12-29 03:58] VITALS: BP 126/70; PULSE 81; RESP 17; TEMP 36.6; O2SAT 97
[2020-12-29 06:03] LABS: Hematocrit 34.7 % (42.0-52.0); Hemoglobin 11.4 g/dl (14.0-18.0); Mean Corpuscular HGB Conc 32.9 g/dl (31.0-36.0); Mean Corpuscular Hemoglobin 32.3 pg (27.0-33.0); Mean Corpuscular Volume 98.3 fL (80.0-98.0); Mean Platelet Volume 8.9 fL (9.4-12.4); Platelet Count 177 X10*3/uL (160-400); Red Blood Count 3.53 X10*6/uL (4.60-5.80); White Blood Count 4.9 X10*3/uL (4.8-10.8)
--- NOTE | 2020-12-29 06:21 | PC.NURSE ---
at 330 am pt not able to void bladder scan for 843, and str. cath per md order for 700 ml clear yellow urine
[2020-12-29 06:33] LABS: Alanine Aminotransferase 22 U/L (0-40); Albumin Level 3.1 g/dL (3.5-5.0); Alkaline Phosphatase 54 U/L (39-117); Anion Gap 9 (12-20); Aspartate Amino Transferase 15 U/L (5-37); Bilirubin Total 0.7 mg/dL (0.0-1.0); Blood Urea Nitrogen 10 mg/dL (9-16); Calcium 7.7 mg/dL (8.4-10.2); Carbon Dioxide 30 mmol/L (22-29); Chloride 107 mmol/L (96-108); Creatinine Clr Calc Pharmacy 120.9; Estimated Glomerular Filt Rate > 60; Glucose Fasting 99 mg/dL (60-99); Potassium 3.8 mmol/L (3.3-5.1); Sodium 142 mmol/L (135-145); Total Protein 4.9 g/dL (6.5-8.0)
--- NOTE | 2020-12-29 06:46 | P.EN_ITS ---
Event Note Date of Service: 01/11/21 Event Note: Urine retention: Patient bladder scan showed urine of 840 cc. Or dered a straight cath. Urology consulted. Repeat bladder scan couple of hours. Day team to follow up
[2020-12-29 07:46] VITALS: BP 117/75; PULSE 97; RESP 18; TEMP 36.4; O2SAT 97
[2020-12-29] MEDS: OLANZapine 5 MG TABLET PO (07:54)
[2020-12-29] MEDS: Atorvastatin Calcium 20 MG TABLET PO (07:55)
[2020-12-29] MEDS: Memantine HCl 5 MG TABLET PO (07:55)
[2020-12-29] MEDS: Finasteride 5 MG TABLET PO (07:56)
[2020-12-29] MEDS: Thiamine HCL 100 MG TABLET PO (07:56)
[2020-12-29] MEDS: Folic Acid 1 MG TABLET PO (07:56)
[2020-12-29] MEDS: Escitalopram Oxalate 20 MG TABLET PO (07:56)
[2020-12-29] MEDS: clonazePAM 1 MG TABLET PO (07:56)
[2020-12-29 11:30] VITALS: BP 134/83; PULSE 91; RESP 18; TEMP 36.4; O2SAT 100
--- NOTE | 2020-12-29 14:43 | HO.PM.IMPN ---
Subjective Subjective Date of Service: 12/29/20 Interval History: more verbal today still having foul diarrhea retaining urine- bladder scanned for 850mL overnight denies depression, hallucinations, or SI Review of Systems Review of Systems: Yes all other systems are reviewed and are negative Physical Exam Vital Signs: Vital Signs: Last Vital Signs Temp 97.6 F 12/29/20 11:30 Pulse 91 12/29/20 11:30 Resp 18 12/29/20 11:30 BP 134/83 12/29/20 11:30 Pulse Ox 100 12/29/20 11:30 Body Mass Index 19.5 Gen: in no acute distress HEENT: sclera anicteric, moist mucus membranes Neck: supple Lungs: clear to auscultation bilaterally Heart: regular rate and rhythm, no murmurs Abd: soft, non-tender, non-distended Ext: no edema Skin: warm/well-perfused Neuro: alert, no focal findings Psych: appropriate affect Objective Data Active Medications Acetaminophen (Acetaminophen 325 Mg Tablet) 650 mg PO Q6H PRN PRN Reason: Pain, Mild (Pain Scale 1-3) Atorvastatin Calcium (Atorvastatin Calcium 20 Mg Tablet) 20 mg PO DAILY [facility] Last Admin: 12/29/20 07:55 Dose: 20 mg Documented by: SUDHIR Clonazepam (Clonazepam 1 Mg Tablet) 1 mg PO DAILY [facility] Last Admin: 12/29/20 07:56 Dose: 1 mg Documented by: SUDHIR Clonazepam (Clonazepam 0.5 Mg Tablet) 0.5 mg PO BEDTIME [facility] Last Admin: 12/28/20 20:11 Dose: 0.5 mg Documented by: ANNIKA Docusate Sodium (Docusate Sodium 100 Mg Capsule) 200 mg PO BID [facility] Last Admin: 12/29/20 07:55 Dose: Not Given Documented by: SUDHIR Non-Admin Reason: loose stools Enoxaparin Sodium (Enoxaparin Sodium 40 Mg/0.4 Ml Syringe) 40 mg SUBCUT Q24H [facility] Last Admin: 12/28/20 20:11 Dose: 40 mg Documented by: ANNIKA Escitalopram Oxalate (Escitalopram Oxalate 20 Mg Tablet) 20 mg PO DAILY [facility] Last Admin: 12/29/20 07:56 Dose: 20 mg Documented by: SUDHIR Finasteride (Finasteride 5 Mg Tablet) 5 mg PO DAILY [facility] Last Admin: 12/29/20 07:56 Dose: 5 mg Documented by: SUDHIR Folic Acid (Folic Acid 1 Mg Tablet) 1 mg PO DAILY [facility] Last Admin: 12/29/20 07:56 Dose: 1 mg Documented by: SUDHIR Melatonin (Melatonin 3 Mg Tablet) 6 mg PO BEDTIME [facility] Last Admin: 12/28/20 20:11 Dose: 6 mg Documented by: ANNIKA Memantine (Memantine Hcl 5 Mg Tablet) 5 mg PO DAILY [facility] Last Admin: 12/29/20 07:55 Dose: 5 mg Documented by: SUDHIR Olanzapine (Olanzapine 5 Mg Tablet) 5 mg PO DAILY [facility] Last Admin: 12/29/20 07:54 Dose: 5 mg Documented by: SUDHIR Olanzapine (Olanzapine 10 Mg Tablet) 10 mg PO BEDTIME [facility] Last Admin: 12/28/20 20:11 Dose: 10 mg Documented by: ANNIKA Ondansetron HCl (Ondansetron Hcl 4 Mg/2 Ml Vial) 4 mg IVPUSH Q8H PRN PRN Reason: Nausea and Vomiting Senna (Sennosides 8.6 Mg Tablet) 8.6 mg PO DAILY [facility] Last Admin: 12/29/20 07:56 Dose: Not Given Documented by: SUDHIR Non-Admin Reason: loose stools Sodium Chloride (0.9 % Sodium Chloride Flush 3 Ml Syringe) 3 ml IVFLUSH QSHIFT [facility] Last Admin: 12/29/20 07:40 Dose: Not Given Documented by: SUDHIR Non-Admin Reason: IV Running Tamsulosin HCl (Tamsulosin Hcl 0.4 Mg Capsule) 0.4 mg PO BEDTIME [facility] Thiamine HCl (Thiamine Hcl 100 Mg Tablet) 100 mg PO DAILY [facility] Last Admin: 12/29/20 07:56 Dose: 100 mg Documented by: SUDHIR Vancomycin HCl (Vancomycin Hcl 125 Mg Capsule) 125 mg PO Q6H [facility] Last Admin: 12/29/20 07:56 Dose: 125 mg Documented by: SUDHIR Labs CBC & Chem 7: 12/29/20 05:38 12/29/20 05:38 Labs: Laboratory Results - last 24 hr 12/29/20 12/29/20 05:38 05:38 MCV 98.3 H MCH 32.3 MCHC 32.9 RDW 13.0 Plt Count 177 MPV 8.9 L Absolute Nucleated RBC 0.000 Nucleated RBC % (auto) 0.0 Anion Gap 9 L Estim Creat Clear Calc 120.9 Estimated GFR > 60 Fasting Glucose 99 Calcium 7.7 L Total Bilirubin 0.7 AST 15 D ALT 22 Alkaline Phosphatase 54 Total Protein 4.9 L Albumin 3.1 L Assessment and Plan (1) C. difficile diarrhea: Status: Acute Assessment and Plan: hospital d#5 70yo M who was on geriatric psych unit and treated for Staphylococcus epidermidis UTI with levofloxacin, progressively declined and admitted to Med/Surg and found to have C. diff diarrhea retaining urine # urinary retention - start alpha blockade = tamsulosin + finasteride - straight cath prn bladder scan > 300 mL # Clostridium difficile colitis - nonsevere, changed PO MNZ to PO vanco which is 1st line, d#04/01 # UTI - resolved # mood disorder - clonazepam, olanazpine, escitalopram # VTE ppx - LMWH # dispo - psych re-eval; medically cleared Quality Stroke Does the patient have a stroke diagnosis?: No VTE Prior VTE?: No VTE Risk Level:: Medical - moderate - high VTE Device Contraindication: Treatment Not Indicated VTE Drug Contraindication: N/A - Med Ordered
[2020-12-29 16:00] VITALS: BP 125/75; PULSE 89; RESP 20; TEMP 37; O2SAT 98
--- NOTE | 2020-12-29 16:09 | MHC.CM.PN ---
PER PREVIOUS [facility] NOTES, PROCESS WAS STARTED TOWARDS PLACING PATIENT IN [facility] IN [place], [place]. REFERRAL PLACED TO FACILITY IN [place]. NO HCP LOCATED. CASE MANAGEMENT TO FOLLOW FOR DC NEEDS AND FACILITY REQUESTS.
[2020-12-29 19:19] VITALS: BP 124/58; PULSE 99; RESP 16; TEMP 37.6; O2SAT 97
[2020-12-29] MEDS: Docusate Sodium 100 MG CAPSULE 200 MG PO (20:40)
[2020-12-29] MEDS: Melatonin 3 MG TABLET 6 MG PO (20:40)
[2020-12-29] MEDS: Tamsulosin HCL 0.4 MG CAPSULE PO (20:41)
[2020-12-29] MEDS: clonazePAM 0.5 MG TABLET PO (20:41)
[2020-12-29] MEDS: Enoxaparin Sodium 40 MG/0.4 ML SYRINGE SUBCUT (20:41)
[2020-12-29] MEDS: OLANZapine 10 MG TABLET PO (20:41)
[2020-12-29 23:33] VITALS: BP 136/81; PULSE 84; RESP 17; TEMP 36.8; O2SAT 97
[2020-12-30] MEDS: 0.9 % Sodium Chloride Flush 3 ML SYRINGE IVFLUSH ×3 (01:19→15:57)
[2020-12-30] MEDS: vancomycin HCL 125 MG CAPSULE PO ×4 (03:52→22:01)
[2020-12-30 04:00] VITALS: BP 130/78; PULSE 79; RESP 17; TEMP 37.1; O2SAT 98
[2020-12-30 06:21] LABS: Alanine Aminotransferase 20 U/L (0-40); Albumin Level 3.1 g/dL (3.5-5.0); Alkaline Phosphatase 59 U/L (39-117); Anion Gap 11 (12-20); Aspartate Amino Transferase 18 U/L (5-37); Bilirubin Total 0.7 mg/dL (0.0-1.0); Blood Urea Nitrogen 15 mg/dL (9-16); Calcium 7.9 mg/dL (8.4-10.2); Carbon Dioxide 28 mmol/L (22-29); Chloride 106 mmol/L (96-108); Creatinine Clr Calc Pharmacy 108.1; Estimated Glomerular Filt Rate > 60; Glucose Fasting 117 mg/dL (60-99); Potassium 3.9 mmol/L (3.3-5.1); Sodium 141 mmol/L (135-145); Total Protein 5.1 g/dL (6.5-8.0)
[2020-12-30 07:21] VITALS: BP 140/72; PULSE 80; RESP 18; TEMP 36.9; O2SAT 97
[2020-12-30] MEDS: clonazePAM 1 MG TABLET PO (08:56)
[2020-12-30] MEDS: Thiamine HCL 100 MG TABLET PO (08:56)
[2020-12-30] MEDS: Escitalopram Oxalate 20 MG TABLET PO (08:56)
[2020-12-30] MEDS: Memantine HCl 5 MG TABLET PO (08:56)
[2020-12-30] MEDS: Docusate Sodium 100 MG CAPSULE 200 MG PO (08:56)
[2020-12-30] MEDS: Sennosides 8.6 MG TABLET PO (08:56)
[2020-12-30] MEDS: OLANZapine 5 MG TABLET PO (08:56)
[2020-12-30] MEDS: Folic Acid 1 MG TABLET PO (08:56)
[2020-12-30] MEDS: Atorvastatin Calcium 20 MG TABLET PO (08:56)
[2020-12-30] MEDS: Finasteride 5 MG TABLET PO (08:57)
[2020-12-30 11:23] LABS: Hematocrit 36.5 % (42.0-52.0); Hemoglobin 11.8 g/dl (14.0-18.0); Mean Corpuscular HGB Conc 32.3 g/dl (31.0-36.0); Mean Corpuscular Hemoglobin 31.6 pg (27.0-33.0); Mean Corpuscular Volume 97.9 fL (80.0-98.0); Mean Platelet Volume 8.5 fL (9.4-12.4); Platelet Count 200 X10*3/uL (160-400); Red Blood Count 3.73 X10*6/uL (4.60-5.80); Red Cell Distribution Width 13.1 % (11.0-16.0); White Blood Count 4.1 X10*3/uL (4.8-10.8)
[2020-12-30 11:38] VITALS: BP 140/72; PULSE 80; O2SAT 97
[2020-12-30 12:00] VITALS: BP 123/69; PULSE 87; RESP 18; TEMP 36.8; O2SAT 98
[2020-12-30 12:31] LABS: Anion Gap 13 (12-20); Blood Urea Nitrogen 14 mg/dL (9-16); C Reactive Protein 4.93 mg/dL (< or = 0.50); Calcium 8.2 mg/dL (8.4-10.2); Carbon Dioxide 28 mmol/L (22-29); Chloride 105 mmol/L (96-108); Creatinine Clr Calc Pharmacy 99.4; Estimated Glomerular Filt Rate > 60; Glucose Random 150 mg/dL (60-115); Sodium 142 mmol/L (135-145)
--- NOTE | 2020-12-30 13:28 | MHC.CLN ---
F/U DIET=REGULAR, ENSURE TID. SUPPLEMENT PROVIDES 1050 KCAL, 48-60 G PROTEIN. INTAKE AT MEALS VARIABLE PER DOCUMENTATION. STAGE III WOUND TO COCCYX. CONTINUES WITH DIARRHEA DUE TO C-DIFF. CONTINUE CURRENT DIET AND SUPPLEMENT.
--- NOTE | 2020-12-30 14:02 | P.PNIM_ITS ---
Subjective Subjective Date of Service: 12/30/20 Interval History: Still having watery diarrhea/abd discomfort Urinary retention resolved Review of Systems Review of Systems: Yes all other systems are reviewed and are negative Physical Exam Vital Signs: Vital Signs: Last Vital Signs Temp 98.3 F 12/30/20 12:00 Pulse 87 12/30/20 12:00 Resp 18 12/30/20 12:00 BP 123/69 12/30/20 12:00 Pulse Ox 98 12/30/20 12:00 Body Mass Index 19.5 Gen: in no acute distress HEENT: sclera anicteric, moist mucus membranes Neck: supple Lungs: clear to auscultation bilaterally Heart: regular rate and rhythm, no murmurs Abd: soft, non-tender, non-distended Ext: no edema Skin: warm/well-perfused Neuro: alert, no focal findings Psych: appropriate affect Objective Data Active Medications Acetaminophen (Acetaminophen 325 Mg Tablet) 650 mg PO Q6H PRN PRN Reason: Pain, Mild (Pain Scale 1-3) Atorvastatin Calcium (Atorvastatin Calcium 20 Mg Tablet) 20 mg PO DAILY [facility] Last Admin: 12/30/20 08:56 Dose: 20 mg Documented by: MOLLY Clonazepam (Clonazepam 1 Mg Tablet) 1 mg PO DAILY [facility] Last Admin: 12/30/20 08:56 Dose: 1 mg Documented by: MOLLY Clonazepam (Clonazepam 0.5 Mg Tablet) 0.5 mg PO BEDTIME [facility] Last Admin: 12/29/20 20:41 Dose: 0.5 mg Documented by: MORRIS Docusate Sodium (Docusate Sodium 100 Mg Capsule) 200 mg PO BID [facility] Last Admin: 12/30/20 08:56 Dose: 200 mg Documented by: MOLLY Enoxaparin Sodium (Enoxaparin Sodium 40 Mg/0.4 Ml Syringe) 40 mg SUBCUT Q24H [facility] Last Admin: 12/29/20 20:41 Dose: 40 mg Documented by: MORRIS Escitalopram Oxalate (Escitalopram Oxalate 20 Mg Tablet) 20 mg PO DAILY [facility] Last Admin: 12/30/20 08:56 Dose: 20 mg Documented by: MOLLY Finasteride (Finasteride 5 Mg Tablet) 5 mg PO DAILY [facility] Last Admin: 12/30/20 08:57 Dose: 5 mg Documented by: MOLLY Folic Acid (Folic Acid 1 Mg Tablet) 1 mg PO DAILY [facility] Last Admin: 12/30/20 08:56 Dose: 1 mg Documented by: MOLLY Melatonin (Melatonin 3 Mg Tablet) 6 mg PO BEDTIME [facility] Last Admin: 12/29/20 20:40 Dose: 6 mg Documented by: MORRIS Memantine (Memantine Hcl 5 Mg Tablet) 5 mg PO DAILY [facility] Last Admin: 12/30/20 08:56 Dose: 5 mg Documented by: MOLLY Olanzapine (Olanzapine 5 Mg Tablet) 5 mg PO DAILY [facility] Last Admin: 12/30/20 08:56 Dose: 5 mg Documented by: MOLLY Olanzapine (Olanzapine 10 Mg Tablet) 10 mg PO BEDTIME [facility] Last Admin: 12/29/20 20:41 Dose: 10 mg Documented by: MORRIS Ondansetron HCl (Ondansetron Hcl 4 Mg/2 Ml Vial) 4 mg IVPUSH Q8H PRN PRN Reason: Nausea and Vomiting Senna (Sennosides 8.6 Mg Tablet) 8.6 mg PO DAILY [facility] Last Admin: 12/30/20 08:56 Dose: 8.6 mg Documented by: MOLLY Sodium Chloride (0.9 % Sodium Chloride Flush 3 Ml Syringe) 3 ml IVFLUSH [facility] Last Admin: 12/30/20 08:57 Dose: 3 ml Documented by: MOLLY Tamsulosin HCl (Tamsulosin Hcl 0.4 Mg Capsule) 0.4 mg PO BEDTIME [facility] Last Admin: 12/29/20 20:41 Dose: 0.4 mg Documented by: MORRIS Thiamine HCl (Thiamine Hcl 100 Mg Tablet) 100 mg PO DAILY [facility] Last Admin: 12/30/20 08:56 Dose: 100 mg Documented by: MOLLY Vancomycin HCl (Vancomycin Hcl 125 Mg Capsule) 125 mg PO Q6H [facility] Last Admin: 12/30/20 08:56 Dose: 125 mg Documented by: MOLLY Labs CBC & Chem 7: 12/30/20 10:58 12/30/20 10:58 Labs: Laboratory Results - last 24 hr 12/30/20 12/30/20 12/30/20 05:44 10:58 10:58 MCV 97.9 MCH 31.6 MCHC 32.3 RDW 13.1 Plt Count 200 MPV 8.5 L Absolute Nucleated RBC 0.000 Nucleated RBC % (auto) 0.0 Anion Gap 11 L 13 Estim Creat Clear Calc 108.1 99.4 Estimated GFR > 60 > 60 Random Glucose 150 H D Fasting Glucose 117 H Calcium 7.9 L 8.2 L Total Bilirubin 0.7 AST 18 ALT 20 Alkaline Phosphatase 59 C-Reactive Protein 4.93 H Total Protein 5.1 L Albumin 3.1 L Assessment and Plan (1) C. difficile diarrhea: Status: Acute Assessment and Plan: hospital d#6 70yo M who was on geriatric psych unit and treated for Staphylococcus epidermidis UTI with levofloxacin, progressively declined and admitted to Med/Surg and found to have C. diff diarrhea # urinary retention - started alpha blockade = tamsulosin + finasteride - Urology follow-up # Clostridium difficile colitis - nonsevere, on vancomycin d#3 # UTI - resolved # mood disorder - clonazepam, olanazpine, escitalopram # VTE ppx - LMWH # dispo - awaiting STR placement Quality Stroke Does the patient have a stroke diagnosis?: No VTE Prior VTE?: No VTE Risk Level:: Medical - moderate - high VTE Device Contraindication: Treatment Not Indicated VTE Drug Contraindication: N/A - Med Ordered
[2020-12-30 16:00] VITALS: BP 129/74; PULSE 89; RESP 16; TEMP 36.7; O2SAT 99
[2020-12-30 19:40] VITALS: BP 135/73; PULSE 91; RESP 16; TEMP 37.4; O2SAT 99
[2020-12-30] MEDS: OLANZapine 10 MG TABLET PO (22:01)
[2020-12-30] MEDS: clonazePAM 0.5 MG TABLET PO (22:01)
[2020-12-30] MEDS: Tamsulosin HCL 0.4 MG CAPSULE PO (22:01)
[2020-12-30] MEDS: Enoxaparin Sodium 40 MG/0.4 ML SYRINGE SUBCUT (22:02)
[2020-12-30] MEDS: Melatonin 3 MG TABLET 6 MG PO (22:02)
[2020-12-31] VITALS (7 sets, daily range): BP systolic 116–149; BP diastolic 66–82; PULSE 78–98; RESP 16–18; TEMP 36.2–36.9; O2SAT 97–100
[2020-12-31] MEDS: 0.9 % Sodium Chloride Flush 3 ML SYRINGE IVFLUSH ×4 (00:42→23:38)
[2020-12-31] MEDS: vancomycin HCL 125 MG CAPSULE PO ×2 (02:12→09:29)
--- NOTE | 2020-12-31 05:43 | PC.NURSE ---
PATIENT INCONTINENT OF SEVERAL LOOSE BROWN STOOLS OVERNIGHT, ALSO 3 EPISODES TO COMMODE. SKIN CARE PROVIDED. PT NOTED TO PASS SMALL AMOUNTS OF URINE AND THEN 200ML TO URINAL TIMES ONE. PT STATED BLADDER PRESSURE AT APPROX., 0500 AND AGREEABLE TO A BLADDER SCAN WHICH REVEALED 579ML. DISCUSSED CONTINUING TO TRY AND PASS HIS URINE OR THE OPTION OF A STRAIGHT CATHERIZATION. PROCEDURE EXPLAINED TO HIM AND HE ALSO REMEMBERED HAVING IT DONE LAST FEW DAYS. HE WAS WILLING TO GO AHEAD TO RELIEVE HIS DISCOMFORT. PT TOLERATED PROCEDURE WELL AND 525ML YELLOW URINE OBTAINED AT 0530. WILL CONTINUE TO MONITOR. PT NOTED RESTING IN BED SHORTLY AFTERWARDS.
[2020-12-31] MEDS: Thiamine HCL 100 MG TABLET PO (09:29)
[2020-12-31] MEDS: Atorvastatin Calcium 20 MG TABLET PO (09:29)
[2020-12-31] MEDS: Folic Acid 1 MG TABLET PO (09:29)
[2020-12-31] MEDS: Memantine HCl 5 MG TABLET PO (09:29)
[2020-12-31] MEDS: Finasteride 5 MG TABLET PO (09:29)
[2020-12-31] MEDS: Escitalopram Oxalate 20 MG TABLET PO (09:29)
[2020-12-31] MEDS: OLANZapine 5 MG TABLET PO (09:29)
--- NOTE | 2020-12-31 10:05 | MHC.CM.PN ---
Addendum entered by Judith Oneil, RN 12/31/20 12:00: CM CONTACTED ADMISSIONS LIAISON ARTHUR AT [facility] AT 11:50AM, ARTHUR REPORTED WE WILL NEED TO DO A LEVEL ONE PRIOR TO ADMISSION, FACILITY IS ACCEPTING PT HOWEVER DO NOT DUE ADMISSIONS D/T DECREASED STAFFING SO EARLIEST PT COULD BE ADMIITED WOULD BE THURSDAY 01/04, ARTHUR/SNF PREFER PAPER FAXES AND LEVEL 1 WILL BE FAXED TODAY TO [phone], SNF PREFERS PAPER FAXES D/T LIMITED ACCESS TO [facility]. ON MONDAY WHEN PT IS TRANSFERRED CM WILL NEED TO ARRANGE THROUGH PT'S SUNI WILSON. FAX [phone] SUNI: STEVE MUNOZ [phone] EXT [phone] Original Note: CM ATTEMPTED TO CONTACT ADMISSIONS LIAISON AT [facility], NO ANSWER AND MESSAGE LEFT W/CM CONTACT INFO. WILL FOLLOW UP IF NO RETRURN CALL.
--- NOTE | 2020-12-31 12:10 | HO.PM.IMPN ---
Subjective Subjective Date of Service: 12/31/20 Interval History: Still having a lot of watery diarrhea- 5 episodes today Abd discomfort Review of Systems Review of Systems: Yes all other systems are reviewed and are negative Physical Exam Vital Signs: Vital Signs: Last Vital Signs Temp 98.5 F 12/31/20 07:38 Pulse 91 12/31/20 07:38 Resp 17 12/31/20 07:38 BP 133/79 12/31/20 07:38 Pulse Ox 97 12/31/20 07:38 Body Mass Index 19.5 Gen: in no acute distress HEENT: sclera anicteric, moist mucus membranes Neck: supple Lungs: clear to auscultation bilaterally Heart: regular rate and rhythm, no murmurs Abd: soft, diffuse tenderness, no rebound Ext: no edema Skin: warm/well-perfused Neuro: alert, no focal findings Psych: appropriate affect Objective Data Active Medications Acetaminophen (Acetaminophen 325 Mg Tablet) 650 mg PO Q6H PRN PRN Reason: Pain, Mild (Pain Scale 1-3) Atorvastatin Calcium (Atorvastatin Calcium 20 Mg Tablet) 20 mg PO DAILY [facility] Last Admin: 12/31/20 09:29 Dose: 20 mg Documented by: OLEGARIO Clonazepam (Clonazepam 0.5 Mg Tablet) 0.5 mg PO BEDTIME [facility] Last Admin: 12/30/20 22:01 Dose: 0.5 mg Documented by: MELCHOR Docusate Sodium (Docusate Sodium 100 Mg Capsule) 200 mg PO BID [facility] Last Admin: 12/31/20 09:23 Dose: Not Given Documented by: OLEGARIO Non-Admin Reason: loose stool Enoxaparin Sodium (Enoxaparin Sodium 40 Mg/0.4 Ml Syringe) 40 mg SUBCUT Q24H [facility] Last Admin: 12/30/20 22:02 Dose: 40 mg Documented by: MELCHOR Escitalopram Oxalate (Escitalopram Oxalate 20 Mg Tablet) 20 mg PO DAILY [facility] Last Admin: 12/31/20 09:29 Dose: 20 mg Documented by: OLEGARIO Fidaxomicin (Fidaxomicin 200 Mg Tablet) 200 mg PO Q12H [facility] Finasteride (Finasteride 5 Mg Tablet) 5 mg PO DAILY [facility] Last Admin: 12/31/20 09:29 Dose: 5 mg Documented by: OLEGARIO Folic Acid (Folic Acid 1 Mg Tablet) 1 mg PO DAILY [facility] Last Admin: 12/31/20 09:29 Dose: 1 mg Documented by: OLEGARIO Melatonin (Melatonin 3 Mg Tablet) 6 mg PO BEDTIME [facility] Last Admin: 12/30/20 22:02 Dose: 6 mg Documented by: MELCHOR Memantine (Memantine Hcl 5 Mg Tablet) 5 mg PO DAILY [facility] Last Admin: 12/31/20 09:29 Dose: 5 mg Documented by: OLEGARIO Olanzapine (Olanzapine 5 Mg Tablet) 5 mg PO DAILY [facility] Last Admin: 12/31/20 09:29 Dose: 5 mg Documented by: OLEGARIO Olanzapine (Olanzapine 10 Mg Tablet) 10 mg PO BEDTIME [facility] Last Admin: 12/30/20 22:01 Dose: 10 mg Documented by: MELCHOR Ondansetron HCl (Ondansetron Hcl 4 Mg/2 Ml Vial) 4 mg IVPUSH Q8H PRN PRN Reason: Nausea and Vomiting Senna (Sennosides 8.6 Mg Tablet) 8.6 mg PO DAILY [facility] Last Admin: 12/31/20 09:24 Dose: Not Given Documented by: OLEGARIO Non-Admin Reason: loose stool Sodium Chloride (0.9 % Sodium Chloride Flush 3 Ml Syringe) 3 ml IVFLUSH QSHIFT [facility] Last Admin: 12/31/20 09:22 Dose: 3 ml Documented by: OLEGARIO Tamsulosin HCl (Tamsulosin Hcl 0.4 Mg Capsule) 0.4 mg PO BEDTIME [facility] Last Admin: 12/30/20 22:01 Dose: 0.4 mg Documented by: MELCHOR Thiamine HCl (Thiamine Hcl 100 Mg Tablet) 100 mg PO DAILY [facility] Last Admin: 12/31/20 09:29 Dose: 100 mg Documented by: OLEGARIO Labs CBC & Chem 7: 12/30/20 10:58 12/30/20 10:58 Labs: Laboratory Results - last 24 hr 12/30/20 10:58 Anion Gap 13 Estim Creat Clear Calc 99.4 Estimated GFR > 60 Random Glucose 150 H D Calcium 8.2 L C-Reactive Protein 4.93 H Assessment and Plan (1) C. difficile diarrhea: Status: Acute Assessment and Plan: hospital d#7 70yo M who was on geriatric psych unit and treated for Staphylococcus epidermidis UTI with levofloxacin, progressively declined and admitted to Med/Surg and found to have C. diff diarrhea # urinary retention - started alpha blockade = tamsulosin + finasteride - Urology follow-up # Clostridium difficile colitis - nonsevere but persistent despite 3d of PO vancomycin; will switch to fidoxamicin + consult ID # UTI - resolved # mood disorder - clonazepam, olanazpine, escitalopram # VTE ppx - LMWH # dispo - awaiting STR placement Quality Stroke Does the patient have a stroke diagnosis?: No VTE Prior VTE?: No VTE Risk Level:: Medical - moderate - high VTE Device Contraindication: Treatment Not Indicated VTE Drug Contraindication: N/A - Med Ordered
[2020-12-31] MEDS: Fidaxomicin 200 MG TABLET PO (14:05)
--- NOTE | 2020-12-31 14:44 | P.PNUR_ITS ---
Subjective Subjective Date of Service: 12/29/20 Interval history: Mr Gonzales has had high urinary residuals 850 cc on prior catheterizations Recommend placement of Liu catheter for minimum 7 days to allow proper bladder rest Physical Exam 2 Vital Signs: Vital Signs: Last Vital Signs Temp 97.1 F 12/31/20 12:00 Pulse 83 12/31/20 12:00 Resp 18 12/31/20 12:00 BP 125/75 12/31/20 12:00 Pulse Ox 100 12/31/20 12:00 Body Mass Index 19.5 Const: General: cooperative, healthy appearing, comfortable and no acute distress Orientation/consciousness: patient oriented x3 HENMT: Face and sinus: Yes normal facial exam Mouth: moist mucous membranes Neck: Neck: Yes normal visual inspection, Yes full ROM and Yes trachea midline Chest: Chest palpation & inspection: normal inspection of the chest Resp: Effort & Inspection: normal respiratory effort, able to speak in complete sentences and no respiratory distress GI: Inspection: Yes normal to inspection Back/Spine/Pelvis: Cervical Spine: normal cervical lordosis Thoracic/Lumbar Spine: thoracic and lumbar spine normal to inspection Skin: General skin exam: no rashes or lesions noted Neuro: General: patient oriented x3, gait normal, tone normal and moves all extremities Extrem: General: Yes normal to inspection and Yes capillary refill normal Urology Results Labs CBC & Chem 7: 12/30/20 10:58 12/30/20 10:58 Progress Note: A&P Assessment and plan (1) Urinary retention with incomplete bladder emptying: Status: Acute Assessment and Plan: Urinary retention Liu catheter should be placed for 1 week to allow bladder healing Fall Risk Details Current Medications: Current Medications Acetaminophen (Acetaminophen 325 Mg Tablet) 650 mg PO Q6H PRN PRN Reason: Pain, Mild (Pain Scale 1-3) Atorvastatin Calcium (Atorvastatin Calcium 20 Mg Tablet) 20 mg PO DAILY [facility] Last Admin: 12/31/20 09:29 Dose: 20 mg Documented by: Clonazepam (Clonazepam 0.5 Mg Tablet) 0.5 mg PO BEDTIME [facility] Last Admin: 12/30/20 22:01 Dose: 0.5 mg Documented by: Docusate Sodium (Docusate Sodium 100 Mg Capsule) 200 mg PO BID [facility] Last Admin: 12/31/20 09:23 Dose: Not Given Documented by: Enoxaparin Sodium (Enoxaparin Sodium 40 Mg/0.4 Ml Syringe) 40 mg SUBCUT Q24H [facility] Last Admin: 12/30/20 22:02 Dose: 40 mg Documented by: Escitalopram Oxalate (Escitalopram Oxalate 20 Mg Tablet) 20 mg PO DAILY [facility] Last Admin: 12/31/20 09:29 Dose: 20 mg Documented by: Fidaxomicin (Fidaxomicin 200 Mg Tablet) 200 mg PO Q12H [facility] Stop: 01/10/21 01:01 Last Admin: 12/31/20 14:05 Dose: 200 mg Documented by: Finasteride (Finasteride 5 Mg Tablet) 5 mg PO DAILY [facility] Last Admin: 12/31/20 09:29 Dose: 5 mg Documented by: Folic Acid (Folic Acid 1 Mg Tablet) 1 mg PO DAILY [facility] Last Admin: 12/31/20 09:29 Dose: 1 mg Documented by: Melatonin (Melatonin 3 Mg Tablet) 6 mg PO BEDTIME [facility] Last Admin: 12/30/20 22:02 Dose: 6 mg Documented by: Memantine (Memantine Hcl 5 Mg Tablet) 5 mg PO DAILY [facility] Last Admin: 12/31/20 09:29 Dose: 5 mg Documented by: Olanzapine (Olanzapine 5 Mg Tablet) 5 mg PO DAILY [facility] Last Admin: 12/31/20 09:29 Dose: 5 mg Documented by: Olanzapine (Olanzapine 10 Mg Tablet) 10 mg PO BEDTIME [facility] Last Admin: 12/30/20 22:01 Dose: 10 mg Documented by: Ondansetron HCl (Ondansetron Hcl 4 Mg/2 Ml Vial) 4 mg IVPUSH Q8H PRN PRN Reason: Nausea and Vomiting Senna (Sennosides 8.6 Mg Tablet) 8.6 mg PO DAILY [facility] Last Admin: 12/31/20 09:24 Dose: Not Given Documented by: Sodium Chloride (0.9 % Sodium Chloride Flush 3 Ml Syringe) 3 ml IVFLUSH QSHIFT [facility] Last Admin: 12/31/20 09:22 Dose: 3 ml Documented by: Tamsulosin HCl (Tamsulosin Hcl 0.4 Mg Capsule) 0.4 mg PO BEDTIME [facility] Last Admin: 12/30/20 22:01 Dose: 0.4 mg Documented by: Thiamine HCl (Thiamine Hcl 100 Mg Tablet) 100 mg PO DAILY [facility] Last Admin: 12/31/20 09:29 Dose: 100 mg Documented by: Time Spent With Patient Time: Total time spent is greater than 50% in coordination of care (as documented) at patient's floor/unit and/or counseling patient: Time with patient: less than 15 minutes Progress Note: Quality Stroke Does the patient have a stroke diagnosis?: No
--- NOTE | 2020-12-31 18:15 | PC.NURSE ---
lebron catheter placed at 1730 for urinary retention.
[2020-12-31] MEDS: OLANZapine 10 MG TABLET PO (19:20)
[2020-12-31] MEDS: Melatonin 3 MG TABLET 6 MG PO (19:20)
[2020-12-31] MEDS: Enoxaparin Sodium 40 MG/0.4 ML SYRINGE SUBCUT (19:20)
[2020-12-31] MEDS: clonazePAM 0.5 MG TABLET PO (19:20)
[2020-12-31] MEDS: Tamsulosin HCL 0.4 MG CAPSULE PO (19:20)
[2021-01-01] MEDS: Fidaxomicin 200 MG TABLET PO ×2 (01:36→14:39)
[2021-01-01 04:00] VITALS: BP 137/85; PULSE 100; RESP 18; TEMP 36.7; O2SAT 95
[2021-01-01 07:51] VITALS: BP 142/86; PULSE 91; RESP 20; TEMP 36.7; O2SAT 96
[2021-01-01] MEDS: Folic Acid 1 MG TABLET PO (09:56)
[2021-01-01] MEDS: Atorvastatin Calcium 20 MG TABLET PO (09:56)
[2021-01-01] MEDS: Thiamine HCL 100 MG TABLET PO (09:56)
[2021-01-01] MEDS: Escitalopram Oxalate 20 MG TABLET PO (09:56)
[2021-01-01] MEDS: Memantine HCl 5 MG TABLET PO (09:56)
[2021-01-01] MEDS: Finasteride 5 MG TABLET PO (09:56)
[2021-01-01] MEDS: 0.9 % Sodium Chloride Flush 3 ML SYRINGE IVFLUSH ×2 (09:56→15:13)
[2021-01-01] MEDS: OLANZapine 5 MG TABLET PO (09:56)
[2021-01-01 11:55] VITALS: BP 142/86; PULSE 91; O2SAT 96
--- NOTE | 2021-01-01 11:58 | P.PNIM_ITS ---
Subjective Subjective Date of Service: 01/01/21 Interval History: still having diarrhea + abd discomfort Liu placed Review of Systems Review of Systems: Yes all other systems are reviewed and are negative Physical Exam Vital Signs: Vital Signs: Last Vital Signs Temp 98.0 F 01/01/21 07:51 Pulse 91 01/01/21 07:51 Resp 20 01/01/21 07:51 BP 142/86 H 01/01/21 07:51 Pulse Ox 96 01/01/21 07:51 Body Mass Index 19.5 Gen: in no acute distress HEENT: sclera anicteric, moist mucus membranes Neck: supple Lungs: clear to auscultation bilaterally Heart: regular rate and rhythm, no murmurs Abd: soft, diffuse tenderness, no rebound Ext: no edema Skin: warm/well-perfused Neuro: alert, no focal findings Psych: appropriate affect Objective Data Active Medications Acetaminophen (Acetaminophen 325 Mg Tablet) 650 mg PO Q6H PRN PRN Reason: Pain, Mild (Pain Scale 1-3) Atorvastatin Calcium (Atorvastatin Calcium 20 Mg Tablet) 20 mg PO DAILY [facility] Last Admin: 01/01/21 09:56 Dose: 20 mg Documented by: LÓPEZ Docusate Sodium (Docusate Sodium 100 Mg Capsule) 200 mg PO BID [facility] Last Admin: 01/01/21 07:20 Dose: Not Given Documented by: LÓPEZ Non-Admin Reason: Off unit: Dialysis Enoxaparin Sodium (Enoxaparin Sodium 40 Mg/0.4 Ml Syringe) 40 mg SUBCUT Q24H [facility] Last Admin: 12/31/20 19:20 Dose: 40 mg Documented by: HORTENSIAQC Escitalopram Oxalate (Escitalopram Oxalate 20 Mg Tablet) 20 mg PO DAILY [facility] Last Admin: 01/01/21 09:56 Dose: 20 mg Documented by: LÓPEZ Fidaxomicin (Fidaxomicin 200 Mg Tablet) 200 mg PO Q12H [facility] Stop: 01/10/21 01:01 Last Admin: 01/01/21 01:36 Dose: 200 mg Documented by: QUINTON Finasteride (Finasteride 5 Mg Tablet) 5 mg PO DAILY [facility] Last Admin: 01/01/21 09:56 Dose: 5 mg Documented by: LÓPEZ Folic Acid (Folic Acid 1 Mg Tablet) 1 mg PO DAILY [facility] Last Admin: 01/01/21 09:56 Dose: 1 mg Documented by: LÓPEZ Melatonin (Melatonin 3 Mg Tablet) 6 mg PO BEDTIME [facility] Last Admin: 12/31/20 19:20 Dose: 6 mg Documented by: TANYA Memantine (Memantine Hcl 5 Mg Tablet) 5 mg PO DAILY [facility] Last Admin: 01/01/21 09:56 Dose: 5 mg Documented by: LÓPEZ Olanzapine (Olanzapine 5 Mg Tablet) 5 mg PO DAILY [facility] Last Admin: 01/01/21 09:56 Dose: 5 mg Documented by: LÓPEZ Olanzapine (Olanzapine 10 Mg Tablet) 10 mg PO BEDTIME [facility] Last Admin: 12/31/20 19:20 Dose: 10 mg Documented by: TANYA Ondansetron HCl (Ondansetron Hcl 4 Mg/2 Ml Vial) 4 mg IVPUSH Q8H PRN PRN Reason: Nausea and Vomiting Senna (Sennosides 8.6 Mg Tablet) 8.6 mg PO DAILY [facility] Last Admin: 01/01/21 10:02 Dose: Not Given Documented by: LÓPEZ Non-Admin Reason: loose Sodium Chloride (0.9 % Sodium Chloride Flush 3 Ml Syringe) 3 ml IVFLUSH QSHIFT [facility] Last Admin: 01/01/21 09:56 Dose: 3 ml Documented by: LÓPEZ Tamsulosin HCl (Tamsulosin Hcl 0.4 Mg Capsule) 0.4 mg PO BEDTIME [facility] Last Admin: 12/31/20 19:20 Dose: 0.4 mg Documented by: TANYA Thiamine HCl (Thiamine Hcl 100 Mg Tablet) 100 mg PO DAILY [facility] Last Admin: 01/01/21 09:56 Dose: 100 mg Documented by: LÓPEZ Labs CBC & Chem 7: 12/30/20 10:58 12/30/20 10:58 Assessment and Plan (1) C. difficile diarrhea: Status: Acute Assessment and Plan: hospital d#8 70yo M who was on geriatric psych unit and treated for Staphylococcus epidermidis UTI with levofloxacin, progressively declined and admitted to Med/Surg and found to have C. diff diarrhea # urinary retention - started alpha blockade = tamsulosin + finasteride - Liu placed, leave in for 7d - Urology outpt follow-up # Clostridium difficile colitis - nonsevere but persistent despite 3d of PO vancomycin; on fidoxamicin d#2/10- ; ID consult # UTI - resolved # mood disorder - clonazepam, olanazpine, escitalopram # VTE ppx - LMWH # dispo - accepted at [facility] but no staff available until 01/04/21 Quality Stroke Does the patient have a stroke diagnosis?: No VTE Prior VTE?: No VTE Risk Level:: Medical - moderate - high VTE Device Contraindication: Treatment Not Indicated VTE Drug Contraindication: N/A - Med Ordered
[2021-01-01 12:00] VITALS: BP 133/85; PULSE 100; RESP 20; TEMP 36.8; O2SAT 97
--- NOTE | 2021-01-01 14:24 | MHC.CM.PN ---
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 nurse co-worker tried to pre arrange with sil[facility]re [facility] but they could not iuntil; we have discharge order. discharge plan monday to [facility] needs to [facility] up the transportation to the facility
--- NOTE | 2021-01-01 14:59 | MHC.CLN ---
F/U NOW WITH STAGE I WOUND TO COCCYX (03/02 CHANGED TO STAGE I). INTAKE AT [facility], WITH MANY MEALS 100%. CONTINUES WITH DIARRHEA DUE TO C-DIFF DX. DIET=REGULAR, ENSURE TID. SUPPLEMENT PROVIDES 1050 KCAL, 48-60 G PROTEIN. CONTINUE CURRENT DIET AND SUPPLEMENT.
[2021-01-01 15:08] VITALS: BP 129/80; PULSE 90; RESP 18; TEMP 36.3; O2SAT 98
--- NOTE | 2021-01-01 15:52 | MHC.CM.PN ---
nurse case supervisor note electronic medical record reviewed along with case discussed with hospita;ist. recived return call from ji iniguez daughter , (he works at [employer] and reported she does not want him to go there as their is covid there) i reviewed areas in [place] and informed her the [facility] were not accepting new admissions, after further discussuion she asked that i make referral to [facility] , [facility] and [facility] , she reported sh is not aware oif wher the health care proxty is , she reported that her father was last seen by pcp dr rubio i month ago , i told her i would call over to the office and have them check and if they do have one , to fax it to the medical surgical unit fax machine [phone] discharge plan rehab [facility] , [facility] c;incal updates sent to them
[2021-01-01 20:00] VITALS: BP 130/72; PULSE 86; RESP 18; TEMP 36.2; O2SAT 96
[2021-01-01] MEDS: Enoxaparin Sodium 40 MG/0.4 ML SYRINGE SUBCUT (20:42)
[2021-01-01] MEDS: OLANZapine 10 MG TABLET PO (20:42)
[2021-01-01] MEDS: Tamsulosin HCL 0.4 MG CAPSULE PO (20:42)
[2021-01-01] MEDS: Melatonin 3 MG TABLET 6 MG PO (20:42)
--- NOTE | 2021-01-01 22:03 | W.PM.IDCN ---
History of Present Illness Data of Consult Service Date: 01/01/21 Requesting physician: Radha Perez Primary Care Provider: Unknown Physician HPI Reason for consult: diarrhea He presents to [facility] with depression. He also had UTI and given Levaquin He had diarrhea after Levaquin and positive Cdiff. Here now he has positive PCR and neg toxin Review of Systems Review of Systems: Yes Unobtainable due to mental status PMFSH Past Medical History Medical History Arthritis BPH (benign prostatic hyperplasia) GERD (gastroesophageal reflux disease) Obstructive sleep apnea PTSD (post-traumatic stress disorder) Family History Family history: reviewed and not pertinent Surgical History Surgical History Cataract extraction status H/O cystoscopy H/O hernia repair History of esophagogastroduodenoscopy (EGD) S/P TURP Social History Social History Household Members: None Housing: Apartment Do you presently have visiting nurse or other home services: No Patient Tobacco Use Status: Former Tobacco user Quit Date: 17 years ago Tobacco use type: Cigarette Cigarette Packs Per Day: 2 Cigarettes Per Day: 40.0 Years Smoked: many e-Cigarette/Vaping Use: Never Used Second Hand Smoke Exposure: No Advance Directives: No Advance Directives Information Provided: No service: Yes Current occupational status: retired Meds Allergies Allergy/AdvReac Type Severity Reaction Status Date / Time azithromycin Allergy Itching Verified 11/16/20 21:17 buspirone Allergy Headache Verified 11/16/20 21:17 mirtazapine Allergy Unknown Verified 11/16/20 21:17 Active Medications: Current Medications Acetaminophen (Acetaminophen 325 Mg Tablet) 650 mg PO Q6H PRN PRN Reason: Pain, Mild (Pain Scale 1-3) Atorvastatin Calcium (Atorvastatin Calcium 20 Mg Tablet) 20 mg PO DAILY [facility] Last Admin: 01/01/21 09:56 Dose: 20 mg Documented by: Docusate Sodium (Docusate Sodium 100 Mg Capsule) 200 mg PO BID [facility] Last Admin: 01/01/21 20:43 Dose: Not Given Documented by: Enoxaparin Sodium (Enoxaparin Sodium 40 Mg/0.4 Ml Syringe) 40 mg SUBCUT Q24H [facility] Last Admin: 01/01/21 20:42 Dose: 40 mg Documented by: Escitalopram Oxalate (Escitalopram Oxalate 20 Mg Tablet) 20 mg PO DAILY [facility] Last Admin: 01/01/21 09:56 Dose: 20 mg Documented by: Fidaxomicin (Fidaxomicin 200 Mg Tablet) 200 mg PO Q12H [facility] Stop: 01/10/21 01:01 Last Admin: 01/01/21 14:39 Dose: 200 mg Documented by: Finasteride (Finasteride 5 Mg Tablet) 5 mg PO DAILY [facility] Last Admin: 01/01/21 09:56 Dose: 5 mg Documented by: Folic Acid (Folic Acid 1 Mg Tablet) 1 mg PO DAILY [facility] Last Admin: 01/01/21 09:56 Dose: 1 mg Documented by: Melatonin (Melatonin 3 Mg Tablet) 6 mg PO BEDTIME [facility] Last Admin: 01/01/21 20:42 Dose: 6 mg Documented by: Memantine (Memantine Hcl 5 Mg Tablet) 5 mg PO DAILY [facility] Last Admin: 01/01/21 09:56 Dose: 5 mg Documented by: Olanzapine (Olanzapine 5 Mg Tablet) 5 mg PO DAILY [facility] Last Admin: 01/01/21 09:56 Dose: 5 mg Documented by: Olanzapine (Olanzapine 10 Mg Tablet) 10 mg PO BEDTIME [facility] Last Admin: 01/01/21 20:42 Dose: 10 mg Documented by: Ondansetron HCl (Ondansetron Hcl 4 Mg/2 Ml Vial) 4 mg IVPUSH Q8H PRN PRN Reason: Nausea and Vomiting Senna (Sennosides 8.6 Mg Tablet) 8.6 mg PO DAILY [facility] Last Admin: 01/01/21 10:02 Dose: Not Given Documented by: Sodium Chloride (0.9 % Sodium Chloride Flush 3 Ml Syringe) 3 ml IVFLUSH QSHIFT [facility] Last Admin: 01/01/21 15:13 Dose: 3 ml Documented by: Tamsulosin HCl (Tamsulosin Hcl 0.4 Mg Capsule) 0.4 mg PO BEDTIME [facility] Last Admin: 01/01/21 20:42 Dose: 0.4 mg Documented by: Thiamine HCl (Thiamine Hcl 100 Mg Tablet) 100 mg PO DAILY [facility] Last Admin: 01/01/21 09:56 Dose: 100 mg Documented by: Home Medications Medication Instructions Recorded Confirmed Last Taken Type clonazepam 0.5 mg PO BEDTIME 11/16/20 12/25/20 Unknown History clonazepam 1 mg tablet 1 mg PO DAILY 11/16/20 12/25/20 Unknown History docusate sodium 100 mg capsule 200 mg PO BID 11/16/20 12/25/20 Unknown History escitalopram oxalate 20 mg tablet 20 mg PO DAILY 11/16/20 12/25/20 Unknown History folic acid 1 mg tablet 1 mg PO DAILY 11/16/20 12/25/20 Unknown History melatonin 5 mg tablet 5 mg PO BEDTIME 11/16/20 12/25/20 Unknown History memantine 5 mg tablet 5 mg PO QAM 11/16/20 12/25/20 Unknown History olanzapine 10 mg tablet 10 mg PO BEDTIME 11/16/20 12/25/20 Unknown History olanzapine 5 mg tablet 5 mg PO DAILY 11/16/20 12/25/20 Unknown History sennosides 8.6 mg tablet (senna) 8.6 mg PO DAILY 11/16/20 12/25/20 Unknown History simvastatin 40 mg tablet 40 mg PO DAILY 11/16/20 12/25/20 Unknown History thiamine HCl (vitamin B1) 100 mg 100 mg PO DAILY 11/16/20 12/25/20 Unknown History tablet Physical Exam Vital Signs: Vital Signs: Last Vital Signs Temp 97.2 F 01/01/21 20:00 Pulse 86 01/01/21 20:00 Resp 18 01/01/21 20:00 BP 130/72 01/01/21 20:00 Pulse Ox 96 01/01/21 20:00 Body Mass Index 19.5 Const: General: cooperative Eyes: General: appearance normal, both eyes and all related structures Resp: Effort & Inspection: normal respiratory effort Cardio: Rate: regular rate Rhythm: regular rhythm GI: Palpation (GI): Soft to palpation and nontender Results Labs CBC & Chem 7: 12/30/20 10:58 12/30/20 10:58 Labs: Short CBC 12/27/20 Range/Units 09:36 C. difficile Tox B Gene POSITIVE A* (Negative) Assessment and Plan (1) Urinary retention with incomplete bladder emptying: Status: Acute (2) C. difficile diarrhea: Status: Acute He has negative toxin but there is possible still Cdiff low level colonization Fidaxomicin for 10 days since diarrhea still persists.
[2021-01-02] VITALS: BP 136/77; PULSE 78; RESP 18; TEMP 36.4; O2SAT 97
[2021-01-02] MEDS: 0.9 % Sodium Chloride Flush 3 ML SYRINGE IVFLUSH ×2 (02:28→10:39)
[2021-01-02] MEDS: Fidaxomicin 200 MG TABLET PO ×2 (02:28→12:40)
[2021-01-02 04:00] VITALS: BP 124/74; PULSE 80; RESP 18; TEMP 36.2; O2SAT 97
[2021-01-02 08:00] VITALS: BP 143/78; PULSE 87; RESP 17; TEMP 36.6; O2SAT 98
[2021-01-02] MEDS: Escitalopram Oxalate 20 MG TABLET PO (10:38)
[2021-01-02] MEDS: Memantine HCl 5 MG TABLET PO (10:38)
[2021-01-02] MEDS: OLANZapine 5 MG TABLET PO (10:38)
[2021-01-02] MEDS: Thiamine HCL 100 MG TABLET PO (10:38)
[2021-01-02] MEDS: Finasteride 5 MG TABLET PO (10:38)
[2021-01-02] MEDS: Folic Acid 1 MG TABLET PO (10:38)
[2021-01-02] MEDS: Atorvastatin Calcium 20 MG TABLET PO (10:39)
[2021-01-02 12:00] VITALS: BP 134/80; PULSE 74; RESP 16; TEMP 36.1; O2SAT 99
--- NOTE | 2021-01-02 12:44 | P.PNIM_ITS ---
Subjective Subjective Date of Service: 01/02/21 Interval History: still having diarrhea + abd discomfort Review of Systems Review of Systems: Yes all other systems are reviewed and are negative Physical Exam Vital Signs: Vital Signs: Last Vital Signs Temp 96.9 F 01/02/21 12:00 Pulse 74 01/02/21 12:00 Resp 16 01/02/21 12:00 BP 134/80 01/02/21 12:00 Pulse Ox 99 01/02/21 12:00 Body Mass Index 19.5 Gen: in no acute distress HEENT: sclera anicteric, moist mucus membranes Neck: supple Lungs: clear to auscultation bilaterally Heart: regular rate and rhythm, no murmurs Abd: soft, diffuse tenderness, no rebound Ext: no edema Skin: warm/well-perfused Neuro: alert, no focal findings Psych: appropriate affect Objective Data Active Medications Acetaminophen (Acetaminophen 325 Mg Tablet) 650 mg PO Q6H PRN PRN Reason: Pain, Mild (Pain Scale 1-3) Atorvastatin Calcium (Atorvastatin Calcium 20 Mg Tablet) 20 mg PO DAILY [facility] Last Admin: 01/02/21 10:39 Dose: 20 mg Documented by: EFRAIN Docusate Sodium (Docusate Sodium 100 Mg Capsule) 200 mg PO BID [facility] Last Admin: 01/02/21 10:39 Dose: Not Given Documented by: EFRAIN Non-Admin Reason: diarrhea Enoxaparin Sodium (Enoxaparin Sodium 40 Mg/0.4 Ml Syringe) 40 mg SUBCUT Q24H [facility] Last Admin: 01/01/21 20:42 Dose: 40 mg Documented by: ODRISM Escitalopram Oxalate (Escitalopram Oxalate 20 Mg Tablet) 20 mg PO DAILY [facility] Last Admin: 01/02/21 10:38 Dose: 20 mg Documented by: EFRAIN Fidaxomicin (Fidaxomicin 200 Mg Tablet) 200 mg PO Q12H [facility] Stop: 01/10/21 01:01 Last Admin: 01/02/21 12:40 Dose: 200 mg Documented by: EFRAIN Finasteride (Finasteride 5 Mg Tablet) 5 mg PO DAILY [facility] Last Admin: 01/02/21 10:38 Dose: 5 mg Documented by: EFRAIN Folic Acid (Folic Acid 1 Mg Tablet) 1 mg PO DAILY [facility] Last Admin: 01/02/21 10:38 Dose: 1 mg Documented by: EFRAIN Melatonin (Melatonin 3 Mg Tablet) 6 mg PO BEDTIME [facility] Last Admin: 01/01/21 20:42 Dose: 6 mg Documented by: MAEGAN Memantine (Memantine Hcl 5 Mg Tablet) 5 mg PO DAILY [facility] Last Admin: 01/02/21 10:38 Dose: 5 mg Documented by: EFRAIN Olanzapine (Olanzapine 5 Mg Tablet) 5 mg PO DAILY [facility] Last Admin: 01/02/21 10:38 Dose: 5 mg Documented by: EFRAIN Olanzapine (Olanzapine 10 Mg Tablet) 10 mg PO BEDTIME [facility] Last Admin: 01/01/21 20:42 Dose: 10 mg Documented by: MAEGAN Ondansetron HCl (Ondansetron Hcl 4 Mg/2 Ml Vial) 4 mg IVPUSH Q8H PRN PRN Reason: Nausea and Vomiting Senna (Sennosides 8.6 Mg Tablet) 8.6 mg PO DAILY [facility] Last Admin: 01/02/21 10:39 Dose: Not Given Documented by: EFRAIN Non-Admin Reason: diarrhea Sodium Chloride (0.9 % Sodium Chloride Flush 3 Ml Syringe) 3 ml IVFLUSH QSHIFT [facility] Last Admin: 01/02/21 10:39 Dose: 3 ml Documented by: EFRAIN Tamsulosin HCl (Tamsulosin Hcl 0.4 Mg Capsule) 0.4 mg PO BEDTIME [facility] Last Admin: 01/01/21 20:42 Dose: 0.4 mg Documented by: MAEGAN Thiamine HCl (Thiamine Hcl 100 Mg Tablet) 100 mg PO DAILY [facility] Last Admin: 01/02/21 10:38 Dose: 100 mg Documented by: EFRAIN Labs CBC & Chem 7: 12/30/20 10:58 12/30/20 10:58 Assessment and Plan (1) C. difficile diarrhea: Status: Acute Assessment and Plan: hospital d#9 70yo M who was on geriatric psych unit and treated for Staphylococcus epidermidis UTI with levofloxacin, progressively declined and admitted to Med/Surg and found to have C. diff diarrhea # urinary retention - started alpha blockade = tamsulosin + finasteride - Liu placed, leave in for 7d - Urology outpt follow-up # Clostridium difficile colitis - nonsevere but persistent despite 3d of PO vancomycin; on fidoxamicin d#04/29- 14; ID consulted; will check labs tomorrow; will give IV fluids given fluid losses # UTI - resolved # mood disorder - clonazepam, olanazpine, escitalopram # VTE ppx - LMWH # dispo - accepted at [facility] but no staff available until 01/04/21 Quality Stroke Does the patient have a stroke diagnosis?: No VTE Prior VTE?: No VTE Risk Level:: Medical - moderate - high VTE Device Contraindication: Treatment Not Indicated VTE Drug Contraindication: N/A - Med Ordered
[2021-01-02] MEDS: Lactated Ringers 1,000 ML 100 ML IVCONT ×2 (13:34→22:53)
[2021-01-02 15:39] VITALS: BP 116/67; PULSE 81; RESP 16; TEMP 36.8; O2SAT 100
[2021-01-02 19:07] VITALS: BP 128/72; PULSE 96; RESP 16; TEMP 36.9; O2SAT 97
[2021-01-02] MEDS: OLANZapine 10 MG TABLET PO (20:58)
[2021-01-02] MEDS: Enoxaparin Sodium 40 MG/0.4 ML SYRINGE SUBCUT (20:58)
[2021-01-02] MEDS: Melatonin 3 MG TABLET 6 MG PO (20:58)
[2021-01-02] MEDS: Tamsulosin HCL 0.4 MG CAPSULE PO (20:58)
[2021-01-03] VITALS (7 sets, daily range): BP systolic 125–145; BP diastolic 69–81; PULSE 75–91; RESP 16–20; TEMP 36.1–37.7; O2SAT 96–100
[2021-01-03] MEDS: Fidaxomicin 200 MG TABLET PO ×3 (01:09→23:43)
[2021-01-03 05:29] LABS: Hematocrit 32.4 % (42.0-52.0); Hemoglobin 10.4 g/dl (14.0-18.0); Mean Corpuscular HGB Conc 32.1 g/dl (31.0-36.0); Mean Corpuscular Hemoglobin 31.3 pg (27.0-33.0); Mean Corpuscular Volume 97.6 fL (80.0-98.0); Mean Platelet Volume 8.4 fL (9.4-12.4); Platelet Count 192 X10*3/uL (160-400); Red Blood Count 3.32 X10*6/uL (4.60-5.80); Red Cell Distribution Width 12.6 % (11.0-16.0); White Blood Count 4.7 X10*3/uL (4.8-10.8)
[2021-01-03 05:53] LABS: Anion Gap 13 (12-20); Blood Urea Nitrogen 14 mg/dL (9-16); C Reactive Protein 2.48 mg/dL (< or = 0.50); Calcium 7.6 mg/dL (8.4-10.2); Carbon Dioxide 26 mmol/L (22-29); Chloride 106 mmol/L (96-108); Creatinine Clr Calc Pharmacy 102.7; Estimated Glomerular Filt Rate > 60; Glucose Random 123 mg/dL (60-115); Potassium 3.9 mmol/L (3.3-5.1); Sodium 141 mmol/L (135-145)
[2021-01-03] MEDS: Atorvastatin Calcium 20 MG TABLET PO (10:22)
[2021-01-03] MEDS: Memantine HCl 5 MG TABLET PO (10:22)
[2021-01-03] MEDS: Folic Acid 1 MG TABLET PO (10:22)
[2021-01-03] MEDS: Escitalopram Oxalate 20 MG TABLET PO (10:22)
[2021-01-03] MEDS: Finasteride 5 MG TABLET PO (10:23)
[2021-01-03] MEDS: Thiamine HCL 100 MG TABLET PO (10:23)
[2021-01-03] MEDS: OLANZapine 5 MG TABLET PO (10:23)
[2021-01-03] MEDS: 0.9 % Sodium Chloride Flush 3 ML SYRINGE IVFLUSH ×2 (10:24→19:30)
--- NOTE | 2021-01-03 10:36 | P.PNIM_ITS ---
Subjective Subjective Date of Service: 01/03/21 Interval History: 3 loose BMs yesterday, 1 today abd discomfort no fever Review of Systems Review of Systems: Yes all other systems are reviewed and are negative Physical Exam Vital Signs: Vital Signs: Last Vital Signs Temp 97.9 F 01/03/21 08:00 Pulse 77 01/03/21 08:00 Resp 18 01/03/21 08:00 BP 128/74 01/03/21 08:00 Pulse Ox 97 01/03/21 08:00 Body Mass Index 19.5 Gen: in no acute distress HEENT: sclera anicteric, moist mucus membranes Neck: supple Lungs: clear to auscultation bilaterally Heart: regular rate and rhythm, no murmurs Abd: soft, diffuse tenderness, no rebound or guarding Ext: no edema Skin: warm/well-perfused Neuro: alert, no focal findings Psych: appropriate affect Objective Data Active Medications Acetaminophen (Acetaminophen 325 Mg Tablet) 650 mg PO Q6H PRN PRN Reason: Pain, Mild (Pain Scale 1-3) Atorvastatin Calcium (Atorvastatin Calcium 20 Mg Tablet) 20 mg PO DAILY [facility] Last Admin: 01/03/21 10:22 Dose: 20 mg Documented by: NASEEM Docusate Sodium (Docusate Sodium 100 Mg Capsule) 200 mg PO BID [facility] Last Admin: 01/03/21 08:10 Dose: Not Given Documented by: NASEEM Non-Admin Reason: diarrhea Enoxaparin Sodium (Enoxaparin Sodium 40 Mg/0.4 Ml Syringe) 40 mg SUBCUT Q24H [facility] Last Admin: 01/02/21 20:58 Dose: 40 mg Documented by: MAEGAN Escitalopram Oxalate (Escitalopram Oxalate 20 Mg Tablet) 20 mg PO DAILY [facility] Last Admin: 01/03/21 10:22 Dose: 20 mg Documented by: NASEEM Fidaxomicin (Fidaxomicin 200 Mg Tablet) 200 mg PO Q12H [facility] Stop: 01/10/21 01:01 Last Admin: 01/03/21 01:09 Dose: 200 mg Documented by: MAEGAN Finasteride (Finasteride 5 Mg Tablet) 5 mg PO DAILY [facility] Last Admin: 01/03/21 10:23 Dose: 5 mg Documented by: NSAEEM Folic Acid (Folic Acid 1 Mg Tablet) 1 mg PO DAILY [facility] Last Admin: 01/03/21 10:22 Dose: 1 mg Documented by: NASEEM Lactated Ringer's (Lr) 1,000 mls @ 100 mls/hr IVCONT .Q10H [facility] Last Admin: 01/02/21 22:53 Dose: 100 mls/hr Documented by: MAEGAN Melatonin (Melatonin 3 Mg Tablet) 6 mg PO BEDTIME [facility] Last Admin: 01/02/21 20:58 Dose: 6 mg Documented by: MAEGAN Memantine (Memantine Hcl 5 Mg Tablet) 5 mg PO DAILY [facility] Last Admin: 01/03/21 10:22 Dose: 5 mg Documented by: NASEEM Olanzapine (Olanzapine 5 Mg Tablet) 5 mg PO DAILY [facility] Last Admin: 01/03/21 10:23 Dose: 5 mg Documented by: NASEEM Olanzapine (Olanzapine 10 Mg Tablet) 10 mg PO BEDTIME [facility] Last Admin: 01/02/21 20:58 Dose: 10 mg Documented by: MAEGAN Ondansetron HCl (Ondansetron Hcl 4 Mg/2 Ml Vial) 4 mg IVPUSH Q8H PRN PRN Reason: Nausea and Vomiting Senna (Sennosides 8.6 Mg Tablet) 8.6 mg PO DAILY [facility] Last Admin: 01/03/21 08:11 Dose: Not Given Documented by: NASEEM Non-Admin Reason: diarrhea Sodium Chloride (0.9 % Sodium Chloride Flush 3 Ml Syringe) 3 ml IVFLUSH QSHIFT [facility] Last Admin: 01/03/21 10:24 Dose: 3 ml Documented by: NASEEM Tamsulosin HCl (Tamsulosin Hcl 0.4 Mg Capsule) 0.4 mg PO BEDTIME [facility] Last Admin: 01/02/21 20:58 Dose: 0.4 mg Documented by: MAEGAN Thiamine HCl (Thiamine Hcl 100 Mg Tablet) 100 mg PO DAILY [facility] Last Admin: 01/03/21 10:23 Dose: 100 mg Documented by: NASEEM Labs CBC & Chem 7: 01/03/21 04:57 01/03/21 04:57 Labs: Laboratory Results - last 24 hr 01/03/21 01/03/21 04:57 04:57 MCV 97.6 MCH 31.3 MCHC 32.1 RDW 12.6 Plt Count 192 MPV 8.4 L Absolute Nucleated RBC 0.000 Nucleated RBC % (auto) 0.0 Anion Gap 13 Estim Creat Clear Calc 102.7 Estimated GFR > 60 Random Glucose 123 H Calcium 7.6 L D C-Reactive Protein 2.48 H Assessment and Plan (1) C. difficile diarrhea: Status: Acute (2) Urinary retention with incomplete bladder emptying: Status: Acute Assessment and Plan: hospital d#9 70yo M who was on geriatric psychiatry unit and treated for Staphylococcus epidermidis UTI with levofloxacin, progressively declined and admitted to Med/Surg and found to have C. diff diarrhea # urinary retention - continue tamsulosin + finasteride - Liu placed 12/31, leave in for 7d - Urology outpt follow-up # Clostridium difficile colitis - nonsevere but persistent despite 3d of PO vancomycin so switched to fidoxamicin and on d#414; ID consulted. given persistent diarrhea, will check stool WBCs + culture; if continues, consider GI consultation # UTI - resolved # mood disorder - clonazepam, olanazpine, escitalopram # VTE ppx - LMWH # dispo - accepted at [facility] but no staff available until 01/04/21 Quality Stroke Does the patient have a stroke diagnosis?: No VTE Prior VTE?: No VTE Risk Level:: Medical - moderate - high VTE Device Contraindication: Treatment Not Indicated VTE Drug Contraindication: N/A - Med Ordered
[2021-01-03] MEDS: Lactated Ringers 1,000 ML 100 ML IVCONT ×2 (10:41→19:31)
[2021-01-03] MEDS: Docusate Sodium 100 MG CAPSULE 200 MG PO (19:30)
[2021-01-03] MEDS: OLANZapine 10 MG TABLET PO (19:30)
[2021-01-03] MEDS: Tamsulosin HCL 0.4 MG CAPSULE PO (19:30)
[2021-01-03] MEDS: Melatonin 3 MG TABLET 6 MG PO (19:31)
[2021-01-03] MEDS: Enoxaparin Sodium 40 MG/0.4 ML SYRINGE SUBCUT (19:31)
[2021-01-04] VITALS (7 sets, daily range): BP systolic 110–172; BP diastolic 69–94; PULSE 71–79; RESP 18; TEMP 36.1–37; O2SAT 97–99
[2021-01-04] MEDS: Lactated Ringers 1,000 ML 100 ML IVCONT (06:03)
--- NOTE | 2021-01-04 09:03 | MHC.CM.PN ---
NURSE NUT SHELLER NOTE ELECTRONIC MEDICAL RECORD REVIEWED , RECEIVED CALL FROM [facility] THEY HAVE INFORMED US THAT BECAUSE PATIENT CONTINUES TO HAVE SOME LOOSE STOOLS WITH POSTIIVE C-DIFF ON 12/27/20 THEY WOULD LIKE TO JOHN 1-2 MORE DAYS, THEY ALSO REPORTED THAT [facility] IN [facility]MISSION
[2021-01-04] MEDS: OLANZapine 5 MG TABLET PO (09:07)
[2021-01-04] MEDS: Thiamine HCL 100 MG TABLET PO (09:07)
[2021-01-04] MEDS: Memantine HCl 5 MG TABLET PO (09:07)
[2021-01-04] MEDS: Folic Acid 1 MG TABLET PO (09:07)
[2021-01-04] MEDS: Escitalopram Oxalate 20 MG TABLET PO (09:07)
[2021-01-04] MEDS: Finasteride 5 MG TABLET PO (09:07)
[2021-01-04] MEDS: Atorvastatin Calcium 20 MG TABLET PO (09:07)
--- NOTE | 2021-01-04 09:07 | MHC.CM.NN ---
EMR REVIEWED, CM RECEIVED MESSAGE FROM [facility] PRIOR TO 8:30AM REPORTING THEY WILL HOLD OFF ON ACCEPTING PT D/T CDIF, CM WILL FOLLOW-UP W/[facility] IN AM. CM WILL DISCUSSED W/PT'S RN AND SHE REPORTED PT HAD TWO LOOSE BM'S ON OVERNIGHT SHIFT AND THAT SHE HAD JUST COLLECTED A STOOL SAMPLE.
--- NOTE | 2021-01-04 10:31 | HO.PM.IMPN ---
Subjective Subjective Date of Service: 01/04/21 Interval History: 3 soft BM yesterday Abd discomfort improved Not much appetite Review of Systems Review of Systems: Yes all other systems are reviewed and are negative Physical Exam Vital Signs: Vital Signs: Last Vital Signs Temp 97.1 F 01/04/21 07:18 Pulse 74 01/04/21 07:18 Resp 18 01/04/21 07:18 BP 172/94 H 01/04/21 07:18 Pulse Ox 98 01/04/21 07:18 Body Mass Index 19.5 Gen: in no acute distress HEENT: sclera anicteric, moist mucus membranes Neck: supple Lungs: clear to auscultation bilaterally Heart: regular rate and rhythm, no murmurs Abd: soft, diffuse tenderness, no rebound or guarding Ext: no edema Skin: warm/well-perfused Neuro: alert, no focal findings Psych: restricted affect Objective Data Active Medications Acetaminophen (Acetaminophen 325 Mg Tablet) 650 mg PO Q6H PRN PRN Reason: Pain, Mild (Pain Scale 1-3) Atorvastatin Calcium (Atorvastatin Calcium 20 Mg Tablet) 20 mg PO DAILY [facility] Last Admin: 01/04/21 09:07 Dose: 20 mg Documented by: SUDHIR Docusate Sodium (Docusate Sodium 100 Mg Capsule) 200 mg PO BID [facility] Last Admin: 01/04/21 09:08 Dose: Not Given Documented by: SUDHIR Non-Admin Reason: loose stool Enoxaparin Sodium (Enoxaparin Sodium 40 Mg/0.4 Ml Syringe) 40 mg SUBCUT Q24H [facility] Last Admin: 01/03/21 19:31 Dose: 40 mg Documented by: ANASTACIA Escitalopram Oxalate (Escitalopram Oxalate 20 Mg Tablet) 20 mg PO DAILY [facility] Last Admin: 01/04/21 09:07 Dose: 20 mg Documented by: SUDHIR Fidaxomicin (Fidaxomicin 200 Mg Tablet) 200 mg PO Q12H [facility] Stop: 01/10/21 01:01 Last Admin: 01/03/21 23:43 Dose: 200 mg Documented by: ANASTACIA Finasteride (Finasteride 5 Mg Tablet) 5 mg PO DAILY [facility] Last Admin: 01/04/21 09:07 Dose: 5 mg Documented by: SUDHIR Folic Acid (Folic Acid 1 Mg Tablet) 1 mg PO DAILY [facility] Last Admin: 01/04/21 09:07 Dose: 1 mg Documented by: SUDHIR Melatonin (Melatonin 3 Mg Tablet) 6 mg PO BEDTIME [facility] Last Admin: 01/03/21 19:31 Dose: 6 mg Documented by: ANASTACIA Memantine (Memantine Hcl 5 Mg Tablet) 5 mg PO DAILY [facility] Last Admin: 01/04/21 09:07 Dose: 5 mg Documented by: SUDHIR Olanzapine (Olanzapine 5 Mg Tablet) 5 mg PO DAILY [facility] Last Admin: 01/04/21 09:07 Dose: 5 mg Documented by: SUDHIR Olanzapine (Olanzapine 10 Mg Tablet) 10 mg PO BEDTIME [facility] Last Admin: 01/03/21 19:30 Dose: 10 mg Documented by: ANASTACIA Ondansetron HCl (Ondansetron Hcl 4 Mg/2 Ml Vial) 4 mg IVPUSH Q8H PRN PRN Reason: Nausea and Vomiting Senna (Sennosides 8.6 Mg Tablet) 8.6 mg PO DAILY [facility] Last Admin: 01/04/21 09:07 Dose: Not Given Documented by: SUDHIR Non-Admin Reason: loose stool Sodium Chloride (0.9 % Sodium Chloride Flush 3 Ml Syringe) 3 ml IVFLUSH QSHIFT [facility] Last Admin: 01/04/21 09:07 Dose: Not Given Documented by: SUDHIR Non-Admin Reason: IV Running Tamsulosin HCl (Tamsulosin Hcl 0.4 Mg Capsule) 0.4 mg PO BEDTIME [facility] Last Admin: 01/03/21 19:30 Dose: 0.4 mg Documented by: ANASTACIA Thiamine HCl (Thiamine Hcl 100 Mg Tablet) 100 mg PO DAILY [facility] Last Admin: 01/04/21 09:07 Dose: 100 mg Documented by: SUDHIR Labs CBC & Chem 7: 01/03/21 04:57 01/03/21 04:57 Assessment and Plan (1) C. difficile diarrhea: Status: Acute (2) Urinary retention with incomplete bladder emptying: Status: Acute Assessment and Plan: hospital d#10 70yo M who was on geriatric psychiatry unit and treated for Staphylococcus epidermidis UTI with levofloxacin, progressively declined and admitted to Med/Surg and found to have C. diff diarrhea # urinary retention - continue tamsulosin + finasteride - Liu placed 12/31, leave in for 7d - Urology outpt follow-up # Clostridium difficile colitis - nonsevere but persistent despite 3d of PO vancomycin so switched to fidoxamicin and on d#4/14; ID consulted. given persistent diarrhea, will check stool WBCs + culture; if continues, consider GI consultation. seems improved today # UTI - resolved # mood disorder - clonazepam, olanazpine, escitalopram # VTE ppx - LMWH # dispo - accepted at [facility], awaiting bed Quality Stroke Does the patient have a stroke diagnosis?: No VTE Prior VTE?: No VTE Risk Level:: Medical - moderate - high VTE Device Contraindication: Treatment Not Indicated VTE Drug Contraindication: N/A - Med Ordered
--- NOTE | 2021-01-04 11:43 | MHC.CLN ---
Addendum entered by Shaina Andersen 01/05/21 14:34: called again and left message for aldo dorsey at [facility] , recived call back from aldo, she reported that the director embalmer is reviewing updated clinical paperwork and they would like to hold off until tomorrow and see if if he has any more liquid stools. this information was informed to hospitalist Original Note: F/U STAGE I WOUND TO COCCYX (03/02 CHANGED TO STAGE I). INTAKE AT [facility] CONTINUES VARIABLE. HAS C-DIFF DX AND AWAITING PLACEMENT AT [facility]. DIET=REGULAR, ENSURE (PLUS) TID. SUPPLEMENT PROVIDES 1050 KCAL, 48 G PROTEIN. CONTINUE CURRENT DIET AND SUPPLEMENT.
[2021-01-04] MEDS: Fidaxomicin 200 MG TABLET PO ×2 (13:32→23:28)
[2021-01-04] MEDS: 0.9 % Sodium Chloride Flush 3 ML SYRINGE IVFLUSH ×2 (15:32→20:04)
[2021-01-04] MEDS: Acetaminophen 325 MG TABLET 650 MG PO (19:59)
[2021-01-04] MEDS: OLANZapine 10 MG TABLET PO (20:00)
[2021-01-04] MEDS: Enoxaparin Sodium 40 MG/0.4 ML SYRINGE SUBCUT (20:00)
[2021-01-04] MEDS: Tamsulosin HCL 0.4 MG CAPSULE PO (20:00)
[2021-01-04] MEDS: Melatonin 3 MG TABLET 6 MG PO (20:00)
[2021-01-05] VITALS (7 sets, daily range): BP systolic 115–159; BP diastolic 69–84; PULSE 63–78; RESP 17–18; TEMP 36.3–36.7; O2SAT 98–99
[2021-01-05] MEDS: Docusate Sodium 100 MG CAPSULE 200 MG PO (08:13)
[2021-01-05] MEDS: Escitalopram Oxalate 20 MG TABLET PO (08:13)
[2021-01-05] MEDS: Atorvastatin Calcium 20 MG TABLET PO (08:14)
[2021-01-05] MEDS: Sennosides 8.6 MG TABLET PO (08:14)
[2021-01-05] MEDS: Folic Acid 1 MG TABLET PO (08:14)
[2021-01-05] MEDS: OLANZapine 5 MG TABLET PO (08:14)
[2021-01-05] MEDS: Thiamine HCL 100 MG TABLET PO (08:15)
[2021-01-05] MEDS: Finasteride 5 MG TABLET PO (08:15)
[2021-01-05] MEDS: Memantine HCl 5 MG TABLET PO (08:15)
[2021-01-05] MEDS: 0.9 % Sodium Chloride Flush 3 ML SYRINGE IVFLUSH ×3 (08:17→19:43)
--- NOTE | 2021-01-05 12:00 | MHC.CM.PN ---
NURSE JEWEL HOLE ROUGH OPENER NOTE ELECTRONIC MEDICAL RECORD REVIEWED ALONG WITH CASE DISCUSSED ON MULTIPLE DISCIPLINARY ROUNDS , per chart documentation;( C-DIFF COLITIS 12/27/20 PERSISTENT DIARRHEA WHILE ON PO VANCOMYCIN FOR 3 DAys switched to fidoxamicin on day 4, plan for toioday to recheck stools wbc and culture, urinary tract infection now resolved. discharge plan [facility] is following jordan , clinical updates sent to them today , also called and left message for Francesca to call me back regarding acceptance /transfer, (i understand from Kristin at [facility] they are checking the protocols regarding patient with c-diff sample case porter to continue to follow
[2021-01-05] MEDS: Fidaxomicin 200 MG TABLET PO (13:00)
--- NOTE | 2021-01-05 13:44 | P.PNIM_ITS ---
Subjective Subjective Date of Service: 01/06/21 Interval History: c diff Review of Systems seems improving , 2 bm overnight denies any chest pain or shortness of breath or abdominal pain. Physical Exam Vital Signs: Vital Signs: Last Vital Signs Temp 98.1 F 01/05/21 11:08 Pulse 75 01/05/21 11:08 Resp 17 01/05/21 11:08 BP 125/69 01/05/21 11:08 Pulse Ox 99 01/05/21 11:08 Body Mass Index 19.5 en: in no acute distress HEENT: sclera anicteric, moist mucus membranes Neck: supple Lungs: clear to auscultation bilaterally Heart: regular rate and rhythm, no murmurs Abd: soft, abd pain seems improving, no rebound or guarding Ext: no edema Skin: warm/well-perfused Neuro: alert, no focal findings Psych: restricted affect Objective Data Active Medications Acetaminophen (Acetaminophen 325 Mg Tablet) 650 mg PO Q6H PRN PRN Reason: Pain, Mild (Pain Scale 1-3) Last Admin: 01/04/21 19:59 Dose: 650 mg Documented by: TANYA Atorvastatin Calcium (Atorvastatin Calcium 20 Mg Tablet) 20 mg PO DAILY [facility] Last Admin: 01/05/21 08:14 Dose: 20 mg Documented by: CANDIDO Docusate Sodium (Docusate Sodium 100 Mg Capsule) 200 mg PO BID [facility] Last Admin: 01/05/21 08:13 Dose: 200 mg Documented by: CANDIDO Enoxaparin Sodium (Enoxaparin Sodium 40 Mg/0.4 Ml Syringe) 40 mg SUBCUT Q24H [facility] Last Admin: 01/04/21 20:00 Dose: 40 mg Documented by: TANYA Escitalopram Oxalate (Escitalopram Oxalate 20 Mg Tablet) 20 mg PO DAILY [facility] Last Admin: 01/05/21 08:13 Dose: 20 mg Documented by: CANDIDO Fidaxomicin (Fidaxomicin 200 Mg Tablet) 200 mg PO Q12H [facility] Stop: 01/10/21 01:01 Last Admin: 01/05/21 13:00 Dose: 200 mg Documented by: CANDIDO Finasteride (Finasteride 5 Mg Tablet) 5 mg PO DAILY [facility] Last Admin: 01/05/21 08:15 Dose: 5 mg Documented by: CANDIDO Folic Acid (Folic Acid 1 Mg Tablet) 1 mg PO DAILY [facility] Last Admin: 01/05/21 08:14 Dose: 1 mg Documented by: CANDIDO Melatonin (Melatonin 3 Mg Tablet) 6 mg PO BEDTIME [facility] Last Admin: 01/04/21 20:00 Dose: 6 mg Documented by: TANYA Memantine (Memantine Hcl 5 Mg Tablet) 5 mg PO DAILY [facility] Last Admin: 01/05/21 08:15 Dose: 5 mg Documented by: CANDIDO Olanzapine (Olanzapine 5 Mg Tablet) 5 mg PO DAILY [facility] Last Admin: 01/05/21 08:14 Dose: 5 mg Documented by: CANDIDO Olanzapine (Olanzapine 10 Mg Tablet) 10 mg PO BEDTIME [facility] Last Admin: 01/04/21 20:00 Dose: 10 mg Documented by: TANYA Ondansetron HCl (Ondansetron Hcl 4 Mg/2 Ml Vial) 4 mg IVPUSH Q8H PRN PRN Reason: Nausea and Vomiting Senna (Sennosides 8.6 Mg Tablet) 8.6 mg PO DAILY [facility] Last Admin: 01/05/21 08:14 Dose: 8.6 mg Documented by: CANDIDO Sodium Chloride (0.9 % Sodium Chloride Flush 3 Ml Syringe) [facility] Last Admin: 01/05/21 08:17 Dose: 3 ml Documented by: CANDIDO Tamsulosin HCl (Tamsulosin Hcl 0.4 Mg Capsule) 0.4 mg PO BEDTIME [facility] Last Admin: 01/04/21 20:00 Dose: 0.4 mg Documented by: TANYA Thiamine HCl (Thiamine Hcl 100 Mg Tablet) 100 mg PO DAILY [facility] Last Admin: 01/05/21 08:15 Dose: 100 mg Documented by: CANDIDO Labs CBC & Chem 7: 01/03/21 04:57 01/03/21 04:57 Microbiology Microbiology Results: Microbiology 01/04/21 09:06 Stool Culture - Preliminary Stool Culture in progress. Assessment and Plan (1) C. difficile diarrhea: Status: Acute Assessment and Plan: hospital d#11 70yo M who was on geriatric psychiatry unit and treated for Staphylococcus ep idermidis UTI with levofloxacin, progressively declined and admitted to Med/Surg and found to have C. diff diarrhea 1. urinary retention - continue tamsulosin + finasteride - Liu placed 12/31, leave in for 7d - Urology outpt follow-up 2. Clostridium difficile colitis - nonsevere but persistent despite 3d of PO vancomycin so switched to fidoxamicin and on d#4/; ID consulted.? given persistent diarrhea, will check stool WBCs + culture; if continues, consider GI consultation.? seems improved today 3. UTI- resolved 4.mood disorder- clonazepam, olanazpine, escitalopram 5.VTE ppx- [facility] dispo- accepted at [facility], awaiting bed Quality Stroke Does the patient have a stroke diagnosis?: No VTE Prior VTE?: No VTE Risk Level:: Medical - moderate - high VTE Device Contraindication: Treatment Not Indicated VTE Drug Contraindication: N/A - Med Ordered
[2021-01-05] MEDS: Melatonin 3 MG TABLET 6 MG PO (19:42)
[2021-01-05] MEDS: Enoxaparin Sodium 40 MG/0.4 ML SYRINGE SUBCUT (19:42)
[2021-01-05] MEDS: Tamsulosin HCL 0.4 MG CAPSULE PO (19:42)
[2021-01-05] MEDS: OLANZapine 10 MG TABLET PO (19:43)
[2021-01-06] VITALS (7 sets, daily range): BP systolic 114–152; BP diastolic 70–86; PULSE 69–84; RESP 16–20; TEMP 36.1–37.3; O2SAT 97–100
[2021-01-06] MEDS: Fidaxomicin 200 MG TABLET PO ×2 (00:36→13:38)
[2021-01-06] MEDS: Docusate Sodium 100 MG CAPSULE 200 MG PO ×2 (08:41→21:35)
[2021-01-06] MEDS: 0.9 % Sodium Chloride Flush 3 ML SYRINGE IVFLUSH ×3 (08:41→23:19)
[2021-01-06] MEDS: Finasteride 5 MG TABLET PO (08:41)
[2021-01-06] MEDS: Sennosides 8.6 MG TABLET PO (08:42)
[2021-01-06] MEDS: Memantine HCl 5 MG TABLET PO (08:42)
[2021-01-06] MEDS: Atorvastatin Calcium 20 MG TABLET PO (08:42)
[2021-01-06] MEDS: Escitalopram Oxalate 20 MG TABLET PO (08:42)
[2021-01-06] MEDS: OLANZapine 5 MG TABLET PO (08:42)
[2021-01-06] MEDS: Thiamine HCL 100 MG TABLET PO (08:43)
[2021-01-06] MEDS: Folic Acid 1 MG TABLET PO (08:43)
--- NOTE | 2021-01-06 11:41 | MHC.CLN ---
F/U STAGE I WOUND TO COCCYX. INTAKE AT [facility] CONTINUES VARIABLE. HAS C-DIFF DX AND AWAITING PLACEMENT AT [facility]. DIET=REGULAR, ENSURE (ENSURE PLUS, PREFERS [place]ERRY) TID. SUPPLEMENT PROVIDES 1050 KCAL, 39 G PROTEIN. CONTINUE CURRENT DIET AND SUPPLEMENT.
--- NOTE | 2021-01-06 12:52 | MHC.CM.PN ---
Addendum entered by Shaina Andersen 01/06/21 15:21: AWAITING Cll back from [facility] regarding whether they will ACCEPT HIM OR NOT. T/C TO SILVESTRE AT THE [facility] TO SEE WHAT OTHER [place] CONTRACTS WERE AVAILABLE , INIATED REFFERAL TO DANIELA LOPEZ, KAYLENE [facility] AND [facility] A BACK UP PLAN. INFORMED HOSPITALIST OF THIS Original Note: nurse case management social worker note electronic medical record reviewed along with case discssed on multiple disciplinary [facility] ordered stool for culture (per hospitalist this could take 1-2 days for results. clinical updated to the [facility] and also to [facility] . t/c to aldo kendall at [facility] [phone] message left for her to call me back discharge plan - waiting for final decision from [facility] to see if they accept him . transportation to be arranged on day of dischagre by silvestre/niles at the [place] [facility] stool culture pending
--- NOTE | 2021-01-06 14:26 | P.PNIM_ITS ---
Subjective Subjective Date of Service: 01/06/21 Interval History: cdiff colitis Review of Systems Diarrhea and abdominal discomfort seems improving. Denies any chest pain or shortness of breath or fever or chills Physical Exam Vital Signs: Vital Signs: Last Vital Signs Temp 98.3 F 01/06/21 11:57 Pulse 69 01/06/21 11:57 Resp 18 01/06/21 11:57 BP 118/72 01/06/21 11:57 Pulse Ox 100 01/06/21 11:57 Body Mass Index 19.5 ? Gen: in no acute distress HEENT: sclera anicteric, moist mucus membranes Neck: supple Lungs: clear to auscultation bilaterally Heart: regular rate and rhythm, no murmurs Abd: soft, abd pain seems improving, no rebound or guarding Ext: no edema Skin: warm/well-perfused Neuro: alert, no focal findings Psych: restricted affect Objective Data Active Medications Acetaminophen (Acetaminophen 325 Mg Tablet) 650 mg PO Q6H PRN PRN Reason: Pain, Mild (Pain Scale 1-3) Last Admin: 01/04/21 19:59 Dose: 650 mg Documented by: TANYA Atorvastatin Calcium (Atorvastatin Calcium 20 Mg Tablet) 20 mg PO DAILY [facility] Last Admin: 01/06/21 08:42 Dose: 20 mg Documented by: OLAF Docusate Sodium (Docusate Sodium 100 Mg Capsule) 200 mg PO BID [facility] Last Admin: 01/06/21 08:41 Dose: 200 mg Documented by: OLAF Enoxaparin Sodium (Enoxaparin Sodium 40 Mg/0.4 Ml Syringe) 40 mg SUBCUT Q24H [facility] Last Admin: 01/05/21 19:42 Dose: 40 mg Documented by: ANASTACIA Escitalopram Oxalate (Escitalopram Oxalate 20 Mg Tablet) 20 mg PO DAILY [facility] Last Admin: 01/06/21 08:42 Dose: 20 mg Documented by: OLAF Fidaxomicin (Fidaxomicin 200 Mg Tablet) 200 mg PO Q12H [facility] Stop: 01/10/21 01:01 Last Admin: 01/06/21 13:38 Dose: 200 mg Documented by: OLAF Finasteride (Finasteride 5 Mg Tablet) 5 mg PO DAILY [facility] Last Admin: 01/06/21 08:41 Dose: 5 mg Documented by: OLAF Folic Acid (Folic Acid 1 Mg Tablet) 1 mg PO DAILY [facility] Last Admin: 01/06/21 08:43 Dose: 1 mg Documented by: OLAF Melatonin (Melatonin 3 Mg Tablet) 6 mg PO BEDTIME [facility] Last Admin: 01/05/21 19:42 Dose: 6 mg Documented by: ANASTACIA Memantine (Memantine Hcl 5 Mg Tablet) 5 mg PO DAILY [facility] Last Admin: 01/06/21 08:42 Dose: 5 mg Documented by: OLAF Olanzapine (Olanzapine 5 Mg Tablet) 5 mg PO DAILY [facility] Last Admin: 01/06/21 08:42 Dose: 5 mg Documented by: OLAF Olanzapine (Olanzapine 10 Mg Tablet) 10 mg PO BEDTIME [facility] Last Admin: 01/05/21 19:43 Dose: 10 mg Documented by: ANASTACIA Ondansetron HCl (Ondansetron Hcl 4 Mg/2 Ml Vial) 4 mg IVPUSH Q8H PRN PRN Reason: Nausea and Vomiting Senna (Sennosides 8.6 Mg Tablet) 8.6 mg PO DAILY [facility] Last Admin: 01/06/21 08:42 Dose: 8.6 mg Documented by: OLAF Sodium Chloride (0.9 % Sodium Chloride Flush 3 Ml Syringe) 3 ml IVFLUSH QSHIFT [facility] Last Admin: 01/06/21 08:41 Dose: 3 ml Documented by: OLAF Tamsulosin HCl (Tamsulosin Hcl 0.4 Mg Capsule) 0.4 mg PO BEDTIME [facility] Last Admin: 01/05/21 19:42 Dose: 0.4 mg Documented by: ANASTACIA Thiamine HCl (Thiamine Hcl 100 Mg Tablet) 100 mg PO DAILY [facility] Last Admin: 01/06/21 08:43 Dose: 100 mg Documented by: OLAF Labs CBC & Chem 7: 01/03/21 04:57 01/03/21 04:57 Microbiology Microbiology Results: Microbiology 01/04/21 09:06 Stool Culture - Preliminary Stool Normal so far. Assessment and Plan (1) C. difficile diarrhea: Status: Acute Assessment and Plan: 70yo M who was on geriatric psychiatry unit and treated for Staphylococcus epidermidis UTI with levofloxacin, progressively declined and admitted to Med/Surg and found to have C. diff diarrhea 1. urinary retention - continue tamsulosin + finasteride - Liu placed 12/31, leave in for 7d - Urology outpt follow-up 2. Clostridium difficile colitis - nonsevere but persistent despite 3d of PO vancomycin so switched to fidoxamicin and on d#4/; ID consulted.? given persistent diarrhea, will cultur e pending-prelim neg; if continues, consider GI consultation.? seems improved today only 1 bm movernight 3. UTI- resolved 4.mood disorder- clonazepam, olanazpine, escitalopram 5.VTE ppx- [facility] Quality Stroke Does the patient have a stroke diagnosis?: No VTE Prior VTE?: No VTE Risk Level:: Medical - moderate - high VTE Device Contraindication: Treatment Not Indicated VTE Drug Contraindication: N/A - Med Ordered
--- NOTE | 2021-01-06 15:16 | MHC.CM.PN ---
REFERRALS PLACED TO [facility], [facility] [address], AND [facility]. [facility] STATES THEY ARE NOT CONTRACTED
[2021-01-06 17:05] LABS: Leukocytes Stool Qualitative MOD: 3-9/OIF (NEGATIVE)
[2021-01-06 17:09] LABS: CDiff Gene PCR POSITIVE (Negative)
[2021-01-06 18:01] LABS: CDIFF Internal ctrl Dots and bkg OK (V); CDiff Toxin Negative (Negative)
[2021-01-06] MEDS: OLANZapine 10 MG TABLET PO (21:35)
[2021-01-06] MEDS: Tamsulosin HCL 0.4 MG CAPSULE PO (21:35)
[2021-01-06] MEDS: Melatonin 3 MG TABLET 6 MG PO (21:35)
[2021-01-06] MEDS: Enoxaparin Sodium 40 MG/0.4 ML SYRINGE SUBCUT (21:35)
[2021-01-07] MEDS: Fidaxomicin 200 MG TABLET PO ×2 (00:42→14:00)
[2021-01-07 03:32] VITALS: BP 126/79; PULSE 76; RESP 18; TEMP 36; O2SAT 98
[2021-01-07 07:26] VITALS: BP 137/77; PULSE 75; RESP 17; TEMP 36.3; O2SAT 98
[2021-01-07 09:26] LABS: Anion Gap 10 (12-20); Blood Urea Nitrogen 15 mg/dL (9-16); Calcium 8.1 mg/dL (8.4-10.2); Carbon Dioxide 32 mmol/L (22-29); Chloride 105 mmol/L (96-108); Creatinine Clr Calc Pharmacy 102.7; Estimated Glomerular Filt Rate > 60; Glucose Random 99 mg/dL (60-115); Potassium 3.9 mmol/L (3.3-5.1); Sodium 143 mmol/L (135-145)
[2021-01-07 10:18] VITALS: BP 137/77; PULSE 75; O2SAT 98
[2021-01-07] MEDS: Sennosides 8.6 MG TABLET PO (10:25)
[2021-01-07] MEDS: Escitalopram Oxalate 20 MG TABLET PO (10:25)
[2021-01-07] MEDS: Folic Acid 1 MG TABLET PO (10:25)
[2021-01-07] MEDS: Docusate Sodium 100 MG CAPSULE 200 MG PO ×2 (10:25→20:25)
[2021-01-07] MEDS: Thiamine HCL 100 MG TABLET PO (10:25)
[2021-01-07] MEDS: Memantine HCl 5 MG TABLET PO (10:25)
[2021-01-07] MEDS: OLANZapine 5 MG TABLET PO (10:26)
[2021-01-07] MEDS: Atorvastatin Calcium 20 MG TABLET PO (10:26)
[2021-01-07] MEDS: 0.9 % Sodium Chloride Flush 3 ML SYRINGE IVFLUSH ×2 (10:32→18:07)
[2021-01-07] MEDS: Finasteride 5 MG TABLET PO (10:32)
[2021-01-07] MEDS: Lactated Ringers 1,000 ML 80 ML IVCONT (11:00)
[2021-01-07 11:25] VITALS: BP 131/75; PULSE 77; RESP 16; TEMP 36.2; O2SAT 100
--- NOTE | 2021-01-07 12:30 | P.PNIM_ITS ---
Subjective Subjective Date of Service: 01/07/21 Interval History: abd pain Review of Systems Patient said he has more abdominal pain on the left lower quadrant area Denies any fever or chills or nausea or vomiting also passing bowel. Diarrhea seems to be improving Physical Exam Vital Signs: Vital Signs: Last Vital Signs Temp 97.1 F 01/07/21 11:25 Pulse 77 01/07/21 11:25 Resp 16 01/07/21 11:25 BP 131/75 01/07/21 11:25 Pulse Ox 100 01/07/21 11:25 Body Mass Index 19.5 Gen: in no acute distress HEENT: sclera anicteric, moist mucus membranes Neck: supple Lungs: clear to auscultation bilaterally Heart: regular rate and rhythm, no murmurs Abd: soft, has more LLQ pain, no rebound or guarding Ext: no edema Skin: warm/well-perfused Neuro: alert, no focal findings Psych: restricted affect Objective Data Active Medications Acetaminophen (Acetaminophen 325 Mg Tablet) 650 mg PO Q6H PRN PRN Reason: Pain, Mild (Pain Scale 1-3) Last Admin: 01/04/21 19:59 Dose: 650 mg Documented by: TANYA Atorvastatin Calcium (Atorvastatin Calcium 20 Mg Tablet) 20 mg PO DAILY [facility] Last Admin: 01/07/21 10:26 Dose: 20 mg Documented by: WINSTON Docusate Sodium (Docusate Sodium 100 Mg Capsule) 200 mg PO BID [facility] Last Admin: 01/07/21 10:25 Dose: 200 mg Documented by: WINSTON Enoxaparin Sodium (Enoxaparin Sodium 40 Mg/0.4 Ml Syringe) 40 mg SUBCUT Q24H [facility] Last Admin: 01/06/21 21:35 Dose: 40 mg Documented by: MORRIS Escitalopram Oxalate (Escitalopram Oxalate 20 Mg Tablet) 20 mg PO DAILY [facility] Last Admin: 01/07/21 10:25 Dose: 20 mg Documented by: WINSTON Fidaxomicin (Fidaxomicin 200 Mg Tablet) 200 mg PO Q12H [facility] Stop: 01/10/21 01:01 Last Admin: 01/07/21 00:42 Dose: 200 mg Documented by: MORRIS Finasteride (Finasteride 5 Mg Tablet) 5 mg PO DAILY [facility] Last Admin: 01/07/21 10:32 Dose: 5 mg Documented by: WINSTON Folic Acid (Folic Acid 1 Mg Tablet) 1 mg PO DAILY [facility] Last Admin: 01/07/21 10:25 Dose: 1 mg Documented by: WINSTON Lactated Ringer's (Lr) 1,000 mls @ 80 mls/hr IVCONT .[id number] [facility] Last Admin: 01/07/21 11:00 Dose: 80 mls/hr Documented by: WINSTON Melatonin (Melatonin 3 Mg Tablet) 6 mg PO BEDTIME [facility] Last Admin: 01/06/21 21:35 Dose: 6 mg Documented by: MORRIS Memantine (Memantine Hcl 5 Mg Tablet) 5 mg PO DAILY [facility] Last Admin: 01/07/21 10:25 Dose: 5 mg Documented by: WINSTON Olanzapine (Olanzapine 5 Mg Tablet) 5 mg PO DAILY [facility] Last Admin: 01/07/21 10:26 Dose: 5 mg Documented by: WINSTON Olanzapine (Olanzapine 10 Mg Tablet) 10 mg PO BEDTIME [facility] Last Admin: 01/06/21 21:35 Dose: 10 mg Documented by: MORRIS Ondansetron HCl (Ondansetron Hcl 4 Mg/2 Ml Vial) 4 mg IVPUSH Q8H PRN PRN Reason: Nausea and Vomiting Senna (Sennosides 8.6 Mg Tablet) 8.6 mg PO DAILY [facility] Last Admin: 01/07/21 10:25 Dose: 8.6 mg Documented by: WINSTON Sodium Chloride (0.9 % Sodium Chloride Flush 3 Ml Syringe) 3 ml IVFLUSH QSHIFT [facility] Last Admin: 01/07/21 10:32 Dose: 3 ml Documented by: WINSTON Tamsulosin HCl (Tamsulosin Hcl 0.4 Mg Capsule) 0.4 mg PO BEDTIME [facility] Last Admin: 01/06/21 21:35 Dose: 0.4 mg Documented by: MORRIS Thiamine HCl (Thiamine Hcl 100 Mg Tablet) 100 mg PO DAILY [facility] Last Admin: 01/07/21 10:25 Dose: 100 mg Documented by: WINSTON Labs CBC & Chem 7: 01/03/21 04:57 01/07/21 08:58 Labs: Laboratory Results - last 24 hr 1101/06/21 01/07/21 15:52 15:52 08:58 Anion Gap 10 L Estim Creat Clear Calc 102.7 Estimated GFR > 60 Random Glucose 99 Calcium 8.1 L D Stool Leukocytes, Qual MOD: 3-9/OIF C. difficile Tox B Gene POSITIVE A* C. difficile Toxin A&B Negative C. difficile Interpret SEE NOTE Microbiology Microbiology Results: Microbiology 01/04/21 09:06 Stool Culture - Final Stool Assessment and Plan (1) C. difficile diarrhea: Status: Acute Assessment and Plan: 70yo M who was on geriatric psychiatry unit and treated for Staphylococcus epidermidis UTI with levofloxacin, progressively declined and admitted to Med/Surg and found to have C. diff diarrhea 1. urinary retention - continue tamsulosin + finasteride - Lebron placed 12/31, leave in for 7d, will check with Urology trial of removing lebron in am. 2. Clostridium difficile colitis - nonsevere but persistent despite 3d of PO vancomycin so switched to fidoxamicin and on d#4/14; ID consulted.? given persistent diarrhea, will culture pending-prelim neg. abd pain more in llq area bm's improving abd xi-[id number] rectum and rectosigmoid colon with adjacent inflammatory change consistent with colitis. No drainable abscess is seen. Distended gallbladder with thickened wall and surrounding edema but no ruq pain , lfts; wnl acute cholecystsitis less likely Gi eval pending 3. UTI- resolved 4.mood disorder- clonazepam, olanazpine, escitalopram 5.VTE ppx- LMWH dispo- accepted at [facility], awaiting bed Quality Stroke Does the patient have a stroke diagnosis?: No VTE Prior VTE?: No VTE Risk Level:: Medical - moderate - high VTE Device Contraindication: Treatment Not Indicated VTE Drug Contraindication: N/A - Med Ordered
[2021-01-07 15:21] VITALS: BP 119/75; PULSE 80; RESP 17; TEMP 37.5; O2SAT 98
[2021-01-07 16:24] LABS: Alanine Aminotransferase 12 U/L (0-40); Albumin Level 3.3 g/dL (3.5-5.0); Alkaline Phosphatase 62 U/L (39-117); Aspartate Amino Transferase 11 U/L (5-37); Bilirubin Direct < 0.2 mg/dL (0.0-0.5); Bilirubin Total 0.2 mg/dL (0.0-1.0); Total Protein 5.7 g/dL (6.5-8.0)
[2021-01-07 19:14] VITALS: BP 119/74; PULSE 79; RESP 17; TEMP 36.9; O2SAT 98
[2021-01-07] MEDS: Tamsulosin HCL 0.4 MG CAPSULE 0.8 MG PO (20:25)
[2021-01-07] MEDS: Melatonin 3 MG TABLET 6 MG PO (20:25)
[2021-01-07] MEDS: OLANZapine 10 MG TABLET PO (20:25)
[2021-01-07] MEDS: Enoxaparin Sodium 40 MG/0.4 ML SYRINGE SUBCUT (20:26)
[2021-01-08] VITALS (7 sets, daily range): BP systolic 105–133; BP diastolic 50–82; PULSE 73–93; RESP 17–18; TEMP 36.1–37.6; O2SAT 97–100
--- NOTE | 2021-01-08 00:01 | CONS_ITS ---
DATE OF SERVICE: 01/07/2021 REFERRING PHYSICIAN: Denise Lopez MD REASON FOR CONSULTATION: Clostridium difficile colitis and abdominal pain. HISTORY OF PRESENT ILLNESS: The patient is a pleasant 70-year-old man, seen today in consultation. He has a history of C difficile colitis and was admitted to the hospital on December 25 because of a urinary tract infection in transfer from the psychiatry unit. He was also noted to have diarrhea and laboratory testing was positive for C diff. He was initially treated with p.o. vancomycin, but after 3 days was switched to Difcid and had Infectious Disease consultation obtained on January 01, 10 days of treatment was recommended. The patient has had some improvement in his stools with stools now formed and soft per Nursing. He does have some complaints of abdominal pain and is scheduled for further evaluation with CT scanning. PAST MEDICAL HISTORY: 1. BPH. 2. Gastroesophageal reflux disease. 3. PTSD. 4. FROYLAN. CURRENT MEDICATIONS: His current medication list is reviewed in the chart. ALLERGIES: MULTIPLE MEDICATION ALLERGIES ARE REVIEWED. FAMILY HISTORY: This is reviewed with the patient and is noncontributory. SOCIAL HISTORY: There is no current tobacco, alcohol, or substance abuse. REVIEW OF SYSTEMS: SKIN: No pruritus. HEENT: Negative. CARDIOPULMONARY: No shortness of breath or chest pain. GASTROINTESTINAL: As above. GENITOURINARY: Negative. NEURO/PSYCHIATRIC: Negative. PHYSICAL EXAMINATION: GENERAL: Shows a pleasant male, lying in bed. VITAL SIGNS: Reviewed in the electronic medical record and are stable. SKIN: Anicteric. HEENT: Shows no scleral icterus. NECK: Without lymphadenopathy or thyromegaly. LUNGS: Clear. HEART: Regular rate and rhythm. S1, S2. No murmur. ABDOMEN: Soft. No focal masses. There is some mild tenderness to palpation over both lower quadrants. Bowel sounds are present. No organomegaly is noted. EXTREMITIES: Without edema. LABORATORY DATA: Reviewed. He has a white blood cell count of 4.7, down from 4.9 on 12/29; hematocrit is stable. IMPRESSION: Clostridium difficile colitis, currently he appears to be improving clinically judging by his lessening of diarrhea. We will await the results of CT scanning given his complaints of abdominal pain. I would recommend continue his present antibiotic therapy as you are going. He may benefit from probiotics as well. Thanks for asking me to see him. I will follow him in the hospital with you. MD CHANDA Quinteros/SERGIO / [phone] MTDPolo
[2021-01-08] MEDS: Fidaxomicin 200 MG TABLET PO ×2 (00:51→13:27)
[2021-01-08] MEDS: Lactated Ringers 1,000 ML 80 ML IVCONT ×2 (05:44→20:29)
[2021-01-08] MEDS: OLANZapine 5 MG TABLET PO (07:56)
[2021-01-08] MEDS: Atorvastatin Calcium 20 MG TABLET PO (07:58)
[2021-01-08] MEDS: Thiamine HCL 100 MG TABLET PO (07:58)
[2021-01-08] MEDS: Memantine HCl 5 MG TABLET PO (07:58)
[2021-01-08] MEDS: Finasteride 5 MG TABLET PO (07:58)
[2021-01-08] MEDS: Escitalopram Oxalate 20 MG TABLET PO (07:58)
[2021-01-08] MEDS: Sennosides 8.6 MG TABLET PO (07:58)
[2021-01-08] MEDS: Folic Acid 1 MG TABLET PO (07:58)
--- NOTE | 2021-01-08 09:25 | MHC.CM.PN ---
Addendum entered by Trena Davison 01/08/21 13:23: THERE CONTINUE TO BE NO BED OFFERS FOR THIS PT. SNF REFERRAL HAS BEEN EXPANDED TO 50+ MILES. Original Note: PT IS MEDICALLY CLEARED FOR DC. CURRENTLY THERE ARE NO SNF BED OFFERS. UPDATES WERE SENT TO ALL FOLLOWING SNF'S. AWAITING RESPONSES
--- NOTE | 2021-01-08 14:14 | HO.PM.IMPN ---
Subjective Subjective Date of Service: 01/08/21 Interval History: C DIFF Review of Systems Joanna bhat has mild pain left lower quadrant. Physical Exam Vital Signs: Vital Signs: Last Vital Signs Temp 98.2 F 01/08/21 11:40 Pulse 80 01/08/21 11:40 Resp 18 01/08/21 11:40 BP 105/68 01/08/21 11:40 Pulse Ox 100 01/08/21 11:40 Body Mass Index 19.5 ?Gen: in no acute distress HEENT: sclera anicteric, moist mucus membranes Neck: supple Lungs: clear to auscultation bilaterally Heart: regular rate and rhythm, no murmurs Abd: soft, LLQ pain improving, no rebound or guarding Ext: no edema Skin: warm/well-perfused Neuro: alert, no focal findings Psych: restricted affect. Objective Data Active Medications Acetaminophen (Acetaminophen 325 Mg Tablet) 650 mg PO Q6H PRN PRN Reason: Pain, Mild (Pain Scale 1-3) Last Admin: 01/04/21 19:59 Dose: 650 mg Documented by: TANYA Atorvastatin Calcium (Atorvastatin Calcium 20 Mg Tablet) 20 mg PO DAILY [facility] Last Admin: 01/08/21 07:58 Dose: 20 mg Documented by: MOLLY Enoxaparin Sodium (Enoxaparin Sodium 40 Mg/0.4 Ml Syringe) 40 mg SUBCUT Q24H [facility] Last Admin: 01/07/21 20:26 Dose: 40 mg Documented by: MORRIS Escitalopram Oxalate (Escitalopram Oxalate 20 Mg Tablet) 20 mg PO DAILY [facility] Last Admin: 01/08/21 07:58 Dose: 20 mg Documented by: MOLLY Fidaxomicin (Fidaxomicin 200 Mg Tablet) 200 mg PO Q12H [facility] Stop: 01/10/21 01:01 Last Admin: 01/08/21 13:27 Dose: 200 mg Documented by: MOLLY Finasteride (Finasteride 5 Mg Tablet) 5 mg PO DAILY [facility] Last Admin: 01/08/21 07:58 Dose: 5 mg Documented by: MOLLY Folic Acid (Folic Acid 1 Mg Tablet) 1 mg PO DAILY [facility] Last Admin: 01/08/21 07:58 Dose: 1 mg Documented by: MOLLY Lactated Ringer's (Lr) 1,000 mls @ 80 mls/hr IVCONT .[id number] [facility] Last Admin: 01/08/21 05:44 Dose: 80 mls/hr Documented by: MORRIS Memantine (Memantine Hcl 5 Mg Tablet) 5 mg PO DAILY [facility] Last Admin: 01/08/21 07:58 Dose: 5 mg Documented by: MOLLY Olanzapine (Olanzapine 5 Mg Tablet) 5 mg PO DAILY [facility] Last Admin: 01/08/21 07:56 Dose: 5 mg Documented by: MOLLY Olanzapine (Olanzapine 10 Mg Tablet) 10 mg PO BEDTIME [facility] Last Admin: 01/07/21 20:25 Dose: 10 mg Documented by: MORRIS Ondansetron HCl (Ondansetron Hcl 4 Mg/2 Ml Vial) 4 mg IVPUSH Q8H PRN PRN Reason: Nausea and Vomiting Senna (Sennosides 8.6 Mg Tablet) 8.6 mg PO DAILY [facility] Last Admin: 01/08/21 07:58 Dose: 8.6 mg Documented by: MOLLY Sodium Chloride (0.9 % Sodium Chloride Flush 3 Ml Syringe) 3 ml IVFLUSH QSHIFT [facility] Last Admin: 01/08/21 08:04 Dose: Not Given Documented by: MOLLY Non-Admin Reason: IV Running Tamsulosin HCl (Tamsulosin Hcl 0.4 Mg Capsule) 0.8 mg PO BEDTIME [facility] Last Admin: 01/07/21 20:25 Dose: 0.8 mg Documented by: MORRIS Thiamine HCl (Thiamine Hcl 100 Mg Tablet) 100 mg PO DAILY [facility] Last Admin: 01/08/21 07:58 Dose: 100 mg Documented by: MOLLY Labs CBC & Chem 7: 01/03/21 04:57 01/07/21 08:58 Labs: Laboratory Results - last 24 hr 01/07/21 08:58 Total Bilirubin 0.2 Direct Bilirubin < 0.2 AST 11 ALT 12 Alkaline Phosphatase 62 Total Protein 5.7 L Albumin 3.3 L Assessment and Plan (1) C. difficile diarrhea: Status: Acute Assessment and Plan: 70yo M who was on geriatric psychiatry unit and treated for Staphylococcus epidermidis UTI with levofloxacin, progressively declined and admitted to Med/Surg and found to have C. diff diarrhea 1. urinary retention - continue tamsulosin adjusted + finasteride off lebron ,producing urine, will check with pvr /sraight cath,? Urology trial of removing lebron in am. 2. Clostridium difficile colitis - nonsevere but persistent despite 3d of PO vancomycin so switched to fidoxamicin and on d#4/14; ID consulted.? given persistent diarrhea, will culture pending-prelim neg. abd pain more in llq area bm's improving ?abd of-Alzzd-ppemrk rectum and rectosigmoid colon with adjacent inflammatory change consistent with colitis. No drainable abscess is seen. Distended gallbladder with thickened wall and surrounding edema but no ruq pain , lfts; wnl acute cholecystsitis less likely Gi eval noted -continue current maangement 3. UTI- resolved. 4.mood disorder- clonazepam, olanazpine, escitalopram 5.VTE ppx- [facility] Quality Stroke Does the patient have a stroke diagnosis?: No VTE Prior VTE?: No VTE Risk Level:: Medical - moderate - high VTE Device Contraindication: Treatment Not Indicated VTE Drug Contraindication: N/A - Med Ordered
--- NOTE | 2021-01-08 14:30 | MHC.CLN ---
F/U DIET=REGULAR. DISCUSSED SUPPLEMENT WITH PATIENT. HE IS TIRED OF ENSURE. WILL TRY ENSURE CLEAR BID (480 KCAL, 16 G PROTEIN). EXPLAINED POTENTIAL BENEFIT OF INCREASED PROTEIN FROM SUPPLEMENT FOR WOUND HEALING. WOUND IS STAGE II TO COCCYX. INTAKE MOST MEALS 50-100% WITH MANY 100%. CONTINUE TO FOLLOW INTAKE AND WOUND.
[2021-01-08] MEDS: OLANZapine 10 MG TABLET PO (20:30)
[2021-01-08] MEDS: Tamsulosin HCL 0.4 MG CAPSULE 0.8 MG PO (20:30)
[2021-01-08] MEDS: Enoxaparin Sodium 40 MG/0.4 ML SYRINGE SUBCUT (20:31)
[2021-01-09] MEDS: Fidaxomicin 200 MG TABLET PO ×2 (01:48→13:31)
[2021-01-09 04:00] VITALS: BP 153/84; PULSE 76; RESP 17; TEMP 36.6; O2SAT 98
[2021-01-09 07:38] VITALS: BP 153/79; PULSE 85; RESP 17; TEMP 36.2; O2SAT 100
[2021-01-09] MEDS: Escitalopram Oxalate 20 MG TABLET PO (07:39)
[2021-01-09] MEDS: Memantine HCl 5 MG TABLET PO (07:39)
[2021-01-09] MEDS: Atorvastatin Calcium 20 MG TABLET PO (07:39)
[2021-01-09] MEDS: Folic Acid 1 MG TABLET PO (07:39)
[2021-01-09] MEDS: Finasteride 5 MG TABLET PO (07:39)
[2021-01-09] MEDS: Thiamine HCL 100 MG TABLET PO (07:39)
[2021-01-09] MEDS: OLANZapine 5 MG TABLET PO (07:40)
[2021-01-09] MEDS: Lactated Ringers 1,000 ML 80 ML IVCONT ×2 (07:40→20:16)
--- NOTE | 2021-01-09 10:28 | HO.PM.IMPN ---
Subjective Subjective Date of Service: 01/09/21 Interval History: c diff diarrahe Review of Systems 1 bm overnight Abdominal pain improving Physical Exam Vital Signs: Vital Signs: Last Vital Signs Temp 97.2 F 01/09/21 07:38 Pulse 85 01/09/21 07:38 Resp 17 01/09/21 07:38 BP 153/79 H 01/09/21 07:38 Pulse Ox 100 01/09/21 07:38 Body Mass Index 19.5 ??Gen: in no acute distress HEENT: sclera anicteric, moist mucus membranes Neck: supple Lungs: clear to auscultation bilaterally Heart: regular rate and rhythm, no murmurs Abd: soft, LLQ pain improving, no rebound or guarding Ext: no edema Skin: warm/well-perfused Neuro: alert, no focal findings Psych: restricted affect. Objective Data Active Medications Acetaminophen (Acetaminophen 325 Mg Tablet) 650 mg PO Q6H PRN PRN Reason: Pain, Mild (Pain Scale 1-3) Last Admin: 01/04/21 19:59 Dose: 650 mg Documented by: TANYA Atorvastatin Calcium (Atorvastatin Calcium 20 Mg Tablet) 20 mg PO DAILY [facility] Last Admin: 01/09/21 07:39 Dose: 20 mg Documented by: LÓPEZ Enoxaparin Sodium (Enoxaparin Sodium 40 Mg/0.4 Ml Syringe) 40 mg SUBCUT Q24H [facility] Last Admin: 01/08/21 20:31 Dose: 40 mg Documented by: HARRIS Escitalopram Oxalate (Escitalopram Oxalate 20 Mg Tablet) 20 mg PO DAILY [facility] Last Admin: 01/09/21 07:39 Dose: 20 mg Documented by: LÓPEZ Fidaxomicin (Fidaxomicin 200 Mg Tablet) 200 mg PO Q12H [facility] Stop: 01/10/21 01:01 Last Admin: 01/09/21 01:48 Dose: 200 mg Documented by: QUINTON Finasteride (Finasteride 5 Mg Tablet) 5 mg PO DAILY [facility] Last Admin: 01/09/21 07:39 Dose: 5 mg Documented by: LÓPEZ Folic Acid (Folic Acid 1 Mg Tablet) 1 mg PO DAILY [facility] Last Admin: 01/09/21 07:39 Dose: 1 mg Documented by: ÓLPEZ Lactated Ringer's (Lr) 1,000 mls @ 80 mls/hr IVCONT .[id number] [facility] Last Admin: 01/09/21 07:40 Dose: 80 mls/hr Documented by: LÓPEZ Memantine (Memantine Hcl 5 Mg Tablet) 5 mg PO DAILY [facility] Last Admin: 01/09/21 07:39 Dose: 5 mg Documented by: LÓPEZ Olanzapine (Olanzapine 5 Mg Tablet) 5 mg PO DAILY [facility] Last Admin: 01/09/21 07:40 Dose: 5 mg Documented by: LÓPEZ Olanzapine (Olanzapine 10 Mg Tablet) 10 mg PO BEDTIME [facility] Last Admin: 01/08/21 20:30 Dose: 10 mg Documented by: HARRIS Ondansetron HCl (Ondansetron Hcl 4 Mg/2 Ml Vial) 4 mg IVPUSH Q8H PRN PRN Reason: Nausea and Vomiting Senna (Sennosides 8.6 Mg Tablet) 8.6 mg PO DAILY [facility] Last Admin: 01/09/21 07:41 Dose: Not Given Documented by: LÓPEZ Non-Admin Reason: Patient Refused Sodium Chloride (0.9 % Sodium Chloride Flush 3 Ml Syringe) 3 ml IVFLUSH QSHIFT [facility] Last Admin: 01/09/21 07:41 Dose: Not Given Documented by: LÓPEZ Non-Admin Reason: IV Running Tamsulosin HCl (Tamsulosin Hcl 0.4 Mg Capsule) 0.8 mg PO BEDTIME [facility] Last Admin: 01/08/21 20:30 Dose: 0.8 mg Documented by: HARRIS Thiamine HCl (Thiamine Hcl 100 Mg Tablet) 100 mg PO DAILY [facility] Last Admin: 01/09/21 07:39 Dose: 100 mg Documented by: LÓPEZ Labs CBC & Chem 7: 01/03/21 04:57 01/07/21 08:58 Assessment and Plan (1) C. difficile diarrhea: Status: Acute Assessment and Plan: 70yo M who was on geriatric psychiatry unit and treated for Staphylococcus epidermidis UTI with levofloxacin, progressively declined and admitted to Med/Surg and found to have C. diff diarrhea 1. urinary retention - continue tamsulosin adjusted? + finasteride off lebron ,producing urine, will check with pvr /sraight cath,? Urology trial of removing lebron in am. 2. Clostridium difficile colitis - nonsevere but persistent despite 3d of PO vancomycin so switched to fidoxamicin and on d#4/14; ID consulted.? given persistent diarrhea, will culture pending-prelim neg. abd pain more in llq area bm's improving ?abd de-Vivaw-oljvhb rectum and rectosigmoid colon with adjacent inflammatory change consistent with colitis. No drainable abscess is seen. Distended gallbladder with thickened wall and surrounding edema but no ruq pain , lfts; wnl acute cholecystsitis less likely Gi eval noted -continue current maangement 3. UTI- resolved. 4.mood disorder- clonazepam, olanazpine, escitalopram 5.VTE ppx- [facility] dispo- [facility], [facility] Quality Stroke Does the patient have a stroke diagnosis?: No VTE Prior VTE?: No VTE Risk Level:: Medical - moderate - high VTE Device Contraindication: Treatment Not Indicated VTE Drug Contraindication: N/A - Med Ordered
[2021-01-09 11:05] VITALS: BP 162/80; PULSE 75; RESP 18; TEMP 36.1; O2SAT 100
[2021-01-09 15:31] VITALS: BP 132/63; PULSE 70; RESP 18; TEMP 36.1; O2SAT 99
[2021-01-09 16:06] VITALS: BP 104/65; PULSE 81; RESP 18; TEMP 36.9; O2SAT 97
[2021-01-09 19:05] VITALS: BP 112/65; PULSE 82; RESP 18; TEMP 36.7; O2SAT 98
[2021-01-09] MEDS: Tamsulosin HCL 0.4 MG CAPSULE 0.8 MG PO (20:09)
[2021-01-09] MEDS: Enoxaparin Sodium 40 MG/0.4 ML SYRINGE SUBCUT (20:09)
[2021-01-09] MEDS: OLANZapine 10 MG TABLET PO (20:09)
[2021-01-10] VITALS: BP 123/68; PULSE 76; RESP 17; TEMP 36.4; TEMP 36.6; O2SAT 99
[2021-01-10] MEDS: 0.9 % Sodium Chloride Flush 3 ML SYRINGE IVFLUSH ×3 (00:43→23:18)
[2021-01-10] MEDS: Fidaxomicin 200 MG TABLET PO ×2 (00:43→12:59)
[2021-01-10 04:00] VITALS: BP 115/72; PULSE 79; RESP 18; TEMP 36.9; O2SAT 97
--- NOTE | 2021-01-10 06:31 | PC.NURSE ---
Patient c/o inability to void approx 0200, bladder scanned for 745mL continued with inability to void. Hospitalist notified. Catheter ordered with several RN and Pattern Mechanic unable to insert. Patient continued to c/o bladder discomfort, hospitalist notified of failure to void and insert lebron. STAT consult placed to . Dr. Irene notified through [employer] at [phone]. Patient rang call doyle soon after to stated he was incontiant urine approx 0515. Bladder scanned for 126mL PVR. Dr. Irene notified about change in status.
[2021-01-10 06:50] VITALS: BP 118/67; PULSE 76; RESP 18; TEMP 36.6; O2SAT 100
[2021-01-10] MEDS: Finasteride 5 MG TABLET PO (08:42)
[2021-01-10] MEDS: Escitalopram Oxalate 20 MG TABLET PO (08:42)
[2021-01-10] MEDS: OLANZapine 5 MG TABLET PO (08:42)
[2021-01-10] MEDS: Memantine HCl 5 MG TABLET PO (08:42)
[2021-01-10] MEDS: Thiamine HCL 100 MG TABLET PO (08:42)
[2021-01-10] MEDS: Folic Acid 1 MG TABLET PO (08:42)
[2021-01-10] MEDS: Atorvastatin Calcium 20 MG TABLET PO (08:42)
[2021-01-10] MEDS: Lactated Ringers 1,000 ML 80 ML IVCONT (08:45)
--- NOTE | 2021-01-10 10:46 | P.PNIM_ITS ---
Subjective Subjective Date of Service: 01/10/21 Interval History: C diff colitis, intermittent urinary retention Review of Systems Patient had to 3 BMs overnight as per the morning staff. Mild left lower quadrant pain still present Had a urine retention overnight and in the morning patient passed urine and has only 100 cc bladder scan. Denies any nausea vomiting cough or fever or chills. Physical Exam Vital Signs: Vital Signs: Last Vital Signs Temp 98 F 01/10/21 06:50 Pulse 76 01/10/21 06:50 Resp 18 01/10/21 06:50 BP 118/67 01/10/21 06:50 Pulse Ox 100 01/10/21 06:50 Body Mass Index 19.5 Gen: in no acute distress HEENT: sclera anicteric, moist mucus membranes Neck: supple Lungs: clear to auscultation bilaterally Heart: regular rate and rhythm, no murmurs Abd: soft, LLQ pain improving, no rebound or guarding Ext: no edema Skin: warm/well-perfused Neuro: alert, no focal findings Psych: restricted affect. Objective Data Active Medications Acetaminophen (Acetaminophen 325 Mg Tablet) 650 mg PO Q6H PRN PRN Reason: Pain, Mild (Pain Scale 1-3) Last Admin: 01/04/21 19:59 Dose: 650 mg Documented by: TANYA Atorvastatin Calcium (Atorvastatin Calcium 20 Mg Tablet) 20 mg PO DAILY [facility] Last Admin: 01/10/21 08:42 Dose: 20 mg Documented by: LÓPEZ Enoxaparin Sodium (Enoxaparin Sodium 40 Mg/0.4 Ml Syringe) 40 mg SUBCUT Q24H [facility] Last Admin: 01/09/21 20:09 Dose: 40 mg Documented by: HARRIS Escitalopram Oxalate (Escitalopram Oxalate 20 Mg Tablet) 20 mg PO DAILY [facility] Last Admin: 01/10/21 08:42 Dose: 20 mg Documented by: LÓPEZ Finasteride (Finasteride 5 Mg Tablet) 5 mg PO DAILY [facility] Last Admin: 01/10/21 08:42 Dose: 5 mg Documented by: LÓPEZ Folic Acid (Folic Acid 1 Mg Tablet) 1 mg PO DAILY [facility] Last Admin: 01/10/21 08:42 Dose: 1 mg Documented by: LÓPEZ Memantine (Memantine Hcl 5 Mg Tablet) 5 mg PO DAILY [facility] Last Admin: 01/10/21 08:42 Dose: 5 mg Documented by: LÓPEZ Olanzapine (Olanzapine 5 Mg Tablet) 5 mg PO DAILY [facility] Last Admin: 01/10/21 08:42 Dose: 5 mg Documented by: LÓPEZ Olanzapine (Olanzapine 10 Mg Tablet) 10 mg PO BEDTIME [facility] Last Admin: 01/09/21 20:09 Dose: 10 mg Documented by: HARRIS Ondansetron HCl (Ondansetron Hcl 4 Mg/2 Ml Vial) 4 mg IVPUSH Q8H PRN PRN Reason: Nausea and Vomiting Senna (Sennosides 8.6 Mg Tablet) 8.6 mg PO DAILY [facility] Last Admin: 01/10/21 08:56 Dose: Not Given Documented by: LÓPEZ Non-Admin Reason: loose stool Sodium Chloride (0.9 % Sodium Chloride Flush 3 Ml Syringe) 3 ml IVFLUSH QSHIFT [facility] Last Admin: 01/10/21 08:55 Dose: Not Given Documented by: LÓPEZ Non-Admin Reason: IV Running Tamsulosin HCl (Tamsulosin Hcl 0.4 Mg Capsule) 0.8 mg PO BEDTIME [facility] Last Admin: 01/09/21 20:09 Dose: 0.8 mg Documented by: HARRIS Thiamine HCl (Thiamine Hcl 100 Mg Tablet) 100 mg PO DAILY [facility] Last Admin: 01/10/21 08:42 Dose: 100 mg Documented by: LÓPEZ Labs CBC & Chem 7: 01/03/21 04:57 01/07/21 08:58 Assessment and Plan (1) C. difficile diarrhea: Status: Acute (2) Urinary retention with incomplete bladder emptying: Status: Acute Assessment and Plan: 70yo M who was on geriatric psychiatry unit and treated for Staphylococcus epidermidis UTI with levofloxacin, progressively declined and admitted to Med/Surg and found to have C. diff diarrhea 1. urinary retention: tamsulosin adjusted? + finasteride off lebron ,producing urine, will check with pvr /sraight cath,? Urology trial of removing lebron in am. Discussed with Urology since patient already passed the urine and does not seem to be having retention significantly now so continue above management. PVR with straight cath as needed. 2. Clostridium difficile colitis - nonsevere but persistent despite 3d of PO vancomycin so switched to fidoxamicin and on d#9/14; ID consulted.? given persistent diarrhea, stool culture @5 days neg. abd pain more in llq area bm's improving ?abd uk-Wyjlz-hncwwd rectum and rectosigmoid colon with adjacent inflammatory change consistent with colitis. No drainable abscess is seen. Distended gallbladder with thickened wall and surrounding edema but no ruq pain , lfts; wnl acute cholecystsitis less likely Gi eval noted -continue current maangement 3. UTI- resolved. 4.mood disorder- clonazepam, olanazpine, escitalopram 5.VTE ppx- [facility] Quality Stroke Does the patient have a stroke diagnosis?: No VTE Prior VTE?: No VTE Risk Level:: Medical - moderate - high VTE Device Contraindication: Treatment Not Indicated VTE Drug Contraindication: N/A - Med Ordered
[2021-01-10 11:18] VITALS: BP 111/60; PULSE 84; RESP 17; TEMP 36.1; O2SAT 99
[2021-01-10 15:48] VITALS: BP 107/61; PULSE 86; RESP 18; TEMP 36.4; O2SAT 98
[2021-01-10] MEDS: Enoxaparin Sodium 40 MG/0.4 ML SYRINGE SUBCUT (19:56)
[2021-01-10] MEDS: OLANZapine 10 MG TABLET PO (19:57)
[2021-01-10] MEDS: Tamsulosin HCL 0.4 MG CAPSULE 0.8 MG PO (19:57)
[2021-01-10 20:00] VITALS: BP 104/66; PULSE 89; RESP 18; TEMP 36.9; O2SAT 97
[2021-01-11] VITALS (7 sets, daily range): BP systolic 101–131; BP diastolic 65–79; PULSE 73–95; RESP 14–18; TEMP 35.9–37.3; O2SAT 95–100
[2021-01-11] MEDS: Fidaxomicin 200 MG TABLET PO ×2 (01:04→12:32)
[2021-01-11] MEDS: Finasteride 5 MG TABLET PO (08:46)
[2021-01-11] MEDS: Escitalopram Oxalate 20 MG TABLET PO (08:46)
[2021-01-11] MEDS: Atorvastatin Calcium 20 MG TABLET PO (08:46)
[2021-01-11] MEDS: Folic Acid 1 MG TABLET PO (08:47)
[2021-01-11] MEDS: Memantine HCl 5 MG TABLET PO (08:47)
[2021-01-11] MEDS: OLANZapine 5 MG TABLET PO (08:48)
[2021-01-11] MEDS: Thiamine HCL 100 MG TABLET PO (08:48)
[2021-01-11] MEDS: Sennosides 8.6 MG TABLET PO (08:48)
[2021-01-11] MEDS: 0.9 % Sodium Chloride Flush 3 ML SYRINGE IVFLUSH ×2 (08:53→16:02)
--- NOTE | 2021-01-11 10:46 | P.PNIM_ITS ---
Subjective Subjective Date of Service: 01/11/21 Interval History: c diff Review of Systems diarrahe improving Physical Exam Vital Signs: Vital Signs: Last Vital Signs Temp 97.7 F 01/11/21 07:54 Pulse 90 01/11/21 07:54 Resp 14 01/11/21 07:54 BP 131/79 01/11/21 07:54 Pulse Ox 97 01/11/21 07:54 Body Mass Index 19.5 Gen: in no acute distress HEENT: sclera anicteric, moist mucus membranes Neck: supple Lungs: clear to auscultation bilaterally Heart: regular rate and rhythm, no murmurs Abd: soft, LLQ pain mild, no rebound or guarding Ext: no edema Skin: warm/well-perfused Neuro: alert, no focal findings Psych: restricted affect Objective Data Active Medications Acetaminophen (Acetaminophen 325 Mg Tablet) 650 mg PO Q6H PRN PRN Reason: Pain, Mild (Pain Scale 1-3) Last Admin: 01/04/21 19:59 Dose: 650 mg Documented by: TANYA Atorvastatin Calcium (Atorvastatin Calcium 20 Mg Tablet) 20 mg PO DAILY [facility] Last Admin: 01/11/21 08:46 Dose: 20 mg Documented by: JOSHUA Enoxaparin Sodium (Enoxaparin Sodium 40 Mg/0.4 Ml Syringe) 40 mg SUBCUT Q24H [facility] Last Admin: 01/10/21 19:56 Dose: 40 mg Documented by: HARRIS Escitalopram Oxalate (Escitalopram Oxalate 20 Mg Tablet) 20 mg PO DAILY [facility] Last Admin: 01/11/21 08:46 Dose: 20 mg Documented by: JOSHUA Fidaxomicin (Fidaxomicin 200 Mg Tablet) 200 mg PO Q12H [facility] Stop: 01/14/21 01:01 Last Admin: 01/11/21 01:04 Dose: 200 mg Documented by: RONEL Finasteride (Finasteride 5 Mg Tablet) 5 mg PO DAILY [facility] Last Admin: 01/11/21 08:46 Dose: 5 mg Documented by: JOSHUA Folic Acid (Folic Acid 1 Mg Tablet) 1 mg PO DAILY [facility] Last Admin: 01/11/21 08:47 Dose: 1 mg Documented by: JOSHUA Memantine (Memantine Hcl 5 Mg Tablet) 5 mg PO DAILY [facility] Last Admin: 01/11/21 08:47 Dose: 5 mg Documented by: JOSHUA Olanzapine (Olanzapine 5 Mg Tablet) 5 mg PO DAILY [facility] Last Admin: 01/11/21 08:48 Dose: 5 mg Documented by: JOSHUA Olanzapine (Olanzapine 10 Mg Tablet) 10 mg PO BEDTIME [facility] Last Admin: 01/10/21 19:57 Dose: 10 mg Documented by: HARRIS Ondansetron HCl (Ondansetron Hcl 4 Mg/2 Ml Vial) 4 mg IVPUSH Q8H PRN PRN Reason: Nausea and Vomiting Senna (Sennosides 8.6 Mg Tablet) 8.6 mg PO DAILY [facility] Last Admin: 01/11/21 08:48 Dose: 8.6 mg Documented by: JOSHUA Sodium Chloride (0.9 % Sodium Chloride Flush 3 Ml Syringe) 3 ml IVFLUSH QSHIFT [facility] Last Admin: 01/11/21 08:53 Dose: 3 ml Documented by: JOSHUA Tamsulosin HCl (Tamsulosin Hcl 0.4 Mg Capsule) 0.8 mg PO BEDTIME [facility] Last Admin: 01/10/21 19:57 Dose: 0.8 mg Documented by: HARRIS Thiamine HCl (Thiamine Hcl 100 Mg Tablet) 100 mg PO DAILY [facility] Last Admin: 01/11/21 08:48 Dose: 100 mg Documented by: JOSHUA Labs CBC & Chem 7: 01/03/21 04:57 01/07/21 08:58 Assessment and Plan (1) C. difficile diarrhea: Status: Acute Assessment and Plan: 70yo M who was on geriatric psychiatry unit and treated for Staphylococcus epidermidis UTI with levofloxacin, progressively declined and admitted to Med/Surg and found to have C. diff diarrhea 1. urinary retention: tamsulosin adjusted? + finasteride off lebron ,producing urine, will check with pvr /sraight cath,? Urology trial of removing lebron in am. Discussed with Urology since patient already passed the urine and does not seem to be having retention significantly now so continue above management. PVR with straight cath as needed. 2. Clostridium difficile colitis - nonsevere but persistent despite 3d of PO vancomycin so switched to fidoxamicin and on d#10/14; ID consulted.? given persistent diarrhea, stool culture @5 days neg. abd pain more in llq area bm's improving ?abd gp-Xxczf-ysymfc rectum and rectosigmoid colon with adjacent inflammatory change consistent with colitis. No drainable abscess is seen. Distended gallbladder with thickened wall and surrounding edema but no ruq pain , lfts; wnl acute cholecystsitis less likely Gi eval noted -continue current maangement 3. UTI- resolved. 4.mood disorder- clonazepam, olanazpine, escitalopram 5.VTE ppx- [facility] Quality Stroke Does the patient have a stroke diagnosis?: No VTE Prior VTE?: No VTE Risk Level:: Medical - moderate - high VTE Device Contraindication: Treatment Not Indicated VTE Drug Contraindication: N/A - Med Ordered
--- NOTE | 2021-01-11 13:54 | MHC.CLN ---
F/U DIET=REGULAR. SUPPLEMENT ENSURE CLEAR BID (480 KCAL, 16 G PROTEIN). STAGE II TO COCCYX. DIARRHEA IMPROVING. INTAKE MOST MEALS 50-100% WITH MANY 100%. CONTINUE TO FOLLOW INTAKE AND WOUND. RD TO FOLLOW WEEKLY.
--- NOTE | 2021-01-11 14:24 | MHC.CM.PN ---
NURSE BRAKE RELINER NOTE ELECTRONIC MEDICAL RECORD REVIEWED ALONG WITH CASE DISCUSSED WITH STAFF NURSE AND HOSPITALIST ,CLINICALS FAXED TO SNF ALSO SEND MESSAGE VIA [employer] TO [facility] , STILL PENDING BED ANSWERS OTHER AREAS REFERRALS ALSO UPDATED
[2021-01-11] MEDS: Enoxaparin Sodium 40 MG/0.4 ML SYRINGE SUBCUT (20:08)
[2021-01-11] MEDS: Tamsulosin HCL 0.4 MG CAPSULE 0.8 MG PO (20:08)
[2021-01-11] MEDS: OLANZapine 10 MG TABLET PO (20:08)
[2021-01-12] MEDS: 0.9 % Sodium Chloride Flush 3 ML SYRINGE IVFLUSH ×4 (00:46→20:06)
[2021-01-12] MEDS: Fidaxomicin 200 MG TABLET PO ×2 (00:46→13:09)
[2021-01-12 04:00] VITALS: BP 127/74; PULSE 72; RESP 18; TEMP 36.3; O2SAT 99
[2021-01-12 05:47] LABS: Hematocrit 32.8 % (42.0-52.0); Hemoglobin 10.5 g/dl (14.0-18.0); Mean Corpuscular Hemoglobin 32.2 pg (27.0-33.0); Mean Corpuscular Volume 100.6 fL (80.0-98.0); Mean Platelet Volume 8.7 fL (9.4-12.4); Platelet Count 142 X10*3/uL (160-400); Red Blood Count 3.26 X10*6/uL (4.60-5.80); Red Cell Distribution Width 13.1 % (11.0-16.0); White Blood Count 4.4 X10*3/uL (4.8-10.8)
[2021-01-12 06:00] LABS: Anion Gap 11 (12-20); Blood Urea Nitrogen 17 mg/dL (9-16); Calcium 7.7 mg/dL (8.4-10.2); Carbon Dioxide 28 mmol/L (22-29); Chloride 110 mmol/L (96-108); Estimated Glomerular Filt Rate > 60; Glucose Random 123 mg/dL (60-115); Potassium 3.6 mmol/L (3.3-5.1); Sodium 145 mmol/L (135-145)
[2021-01-12 07:34] VITALS: BP 144/66; PULSE 75; RESP 17; TEMP 36.5; O2SAT 99
[2021-01-12] MEDS: Atorvastatin Calcium 20 MG TABLET PO (09:32)
[2021-01-12] MEDS: OLANZapine 5 MG TABLET PO (09:32)
[2021-01-12] MEDS: Escitalopram Oxalate 20 MG TABLET PO (09:32)
[2021-01-12] MEDS: Sennosides 8.6 MG TABLET PO (09:32)
[2021-01-12] MEDS: Finasteride 5 MG TABLET PO (09:32)
[2021-01-12] MEDS: Memantine HCl 5 MG TABLET PO (09:32)
[2021-01-12] MEDS: Thiamine HCL 100 MG TABLET PO (09:33)
[2021-01-12] MEDS: Folic Acid 1 MG TABLET PO (09:33)
--- NOTE | 2021-01-12 10:16 | HO.PM.IMPN ---
Subjective Subjective Date of Service: 01/12/21 Interval History: f/u on c diff, diarrhea is better Review of Systems n fever, less diarrhea Physical Exam Vital Signs: Vital Signs: Last Vital Signs Temp 97.7 F 01/12/21 07:34 Pulse 75 01/12/21 07:34 Resp 17 01/12/21 07:34 BP 144/66 H 01/12/21 07:34 Pulse Ox 99 01/12/21 07:34 Body Mass Index 19.5 General: AO X 2, no acute distress Resp: CTA bilateral CVS: S1,S2,RRR GI: +BS, NT, no distention Skin: No rash Neuro: motor grossly intact Psych: appropriate affect Objective Data Active Medications Acetaminophen (Acetaminophen 325 Mg Tablet) 650 mg PO Q6H PRN PRN Reason: Pain, Mild (Pain Scale 1-3) Last Admin: 01/04/21 19:59 Dose: 650 mg Documented by: TANYA Atorvastatin Calcium (Atorvastatin Calcium 20 Mg Tablet) 20 mg PO DAILY [facility] Last Admin: 01/12/21 09:32 Dose: 20 mg Documented by: NASEEM Enoxaparin Sodium (Enoxaparin Sodium 40 Mg/0.4 Ml Syringe) 40 mg SUBCUT Q24H [facility] Last Admin: 01/11/21 20:08 Dose: 40 mg Documented by: MORRIS Escitalopram Oxalate (Escitalopram Oxalate 20 Mg Tablet) 20 mg PO DAILY [facility] Last Admin: 01/12/21 09:32 Dose: 20 mg Documented by: NASEEM Fidaxomicin (Fidaxomicin 200 Mg Tablet) 200 mg PO Q12H [facility] Stop: 01/14/21 01:01 Last Admin: 01/12/21 00:46 Dose: 200 mg Documented by: MORRIS Finasteride (Finasteride 5 Mg Tablet) 5 mg PO DAILY [facility] Last Admin: 01/12/21 09:32 Dose: 5 mg Documented by: NASEEM Folic Acid (Folic Acid 1 Mg Tablet) 1 mg PO DAILY [facility] Last Admin: 01/12/21 09:33 Dose: 1 mg Documented by: NASEEM Memantine (Memantine Hcl 5 Mg Tablet) 5 mg PO DAILY [facility] Last Admin: 01/12/21 09:32 Dose: 5 mg Documented by: NASEEM Olanzapine (Olanzapine 5 Mg Tablet) 5 mg PO DAILY [facility] Last Admin: 01/12/21 09:32 Dose: 5 mg Documented by: NASEEM Olanzapine (Olanzapine 10 Mg Tablet) 10 mg PO BEDTIME [facility] Last Admin: 01/11/21 20:08 Dose: 10 mg Documented by: MORRIS Ondansetron HCl (Ondansetron Hcl 4 Mg/2 Ml Vial) 4 mg IVPUSH Q8H PRN PRN Reason: Nausea and Vomiting Senna (Sennosides 8.6 Mg Tablet) 8.6 mg PO DAILY [facility] Last Admin: 01/12/21 09:32 Dose: 8.6 mg Documented by: NASEEM Sodium Chloride (0.9 % Sodium Chloride Flush 3 Ml Syringe) 3 ml IVFLUSH QSHIFT [facility] Last Admin: 01/12/21 09:32 Dose: 3 ml Documented by: NASEEM Tamsulosin HCl (Tamsulosin Hcl 0.4 Mg Capsule) 0.8 mg PO BEDTIME [facility] Last Admin: 01/11/21 20:08 Dose: 0.8 mg Documented by: MORRIS Thiamine HCl (Thiamine Hcl 100 Mg Tablet) 100 mg PO DAILY [facility] Last Admin: 01/12/21 09:33 Dose: 100 mg Documented by: NASEEM Labs CBC & Chem 7: 01/12/21 05:11 01/12/21 05:11 Labs: Laboratory Results - last 24 hr 01/12/21 01/12/21 05:11 05:11 MCV 100.6 H MCH 32.2 MCHC 32.0 RDW 13.1 Plt Count 142 L D MPV 8.7 L Absolute Nucleated RBC 0.000 Nucleated RBC % (auto) 0.0 Anion Gap 11 L Estim Creat Clear Calc 92.0 Estimated GFR > 60 Random Glucose 123 H Calcium 7.7 L Assessment and Plan (1) Urinary retention with incomplete bladder emptying: Status: Acute (2) C. difficile diarrhea: Status: Acute (3) Diarrhea: Status: Acute Assessment and Plan: 70yo M who was on geriatric psychiatry unit and treated for Staphylococcus epidermidis UTI with levofloxacin, progressively declined and admitted to Med/Surg and found to have C. diff diarrhea 1. urinary retention: tamsulosin adjusted? + finasteride--Liu removed, check PVR and straight cath PRN 2. Clostridium difficile colitis, [id number] rectum and rectosigmoid colon with adjacent inflammatory change consistent with colitis was on PO Vanco for 3 days and now on Dificid D10/14 Distended gallbladder with thickened wall and surrounding edema but no ruq pain , lfts; wnl acute cholecystsitis less likely Gi eval noted -continue current maangement 3. UTI- resolved. 4.mood disorder- clonazepam, olanazpine, escitalopram 5.VTE ppx- LMWH dispo- accepted at [facility], awaiting bed Quality Stroke Does the patient have a stroke diagnosis?: No VTE Prior VTE?: No VTE Risk Level:: Medical - moderate - high VTE Device Contraindication: Treatment Not Indicated VTE Drug Contraindication: N/A - Med Ordered
[2021-01-12 11:26] VITALS: BP 113/69; PULSE 76; RESP 15; TEMP 36.7; O2SAT 98
[2021-01-12 16:00] VITALS: BP 109/66; PULSE 86; RESP 16; TEMP 37.1; O2SAT 97
[2021-01-12 19:33] VITALS: BP 114/66; PULSE 91; RESP 18; TEMP 36.7; O2SAT 97
[2021-01-12] MEDS: Tamsulosin HCL 0.4 MG CAPSULE 0.8 MG PO (20:05)
[2021-01-12] MEDS: Enoxaparin Sodium 40 MG/0.4 ML SYRINGE SUBCUT (20:05)
[2021-01-12] MEDS: OLANZapine 10 MG TABLET PO (20:05)
--- NOTE | 2021-01-12 22:30 | PC.NURSE ---
Pt complained of urinary retention. Pt was bladder scanned. Pt was retaining over 900 ml. 3 attempts were made to straight cath. All attempts were unsuccessful. Urology police matron was contacted. Situation was explained. Urology recommended to wait till 7 am because pt is known to pee on his own
[2021-01-12 23:19] VITALS: BP 125/69; PULSE 90; RESP 18; TEMP 37; O2SAT 97
[2021-01-13] MEDS: Fidaxomicin 200 MG TABLET PO ×2 (06:14→20:17)
[2021-01-13 07:39] VITALS: BP 149/81; PULSE 74; RESP 17; TEMP 36.7; O2SAT 100
[2021-01-13] MEDS: Memantine HCl 5 MG TABLET PO (07:43)
[2021-01-13] MEDS: OLANZapine 5 MG TABLET PO (07:43)
[2021-01-13] MEDS: Thiamine HCL 100 MG TABLET PO (07:43)
[2021-01-13] MEDS: Finasteride 5 MG TABLET PO (07:43)
[2021-01-13] MEDS: Escitalopram Oxalate 20 MG TABLET PO (07:43)
[2021-01-13] MEDS: Atorvastatin Calcium 20 MG TABLET PO (07:43)
[2021-01-13] MEDS: Folic Acid 1 MG TABLET PO (07:43)
[2021-01-13] MEDS: 0.9 % Sodium Chloride Flush 3 ML SYRINGE IVFLUSH ×3 (07:44→20:21)
[2021-01-13 11:30] VITALS: BP 108/67; PULSE 79; RESP 16; TEMP 37.1; O2SAT 99
--- NOTE | 2021-01-13 14:36 | MHC.CM.PN ---
nurse resident care aid note electronic medical record reviewed , still no response from [facility],( referrals sent to [facility], [facility], [facility], [facility] exceed care capacity) [facility] no l;[facility] contracted, [facility] reviewing and asked about passar , this was sent to them along with [facility] DISCHARGE PLAN TO REHAB UNDER DE CONTRACT - PENDING ACCEPTANCE
--- NOTE | 2021-01-13 15:17 | HO.PM.IMPN ---
Subjective Subjective Date of Service: 01/13/21 Interval History: f/u on c diff, persistent diarrhea but seem better Review of Systems fever, less diarrhea Physical Exam Vital Signs: Vital Signs: Last Vital Signs Temp 98.8 F 01/13/21 11:30 Pulse 79 01/13/21 11:30 Resp 16 01/13/21 11:30 BP 108/67 01/13/21 11:30 Pulse Ox 99 01/13/21 11:30 Body Mass Index 19.5 Const: Other: General: AO X 1, no acute distress Resp: CTA bilateral CVS: S1,S2,RRR GI: +BS, NT, no distention Skin: No rash Neuro: motor grossly intact Psych: flat Objective Data Active Medications Acetaminophen (Acetaminophen 325 Mg Tablet) 650 mg PO Q6H PRN PRN Reason: Pain, Mild (Pain Scale 1-3) Last Admin: 01/04/21 19:59 Dose: 650 mg Documented by: TANYA Atorvastatin Calcium (Atorvastatin Calcium 20 Mg Tablet) 20 mg PO DAILY [facility] Last Admin: 01/13/21 07:43 Dose: 20 mg Documented by: LÓPEZ Enoxaparin Sodium (Enoxaparin Sodium 40 Mg/0.4 Ml Syringe) 40 mg SUBCUT Q24H [facility] Last Admin: 01/12/21 20:05 Dose: 40 mg Documented by: LTITLE Escitalopram Oxalate (Escitalopram Oxalate 20 Mg Tablet) 20 mg PO DAILY [facility] Last Admin: 01/13/21 07:43 Dose: 20 mg Documented by: LÓPEZ Fidaxomicin (Fidaxomicin 200 Mg Tablet) 200 mg PO Q12H [facility] Stop: 01/14/21 06:01 Finasteride (Finasteride 5 Mg Tablet) 5 mg PO DAILY [facility] Last Admin: 01/13/21 07:43 Dose: 5 mg Documented by: LÓPEZ Folic Acid (Folic Acid 1 Mg Tablet) 1 mg PO DAILY [facility] Last Admin: 01/13/21 07:43 Dose: 1 mg Documented by: LÓPEZ Memantine (Memantine Hcl 5 Mg Tablet) 5 mg PO DAILY [facility] Last Admin: 01/13/21 07:43 Dose: 5 mg Documented by: LÓPEZ Olanzapine (Olanzapine 5 Mg Tablet) 5 mg PO DAILY [facility] Last Admin: 01/13/21 07:43 Dose: 5 mg Documented by: LÓPEZ Olanzapine (Olanzapine 10 Mg Tablet) 10 mg PO BEDTIME [facility] Last Admin: 01/12/21 20:05 Dose: 10 mg Documented by: LITTLE Ondansetron HCl (Ondansetron Hcl 4 Mg/2 Ml Vial) 4 mg IVPUSH Q8H PRN PRN Reason: Nausea and Vomiting Senna (Sennosides 8.6 Mg Tablet) 8.6 mg PO DAILY [facility] Last Admin: 01/13/21 07:44 Dose: Not Given Documented by: LÓPEZ Non-Admin Reason: loose stool Sodium Chloride (0.9 % Sodium Chloride Flush 3 Ml Syringe) 3 ml IVFLUSH QSHIFT [facility] Last Admin: 01/13/21 07:44 Dose: 3 ml Documented by: LÓPEZ Tamsulosin HCl (Tamsulosin Hcl 0.4 Mg Capsule) 0.8 mg PO BEDTIME [facility] Last Admin: 01/12/21 20:05 Dose: 0.8 mg Documented by: LITTLE Thiamine HCl (Thiamine Hcl 100 Mg Tablet) 100 mg PO DAILY [facility] Last Admin: 01/13/21 07:43 Dose: 100 mg Documented by: LÓPEZ Labs CBC & Chem 7: 01/12/21 05:11 01/12/21 05:11 Assessment and Plan (1) C. difficile diarrhea: Status: Acute Assessment and Plan: 70yo M who was on geriatric psychiatry unit and treated for Staphylococcus epidermidis UTI with levofloxacin, progressively declined and admitted to Med/Surg and found to have C. diff diarrhea 1. urinary retention: required lebron now removed, continu tamsulosin? + finasterid. Straight cath PRN 2. Clostridium difficile colitis, [id number] rectum and rectosigmoid colon with adjacent inflammatory change consistent with colitis was on PO Vanco for 3 days and now on Dificid D11/14 Distended gallbladder with thickened wall and surrounding edema but no ruq pain , lfts; wnl acute cholecystsitis ruled out Gi eval noted -continue current management 3. UTI- treated and resolved 4.mood disorder- clonazepam, olanazpine, escitalopram 5.VTE ppx- LMWH dispo- accepted at [facility], awaiting bed Quality Stroke Does the patient have a stroke diagnosis?: No VTE Prior VTE?: No VTE Risk Level:: Medical - moderate - high VTE Device Contraindication: Treatment Not Indicated VTE Drug Contraindication: N/A - Med Ordered
[2021-01-13 16:00] VITALS: BP 114/65; PULSE 82; TEMP 36.8; O2SAT 98
--- NOTE | 2021-01-13 16:34 | P.PNUR_ITS ---
Subjective Subjective Date of Service: 01/13/21 Interval history: Ongoing issue with urinary retention Mr Gonzales does have difficulty emptying his bladder Quite frequently he will go number of hours without emptying and on bladder scan will have approximately 700 cc in his bladder Then he will be incontinent of urine This is a stable pattern for him and he does not need to be straight cathed or have a Liu catheter placed Physical Exam Vital Signs: Vital Signs: Last Vital Signs Temp 98.2 F 01/13/21 16:00 Pulse 82 01/13/21 16:00 Resp 16 01/13/21 11:30 BP 114/65 01/13/21 16:00 Pulse Ox 98 01/13/21 16:00 Body Mass Index 19.5 Const: General: cooperative, healthy appearing, comfortable and no acute distress Orientation/consciousness: patient oriented x3 HENMT: Face and sinus: Yes normal facial exam Mouth: moist mucous membranes Neck: Neck: Yes normal visual inspection, Yes full ROM and Yes trachea midline Chest: Chest palpation & inspection: normal inspection of the chest Resp: Effort & Inspection: normal respiratory effort, able to speak in complete sentences and no respiratory distress GI: Inspection: Yes normal to inspection Back/Spine/Pelvis: Cervical Spine: normal cervical lordosis Thoracic/Lumbar Spine: thoracic and lumbar spine normal to inspection Skin: General skin exam: no rashes or lesions noted Neuro: General: patient oriented x3, gait normal, tone normal and moves all extremities Extrem: General: Yes normal to inspection and Yes capillary refill normal Urology Results Labs CBC & Chem 7: 01/12/21 05:11 01/12/21 05:11 Progress Note: A&P Assessment and plan (1) Urinary retention with incomplete bladder emptying: Status: Acute Assessment and Plan: Does not need to be catheterized when has 700-800 cc in bladder Has been incontinent of urine As long as urine is not infected this is acceptable Fall Risk Details Current Medications: Current Medications Acetaminophen (Acetaminophen 325 Mg Tablet) 650 mg PO Q6H PRN PRN Reason: Pain, Mild (Pain Scale 1-3) Last Admin: 01/04/21 19:59 Dose: 650 mg Documented by: Atorvastatin Calcium (Atorvastatin Calcium 20 Mg Tablet) 20 mg PO DAILY [facility] Last Admin: 01/13/21 07:43 Dose: 20 mg Documented by: Enoxaparin Sodium (Enoxaparin Sodium 40 Mg/0.4 Ml Syringe) 40 mg SUBCUT Q24H [facility] Last Admin: 01/12/21 20:05 Dose: 40 mg Documented by: Escitalopram Oxalate (Escitalopram Oxalate 20 Mg Tablet) 20 mg PO DAILY [facility] Last Admin: 01/13/21 07:43 Dose: 20 mg Documented by: Fidaxomicin (Fidaxomicin 200 Mg Tablet) 200 mg PO Q12H [facility] Stop: 01/14/21 06:01 Finasteride (Finasteride 5 Mg Tablet) 5 mg PO DAILY [facility] Last Admin: 01/13/21 07:43 Dose: 5 mg Documented by: Folic Acid (Folic Acid 1 Mg Tablet) 1 mg PO DAILY [facility] Last Admin: 01/13/21 07:43 Dose: 1 mg Documented by: Memantine (Memantine Hcl 5 Mg Tablet) 5 mg PO DAILY [facility] Last Admin: 01/13/21 07:43 Dose: 5 mg Documented by: Olanzapine (Olanzapine 5 Mg Tablet) 5 mg PO DAILY [facility] Last Admin: 01/13/21 07:43 Dose: 5 mg Documented by: Olanzapine (Olanzapine 10 Mg Tablet) 10 mg PO BEDTIME [facility] Last Admin: 01/12/21 20:05 Dose: 10 mg Documented by: Ondansetron HCl (Ondansetron Hcl 4 Mg/2 Ml Vial) 4 mg IVPUSH Q8H PRN PRN Reason: Nausea and Vomiting Senna (Sennosides 8.6 Mg Tablet) 8.6 mg PO DAILY [facility] Last Admin: 01/13/21 07:44 Dose: Not Given Documented by: Sodium Chloride (0.9 % Sodium Chloride Flush 3 Ml Syringe) 3 ml IVFLUSH QSHIFT [facility] Last Admin: 01/13/21 16:20 Dose: 3 ml Documented by: Tamsulosin HCl (Tamsulosin Hcl 0.4 Mg Capsule) 0.8 mg PO BEDTIME [facility] Last Admin: 01/12/21 20:05 Dose: 0.8 mg Documented by: Thiamine HCl (Thiamine Hcl 100 Mg Tablet) 100 mg PO DAILY [facility] Last Admin: 01/13/21 07:43 Dose: 100 mg Documented by: Time Spent With Patient Time: Total time spent is greater than 50% in coordination of care (as documented) at patient's floor/unit and/or counseling patient: Time with patient: less than 15 minutes Progress Note: Quality Stroke Does the patient have a stroke diagnosis?: No
[2021-01-13 19:53] VITALS: BP 103/57; PULSE 83; RESP 17; TEMP 36.4; O2SAT 99
[2021-01-13] MEDS: OLANZapine 10 MG TABLET PO (20:17)
[2021-01-13] MEDS: Enoxaparin Sodium 40 MG/0.4 ML SYRINGE SUBCUT (20:17)
[2021-01-13] MEDS: Tamsulosin HCL 0.4 MG CAPSULE 0.8 MG PO (20:17)
[2021-01-14] VITALS: BP 130/79; PULSE 90; RESP 16; TEMP 36.1; O2SAT 94
[2021-01-14 04:00] VITALS: RESP 16
[2021-01-14 07:57] VITALS: BP 141/84; PULSE 81; RESP 18; TEMP 36.9; O2SAT 99
[2021-01-14] MEDS: Thiamine HCL 100 MG TABLET PO (08:23)
[2021-01-14] MEDS: Fidaxomicin 200 MG TABLET PO (08:28)
[2021-01-14] MEDS: Memantine HCl 5 MG TABLET PO (08:28)
[2021-01-14] MEDS: Folic Acid 1 MG TABLET PO (08:29)
[2021-01-14] MEDS: OLANZapine 5 MG TABLET PO (08:31)
[2021-01-14] MEDS: Finasteride 5 MG TABLET PO (08:31)
[2021-01-14] MEDS: Escitalopram Oxalate 20 MG TABLET PO (08:31)
[2021-01-14] MEDS: Atorvastatin Calcium 20 MG TABLET PO (08:31)
[2021-01-14 08:34] LABS: MANUAL DIFF FLAG NO
[2021-01-14] MEDS: 0.9 % Sodium Chloride Flush 3 ML SYRINGE IVFLUSH ×2 (08:35→15:08)
[2021-01-14 08:39] LABS: Basophils Percent Auto 0.3 % (0-2); Eosinophils Percent Auto 1.1 % (0-4); Hematocrit 32.3 % (42.0-52.0); Hemoglobin 10.1 g/dl (14.0-18.0); Imm Gran Abs Auto 0.01 X10*3/uL (0.00-0.03); Imm Gran Pct Auto 0.3 % (0.0-0.4); Lymphocytes Absolute Auto 0.8 X10*3/uL (1.2-4.9); Lymphocytes Percent Auto 20.8 % (20-40); Mean Corpuscular HGB Conc 31.3 g/dl (31.0-36.0); Mean Corpuscular Hemoglobin 31.9 pg (27.0-33.0); Mean Corpuscular Volume 101.9 fL (80.0-98.0); Mean Platelet Volume 8.8 fL (9.4-12.4); Monocytes Absolute Auto 0.3 X10*3/uL (0.1-1.2); Monocytes Percent Auto 6.9 % (2-11); Neutrophils Absolute Auto 2.7 x10*3/uL (2.0-8.3); Neutrophils Percent Auto 70.6 % (45-73); Platelet Count 138 X10*3/uL (160-400); Red Blood Count 3.17 X10*6/uL (4.60-5.80); Red Cell Distribution Width 13.2 % (11.0-16.0); White Blood Count 3.8 X10*3/uL (4.8-10.8)
[2021-01-14 08:58] LABS: Anion Gap 12 (12-20); Blood Urea Nitrogen 15 mg/dL (9-16); Calcium 8.2 mg/dL (8.4-10.2); Carbon Dioxide 29 mmol/L (22-29); Chloride 110 mmol/L (96-108); Creatinine Clr Calc Pharmacy 101.1; Estimated Glomerular Filt Rate > 60; Glucose Random 86 mg/dL (60-115); Sodium 147 mmol/L (135-145)
[2021-01-14 12:00] VITALS: BP 108/62; PULSE 73; RESP 18; TEMP 36.6; O2SAT 98
--- NOTE | 2021-01-14 12:13 | P.PNIM_ITS ---
Subjective Subjective Date of Service: 01/14/21 Interval History: patient seen and examined at bedside. No acute complaint. He reports pain in the rectum area but otherwise has no abdominal pain nausea or vomiting. His diarrhea is improving, according to the bedside nurse, his stools are now more formed, more pasty. Patient denies any shortness of breath and no chest pain. Review of Systems Review of Systems: Yes all other systems are reviewed and are negative Physical Exam Vital Signs: Vital Signs: Last Vital Signs Temp 97.8 F 01/14/21 12:00 Pulse 73 01/14/21 12:00 Resp 18 01/14/21 12:00 BP 108/62 01/14/21 12:00 Pulse Ox 98 01/14/21 12:00 Body Mass Index 19.5 Const: General: cooperative and no acute distress Resp: Effort & Inspection: normal respiratory effort Auscultation: clear to auscultation bilaterally Cardio: Rate: regular rate Rhythm: regular rhythm GI: Palpation (GI): Soft to palpation Auscultation: normal bowel sounds Extrem: General: Yes normal to inspection and Yes no pedal edema Objective Data Active Medications Acetaminophen (Acetaminophen 325 Mg Tablet) 650 mg PO Q6H PRN PRN Reason: Pain, Mild (Pain Scale 1-3) Last Admin: 01/04/21 19:59 Dose: 650 mg Documented by: TANYA Atorvastatin Calcium (Atorvastatin Calcium 20 Mg Tablet) 20 mg PO DAILY [facility] Last Admin: 01/14/21 08:31 Dose: 20 mg Documented by: LÓPEZ Enoxaparin Sodium (Enoxaparin Sodium 40 Mg/0.4 Ml Syringe) 40 mg SUBCUT Q24H [facility] Last Admin: 01/13/21 20:17 Dose: 40 mg Documented by: ANNIKA Escitalopram Oxalate (Escitalopram Oxalate 20 Mg Tablet) 20 mg PO DAILY [facility] Last Admin: 01/14/21 08:31 Dose: 20 mg Documented by: LÓPEZ Finasteride (Finasteride 5 Mg Tablet) 5 mg PO DAILY [facility] Last Admin: 01/14/21 08:31 Dose: 5 mg Documented by: LÓPEZ Folic Acid (Folic Acid 1 Mg Tablet) 1 mg PO DAILY [facility] Last Admin: 01/14/21 08:29 Dose: 1 mg Documented by: LÓPEZ Memantine (Memantine Hcl 5 Mg Tablet) 5 mg PO DAILY [facility] Last Admin: 01/14/21 08:28 Dose: 5 mg Documented by: LÓPEZ Olanzapine (Olanzapine 5 Mg Tablet) 5 mg PO DAILY [facility] Last Admin: 01/14/21 08:31 Dose: 5 mg Documented by: LÓPEZ Olanzapine (Olanzapine 10 Mg Tablet) 10 mg PO BEDTIME [facility] Last Admin: 01/13/21 20:17 Dose: 10 mg Documented by: ANNIKA Ondansetron HCl (Ondansetron Hcl 4 Mg/2 Ml Vial) 4 mg IVPUSH Q8H PRN PRN Reason: Nausea and Vomiting Senna (Sennosides 8.6 Mg Tablet) 8.6 mg PO DAILY [facility] Last Admin: 01/14/21 08:32 Dose: Not Given Documented by: LÓPEZ Non-Admin Reason: n/a Sodium Chloride (0.9 % Sodium Chloride Flush 3 Ml Syringe) 3 ml IVFLUSH QSHIFT [facility] Last Admin: 01/14/21 08:35 Dose: 3 ml Documented by: LÓPEZ Tamsulosin HCl (Tamsulosin Hcl 0.4 Mg Capsule) 0.8 mg PO BEDTIME [facility] Last Admin: 01/13/21 20:17 Dose: 0.8 mg Documented by: ANNIKA Thiamine HCl (Thiamine Hcl 100 Mg Tablet) 100 mg PO DAILY [facility] Last Admin: 01/14/21 08:23 Dose: 100 mg Documented by: LÓPEZ Labs CBC & Chem 7: 01/14/21 08:09 01/14/21 08:09 Labs: Laboratory Results - last 24 hr 01/14/21 01/14/21 08:09 08:09 MCV 101.9 H MCH 31.9 MCHC 31.3 RDW 13.2 Plt Count 138 L MPV 8.8 L Immature Gran % (Auto) 0.3 Neut % (Auto) 70.6 Lymph % (Auto) 20.8 [place] % (Auto) 6.9 Eos % (Auto) 1.1 Baso % (Auto) 0.3 Lymph # (Auto) 0.8 L [place] # (Auto) 0.3 Eos # (Auto) 0.0 Baso # (Auto) 0.0 Abs Immat Gran (auto) 0.01 Absolute Neuts (auto) 2.7 Absolute Nucleated RBC 0.000 Nucleated RBC % (auto) 0.0 Anion Gap 12 Estim Creat Clear Calc 101.1 Estimated GFR > 60 Random Glucose 86 Calcium 8.2 L D Assessment and Plan (1) Urinary retention with incomplete bladder emptying: Status: Acute Assessment and Plan: 70yo M who was on geriatric psychiatry unit and treated for Staphylococcus epidermidis UTI with levofloxacin, progressively declined and admitted to Med/Surg and found to have C. diff diarrhea 1. urinary retention - initially required lebron that has now been removed, - continu tamsulosin? + finasterid. - Straight cath PRN - Urology evaluated pt- apparently this is chronic and pt eventually empties bladded whenever it is full 2. Clostridium difficile colitis,? - Improving - CT abd showed -Thick-walled rectum and rectosigmoid colon with adjacent inflammatory change consistent with colitis?? - was on PO Vanco for 3 days but switched to Dificid D12/14 - continue above management 3. Distended gallbladder with thickened wall and surrounding edema but no ruq pain , lfts; wnl - acute cholecystsitis ruled out - Gi eval noted -continue current management 3. UTI- treated and resolved 4.mood disorder- clonazepam, olanazpine, escitalopram 5.VTE ppx- LMWH dispo- accepted at [facility], awaiting bed (2) C. difficile diarrhea: Status: Acute (3) UTI (urinary tract infection): Status: Acute Quality Stroke Does the patient have a stroke diagnosis?: No VTE Prior VTE?: No VTE Risk Level:: Medical - moderate - high VTE Device Contraindication: Treatment Not Indicated VTE Drug Contraindication: N/A - Med Ordered
[2021-01-14 15:26] VITALS: BP 130/71; PULSE 80; RESP 18; TEMP 36.2; O2SAT 100
[2021-01-14 19:24] VITALS: BP 131/69; PULSE 86; RESP 17; TEMP 36.3; O2SAT 99
[2021-01-14] MEDS: Tamsulosin HCL 0.4 MG CAPSULE 0.8 MG PO (20:12)
[2021-01-14] MEDS: OLANZapine 10 MG TABLET PO (20:12)
[2021-01-14] MEDS: Enoxaparin Sodium 40 MG/0.4 ML SYRINGE SUBCUT (20:12)
[2021-01-15] VITALS: BP 119/73; PULSE 90; RESP 17; TEMP 36.2; O2SAT 97
[2021-01-15] MEDS: 0.9 % Sodium Chloride Flush 3 ML SYRINGE IVFLUSH ×3 (01:19→20:19)
[2021-01-15 04:00] VITALS: BP 142/81; PULSE 87; RESP 17; TEMP 36.1; O2SAT 99
[2021-01-15 07:32] VITALS: BP 155/66; PULSE 77; RESP 16; TEMP 36.8; O2SAT 100
[2021-01-15] MEDS: Finasteride 5 MG TABLET PO (10:03)
[2021-01-15] MEDS: Sennosides 8.6 MG TABLET PO (10:04)
[2021-01-15] MEDS: Atorvastatin Calcium 20 MG TABLET PO (10:04)
[2021-01-15] MEDS: Thiamine HCL 100 MG TABLET PO (10:04)
[2021-01-15] MEDS: Folic Acid 1 MG TABLET PO (10:04)
[2021-01-15] MEDS: Escitalopram Oxalate 20 MG TABLET PO (10:04)
[2021-01-15] MEDS: Memantine HCl 5 MG TABLET PO (10:04)
[2021-01-15] MEDS: OLANZapine 5 MG TABLET PO (10:09)
[2021-01-15 11:25] VITALS: BP 113/69; PULSE 81; RESP 18; TEMP 36.6; O2SAT 98
--- NOTE | 2021-01-15 12:15 | MHC.CM.PN ---
nurse hearing care professional note electronic medical record reviewed along with case discussed with hospitalist., follow up with [facility] no bed availability, new referrals made 01/15/21 [facility] desouza/ s[facility], [facility] message left with the [facility] nurse viral [phone] requested for her to call me back on monday case [facility] to continue to follow
[2021-01-15 15:29] VITALS: BP 105/63; PULSE 79; RESP 17; TEMP 36; O2SAT 99
--- NOTE | 2021-01-15 16:47 | P.PNIM_ITS ---
Subjective Subjective Date of Service: 01/15/21 Interval History: seen and examined this morning follow up for cdif reporting diarrhea, but nurse reports no diarrhea denies abdominal pain Review of Systems Review of Systems: Yes all other systems are reviewed and are negative Constitutional Constitutional: Denies chills and Denies fever(s) Cardiovascular Cardiovascular: Denies chest pain Respiratory Respiratory: Denies cough Gastrointestinal Gastrointestinal: Denies abdominal pain Physical Exam Vital Signs: Vital Signs: Last Vital Signs Temp 96.8 F 01/15/21 15:29 Pulse 79 01/15/21 15:29 Resp 17 01/15/21 15:29 BP 105/63 01/15/21 15:29 Pulse Ox 99 01/15/21 15:29 Body Mass Index 19.5 Const: General: comfortable, no acute distress, alert and awake Nutritional Appearance: thin HENMT: Head: Yes normocephalic and Yes atraumatic Eyes: Sclerae: sclerae normal Chest: Chest palpation & inspection: normal inspection of the chest Resp: Effort & Inspection: normal respiratory effort and no respiratory distress Cardio: Rate: regular rate Rhythm: regular rhythm GI: Palpation (GI): Soft to palpation and nontender Skin: General skin exam: no rashes or lesions noted Neuro: Cranial nerves: Yes CN's II-XII intact bilaterally and Yes Bilaterally intact EOM present Extrem: Other: no edema Objective Data Active Medications Acetaminophen (Acetaminophen 325 Mg Tablet) 650 mg PO Q6H PRN PRN Reason: Pain, Mild (Pain Scale 1-3) Last Admin: 01/04/21 19:59 Dose: 650 mg Documented by: TANYA Atorvastatin Calcium (Atorvastatin Calcium 20 Mg Tablet) 20 mg PO DAILY [facility] Last Admin: 01/15/21 10:04 Dose: 20 mg Documented by: SHAMA Enoxaparin Sodium (Enoxaparin Sodium 40 Mg/0.4 Ml Syringe) 40 mg SUBCUT Q24H [facility] Last Admin: 01/14/21 20:12 Dose: 40 mg Documented by: MORRIS Escitalopram Oxalate (Escitalopram Oxalate 20 Mg Tablet) 20 mg PO DAILY [facility] Last Admin: 01/15/21 10:04 Dose: 20 mg Documented by: SHAMA Finasteride (Finasteride 5 Mg Tablet) 5 mg PO DAILY [facility] Last Admin: 01/15/21 10:03 Dose: 5 mg Documented by: SHAMA Folic Acid (Folic Acid 1 Mg Tablet) 1 mg PO DAILY [facility] Last Admin: 01/15/21 10:04 Dose: 1 mg Documented by: SHAMA Memantine (Memantine Hcl 5 Mg Tablet) 5 mg PO DAILY [facility] Last Admin: 01/15/21 10:04 Dose: 5 mg Documented by: SHAMA Olanzapine (Olanzapine 5 Mg Tablet) 5 mg PO DAILY [facility] Last Admin: 01/15/21 10:09 Dose: 5 mg Documented by: SHAMA Olanzapine (Olanzapine 10 Mg Tablet) 10 mg PO BEDTIME [facility] Last Admin: 01/14/21 20:12 Dose: 10 mg Documented by: MORRIS Ondansetron HCl (Ondansetron Hcl 4 Mg/2 Ml Vial) 4 mg IVPUSH Q8H PRN PRN Reason: Nausea and Vomiting Senna (Sennosides 8.6 Mg Tablet) 8.6 mg PO DAILY [facility] Last Admin: 01/15/21 10:04 Dose: 8.6 mg Documented by: SHAMA Sodium Chloride (0.9 % Sodium Chloride Flush 3 Ml Syringe) 3 ml IVFLUSH QSHIFT [facility] Last Admin: 01/15/21 10:04 Dose: 3 ml Documented by: SHAMA Tamsulosin HCl (Tamsulosin Hcl 0.4 Mg Capsule) 0.8 mg PO BEDTIME [facility] Last Admin: 01/14/21 20:12 Dose: 0.8 mg Documented by: MORRIS Thiamine HCl (Thiamine Hcl 100 Mg Tablet) 100 mg PO DAILY [facility] Last Admin: 01/15/21 10:04 Dose: 100 mg Documented by: SHAMA Labs CBC & Chem 7: 01/14/21 08:09 01/14/21 08:09 Assessment and Plan (1) Urinary retention with incomplete bladder emptying: Status: Acute Assessment and Plan: 70yo M who was on geriatric psychiatry unit and treated for Staphylococcus epidermidis UTI with levofloxacin, progressively declined and admitted to Med/Surg and found to have C. diff diarrhea urinary retention - initially required lebron that has now been removed, - continu tamsulosin? + finasteride - Straight cath PRN - Urology evaluated pt- apparently this is chronic and pt eventually empties bladder whenever it is full Clostridium difficile colitis? - Improving - CT abd showed -Thick-walled rectum and rectosigmoid colon with adjacent infl ammatory change consistent with colitis?? - was on PO Vanco for 3 days but switched to Dificid, completed treatment - continue above management Distended gallbladder with thickened wall and surrounding edema but no ruq pain , lfts; wnl - acute cholecystsitis ruled out - Gi eval noted -continue current management UTI- treated and resolved mood disorder- clonazepam, olanazpine, escitalopram transferred from inpatient psych for UTI/delirium, now resolved assessed by psych, no need for further inpatient psych dispo- awaiting placement dvt ppx - lovenox attending; dr. paz Quality Stroke Does the patient have a stroke diagnosis?: No VTE Prior VTE?: No VTE Risk Level:: Medical - moderate - high VTE Device Contraindication: Treatment Not Indicated VTE Drug Contraindication: N/A - Med Ordered
[2021-01-15 19:16] VITALS: BP 94/61; PULSE 82; RESP 18; TEMP 36.2; O2SAT 97
[2021-01-15] MEDS: OLANZapine 10 MG TABLET PO (20:18)
[2021-01-15] MEDS: Tamsulosin HCL 0.4 MG CAPSULE 0.8 MG PO (20:18)
[2021-01-15] MEDS: Enoxaparin Sodium 40 MG/0.4 ML SYRINGE SUBCUT (20:18)
[2021-01-16] VITALS: BP 109/59; PULSE 81; RESP 18; TEMP 36.5; O2SAT 98
[2021-01-16 04:00] VITALS: BP 110/72; PULSE 92; RESP 18; TEMP 36.1; O2SAT 99
[2021-01-16 05:41] LABS: Hematocrit 32.7 % (42.0-52.0); Hemoglobin 9.9 g/dl (14.0-18.0); Mean Corpuscular HGB Conc 30.3 g/dl (31.0-36.0); Mean Corpuscular Hemoglobin 31.3 pg (27.0-33.0); Mean Corpuscular Volume 103.5 fL (80.0-98.0); Platelet Count 140 X10*3/uL (160-400); Red Blood Count 3.16 X10*6/uL (4.60-5.80); Red Cell Distribution Width 13.6 % (11.0-16.0); White Blood Count 5.1 X10*3/uL (4.8-10.8)
[2021-01-16 05:56] LABS: Anion Gap 11 (12-20); Blood Urea Nitrogen 20 mg/dL (9-16); Calcium 7.9 mg/dL (8.4-10.2); Carbon Dioxide 29 mmol/L (22-29); Chloride 109 mmol/L (96-108); Creatinine Clr Calc Pharmacy 86.8; Estimated Glomerular Filt Rate > 60; Glucose Random 101 mg/dL (60-115); Potassium 3.6 mmol/L (3.3-5.1); Sodium 145 mmol/L (135-145)
[2021-01-16] MEDS: Atorvastatin Calcium 20 MG TABLET PO (07:12)
[2021-01-16] MEDS: 0.9 % Sodium Chloride Flush 3 ML SYRINGE IVFLUSH ×3 (07:12→19:32)
[2021-01-16] MEDS: Folic Acid 1 MG TABLET PO (07:13)
[2021-01-16] MEDS: OLANZapine 5 MG TABLET PO (07:13)
[2021-01-16] MEDS: Finasteride 5 MG TABLET PO (07:13)
[2021-01-16] MEDS: Thiamine HCL 100 MG TABLET PO (07:13)
[2021-01-16] MEDS: Memantine HCl 5 MG TABLET PO (07:13)
[2021-01-16] MEDS: Escitalopram Oxalate 20 MG TABLET PO (07:13)
[2021-01-16 08:00] VITALS: BP 114/74; PULSE 80; RESP 18; TEMP 36.3; O2SAT 98
--- NOTE | 2021-01-16 09:10 | P.PNIM_ITS ---
Subjective Subjective Date of Service: 01/16/21 Interval History: follow up for cdif reporting diarrhea, but nursing reporting less diarrhea denies abdominal pain Physical Exam Vital Signs: Vital Signs: Last Vital Signs Temp 97.3 F 01/16/21 08:00 Pulse 80 01/16/21 08:00 Resp 18 01/16/21 08:00 BP 114/74 01/16/21 08:00 Pulse Ox 98 01/16/21 08:00 Body Mass Index 19.5 Const: Other: General: AO X 1, no acute distress Resp: CTA bilateral CVS: S1,S2,RRR GI: +BS, NT, no distention Skin: No rash Neuro: motor grossly intact Psych: flat Objective Data Active Medications Acetaminophen (Acetaminophen 325 Mg Tablet) 650 mg PO Q6H PRN PRN Reason: Pain, Mild (Pain Scale 1-3) Last Admin: 01/04/21 19:59 Dose: 650 mg Documented by: TANYA Atorvastatin Calcium (Atorvastatin Calcium 20 Mg Tablet) 20 mg PO DAILY [facility] Last Admin: 01/16/21 07:12 Dose: 20 mg Documented by: JAELYN Enoxaparin Sodium (Enoxaparin Sodium 40 Mg/0.4 Ml Syringe) 40 mg SUBCUT Q24H [facility] Last Admin: 01/15/21 20:18 Dose: 40 mg Documented by: MAEGAN Escitalopram Oxalate (Escitalopram Oxalate 20 Mg Tablet) 20 mg PO DAILY [facility] Last Admin: 01/16/21 07:13 Dose: 20 mg Documented by: JAELYN Finasteride (Finasteride 5 Mg Tablet) 5 mg PO DAILY [facility] Last Admin: 01/16/21 07:13 Dose: 5 mg Documented by: JAELYN Folic Acid (Folic Acid 1 Mg Tablet) 1 mg PO DAILY [facility] Last Admin: 01/16/21 07:13 Dose: 1 mg Documented by: JAELYN Memantine (Memantine Hcl 5 Mg Tablet) 5 mg PO DAILY [facility] Last Admin: 01/16/21 07:13 Dose: 5 mg Documented by: JAELYN Olanzapine (Olanzapine 5 Mg Tablet) 5 mg PO DAILY [facility] Last Admin: 01/16/21 07:13 Dose: 5 mg Documented by: JAELYN Olanzapine (Olanzapine 10 Mg Tablet) 10 mg PO BEDTIME [facility] Last Admin: 01/15/21 20:18 Dose: 10 mg Documented by: MAEGAN Ondansetron HCl (Ondansetron Hcl 4 Mg/2 Ml Vial) 4 mg IVPUSH Q8H PRN PRN Reason: Nausea and Vomiting Senna (Sennosides 8.6 Mg Tablet) 8.6 mg PO DAILY [facility] Last Admin: 01/16/21 07:10 Dose: Not Given Documented by: JAELYN Non-Admin Reason: diarrhea Sodium Chloride (0.9 % Sodium Chloride Flush 3 Ml Syringe) 3 ml IVFLUSH QSHIFT [facility] Last Admin: 01/16/21 07:12 Dose: 3 ml Documented by: JAELYN Tamsulosin HCl (Tamsulosin Hcl 0.4 Mg Capsule) 0.8 mg PO BEDTIME [facility] Last Admin: 01/15/21 20:18 Dose: 0.8 mg Documented by: MAEGAN Thiamine HCl (Thiamine Hcl 100 Mg Tablet) 100 mg PO DAILY [facility] Last Admin: 01/16/21 07:13 Dose: 100 mg Documented by: JAELYN Labs CBC & Chem 7: 01/16/21 04:51 01/16/21 04:51 Labs: Laboratory Results - last 24 hr 01/16/21 01/16/21 04:51 04:51 MCV 103.5 H MCH 31.3 MCHC 30.3 L RDW 13.6 Plt Count 140 L MPV 9.0 L Absolute Nucleated RBC 0.000 Nucleated RBC % (auto) 0.0 Anion Gap 11 L Estim Creat Clear Calc 86.8 Estimated GFR > 60 Random Glucose 101 Calcium 7.9 L Assessment and Plan (1) Urinary retention with incomplete bladder emptying: Status: Acute Assessment and Plan: 70yo M who was on geriatric psychiatry unit and treated for Staphylococcus epidermidis UTI with levofloxacin, progressively declined and admitted to Med/Surg and found to have C. diff diarrhea urinary retention - initially required lebron that has now been removed, - continue tamsulosin? + finasteride - Straight cath PRN - Urology evaluated pt- apparently this is chronic and pt eventually empties bladder whenever it is full Clostridium difficile colitis? -- CT abd showed -Thick-walled rectum and rectosigmoid colon with adjacent inflammatory change consistent with colitis?? - Improving - was on PO Vanco for 3 days but switched to Dificid, completed treatment - continue above management Distended gallbladder with thickened wall and surrounding edema but no ruq pain , lfts; wnl - acute cholecystsitis ruled out - Gi eval noted -continue current management UTI- treated and resolved mood disorder- clonazepam, olanazpine, escitalopram transferred from inpatient psych for UTI/delirium, now resolved assessed by psych, no need for further inpatient psych dispo- awaiting placement dvt ppx - lovenox (2) C. difficile diarrhea: Status: Acute Quality Stroke Does the patient have a stroke diagnosis?: No VTE Prior VTE?: No VTE Risk Level:: Medical - moderate - high VTE Device Contraindication: Treatment Not Indicated VTE Drug Contraindication: N/A - Med Ordered
[2021-01-16 12:00] VITALS: BP 113/73; PULSE 85; RESP 18; TEMP 36.8; O2SAT 97
[2021-01-16 15:43] VITALS: BP 102/66; PULSE 77; RESP 17; TEMP 36.7; O2SAT 98
[2021-01-16] MEDS: OLANZapine 10 MG TABLET PO (19:29)
[2021-01-16] MEDS: Enoxaparin Sodium 40 MG/0.4 ML SYRINGE SUBCUT (19:29)
[2021-01-16] MEDS: Tamsulosin HCL 0.4 MG CAPSULE 0.8 MG PO (19:29)
[2021-01-16 19:38] VITALS: BP 101/60; PULSE 79; RESP 17; TEMP 36.9; O2SAT 97
[2021-01-17] VITALS (7 sets, daily range): BP systolic 97–110; BP diastolic 60–71; PULSE 66–85; RESP 17–18; TEMP 36–37.1; O2SAT 98–99
[2021-01-17] MEDS: Memantine HCl 5 MG TABLET PO (08:59)
[2021-01-17] MEDS: Thiamine HCL 100 MG TABLET PO (08:59)
[2021-01-17] MEDS: Escitalopram Oxalate 20 MG TABLET PO (08:59)
[2021-01-17] MEDS: Atorvastatin Calcium 20 MG TABLET PO (08:59)
[2021-01-17] MEDS: Finasteride 5 MG TABLET PO (08:59)
[2021-01-17] MEDS: 0.9 % Sodium Chloride Flush 3 ML SYRINGE IVFLUSH ×2 (08:59→16:29)
[2021-01-17] MEDS: Folic Acid 1 MG TABLET PO (08:59)
[2021-01-17] MEDS: OLANZapine 5 MG TABLET PO (08:59)
[2021-01-17] MEDS: Sennosides 8.6 MG TABLET PO (08:59)
--- NOTE | 2021-01-17 11:16 | P.PNIM_ITS ---
Subjective Subjective Date of Service: 01/17/21 Interval History: follow up for cdif reporting fewer diarrhea denies abdominal pain Review of Systems Gen: no fever Resp: no sob, no cough CV: no chest, no WALKER, no leg edema GI: No n/v, no abd pain Physical Exam Vital Signs: Vital Signs: Last Vital Signs Temp 96.8 F 01/17/21 08:00 Pulse 66 01/17/21 08:00 Resp 18 01/17/21 08:00 BP 104/71 01/17/21 08:00 Pulse Ox 99 01/17/21 08:00 Body Mass Index 19.5 Const: Other: General: AO X 1, no acute distress Resp: CTA bilateral CVS: S1,S2,RRR GI: +BS, NT, no distention Skin: No rash Neuro: motor grossly intact Psych: flat Objective Data Active Medications Acetaminophen (Acetaminophen 325 Mg Tablet) 650 mg PO Q6H PRN PRN Reason: Pain, Mild (Pain Scale 1-3) Last Admin: 01/04/21 19:59 Dose: 650 mg Documented by: TANYA Atorvastatin Calcium (Atorvastatin Calcium 20 Mg Tablet) 20 mg PO DAILY [facility] Last Admin: 01/17/21 08:59 Dose: 20 mg Documented by: SHAMA Enoxaparin Sodium (Enoxaparin Sodium 40 Mg/0.4 Ml Syringe) 40 mg SUBCUT Q24H [facility] Last Admin: 01/16/21 19:29 Dose: 40 mg Documented by: MEAGHAN Escitalopram Oxalate (Escitalopram Oxalate 20 Mg Tablet) 20 mg PO DAILY [facility] Last Admin: 01/17/21 08:59 Dose: 20 mg Documented by: SHAMA Finasteride (Finasteride 5 Mg Tablet) 5 mg PO DAILY [facility] Last Admin: 01/17/21 08:59 Dose: 5 mg Documented by: SHAMA Folic Acid (Folic Acid 1 Mg Tablet) 1 mg PO DAILY [facility] Last Admin: 01/17/21 08:59 Dose: 1 mg Documented by: SHAMA Memantine (Memantine Hcl 5 Mg Tablet) 5 mg PO DAILY [facility] Last Admin: 01/17/21 08:59 Dose: 5 mg Documented by: SHAMA Olanzapine (Olanzapine 5 Mg Tablet) 5 mg PO DAILY [facility] Last Admin: 01/17/21 08:59 Dose: 5 mg Documented by: SHAMA Olanzapine (Olanzapine 10 Mg Tablet) 10 mg PO BEDTIME [facility] Last Admin: 01/16/21 19:29 Dose: 10 mg Documented by: MEAGHAN Ondansetron HCl (Ondansetron Hcl 4 Mg/2 Ml Vial) 4 mg IVPUSH Q8H PRN PRN Reason: Nausea and Vomiting Senna (Sennosides 8.6 Mg Tablet) 8.6 mg PO DAILY [facility] Last Admin: 01/17/21 08:59 Dose: 8.6 mg Documented by: SHAMA Sodium Chloride (0.9 % Sodium Chloride Flush 3 Ml Syringe) 3 ml IVFLUSH QSHIFT [facility] Last Admin: 01/17/21 08:59 Dose: 3 ml Documented by: SHAMA Tamsulosin HCl (Tamsulosin Hcl 0.4 Mg Capsule) 0.8 mg PO BEDTIME [facility] Last Admin: 01/16/21 19:29 Dose: 0.8 mg Documented by: MEAGHAN Thiamine HCl (Thiamine Hcl 100 Mg Tablet) 100 mg PO DAILY [facility] Last Admin: 01/17/21 08:59 Dose: 100 mg Documented by: SHAMA Labs CBC & Chem 7: 01/16/21 04:51 01/16/21 04:51 Assessment and Plan (1) Urinary retention with incomplete bladder emptying: Status: Acute Assessment and Plan: 70yo M who was on geriatric psychiatry unit and treated for Staphylococcus epidermidis UTI with levofloxacin, progressively declined and admitted to Med/Surg and found to have C. diff diarrhea urinary retention - initially required lebron that has now been removed, - continue tamsulosin? + finasteride - Straight cath PRN - Urology evaluated pt- apparently this is chronic and pt eventually empties bladder whenever it is full Clostridium difficile colitis? -- CT abd showed -Thick-walled rectum and rectosigmoid colon with adjacent inflammatory change consistent with colitis?? - Improving - was on PO Vanco for 3 days but switched to Dificid, completed treatment - continue above management Distended gallbladder with thickened wall and surrounding edema but no ruq pain , lfts; wnl - acute cholecystsitis ruled out - Gi eval noted -continue current management UTI- treated and resolved mood disorder- clonazepam, olanazpine, escitalopram transferred from inpatient psych for UTI/delirium, now resolved assessed by psych, no need for further inpatient psych dispo- awaiting placement dvt ppx - lovenox Quality Stroke Does the patient have a stroke diagnosis?: No VTE Prior VTE?: No VTE Risk Level:: Medical - moderate - high VTE Device Contraindication: Treatment Not Indicated VTE Drug Contraindication: N/A - Med Ordered
[2021-01-17] MEDS: OLANZapine 10 MG TABLET PO (19:43)
[2021-01-17] MEDS: Tamsulosin HCL 0.4 MG CAPSULE 0.8 MG PO (19:43)
[2021-01-17] MEDS: Enoxaparin Sodium 40 MG/0.4 ML SYRINGE SUBCUT (19:43)
[2021-01-18] VITALS (7 sets, daily range): BP systolic 98–126; BP diastolic 59–76; PULSE 65–89; RESP 17–18; TEMP 36.2–37.1; O2SAT 97–100
[2021-01-18] MEDS: 0.9 % Sodium Chloride Flush 3 ML SYRINGE IVFLUSH ×3 (00:10→16:41)
[2021-01-18] MEDS: OLANZapine 5 MG TABLET PO (09:51)
[2021-01-18] MEDS: Sennosides 8.6 MG TABLET PO (09:51)
[2021-01-18] MEDS: Finasteride 5 MG TABLET PO (09:51)
[2021-01-18] MEDS: Memantine HCl 5 MG TABLET PO (09:51)
[2021-01-18] MEDS: Atorvastatin Calcium 20 MG TABLET PO (09:51)
[2021-01-18] MEDS: Thiamine HCL 100 MG TABLET PO (09:51)
[2021-01-18] MEDS: Folic Acid 1 MG TABLET PO (09:51)
[2021-01-18] MEDS: Escitalopram Oxalate 20 MG TABLET PO (09:51)
--- NOTE | 2021-01-18 10:12 | P.PNIM_ITS ---
Subjective Subjective Date of Service: 01/18/21 Interval History: follow up for cdif reporting fewer diarrhea denies abdominal pain Review of Systems Gen: no fever Resp: no sob, no cough CV: no chest, no WALKER, no leg edema GI: No n/v, no abd pain Physical Exam Vital Signs: Vital Signs: Last Vital Signs Temp 97.2 F 01/18/21 07:49 Pulse 70 01/18/21 09:02 Resp 18 01/18/21 07:49 BP 126/76 01/18/21 09:02 Pulse Ox 100 01/18/21 09:02 Body Mass Index 19.5 Const: Other: General: AO X 1, no acute distress Resp: CTA bilateral CVS: S1,S2,RRR GI: +BS, NT, no distention Skin: No rash Neuro: motor grossly intact Psych: flat Objective Data Active Medications Acetaminophen (Acetaminophen 325 Mg Tablet) 650 mg PO Q6H PRN PRN Reason: Pain, Mild (Pain Scale 1-3) Last Admin: 01/04/21 19:59 Dose: 650 mg Documented by: TANYA Atorvastatin Calcium (Atorvastatin Calcium 20 Mg Tablet) 20 mg PO DAILY [facility] Last Admin: 01/18/21 09:51 Dose: 20 mg Documented by: PEGGY Enoxaparin Sodium (Enoxaparin Sodium 40 Mg/0.4 Ml Syringe) 40 mg SUBCUT Q24H [facility] Last Admin: 01/17/21 19:43 Dose: 40 mg Documented by: TANYA Escitalopram Oxalate (Escitalopram Oxalate 20 Mg Tablet) 20 mg PO DAILY [facility] Last Admin: 01/18/21 09:51 Dose: 20 mg Documented by: PEGGY Finasteride (Finasteride 5 Mg Tablet) 5 mg PO DAILY [facility] Last Admin: 01/18/21 09:51 Dose: 5 mg Documented by: PEGGY Folic Acid (Folic Acid 1 Mg Tablet) 1 mg PO DAILY [facility] Last Admin: 01/18/21 09:51 Dose: 1 mg Documented by: PEGGY Memantine (Memantine Hcl 5 Mg Tablet) 5 mg PO DAILY [facility] Last Admin: 01/18/21 09:51 Dose: 5 mg Documented by: PEGGY Olanzapine (Olanzapine 5 Mg Tablet) 5 mg PO DAILY [facility] Last Admin: 01/18/21 09:51 Dose: 5 mg Documented by: PEGGY Olanzapine (Olanzapine 10 Mg Tablet) 10 mg PO BEDTIME [facility] Last Admin: 01/17/21 19:43 Dose: 10 mg Documented by: TANYA Ondansetron HCl (Ondansetron Hcl 4 Mg/2 Ml Vial) 4 mg IVPUSH Q8H PRN PRN Reason: Nausea and Vomiting Senna (Sennosides 8.6 Mg Tablet) 8.6 mg PO DAILY [facility] Last Admin: 01/18/21 09:51 Dose: 8.6 mg Documented by: PEGGY Sodium Chloride (0.9 % Sodium Chloride Flush 3 Ml Syringe) 3 ml IVFLUSH QSHIFT [facility] Last Admin: 01/18/21 09:52 Dose: 3 ml Documented by: PEGGY Tamsulosin HCl (Tamsulosin Hcl 0.4 Mg Capsule) 0.8 mg PO BEDTIME [facility] Last Admin: 01/17/21 19:43 Dose: 0.8 mg Documented by: TANYA Thiamine HCl (Thiamine Hcl 100 Mg Tablet) 100 mg PO DAILY [facility] Last Admin: 01/18/21 09:51 Dose: 100 mg Documented by: PEGGY Labs CBC & Chem 7: 01/16/21 04:51 01/16/21 04:51 Assessment and Plan (1) Urinary retention with incomplete bladder emptying: Status: Acute Assessment and Plan: 70yo M who was on geriatric psychiatry unit and treated for Staphylococcus epidermidis UTI with levofloxacin, progressively declined and admitted to Med/Surg and found to have C. diff diarrhea urinary retention - initially required lebron that has now been removed, - continue tamsulosin? + finasteride - Straight cath PRN - Urology evaluated pt- apparently this is chronic and pt eventually empties bladder whenever it is full Clostridium difficile colitis? -- CT abd showed -Thick-walled rectum and rectosigmoid colon with adjacent inflammatory change consistent with colitis?? - Improving - was on PO Vanco for 3 days but switched to Dificid, completed treatment - continue above management Distended gallbladder with thickened wall and surrounding edema but no ruq pain , lfts; wnl - acute cholecystsitis ruled out - Gi eval noted -continue current management UTI- treated and resolved mood disorder- clonazepam, olanazpine, escitalopram transferred from inpatient psych for UTI/delirium, now resolved assessed by psych, no need for further inpatient psych dispo- awaiting placement dvt ppx - lovenox Discharge when bed available Quality Stroke Does the patient have a stroke diagnosis?: No VTE Prior VTE?: No VTE Risk Level:: Medical - moderate - high VTE Device Contraindication: Treatment Not Indicated VTE Drug Contraindication: N/A - Med Ordered
--- NOTE | 2021-01-18 15:00 | MHC.CLN ---
Addendum entered by Jo Beth RD 01/18/21 15:02: INTAKE SOME RECENT MEALS 25%. Original Note: F/U DIET=REGULAR, LACTOSE FREE. SUPPLEMENT ENSURE CLEAR BID (480 KCAL, 16 G PROTEIN). STAGE II TO COCCYX; REDNESS TO PERINEAL. INTAKE MOST MEALS 50-100% WITH MANY 100%. CONTINUE TO FOLLOW INTAKE AND WOUND. RD TO FOLLOW WEEKLY.
[2021-01-18] MEDS: Enoxaparin Sodium 40 MG/0.4 ML SYRINGE SUBCUT (20:34)
[2021-01-18] MEDS: Tamsulosin HCL 0.4 MG CAPSULE 0.8 MG PO (20:35)
[2021-01-18] MEDS: OLANZapine 10 MG TABLET PO (20:35)
--- NOTE | 2021-01-18 20:52 | PC.NURSE ---
P IV outdated I dr. Catalan notified E IV removed,ok to keep it out
[2021-01-19 03:59] VITALS: BP 106/57; PULSE 68; RESP 17; TEMP 36.2; O2SAT 99
[2021-01-19] MEDS: Escitalopram Oxalate 20 MG TABLET PO (07:22)
[2021-01-19] MEDS: Thiamine HCL 100 MG TABLET PO (07:23)
[2021-01-19] MEDS: Atorvastatin Calcium 20 MG TABLET PO (07:23)
[2021-01-19] MEDS: Finasteride 5 MG TABLET PO (07:23)
[2021-01-19] MEDS: OLANZapine 5 MG TABLET PO (07:23)
[2021-01-19] MEDS: Folic Acid 1 MG TABLET PO (07:23)
[2021-01-19] MEDS: Memantine HCl 5 MG TABLET PO (07:23)
[2021-01-19 07:24] VITALS: BP 132/77; PULSE 72; RESP 18; TEMP 36.2; O2SAT 99
--- NOTE | 2021-01-19 10:12 | PC.NURSE ---
Skin assessment. Patient has an almost healed stage 2 pressure ulcer on sacrum. Triad applied and left open to air. No other skin issues at this time.
--- NOTE | 2021-01-19 11:35 | MHC.CM.PN ---
nurse physician primary care sports medicine note electronic medical record reviewed, late entry, t/c received from Francesca at [facility] this was faxed to her , 3;30 pm telephone call to Francesca to see if she had any answers as yet from her director radio, erick for call back. rehab, she informed me that they have a new director radio and she was asking for clinical to be refaxed for her to review. called back at 3;30 and left message for francesca to see if she had any answeres of acceptance or denial for admission ,erick for call back .
[2021-01-19 11:43] VITALS: BP 108/61; PULSE 66; RESP 18; TEMP 36.3; O2SAT 100
--- NOTE | 2021-01-19 13:11 | MHC.CM.PN ---
THIS FIREBRICK AND REFRACTORY TILE REPAIRER AND COVERING FUR DYER MET WITH PATIENT TO DISCUSS DISCHARGE PLAN. PATIENT STATES THAT LONG THIS INFECTION IS GOING ON, I AM NOT GOING ANYWHERE IT WAS EXPLAINED TO PATIENT THAT HE IS READY FOR THE NEXT LEVEL OF CARE (HOME WITH SERVICES VERSUS SHORT TERM REHAB) PATIENT CHOOSES STR BUT REFUSES TO ASSIGN A HCP AGENT. WHEN ASKED IF HE WOULD LIKE TIME TO THINK ABOUT AN AGENT, PATIENT BEGINS TO YELL, STATING IN NO WAY OR NO HOW WILL I BE CHOOSING A HCP . PATIENT IS AWARE THAT HE WILL NEED A HCP IN ORDER TO BE OFFERED A BED AT A LOWER LEVEL OF CARE AND STILL IS REFUSING. PATIENT AWARE THAT ATTEMPTS WILL BE MADE TO SECURE SERVICES IN THE HOME. PATIENT TELLS THIS FIREBRICK AND REFRACTORY TILE REPAIRER YOU TWO ARE WHO THEY HIRE TO KICK PEOPLE OUT OF HERE . PATIENT AWARE THAT EFFORTS ARE BEING MADE TO DISCHARGE PATIENT SAFELY.
--- NOTE | 2021-01-19 13:39 | MHC.CM.PN ---
PER CONVERSATION WITH CHOSEN CONTACT, CHILO ([phone]) PATIENT HAS NO [facility] SERVICES IN THE HOME. HE HAS BEEN ACTIVE WITH [facility] FOR CLEANING AND COOKING SERVICES. PATIENT DRIVES AND LIKES TO COLLECT CANES AND WALKING STICKS,SO THESE DEVICES ARE IN THE HOME. CHILO ASKS THAT HE BE CONNECTED TO FELIX THIS TECHNOLOGY DIRECTOR UNSURE WHO THAT CONTACT IS. CHILO REPORTS THAT SHE IS A AIR POLLUTION INSPECTOR IN THE GERIATRIC PSYCHIATRIC UNIT. BROTHER IS AWARE THAT PATIENT IS ON MED SURG AND NO LONGER ON [facility] PSYCH. WHEN ASKED WHY, AND FOR HOW LONG, CHILO MADE AWARE THAT THIS TECHNOLOGY DIRECTOR WOULD NEED PERMISSION FROM PATIENT TO DISCUSS HIS STATUS. CHILO IS AWARE AND IN AGREEMENT BUT DOES NOT FEEL THAT EFFORTS NEED TO BE MADE TOWARDS THIS. IF PATIENT WANTS TO ASSIGN A HCP OR ASKS TO SPEAK WITH CHILO, CASE MANAGEMENT CAN ASSIST
--- NOTE | 2021-01-19 14:06 | MHC.CM.PN ---
Addendum entered by Shaina Andersen 01/19/21 15:21: RECEIVED CALL FROM STEVE AT [facility] ASKING ABOUT NUMBER OF STOOLS PER DAY AND CONSISTENCY, ADMINISTRATION TO REVIEW FURTHER , I INFORMED HER THAT THE [facility] CONFIRMED THAT PATIENT RECIVED COVID VACINATIONS X2 THE FIRST 04/01/20 AND 04/29/20.. IF ACCEPTED STEVE REPORTED THEY WOULD NOT BE ABLE TO ACCEPT HIM UNTIL NEXT T SHE WILL CALL BACK ON TO LET US KNOW IF PATIENT HAS BEEN ACCEPTED BUT THEY WOULD NOT BE ABLE TAKE HIM IUNTIL NEXT MONDAY INTERMEDIATE Addendum entered by Shanice Boothe 01/19/21 14:33: CALL TO [facility] [phone], WHO IS FAMILIAR WITH PATIENT AND HIS NEEDS AGENCY IS WILLING TO OFFER SERVICES IN THE HOME AGAIN IF OKAYED BY THE [facility]. PREVIOUSLY, AGENCY CARED FOR PATIENT'S WOUNDS. Original Note: PER CASE MANAGEMENT CONVERSATION WITH THE [place] EST[facility]AN (ANNIA [phone]) PATIENT WAS ONCE ACTIVE WITH [facility] HE COULD POSSIBLY HAVE THESE SERVICES AGAIN IF THERE IS AN ACCEPTING AGENCY AND A REVIEW OF NEEDS COMPLETED ANNIA ALSO SUGGESTS A HOME ASSESSMENT WHICH CAN BE DONE BY ACCEPTING VNA (IF ONE IS SECURED). PATIENT IS AWARE THAT WITHOUT ANY SNF BED OFFERS, EFFORTS ARE BEING MADE TO SEND PATIENT BACK HOME WITH AN INCREASE IN SERVICES.
[2021-01-19 15:28] VITALS: BP 89/56; PULSE 75; RESP 14; TEMP 36.2; O2SAT 99
--- NOTE | 2021-01-19 15:41 | HO.PM.IMPN ---
Subjective Subjective Date of Service: 01/19/21 Interval History: c diff Review of Systems diarrhae improving denies any chest pain or shortness of breath or fever chills. Physical Exam Vital Signs: Vital Signs: Last Vital Signs Temp 97.1 F 01/19/21 15:28 Pulse 75 01/19/21 15:28 Resp 14 01/19/21 15:28 BP 89/56 L 01/19/21 15:28 Pulse Ox 99 01/19/21 15:28 Body Mass Index 19.5 General: Awake , alert, no acute distress Resp:? CTA bilateral CVS: S1,S2,RRR GI: +BS, NT, no distention Skin: No rash Neuro:? motor grossly intact Psych: flat ? Objective Data Active Medications Acetaminophen (Acetaminophen 325 Mg Tablet) 650 mg PO Q6H PRN PRN Reason: Pain, Mild (Pain Scale 1-3) Last Admin: 01/04/21 19:59 Dose: 650 mg Documented by: TANYA Atorvastatin Calcium (Atorvastatin Calcium 20 Mg Tablet) 20 mg PO DAILY [facility] Last Admin: 01/19/21 07:23 Dose: 20 mg Documented by: LÓPEZ Enoxaparin Sodium (Enoxaparin Sodium 40 Mg/0.4 Ml Syringe) 40 mg SUBCUT Q24H [facility] Last Admin: 01/18/21 20:34 Dose: 40 mg Documented by: HARRIS Escitalopram Oxalate (Escitalopram Oxalate 20 Mg Tablet) 20 mg PO DAILY [facility] Last Admin: 01/19/21 07:22 Dose: 20 mg Documented by: LÓPEZ Finasteride (Finasteride 5 Mg Tablet) 5 mg PO DAILY [facility] Last Admin: 01/19/21 07:23 Dose: 5 mg Documented by: LÓPEZ Folic Acid (Folic Acid 1 Mg Tablet) 1 mg PO DAILY [facility] Last Admin: 01/19/21 07:23 Dose: 1 mg Documented by: LÓPEZ Sodium Chloride (Ns) 1,000 mls @ 100 mls/hr IV .Q10H [facility] Memantine (Memantine Hcl 5 Mg Tablet) 5 mg PO DAILY [facility] Last Admin: 01/19/21 07:23 Dose: 5 mg Documented by: LÓPEZ Olanzapine (Olanzapine 5 Mg Tablet) 5 mg PO DAILY [facility] Last Admin: 01/19/21 07:23 Dose: 5 mg Documented by: LÓPEZ Olanzapine (Olanzapine 10 Mg Tablet) 10 mg PO BEDTIME [facility] Last Admin: 01/18/21 20:35 Dose: 10 mg Documented by: HARRIS Ondansetron HCl (Ondansetron Hcl 4 Mg/2 Ml Vial) 4 mg IVPUSH Q8H PRN PRN Reason: Nausea and Vomiting Senna (Sennosides 8.6 Mg Tablet) 8.6 mg PO DAILY [facility] Last Admin: 01/19/21 07:30 Dose: Not Given Documented by: LÓPEZ Non-Admin Reason: N/A Sodium Chloride (0.9 % Sodium Chloride Flush 3 Ml Syringe) 3 ml IVFLUSH QSHIFT [facility] Last Admin: 01/19/21 07:21 Dose: Not Given Documented by: LÓPEZ Non-Admin Reason: No Access Tamsulosin HCl (Tamsulosin Hcl 0.4 Mg Capsule) 0.8 mg PO BEDTIME [facility] Last Admin: 01/18/21 20:35 Dose: 0.8 mg Documented by: HARRIS Thiamine HCl (Thiamine Hcl 100 Mg Tablet) 100 mg PO DAILY [facility] Last Admin: 01/19/21 07:23 Dose: 100 mg Documented by: LÓPEZ Labs CBC & Chem 7: 01/16/21 04:51 01/16/21 04:51 Assessment and Plan (1) C. difficile diarrhea: Status: Acute Assessment and Plan: 70yo M who was on geriatric psychiatry unit and treated for Staphylococcus epidermidis UTI with levofloxacin, progressively declined and admitted to Med/Surg and found to have C. diff diarrhea urinary retention - initially required lebron that has now been removed, - continue tamsulosin? + finasteride - Straight cath PRN - Urology evaluated pt- apparently this is chronic and pt eventually empties bladder whenever it is full Clostridium difficile colitis? -- CT abd showed -Thick-walled rectum and rectosigmoid colon with adjacent inflammatory change consistent with colitis?? - Improving - was on PO Vanco for 3 days but switched to Dificid, completed treatment - continue above management Distended gallbladder with thickened wall and surrounding edema but no ruq pain , lfts; wnl - acute cholecystsitis ruled out - Gi eval noted -continue current management UTI- treated and resolved mood disorder- clonazepam, olanazpine, escitalopram transferred from inpatient psych for UTI/delirium, now resolved assessed by psych, no need for further inpatient psych Quality Stroke Does the patient have a stroke diagnosis?: No VTE Prior VTE?: No VTE Risk Level:: Medical - moderate - high VTE Device Contraindication: Treatment Not Indicated VTE Drug Contraindication: N/A - Med Ordered
[2021-01-19 15:54] VITALS: BP 106/60; PULSE 83
[2021-01-19 19:38] VITALS: BP 96/58; PULSE 82; RESP 14; TEMP 36.9; O2SAT 96
[2021-01-19] MEDS: NeoMY/Polymyx/Bacit/HC Oph Oin 3.5 GM TUBE 0.5 INCH EYE-RIGHT (20:03)
[2021-01-19] MEDS: Enoxaparin Sodium 40 MG/0.4 ML SYRINGE SUBCUT (20:03)
[2021-01-19] MEDS: OLANZapine 10 MG TABLET PO (20:03)
[2021-01-19] MEDS: Tamsulosin HCL 0.4 MG CAPSULE 0.8 MG PO (20:03)
[2021-01-20] VITALS (7 sets, daily range): BP systolic 95–123; BP diastolic 60–76; PULSE 71–91; RESP 15–18; TEMP 36.1–37.4; O2SAT 97–100
--- NOTE | 2021-01-20 07:35 | P.PNIM_ITS ---
Subjective Subjective Date of Service: 01/21/21 Interval History: diarrahae Review of Systems diarrhea improving, denies abdominal pain. Eye itchiness also improving as per patient. Physical Exam Vital Signs: Vital Signs: Last Vital Signs Temp 98.7 F 01/20/21 07:27 Pulse 75 01/20/21 07:27 Resp 18 01/20/21 07:27 BP 123/76 01/20/21 07:27 Pulse Ox 99 01/20/21 07:27 Body Mass Index 19.5 General: Awake , alert, no acute distress eyes right eye itchiness improving , no discharge or erythema Resp:? CTA bilateral CVS: S1,S2,RRR GI: +BS, NT, no distention Skin: No rash Neuro:? motor grossly intact Psych: flat Objective Data Active Medications Acetaminophen (Acetaminophen 325 Mg Tablet) 650 mg PO Q6H PRN PRN Reason: Pain, Mild (Pain Scale 1-3) Last Admin: 01/04/21 19:59 Dose: 650 mg Documented by: TANYA Atorvastatin Calcium (Atorvastatin Calcium 20 Mg Tablet) 20 mg PO DAILY [facility] Last Admin: 01/19/21 07:23 Dose: 20 mg Documented by: LÓPEZ Enoxaparin Sodium (Enoxaparin Sodium 40 Mg/0.4 Ml Syringe) 40 mg SUBCUT Q24H [facility] Last Admin: 01/19/21 20:03 Dose: 40 mg Documented by: MEAGHAN Escitalopram Oxalate (Escitalopram Oxalate 20 Mg Tablet) 20 mg PO DAILY [facility] Last Admin: 01/19/21 07:22 Dose: 20 mg Documented by: LÓPEZ Finasteride (Finasteride 5 Mg Tablet) 5 mg PO DAILY [facility] Last Admin: 01/19/21 07:23 Dose: 5 mg Documented by: LÓPEZ Folic Acid (Folic Acid 1 Mg Tablet) 1 mg PO DAILY [facility] Last Admin: 01/19/21 07:23 Dose: 1 mg Documented by: LÓPEZ Memantine (Memantine Hcl 5 Mg Tablet) 5 mg PO DAILY [facility] Last Admin: 01/19/21 07:23 Dose: 5 mg Documented by: LÓPEZ Neomycin/Polymyxin/Bacitr/Hydrocort (Neomy/Polymyx/Bacit/Hc Oph Oin 3.5 Gm Tube) 0.5 inch EYE-RIGHT QID [facility] Last Admin: 01/19/21 20:03 Dose: 0.5 inch Documented by: MEAGHAN Olanzapine (Olanzapine 5 Mg Tablet) 5 mg PO DAILY [facility] Last Admin: 01/19/21 07:23 Dose: 5 mg Documented by: LÓPEZ Olanzapine (Olanzapine 10 Mg Tablet) 10 mg PO BEDTIME [facility] Last Admin: 01/19/21 20:03 Dose: 10 mg Documented by: MEAGHAN Ondansetron HCl (Ondansetron Hcl 4 Mg/2 Ml Vial) 4 mg IVPUSH Q8H PRN PRN Reason: Nausea and Vomiting Senna (Sennosides 8.6 Mg Tablet) 8.6 mg PO DAILY [facility] Last Admin: 01/19/21 07:30 Dose: Not Given Documented by: LÓPEZ Non-Admin Reason: N/A Sodium Chloride (0.9 % Sodium Chloride Flush 3 Ml Syringe) 3 ml IVFLUSH QSHIFT [facility] Last Admin: 01/19/21 20:03 Dose: Not Given Documented by: MEAGHAN Non-Admin Reason: No Access Tamsulosin HCl (Tamsulosin Hcl 0.4 Mg Capsule) 0.8 mg PO BEDTIME [facility] Last Admin: 01/19/21 20:03 Dose: 0.8 mg Documented by: MEAGHAN Thiamine HCl (Thiamine Hcl 100 Mg Tablet) 100 mg PO DAILY [facility] Last Admin: 01/19/21 07:23 Dose: 100 mg Documented by: LÓPEZ Labs CBC & Chem 7: 01/16/21 04:51 01/16/21 04:51 Assessment and Plan (1) Diarrhea: Status: Acute Assessment and Plan: 70yo M who was on geriatric psychiatry unit and treated for Staphylococcus epidermidis UTI with levofloxacin, progressively declined and admitted to Med/Surg and found to have C. diff diarrhea 1.urinary retention - initially required lebron that has now been removed, - continue tamsulosin? + finasteride - Straight cath PRN - Urology evaluated pt- apparently this is chronic and pt eventually empties bladder whenever it is full Clostridium difficile colitis? -- CT abd showed -Thick-walled rectum and rectosigmoid colon with adjacent inflammatory change consistent with colitis?? - Improving - was on PO Vanco for 3 days but switched to Dificid, completed treatment - continue above management Distended gallbladder with thickened wall and surrounding edema but no ruq pain , lfts; wnl - acute cholecystsitis ruled out - Gi eval noted -continue current management UTI- treated and resolved mood disorder- clonazepam, olanazpine, escitalopram Right eye corneal abrasion?: because scartching eyes the time. Improving as per patient itchiness gilbert. Strongly advised him to avoid scratching continue antibiotic ointment for the eye. transferred from inpatient psych for UTI/delirium, now resolved assessed by psych, no need for further inpatient psych Quality Stroke Does the patient have a stroke diagnosis?: No VTE Prior VTE?: No VTE Risk Level:: Medical - moderate - high VTE Device Contraindication: Treatment Not Indicated VTE Drug Contraindication: N/A - Med Ordered
[2021-01-20] MEDS: OLANZapine 5 MG TABLET PO (11:28)
[2021-01-20] MEDS: Folic Acid 1 MG TABLET PO (11:28)
[2021-01-20] MEDS: NeoMY/Polymyx/Bacit/HC Oph Oin 3.5 GM TUBE 0.5 INCH EYE-RIGHT ×3 (11:28→22:39)
[2021-01-20] MEDS: Finasteride 5 MG TABLET PO (11:28)
[2021-01-20] MEDS: Atorvastatin Calcium 20 MG TABLET PO (11:29)
[2021-01-20] MEDS: Memantine HCl 5 MG TABLET PO (11:29)
[2021-01-20] MEDS: Escitalopram Oxalate 20 MG TABLET PO (11:29)
[2021-01-20] MEDS: Thiamine HCL 100 MG TABLET PO (11:29)
--- NOTE | 2021-01-20 14:13 | MHC.CM.PN ---
Addendum entered by Carlos Jones 01/20/21 14:24: i have made a call to pt's contact: LINDA ([phone]) do determine if he may have any influence c patient in getting him to go to SNF, perhaps linda could come in to visit patient and help him in his decision making. waiting for return call at this time. cm to cont. to follow. Original Note: i spoke norberto miller cm at the [facility] in [place], she confirmed that she will auth patient to go to [facility]. she told me he cannot return home as he needs to much help to be home. she reminded me that patient will need to have transportation provided by the [facility]. i will let [facility] know that auth will be granted once they have a bed. there is a cm note mentioning that [facility] bed [facility] him next tu. although it is unclear if patient will cooperate and go there. this information has been shared c hospitalist. cm to cont. to follow.
--- NOTE | 2021-01-20 14:57 | MHC.CM.PN ---
waiting for return call at this time. cm to cont. to follow. Original Note: i spoke [facility]to miller cm at [facility] [place], she confirmed that she will auth patient to go to [facility]. she told me he cannot return home as he needs to much help to be home. she reminded me that patient will need to have transportation provided by the [facility]. i will let [facility] know that auth will be granted once they have a bed. there is a cm note mentioning that [facility] bed [facility] him next tu. although it is unclear if patient will cooperate and go there. this information has been shared c hospitalist. i have made a call to pt's brother: LINDA ([phone]) to determine if he may have any influence c patient in getting him to go to SNF, linda is coming in tomorrow, 01/21/21, to visit his brother and promote dc plan to snf - specifically [facility]. i did ask linda if he would touch base c the CM before he left. cm to cont. to follow.
[2021-01-20] MEDS: 0.9 % Sodium Chloride Flush 3 ML SYRINGE IVFLUSH (16:17)
[2021-01-20] MEDS: Tamsulosin HCL 0.4 MG CAPSULE 0.8 MG PO (20:59)
[2021-01-20] MEDS: OLANZapine 10 MG TABLET PO (20:59)
[2021-01-20] MEDS: Enoxaparin Sodium 40 MG/0.4 ML SYRINGE SUBCUT (21:00)
[2021-01-21 04:00] VITALS: BP 100/63; PULSE 73; RESP 17; TEMP 36.9; O2SAT 97
[2021-01-21 07:53] VITALS: BP 108/66; PULSE 78; RESP 18; TEMP 37.1; O2SAT 98
[2021-01-21] MEDS: Finasteride 5 MG TABLET PO (08:37)
[2021-01-21] MEDS: Memantine HCl 5 MG TABLET PO (08:37)
[2021-01-21] MEDS: Atorvastatin Calcium 20 MG TABLET PO (08:37)
[2021-01-21] MEDS: Thiamine HCL 100 MG TABLET PO (08:37)
[2021-01-21] MEDS: Folic Acid 1 MG TABLET PO (08:37)
[2021-01-21] MEDS: OLANZapine 5 MG TABLET PO (08:37)
[2021-01-21] MEDS: Sennosides 8.6 MG TABLET PO (08:37)
[2021-01-21] MEDS: Escitalopram Oxalate 20 MG TABLET PO (08:37)
[2021-01-21] MEDS: NeoMY/Polymyx/Bacit/HC Oph Oin 3.5 GM TUBE 0.5 INCH EYE-RIGHT ×4 (08:45→20:55)
--- NOTE | 2021-01-21 09:58 | MHC.CM.PN ---
Addendum entered by Shanice Boothe 01/21/21 12:44: CALL BACK FROM STEV[facility]. [facility] IS ONLY A LTC FACILTY. PATIENT IS ONLY CONSIDERED FOR LTC WITH A POTENTIAL FOR FRIDAY 01/26 BED OFFER (PENDING NO MORE DIARRHEA) STEVE STRONGLY SUGGESTS HCP COMPLETION SHE IS AWARE THAT BROTHER CHILO IS EXPECTED IN TODAY. IF PATIENT REFUSES TRANSFER TO FACILITY, PLAN MAY BE HOME WITH SERVICES THERE HAS BEEN NO QUESTION OF COMPETENCY COVERING RN CM MADE AWARE. Original Note: [phone] THIS CHARGE AUDITOR IS QUESTIONING IF PLAN IF CARE IS STR OR LTC, PATIENT IS AMBULATING AND ABLE TO SELF-TOILET. CONTACT NUMBER FOR THIS CHARGE AUDITOR LEFT ON VOICEMAIL.
--- NOTE | 2021-01-21 11:03 | HO.PM.IMPN ---
Subjective Subjective Date of Service: 01/22/21 Interval History: diarrhae Review of Systems Diarrhea improving, denies any abdominal pain. Says eye itching is also improving. Physical Exam Vital Signs: Vital Signs: Last Vital Signs Temp 98.8 F 01/21/21 07:53 Pulse 78 01/21/21 07:53 Resp 18 01/21/21 07:53 BP 108/66 01/21/21 07:53 Pulse Ox 98 01/21/21 07:53 BMI result Body Mass Index 19.5 General: Awake , alert, no acute distress Resp:? CTA bilateral CVS: S1,S2,RRR GI: +BS, NT, no distention Skin: No rash Neuro:? motor grossly intact Psych: flat Objective Data Active Medications Acetaminophen (Acetaminophen 325 Mg Tablet) 650 mg PO Q6H PRN PRN Reason: Pain, Mild (Pain Scale 1-3) Last Admin: 01/04/21 19:59 Dose: 650 mg Documented by: TANYA Atorvastatin Calcium (Atorvastatin Calcium 20 Mg Tablet) 20 mg PO DAILY [facility] Last Admin: 01/21/21 08:37 Dose: 20 mg Documented by: VIMAL Enoxaparin Sodium (Enoxaparin Sodium 40 Mg/0.4 Ml Syringe) 40 mg SUBCUT Q24H [facility] Last Admin: 01/20/21 21:00 Dose: 40 mg Documented by: RHIANNON Escitalopram Oxalate (Escitalopram Oxalate 20 Mg Tablet) 20 mg PO DAILY [facility] Last Admin: 01/21/21 08:37 Dose: 20 mg Documented by: VIMAL Finasteride (Finasteride 5 Mg Tablet) 5 mg PO DAILY [facility] Last Admin: 01/21/21 08:37 Dose: 5 mg Documented by: VIMAL Folic Acid (Folic Acid 1 Mg Tablet) 1 mg PO DAILY [facility] Last Admin: 01/21/21 08:37 Dose: 1 mg Documented by: VIMAL Memantine (Memantine Hcl 5 Mg Tablet) 5 mg PO DAILY [facility] Last Admin: 01/21/21 08:37 Dose: 5 mg Documented by: VIMAL Neomycin/Polymyxin/Bacitr/Hydrocort (Neomy/Polymyx/Bacit/Hc Oph Oin 3.5 Gm Tube) 0.5 inch EYE-RIGHT QID [facility] Last Admin: 01/21/21 08:45 Dose: 0.5 inch Documented by: VIMAL Olanzapine (Olanzapine 5 Mg Tablet) 5 mg PO DAILY [facility] Last Admin: 01/21/21 08:37 Dose: 5 mg Documented by: VIMAL Olanzapine (Olanzapine 10 Mg Tablet) 10 mg PO BEDTIME [facility] Last Admin: 01/20/21 20:59 Dose: 10 mg Documented by: RHIANNON Ondansetron HCl (Ondansetron Hcl 4 Mg/2 Ml Vial) 4 mg IVPUSH Q8H PRN PRN Reason: Nausea and Vomiting Senna (Sennosides 8.6 Mg Tablet) 8.6 mg PO DAILY [facility] Last Admin: 01/21/21 08:37 Dose: 8.6 mg Documented by: VIMAL Sodium Chloride (0.9 % Sodium Chloride Flush 3 Ml Syringe) 3 ml IVFLUSH QSHIFT [facility] Last Admin: 01/21/21 08:39 Dose: Not Given Documented by: VIMAL Non-Admin Reason: No Access Tamsulosin HCl (Tamsulosin Hcl 0.4 Mg Capsule) 0.8 mg PO BEDTIME [facility] Last Admin: 01/20/21 20:59 Dose: 0.8 mg Documented by: RHIANNON Thiamine HCl (Thiamine Hcl 100 Mg Tablet) 100 mg PO DAILY [facility] Last Admin: 01/21/21 08:37 Dose: 100 mg Documented by: VIMAL Labs CBC & Chem 7: 01/16/21 04:51 01/16/21 04:51 Assessment and Plan (1) Diarrhea: Status: Acute Assessment and Plan: 70yo M who was on geriatric psychiatry unit and treated for Staphylococcus epidermidis UTI with levofloxacin, progressively declined and admitted to Med/Surg and found to have C. diff diarrhea urinary retention - initially required lebron that has now been removed, - continue tamsulosin? + finasteride - Straight cath PRN - Urology evaluated pt- apparently this is chronic and pt eventually empties bladder whenever it is full Clostridium difficile colitis? -- CT abd showed -Thick-walled rectum and rectosigmoid colon with adjacent inflammatory change consistent with colitis?? - Improving - was on PO Vanco for 3 days but switched to Dificid, completed treatment - continue above management Distended gallbladder with thickened wall and surrounding edema but no ruq pain , lfts; wnl - acute cholecystsitis ruled out - Gi eval noted -continue current management UTI- treated and resolved mood disorder- clonazepam, olanazpine, escitalopram transferred from inpatient psych for UTI/delirium, now resolved assessed by psych, no need for further inpatient psych. Quality Stroke Does the patient have a stroke diagnosis?: No VTE Prior VTE?: No VTE Risk Level:: Medical - moderate - high VTE Device Contraindication: Treatment Not Indicated VTE Drug Contraindication: N/A - Med Ordered
[2021-01-21 11:25] VITALS: BP 108/66; PULSE 78; O2SAT 98
[2021-01-21 11:29] VITALS: BP 96/65; PULSE 74; RESP 18; TEMP 37.1; O2SAT 98
[2021-01-21 15:44] VITALS: BP 98/55; PULSE 82; RESP 17; TEMP 36.4; O2SAT 98
[2021-01-21 20:00] VITALS: BP 99/64; PULSE 79; RESP 16; TEMP 36.6; O2SAT 99
[2021-01-21] MEDS: OLANZapine 10 MG TABLET PO (20:49)
[2021-01-21] MEDS: Tamsulosin HCL 0.4 MG CAPSULE 0.8 MG PO (20:49)
[2021-01-21] MEDS: Enoxaparin Sodium 40 MG/0.4 ML SYRINGE SUBCUT (20:50)
[2021-01-22] VITALS (8 sets, daily range): BP systolic 94–120; BP diastolic 56–74; PULSE 74–94; RESP 16–18; TEMP 36.1–36.9; O2SAT 97–99
[2021-01-22] MEDS: Escitalopram Oxalate 20 MG TABLET PO (08:33)
[2021-01-22] MEDS: Atorvastatin Calcium 20 MG TABLET PO (08:33)
[2021-01-22] MEDS: Memantine HCl 5 MG TABLET PO (08:33)
[2021-01-22] MEDS: Folic Acid 1 MG TABLET PO (08:33)
[2021-01-22] MEDS: OLANZapine 5 MG TABLET PO (08:33)
[2021-01-22] MEDS: Thiamine HCL 100 MG TABLET PO (08:33)
[2021-01-22] MEDS: NeoMY/Polymyx/Bacit/HC Oph Oin 3.5 GM TUBE 0.5 INCH EYE-RIGHT ×3 (08:34→21:15)
[2021-01-22] MEDS: Finasteride 5 MG TABLET PO (08:34)
--- NOTE | 2021-01-22 09:57 | MHC.CLN ---
F/U PER [facility], PATIENT WILL TAKE SUPPLEMENT IF IT IS SENT ON MEAL TRAY. RECEIVING ENSURE CLEAR BID. CONTINUE SUPPLEMENT.
--- NOTE | 2021-01-22 10:04 | P.PNIM_ITS ---
Subjective Subjective Date of Service: 01/23/21 Interval History: follow up Review of Systems jene improved , denies new c/o Physical Exam Vital Signs: Vital Signs: Last Vital Signs Temp 97.8 F 01/22/21 07:47 Pulse 75 01/22/21 07:47 Resp 18 01/22/21 07:47 BP 111/74 01/22/21 07:47 Pulse Ox 98 01/22/21 07:47 BMI result Body Mass Index 19.5 General: Awake , alert, no acute distress Resp:? CTA bilateral CVS: S1,S2,RRR GI: +BS, NT, no distention Skin: No rash Neuro:? motor grossly intact Psych: flat Objective Data Active Medications Acetaminophen (Acetaminophen 325 Mg Tablet) 650 mg PO Q6H PRN PRN Reason: Pain, Mild (Pain Scale 1-3) Last Admin: 01/04/21 19:59 Dose: 650 mg Documented by: TANYA Atorvastatin Calcium (Atorvastatin Calcium 20 Mg Tablet) 20 mg PO DAILY [facility] Last Admin: 01/22/21 08:33 Dose: 20 mg Documented by: LÓPEZ Enoxaparin Sodium (Enoxaparin Sodium 40 Mg/0.4 Ml Syringe) 40 mg SUBCUT Q24H [facility] Last Admin: 01/21/21 20:50 Dose: 40 mg Documented by: RONEL Escitalopram Oxalate (Escitalopram Oxalate 20 Mg Tablet) 20 mg PO DAILY [facility] Last Admin: 01/22/21 08:33 Dose: 20 mg Documented by: LÓPEZ Finasteride (Finasteride 5 Mg Tablet) 5 mg PO DAILY [facility] Last Admin: 01/22/21 08:34 Dose: 5 mg Documented by: LÓPEZ Folic Acid (Folic Acid 1 Mg Tablet) 1 mg PO DAILY [facility] Last Admin: 01/22/21 08:33 Dose: 1 mg Documented by: LÓPEZ Memantine (Memantine Hcl 5 Mg Tablet) 5 mg PO DAILY [facility] Last Admin: 01/22/21 08:33 Dose: 5 mg Documented by: LÓPEZ Neomycin/Polymyxin/Bacitr/Hydrocort (Neomy/Polymyx/Bacit/Hc Oph Oin 3.5 Gm Tube) 0.5 inch EYE-RIGHT QID [facility] Last Admin: 01/22/21 08:34 Dose: 0.5 inch Documented by: LÓPEZ Olanzapine (Olanzapine 5 Mg Tablet) 5 mg PO DAILY [facility] Last Admin: 01/22/21 08:33 Dose: 5 mg Documented by: LÓPEZ Olanzapine (Olanzapine 10 Mg Tablet) 10 mg PO BEDTIME [facility] Last Admin: 01/21/21 20:49 Dose: 10 mg Documented by: RONEL Ondansetron HCl (Ondansetron Hcl 4 Mg/2 Ml Vial) 4 mg IVPUSH Q8H PRN PRN Reason: Nausea and Vomiting Senna (Sennosides 8.6 Mg Tablet) 8.6 mg PO DAILY [facility] Last Admin: 01/21/21 08:37 Dose: 8.6 mg Documented by: VIMAL Sodium Chloride (0.9 % Sodium Chloride Flush 3 Ml Syringe) 3 ml IVFLUSH QSHIFT [facility] Last Admin: 01/22/21 08:34 Dose: Not Given Documented by: LÓPEZ Non-Admin Reason: No Access Tamsulosin HCl (Tamsulosin Hcl 0.4 Mg Capsule) 0.8 mg PO BEDTIME [facility] Last Admin: 01/21/21 20:49 Dose: 0.8 mg Documented by: RONEL Thiamine HCl (Thiamine Hcl 100 Mg Tablet) 100 mg PO DAILY [facility] Last Admin: 01/22/21 08:33 Dose: 100 mg Documented by: LÓPEZ Labs CBC & Chem 7: 01/16/21 04:51 01/16/21 04:51 Assessment and Plan (1) C. difficile diarrhea: Status: Acute Assessment and Plan: 70yo M who was on geriatric psychiatry unit and treated for Staphylococcus epidermidis UTI with levofloxacin, progressively declined and admitted to Med/Surg and found to have C. diff diarrhea urinary retention - initially required lebron that has now been removed, - continue tamsulosin? + finasteride - Straight cath PRN - Urology evaluated pt- apparently this is chronic and pt eventually empties bladder whenever it is full Clostridium difficile colitis? -- CT abd showed -Thick-walled rectum and rectosigmoid colon with adjacent inflammatory change consistent with colitis?? - Improving - was on PO Vanco for 3 days but switched to Dificid, completed treatment - continue above management Distended gallbladder with thickened wall and surrounding edema but no ruq pain , lfts; wnl - acute cholecystsitis ruled out - Gi eval noted -continue current management UTI- treated and resolved mood disorder- clonazepam, olanazpine, escitalopram transferred from inpatient psych for UTI/delirium, now resolved assessed by psych, no need for further inpatient psych. Discuss with case management- home care agency may not see him until Monday, waiting for that. Quality Stroke Does the patient have a stroke diagnosis?: No VTE Prior VTE?: No VTE Risk Level:: Medical - moderate - high VTE Device Contraindication: Treatment Not Indicated VTE Drug Contraindication: N/A - Med Ordered
--- NOTE | 2021-01-22 12:47 | MHC.CM.PN ---
Addendum entered by Shanice Boothe 01/22/21 13:47: DETAILED MESSAGE LEFT FOR [facility] AT [phone] WHO PREVIOUSLY TOLD THIS FUR DRUMMER THAT THEY WOULD ACCEPT PATIENT BACK ONTO SERVICE LONG THE [place] IS WILLING TO GIVE INSURANCE AUTH. CONTACT NUMBER FOR THIS FUR DRUMMER LEFT ON VOICEMAIL. Original Note: THIS FUR DRUMMER MET WITH [facility] TO DISCUSS LTC VERSUS HOME WITH SERVICES. PATIENT REFUSES [facility] BED OFFER. HE REFUSES TO BE ANYWHERE [facility] CARE WHEN ASKED FOR PREFERENCE, PATIENT STATES I PREFER TO GO HOME WHEN ASKED FOR PERMISSION TO PLACE A REFERRAL FOR [facility] /HOME P.T., PATIENT STATES I PREFER THAT, YES . REFERRALS TO BE PLACED [facility] CURRENTLY CANNOT ACCEPT
--- NOTE | 2021-01-22 14:51 | MHC.CM.PN ---
[facility] IS FOLLOWING FOR START OF SERVICE NEXT WEEK. PLAN WILL BE TO [facility] FOR Monday01/25/21 [facility] CRANE TO BE UPDATED. CALL TO [facility] [place] @ [phone] WITH NO ANSWER OR [employer] CALL TO [facility] [place] [phone]. ANNIA STATES THAT SHE ONLY PROVIDES TRANSPORTATION TO A FACILITY. PATIENT WILL DC HOME VIA [facility] OR CHAIR [facility] OT TRANSFER THIS WEEKEND THERE IS NOT YET A SAFE DC PLAN. ANNIA IS AWARE THAT [facility] CRANE IS FOLLOWING AND THAT A CALL HAS BEEN MADE TO [facility].
[2021-01-22] MEDS: Tamsulosin HCL 0.4 MG CAPSULE 0.8 MG PO (21:14)
[2021-01-22] MEDS: OLANZapine 10 MG TABLET PO (21:14)
[2021-01-22] MEDS: Enoxaparin Sodium 40 MG/0.4 ML SYRINGE SUBCUT (21:14)
[2021-01-23 04:00] VITALS: BP 108/60; PULSE 78; RESP 17; TEMP 36.6; O2SAT 96
[2021-01-23 07:31] VITALS: BP 120/74; PULSE 79; RESP 18; TEMP 36.7; O2SAT 98
[2021-01-23 11:12] VITALS: BP 109/71; PULSE 84; RESP 18; TEMP 36.1; O2SAT 99
[2021-01-23] MEDS: NeoMY/Polymyx/Bacit/HC Oph Oin 3.5 GM TUBE 0.5 INCH EYE-RIGHT ×3 (12:12→19:23)
[2021-01-23] MEDS: Thiamine HCL 100 MG TABLET PO (12:14)
[2021-01-23] MEDS: Memantine HCl 5 MG TABLET PO (12:14)
[2021-01-23] MEDS: Atorvastatin Calcium 20 MG TABLET PO (12:14)
[2021-01-23] MEDS: Folic Acid 1 MG TABLET PO (12:14)
[2021-01-23] MEDS: Escitalopram Oxalate 20 MG TABLET PO (12:14)
[2021-01-23] MEDS: Finasteride 5 MG TABLET PO (12:14)
[2021-01-23] MEDS: OLANZapine 5 MG TABLET PO (12:14)
--- NOTE | 2021-01-23 12:36 | HO.PM.IMPN ---
Subjective Subjective Date of Service: 01/23/21 Interval History: follow-up Review of Systems patient denies any nausea vomiting or diarrhea or abdominal pain or any neweye complaints Physical Exam Vital Signs: Vital Signs: Last Vital Signs Temp 97.0 F 01/23/21 11:12 Pulse 84 01/23/21 11:12 Resp 18 01/23/21 11:12 BP 109/71 01/23/21 11:12 Pulse Ox 99 01/23/21 11:12 BMI result Body Mass Index 19.5 General: Awake , alert, no acute distress right /left : eye : noirritation or discharge. Resp:? CTA bilateral CVS: S1,S2,RRR GI: +BS, NT, no distention Skin: No rash Neuro:? motor grossly intact Psych: flat ? Objective Data Active Medications Acetaminophen (Acetaminophen 325 Mg Tablet) 650 mg PO Q6H PRN PRN Reason: Pain, Mild (Pain Scale 1-3) Last Admin: 01/04/21 19:59 Dose: 650 mg Documented by: TANYA Atorvastatin Calcium (Atorvastatin Calcium 20 Mg Tablet) 20 mg PO DAILY [facility] Last Admin: 01/23/21 12:14 Dose: 20 mg Documented by: DEXTER Enoxaparin Sodium (Enoxaparin Sodium 40 Mg/0.4 Ml Syringe) 40 mg SUBCUT Q24H [facility] Last Admin: 01/22/21 21:14 Dose: 40 mg Documented by: LITTLE Escitalopram Oxalate (Escitalopram Oxalate 20 Mg Tablet) 20 mg PO DAILY [facility] Last Admin: 01/23/21 12:14 Dose: 20 mg Documented by: DEXTER Finasteride (Finasteride 5 Mg Tablet) 5 mg PO DAILY [facility] Last Admin: 01/23/21 12:14 Dose: 5 mg Documented by: DEXTER Folic Acid (Folic Acid 1 Mg Tablet) 1 mg PO DAILY [facility] Last Admin: 01/23/21 12:14 Dose: 1 mg Documented by: DEXTER Memantine (Memantine Hcl 5 Mg Tablet) 5 mg PO DAILY [facility] Last Admin: 01/23/21 12:14 Dose: 5 mg Documented by: DEXTER Neomycin/Polymyxin/Bacitr/Hydrocort (Neomy/Polymyx/Bacit/Hc Oph Oin 3.5 Gm Tube) 0.5 inch EYE-RIGHT QID [facility] Last Admin: 01/23/21 12:18 Dose: Not Given Documented by: DEXTER Non-Admin Reason: am dose given late Olanzapine (Olanzapine 5 Mg Tablet) 5 mg PO DAILY [facility] Last Admin: 01/23/21 12:14 Dose: 5 mg Documented by: DEXTER Olanzapine (Olanzapine 10 Mg Tablet) 10 mg PO BEDTIME [facility] Last Admin: 01/22/21 21:14 Dose: 10 mg Documented by: LITTLE Ondansetron HCl (Ondansetron Hcl 4 Mg/2 Ml Vial) 4 mg IVPUSH Q8H PRN PRN Reason: Nausea and Vomiting Senna (Sennosides 8.6 Mg Tablet) 8.6 mg PO DAILY [facility] Last Admin: 01/23/21 12:14 Dose: Not Given Documented by: DEXTER Non-Admin Reason: loose stools Sodium Chloride (0.9 % Sodium Chloride Flush 3 Ml Syringe) 3 ml IVFLUSH QSHIFT [facility] Last Admin: 01/23/21 12:14 Dose: Not Given Documented by: DEXTER Non-Admin Reason: No Access Tamsulosin HCl (Tamsulosin Hcl 0.4 Mg Capsule) 0.8 mg PO BEDTIME [facility] Last Admin: 01/22/21 21:14 Dose: 0.8 mg Documented by: LITTLE Thiamine HCl (Thiamine Hcl 100 Mg Tablet) 100 mg PO DAILY [facility] Last Admin: 01/23/21 12:14 Dose: 100 mg Documented by: DEXTER Labs CBC & Chem 7: 01/16/21 04:51 01/16/21 04:51 Assessment and Plan (1) Diarrhea: Status: Acute Assessment and Plan: 70yo M who was on geriatric psychiatry unit and treated for Staphylococcus epidermidis UTI with levofloxacin, progressively declined and admitted to Med/Surg and found to have C. diff diarrhea urinary retention - initially required lebron that has now been removed, - continue tamsulosin? + finasteride - Straight cath PRN - Urology evaluated pt- apparently this is chronic and pt eventually empties bladder whenever it is full Clostridium difficile colitis? -- CT abd showed -Thick-walled rectum and rectosigmoid colon with adjacent inflammatory change consistent with colitis?? - Improved - was on PO Vanco for 3 days but switched to Dificid, completed treatment - continue above management Distended gallbladder with thickened wall and surrounding edema but no ruq pain , lfts; wnl - acute cholecystsitis ruled out - Gi eval noted -continue current management UTI- treated and resolved mood disorder- clonazepam, olanazpine, escitalopram transferred from inpatient psych for UTI/delirium, now resolved assessed by psych, no need for further inpatient psych. Discuss with case management- home care agency may not? see him until Monday, waiting for that. Quality Stroke Does the patient have a stroke diagnosis?: No VTE Prior VTE?: No VTE Risk Level:: Medical - moderate - high VTE Device Contraindication: Treatment Not Indicated VTE Drug Contraindication: N/A - Med Ordered
[2021-01-23 16:00] VITALS: BP 93/62; PULSE 75; RESP 18; TEMP 36.4; O2SAT 98
[2021-01-23] MEDS: Tamsulosin HCL 0.4 MG CAPSULE 0.8 MG PO (19:22)
[2021-01-23] MEDS: OLANZapine 10 MG TABLET PO (19:22)
[2021-01-23] MEDS: Enoxaparin Sodium 40 MG/0.4 ML SYRINGE SUBCUT (19:23)
[2021-01-23 20:00] VITALS: BP 94/56; PULSE 79; RESP 16; TEMP 36.5; O2SAT 97
[2021-01-23 23:32] VITALS: BP 100/60; PULSE 76; RESP 17; TEMP 37; O2SAT 97
[2021-01-24 04:00] VITALS: BP 100/67; PULSE 68; RESP 17; TEMP 37.1; O2SAT 97
[2021-01-24 06:52] VITALS: BP 102/66; PULSE 79; RESP 18; TEMP 36.1; O2SAT 100
[2021-01-24] MEDS: Escitalopram Oxalate 20 MG TABLET PO (09:50)
[2021-01-24] MEDS: Atorvastatin Calcium 20 MG TABLET PO (09:50)
[2021-01-24] MEDS: Memantine HCl 5 MG TABLET PO (09:50)
[2021-01-24] MEDS: Thiamine HCL 100 MG TABLET PO (09:50)
[2021-01-24] MEDS: OLANZapine 5 MG TABLET PO (09:51)
[2021-01-24] MEDS: Folic Acid 1 MG TABLET PO (09:51)
[2021-01-24] MEDS: Sennosides 8.6 MG TABLET PO (09:51)
[2021-01-24] MEDS: Finasteride 5 MG TABLET PO (09:51)
[2021-01-24] MEDS: NeoMY/Polymyx/Bacit/HC Oph Oin 3.5 GM TUBE 0.5 INCH EYE-RIGHT ×3 (09:52→21:08)
[2021-01-24 11:37] VITALS: BP 100/58; PULSE 74; RESP 18; TEMP 36.1; O2SAT 100
--- NOTE | 2021-01-24 12:31 | HO.PM.IMPN ---
Subjective Subjective Date of Service: 01/24/21 Interval History: follow up Review of Systems denies any new complaints- no nausea or vomiting or abdominal pain or fever chills. Physical Exam Vital Signs: Vital Signs: Last Vital Signs Temp 97 F 01/24/21 11:37 Pulse 74 01/24/21 11:37 Resp 18 01/24/21 11:37 BP 100/58 L 01/24/21 11:37 Pulse Ox 100 01/24/21 11:37 BMI result Body Mass Index 19.5 General: Awake , alert, no acute distress right /left : eye : noirritation or discharge. Resp:? CTA bilateral CVS: S1,S2,RRR GI: +BS, NT, no distention Skin: No rash Neuro:? motor grossly intact Psych: flat ? Objective Data Active Medications Acetaminophen (Acetaminophen 325 Mg Tablet) 650 mg PO Q6H PRN PRN Reason: Pain, Mild (Pain Scale 1-3) Last Admin: 01/04/21 19:59 Dose: 650 mg Documented by: TANYA Atorvastatin Calcium (Atorvastatin Calcium 20 Mg Tablet) 20 mg PO DAILY [facility] Last Admin: 01/24/21 09:50 Dose: 20 mg Documented by: SUDHIR Enoxaparin Sodium (Enoxaparin Sodium 40 Mg/0.4 Ml Syringe) 40 mg SUBCUT Q24H [facility] Last Admin: 01/23/21 19:23 Dose: 40 mg Documented by: MEAGHAN Escitalopram Oxalate (Escitalopram Oxalate 20 Mg Tablet) 20 mg PO DAILY [facility] Last Admin: 01/24/21 09:50 Dose: 20 mg Documented by: SUDHIR Finasteride (Finasteride 5 Mg Tablet) 5 mg PO DAILY [facility] Last Admin: 01/24/21 09:51 Dose: 5 mg Documented by: SUDHIR Folic Acid (Folic Acid 1 Mg Tablet) 1 mg PO DAILY [facility] Last Admin: 01/24/21 09:51 Dose: 1 mg Documented by: SUDHIR Memantine (Memantine Hcl 5 Mg Tablet) 5 mg PO DAILY [facility] Last Admin: 01/24/21 09:50 Dose: 5 mg Documented by: SUDHIR Neomycin/Polymyxin/Bacitr/Hydrocort (Neomy/Polymyx/Bacit/Hc Oph Oin 3.5 Gm Tube) 0.5 inch EYE-RIGHT QID [facility] Last Admin: 01/24/21 09:52 Dose: 0.5 inch Documented by: SUDHIR Olanzapine (Olanzapine 5 Mg Tablet) 5 mg PO DAILY [facility] Last Admin: 01/24/21 09:51 Dose: 5 mg Documented by: SUDHIR Olanzapine (Olanzapine 10 Mg Tablet) 10 mg PO BEDTIME [facility] Last Admin: 01/23/21 19:22 Dose: 10 mg Documented by: MEAGHAN Ondansetron HCl (Ondansetron Hcl 4 Mg/2 Ml Vial) 4 mg IVPUSH Q8H PRN PRN Reason: Nausea and Vomiting Senna (Sennosides 8.6 Mg Tablet) 8.6 mg PO DAILY [facility] Last Admin: 01/24/21 09:51 Dose: 8.6 mg Documented by: SUDHIR Sodium Chloride (0.9 % Sodium Chloride Flush 3 Ml Syringe) 3 ml IVFLUSH QSHIFT [facility] Last Admin: 01/24/21 09:52 Dose: Not Given Documented by: SUDHIR Non-Admin Reason: No Access Tamsulosin HCl (Tamsulosin Hcl 0.4 Mg Capsule) 0.8 mg PO BEDTIME [facility] Last Admin: 01/23/21 19:22 Dose: 0.8 mg Documented by: MEAGHAN Thiamine HCl (Thiamine Hcl 100 Mg Tablet) 100 mg PO DAILY [facility] Last Admin: 01/24/21 09:50 Dose: 100 mg Documented by: SUDHIR Labs CBC & Chem 7: 01/16/21 04:51 01/16/21 04:51 Assessment and Plan (1) Diarrhea: Status: Acute Assessment and Plan: 70yo M who was on geriatric psychiatry unit and treated for Staphylococcus epidermidis UTI with levofloxacin, progressively declined and admitted to Med/Surg and found to have C. diff diarrhea urinary retention - initially required lebron that has now been removed, - continue tamsulosin? + finasteride - Straight cath PRN - Urology evaluated pt- apparently this is chronic and pt eventually empties bladder whenever it is full Clostridium difficile colitis? -- CT abd showed -Thick-walled rectum and rectosigmoid colon with adjacent inflammatory change consistent with colitis?? - Improved - was on PO Vanco for 3 days but switched to Dificid, completed treatment - continue above management Distended gallbladder with thickened wall and surrounding edema but no ruq pain , lfts; wnl - acute cholecystsitis ruled out - Gi eval noted -continue current management UTI- treated and resolved mood disorder- clonazepam, olanazpine, escitalopram transferred from inpatient psych for UTI/delirium, now resolved assessed by psych, no need for further inpatient psych. Discuss with case management- home care agency may not? see him until Monday, waiting for that. Quality Stroke Does the patient have a stroke diagnosis?: No VTE Prior VTE?: No VTE Risk Level:: Medical - moderate - high VTE Device Contraindication: Treatment Not Indicated VTE Drug Contraindication: N/A - Med Ordered
[2021-01-24 15:30] VITALS: BP 104/62; PULSE 84; RESP 17; TEMP 36.1; O2SAT 98
[2021-01-24 19:02] VITALS: BP 108/64; PULSE 72; RESP 18; TEMP 36.1; O2SAT 98
[2021-01-24] MEDS: Enoxaparin Sodium 40 MG/0.4 ML SYRINGE SUBCUT (21:07)
[2021-01-24] MEDS: OLANZapine 10 MG TABLET PO (21:08)
[2021-01-24] MEDS: Tamsulosin HCL 0.4 MG CAPSULE 0.8 MG PO (21:08)
[2021-01-25] VITALS: BP 100/63; PULSE 72; RESP 18; TEMP 36; O2SAT 98
[2021-01-25 03:33] VITALS: BP 98/61; PULSE 76; RESP 18; TEMP 36; O2SAT 99
--- NOTE | 2021-01-25 07:27 | P.PNIM_ITS ---
Subjective Subjective Date of Service: 01/25/21 Physical Exam Vital Signs: Vital Signs: Last Vital Signs Temp 96.8 F 01/25/21 03:33 Pulse 76 01/25/21 03:33 Resp 18 01/25/21 03:33 BP 98/61 01/25/21 03:33 Pulse Ox 99 01/25/21 03:33 BMI result Body Mass Index 19.5 Objective Data Active Medications Acetaminophen (Acetaminophen 325 Mg Tablet) 650 mg PO Q6H PRN PRN Reason: Pain, Mild (Pain Scale 1-3) Last Admin: 01/04/21 19:59 Dose: 650 mg Documented by: TANYA Atorvastatin Calcium (Atorvastatin Calcium 20 Mg Tablet) 20 mg PO DAILY [facility] Last Admin: 01/24/21 09:50 Dose: 20 mg Documented by: SUDHIR Enoxaparin Sodium (Enoxaparin Sodium 40 Mg/0.4 Ml Syringe) 40 mg SUBCUT Q24H [facility] Last Admin: 01/24/21 21:07 Dose: 40 mg Documented by: MORRIS Escitalopram Oxalate (Escitalopram Oxalate 20 Mg Tablet) 20 mg PO DAILY [facility] Last Admin: 01/24/21 09:50 Dose: 20 mg Documented by: SUDHIR Finasteride (Finasteride 5 Mg Tablet) 5 mg PO DAILY [facility] Last Admin: 01/24/21 09:51 Dose: 5 mg Documented by: SUDHIR Folic Acid (Folic Acid 1 Mg Tablet) 1 mg PO DAILY [facility] Last Admin: 01/24/21 09:51 Dose: 1 mg Documented by: SUDHIR Memantine (Memantine Hcl 5 Mg Tablet) 5 mg PO DAILY [facility] Last Admin: 01/24/21 09:50 Dose: 5 mg Documented by: SUDHIR Neomycin/Polymyxin/Bacitr/Hydrocort (Neomy/Polymyx/Bacit/Hc Oph Oin 3.5 Gm Tube) 0.5 inch EYE-RIGHT QID [facility] Last Admin: 01/24/21 21:08 Dose: 0.5 inch Documented by: MORRIS Olanzapine (Olanzapine 5 Mg Tablet) 5 mg PO DAILY [facility] Last Admin: 01/24/21 09:51 Dose: 5 mg Documented by: SUDHIR Olanzapine (Olanzapine 10 Mg Tablet) 10 mg PO BEDTIME [facility] Last Admin: 01/24/21 21:08 Dose: 10 mg Documented by: MORRIS Ondansetron HCl (Ondansetron Hcl 4 Mg/2 Ml Vial) 4 mg IVPUSH Q8H PRN PRN Reason: Nausea and Vomiting Senna (Sennosides 8.6 Mg Tablet) 8.6 mg PO DAILY [facility] Last Admin: 01/24/21 09:51 Dose: 8.6 mg Documented by: SUDHIR Sodium Chloride (0.9 % Sodium Chloride Flush 3 Ml Syringe) 3 ml IVFLUSH QSHIFT [facility] Last Admin: 01/25/21 05:59 Dose: Not Given Documented by: MORRIS Non-Admin Reason: No Access Tamsulosin HCl (Tamsulosin Hcl 0.4 Mg Capsule) 0.8 mg PO BEDTIME [facility] Last Admin: 01/24/21 21:08 Dose: 0.8 mg Documented by: MORRIS Thiamine HCl (Thiamine Hcl 100 Mg Tablet) 100 mg PO DAILY [facility] Last Admin: 01/24/21 09:50 Dose: 100 mg Documented by: SUDHIR Labs CBC & Chem 7: 01/16/21 04:51 01/16/21 04:51 Quality Stroke Does the patient have a stroke diagnosis?: No VTE Prior VTE?: No VTE Risk Level:: Medical - moderate - high VTE Device Contraindication: Treatment Not Indicated VTE Drug Contraindication: N/A - Med Ordered
[2021-01-25 08:00] VITALS: BP 105/68; PULSE 73; RESP 16; TEMP 36.1; O2SAT 98
[2021-01-25] MEDS: Finasteride 5 MG TABLET PO (08:11)
[2021-01-25] MEDS: Sennosides 8.6 MG TABLET PO (08:11)
[2021-01-25] MEDS: Folic Acid 1 MG TABLET PO (08:12)
[2021-01-25] MEDS: OLANZapine 5 MG TABLET PO (08:12)
[2021-01-25] MEDS: Memantine HCl 5 MG TABLET PO (08:12)
[2021-01-25] MEDS: Escitalopram Oxalate 20 MG TABLET PO (08:12)
[2021-01-25] MEDS: Thiamine HCL 100 MG TABLET PO (08:12)
[2021-01-25] MEDS: NeoMY/Polymyx/Bacit/HC Oph Oin 3.5 GM TUBE 0.5 INCH EYE-RIGHT (08:14)
[2021-01-25] MEDS: Atorvastatin Calcium 20 MG TABLET PO (08:18)
--- NOTE | 2021-01-25 10:23 | MHC.CM.PN ---
PLAN IS DC PATIENT TODAY. PATIENT STILL ASLEEP MESSAGE LEFT FOR BROTHER CHILO ([phone]) TO ASK IF THERE IS A [facility] AVAILABLE FOR PATIENT TO RETURN HOME. CASE MANAGEMENT TO FOLLOW UP IN THIS NOTE WITH PROGRESS
[2021-01-25 12:00] VITALS: BP 105/64; PULSE 73; RESP 18; TEMP 36.7; O2SAT 98
--- NOTE | 2021-01-25 12:07 | P.PNIM_ITS ---
Subjective Subjective Date of Service: 01/25/21 Interval History: follow up Physical Exam Vital Signs: Vital Signs: Last Vital Signs Temp 96.9 F 01/25/21 08:00 Pulse 73 01/25/21 08:00 Resp 16 01/25/21 08:00 BP 105/68 01/25/21 08:00 Pulse Ox 98 01/25/21 08:00 BMI result Body Mass Index 19.5 Objective Data Active Medications Acetaminophen (Acetaminophen 325 Mg Tablet) 650 mg PO Q6H PRN PRN Reason: Pain, Mild (Pain Scale 1-3) Last Admin: 01/04/21 19:59 Dose: 650 mg Documented by: TANYA Atorvastatin Calcium (Atorvastatin Calcium 20 Mg Tablet) 20 mg PO DAILY [facility] Last Admin: 01/25/21 08:18 Dose: 20 mg Documented by: MOLLY Enoxaparin Sodium (Enoxaparin Sodium 40 Mg/0.4 Ml Syringe) 40 mg SUBCUT Q24H [facility] Last Admin: 01/24/21 21:07 Dose: 40 mg Documented by: MORRIS Escitalopram Oxalate (Escitalopram Oxalate 20 Mg Tablet) 20 mg PO DAILY [facility] Last Admin: 01/25/21 08:12 Dose: 20 mg Documented by: MOLLY Finasteride (Finasteride 5 Mg Tablet) 5 mg PO DAILY [facility] Last Admin: 01/25/21 08:11 Dose: 5 mg Documented by: MOLLY Folic Acid (Folic Acid 1 Mg Tablet) 1 mg PO DAILY [facility] Last Admin: 01/25/21 08:12 Dose: 1 mg Documented by: MOLLY Memantine (Memantine Hcl 5 Mg Tablet) 5 mg PO DAILY [facility] Last Admin: 01/25/21 08:12 Dose: 5 mg Documented by: MOLLY Neomycin/Polymyxin/Bacitr/Hydrocort (Neomy/Polymyx/Bacit/Hc Oph Oin 3.5 Gm Tube) 0.5 inch EYE-RIGHT QID [facility] Last Admin: 01/25/21 08:14 Dose: 0.5 inch Documented by: MOLLY Olanzapine (Olanzapine 5 Mg Tablet) 5 mg PO DAILY [facility] Last Admin: 01/25/21 08:12 Dose: 5 mg Documented by: MOLLY Olanzapine (Olanzapine 10 Mg Tablet) 10 mg PO BEDTIME [facility] Last Admin: 01/24/21 21:08 Dose: 10 mg Documented by: MORRIS Ondansetron HCl (Ondansetron Hcl 4 Mg/2 Ml Vial) 4 mg IVPUSH Q8H PRN PRN Reason: Nausea and Vomiting Senna (Sennosides 8.6 Mg Tablet) 8.6 mg PO DAILY [facility] Last Admin: 01/25/21 08:11 Dose: 8.6 mg Documented by: MOLLY Sodium Chloride (0.9 % Sodium Chloride Flush 3 Ml Syringe) 3 ml IVFLUSH QSHIFT [facility] Last Admin: 01/25/21 08:13 Dose: Not Given Documented by: MOLLY Non-Admin Reason: No Access Tamsulosin HCl (Tamsulosin Hcl 0.4 Mg Capsule) 0.8 mg PO BEDTIME [facility] Last Admin: 01/24/21 21:08 Dose: 0.8 mg Documented by: MORRIS Thiamine HCl (Thiamine Hcl 100 Mg Tablet) 100 mg PO DAILY [facility] Last Admin: 01/25/21 08:12 Dose: 100 mg Documented by: MOLLY Labs CBC & Chem 7: 01/16/21 04:51 01/16/21 04:51 Quality Stroke Does the patient have a stroke diagnosis?: No VTE Prior VTE?: No VTE Risk Level:: Medical - moderate - high VTE Device Contraindication: Treatment Not Indicated VTE Drug Contraindication: N/A - Med Ordered
--- NOTE | 2021-01-25 12:43 | MHC.CM.PN ---
PATIENT WILL RETURN HOME TODAY WITH SHARI CRANE FOR P.T. AND MEDICATION MANAGEMENT RN AND FRIEND RONY ([phone]) AWARE. RONY WILL BE AT [facility] [place] BY 1500 TO TRANSPORT HOME. IMM 01/24 IN CHART
--- NOTE | 2021-01-25 12:59 | W.MHC.F2F ---
Service Date Service Date: 01/25/21 Encounter Date of encounter: 01/25/21 Encounter: cdiff , urinary retention,uti Reasons for Services Reason for jail: medication treatment and teach disease management Reason for physical therapy: home safety and mobility, therapeutic exercises, restore joint function, gait/transfer training, assess need for DME, ADL training, energy conservation and other MD Overseeing Care: Francisca Ramírez Homebound: Leaving the home is medically contraindicated at this time without the asist of a device and/or another person due th the listed conditions above and below. Homebound supporting statement: patient has C diff, UTI, urinary retention , also generalized weak post hospitalization- need help to go to appointments. Certification: Based on the above findings, I certify that this patient is confined to the home and needs intermittent jail care, physical therapy and/or speech therapy, or continues to need occupational therapy. The patient is under my care, and I have initiated the establishment of the plan of care. The patient will be followed by a physician who will periodically review the plan of care.
--- NOTE | 2021-01-25 13:05 | PM.DS ---
DS: Providers Provider Date of Service: 01/25/21 Date of admission: 12/28/20 14:50 Primary care physician: Unknown Physician Consults: 12/28/20 12:45 Consult to Care Team Stat Comment: Reason for consultation: depression/OCD ?catatonic. medically cleared 12/28/20 13:18 Consult to Psychiatry Stat Consulting Provider: Psych Covering Reason for consultation: medically cleared. dep/halluc/OCD. pt near catatonig 12/29/20 06:43 Consult to Urology Routine Consulting Provider: Jovon Johnson Reason for consultation: urine retension 12/31/20 11:46 Consult to Infectious Diseases Routine Consulting Provider: Yane Kolb Reason for consultation: c diff recalcitrant 01/07/21 08:50 Consult to Gastroenterology Routine Consulting Provider: Miguel Chandler Reason for consultation: c diff colitis, worsening abd pain Has provider been notified: No 01/10/21 05:01 Consult to Urology Stat Consulting Provider: Jovon Johnson Reason for consultation: urinary retention. unsuccessful attempts at lebron 01/10/21 08:30 Consult to Infectious Diseases Routine Consulting Provider: Yane Kolb Reason for consultation: c diff colitis -completed fidoxamycin-still diarrahe Has provider been notified: No DS: Diagnosis Discharge Diagnosis (1) Diarrhea: Status: Acute DS: Summary Hospital Course Hospital Course: 70-year-old male patient of the [facility] psych unit who has been declining secondary to UTI.? Staff states he has minimal p.o. intake and he has become more somnolent of recent.? They denies fever and chills.? At this point time he be admitted to medical service for more complete workup and IV fluids. Hospital course: Patient came to the hospital because of C diff colitis: Patient started on p.o. antibiotics seems improving. Completed fidoxamicin course out patiently. UTI also treated and resolved. Urinary retention: Patient was started on tamsulosin/finasteride,consider outpatient urology eval as per pcp. mood disorder- clonazepam, olanazpine, escitalopram-assessed by psych, no need for further inpatient psych, Case management working on his home placement. ct abd : incidental findings:Calcified mesenteric mass which may represent a calcified radha mass. Carcinoid tumor or GIST is not excluded. discussed with Gi-follow up with pcp in [address] abd with pcp. Above management discussed with the patient in detail length she understand and in agreement with the above plan, time spent 50 minutes and 50% time spent on counseling. Significant findings: As above. Procedures performed: None. Treatment and response: As above. Complications: None. Time Spent with Patient Time attestation: Total time spent providing and/or coordinating discharge services: Discharge coordination time: Greater than 30 minutes Quality: Stroke Does the patient have a stroke diagnosis?: No Physical Exam Vital Signs: Vital Signs: Last Vital Signs Temp 98.1 F 01/25/21 12:00 Pulse 73 01/25/21 12:00 Resp 18 01/25/21 12:00 BP 105/64 01/25/21 12:00 Pulse Ox 98 01/25/21 12:00 BMI result Body Mass Index 19.5 General: Awake , alert, no acute distress right /left : eye : noirritation or discharge. Resp:? CTA bilateral CVS: S1,S2,RRR GI: +BS, NT, no distention Skin: No rash Neuro:? motor grossly intact Psych: flat ? DS: Data Additional Comments Additional comments: abd ct: IMPRESSION: Distended gallbladder with thickened wall and surrounding edema. Even though there is mesenteric stranding elsewhere these findings can be seen with acute cholecystitis and clinical correlation is suggested. ? Thick-walled rectum and rectosigmoid colon with adjacent inflammatory change consistent with colitis. No drainable abscess is seen. ? Calcified mesenteric mass which may represent a calcified radha mass. Carcinoid tumor or GIST is not excluded. ? Gas within the urinary bladder. Correlate with possible iatrogenic cause Discharge Plan Discharge Patient Disposition: Home Health Service Discharge Diagnosis: cdiff Referrals: CARITO BROUSSARD MD [Other] - 1 Week [facility] [Outside] - 1 Week Discharge Medications: New tamsulosin 0.4 mg Capsule 0.8 mg PO BEDTIME Qty: 60 RF: 0 Continued clonazepam 0.5 mg 0.5 mg PO BEDTIME RF: 0 clonazepam 1 mg Tablet 1 mg PO DAILY RF: 0 docusate sodium 100 mg Capsule 200 mg PO BID RF: 0 escitalopram oxalate 20 mg Tablet 20 mg PO DAILY RF: 0 folic acid 1 mg Tablet 1 mg PO DAILY RF: 0 melatonin 5 mg Tablet 5 mg PO BEDTIME RF: 0 memantine 5 mg Tablet 5 mg PO QAM RF: 0 olanzapine 5 mg Tablet 5 mg PO DAILY RF: 0 sennosides [senna] 8.6 mg Tablet 8.6 mg PO DAILY RF: 0 simvastatin 40 mg Tablet 40 mg PO DAILY RF: 0 thiamine HCl (vitamin B1) 100 mg Tablet 100 mg PO DAILY RF: 0 olanzapine 10 mg Tablet 10 mg PO BEDTIME RF: 0 Discharge Orders: Discharge Order (Routine); Ordered 01/25/21 Ordered By: Denise Lopez Diet: advance to usual diet Activity on Discharge: As tolerated Stand Alone Forms: Patient Portal Discharge page Care Plan Goals: Patient came to the hospital because of C diff colitis: Patient started on p.o. antibiotics seems improving. Completed fidoxamicin course out patiently. Urinary retention: Patient was started on tamsulosin/finasteride,consider outpatient urology eval as per pcp. Health Concerns: As above. Plan of Treatment: As above. Assessment: As above.
--- NOTE | 2021-01-25 13:18 | MHC.CM.PN ---
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 I GET SUICIDAL WHEN I AM HOME \WHEN ASKED IF HE FEELS SUICIDAL RIGHT NOW, HE DENIES, STATING I JUST GET THAT WAY WHEN ASKED IF HE KNOWS WHO TO CALL WHEN HE IS FEELING SUICIDAL, HE DENIES. PATIENT REMINDED TO CALL 911. PATIENT REMINDED THAT HE IS BEING OFFERED A LTC BED AT [facility], AND HE STILL REFUSES THIS OFFER. PATIENT ALSO REMINDED THAT ON MONDAY HE WAS AWARE THAT HE WOULD BE DISCHARGED HOME ON THURSDAY 01/25 WITH SERVICES. IMM 01/24 IN CHART
--- NOTE | 2021-01-25 14:43 | MHC.CLN ---
F/U DIET=REGULAR, LACTOSE FREE. SUPPLEMENT ENSURE CLEAR BID (480 KCAL, 16 G PROTEIN). STAGE II TO COCCYX; REDNESS TO PERINEAL. INTAKE MOST MEALS 100%. CONTINUE TO FOLLOW INTAKE AND WOUND. RD TO FOLLOW WEEKLY.
--- NOTE | 2021-01-25 16:15 | MHC.CM.PN ---
Addendum entered by Shanice Boothe 01/25/21 16:23: PATIENT REFUSES ALL ABOUT [facility]. Original Note: CALL TO [facility]. [phone] THIS GLOBAL TRANSPORTATION MANAGER ATTEMPTING TO MAKE A FOLLOW UP PRIMARY CARE VISIT FOR PATIENT. CALL PLACED AFTER HOURS WITH NO WAY TO LEAVE VOICEMAIL. THIS GLOBAL TRANSPORTATION MANAGER TO CALL BACK TOMORROW FOR APPOINTMENT ATTEMPT AND TO FAX DC SUMMARY TO PATIENT'S PCP (DR Diana BROUSSARD) CALL TO SHARI CRANE RN WHO STATES THAT START OF CARE WILL BE MONDAY. THIS GLOBAL TRANSPORTATION MANAGER INFORMED RN THAT PATIENT IS HOPING FOR MEDICATION MANAGEMENT SERVICES AND WOULD LIKE DAILY IF ABLE. FRIEND RONY IS HERE TO DRIVE PATIENT HOME PROTECTIVE SERVICES CALL TO BE PLACED PATIENT IS FEARFUL OF RETURNING TO THE HOSPITAL SETTING BECAUSE I DO NOT UNDERSTAND WHEN TO TAKE ALL THESE MEDICATIONS . THIS GLOBAL TRANSPORTATION MANAGER ASKED PATIENT IF HE PREFERS TO ACCEPT TOMORROW'S BED OFFER AT [facility], AND HE REFUSES. THIS GLOBAL TRANSPORTATION MANAGER ASKED PATIENT IF HE WOULD CONSIDER ASSISTED LIVING AND PATIENT REFUSES, STATING YOU KNOW HOW MUCH MONEY THAT COSTS? PATIENT TELLS THIS GLOBAL TRANSPORTATION MANAGER THAT HE KEEPS HIS BLINDS CLOSED BECAUSE THOSE PEOPLE LOOK IN WINDOWS YOU KNOW PATIENT DOES AGREE TO ALLOW THE [facility] IN. IMM 01/24 IN CHART
--- NOTE | 2021-01-26 08:33 | MHC.CM.PN ---
POST DISCHARGE NOTE - CALL TO RO[facility] AT [facility] [place] ([phone]) IN ATTEMPTS TO SECURE A PCP APPOINTMENT FOR PATIENT. ROYA WILLSEND A MESSAGE TO THE PROVIDER'S OFFICE AND THIS SENIOR DATA WAREHOUSE ARCHITECT CAN EXPECT A CALL BACK. 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 HE WANTS ANY PERSON THAT COMES TO HIS APARTMENT TO NOTIFY HIM FIRST, AND THEN KNOCK ON THE DOOR A CERTAIN AMOUNT OF TIMES AND ANNOUNCE ONESELF. THIS WAS EXPLAINED TO ROYA DURING CONVERSATION. THIS SENIOR DATA WAREHOUSE ARCHITECT TO WAIT FOR A CALL BACK AND HOPEFULLY SECURE A PCP VISIT. CASE MANAGEMENT TO CONTACT PATIENT AND FRIEND RONY ONCE THIS IS DONE (PER REQUEST OF PATIENT)
== END 2021-01-25 16:30 | disposition home health service (06) | DRG 372 ==
PROVIDERS: Family Medicine; Hospitalist; Internal Medicine; Physician Assistant Medical; Admitting Provider Psychiatry & Neurology Psychiatry; PCP Internal Medicine; Visit Provider Internal Medicine
DX: A04.72 Enterocolitis due to Clostridium difficile, not specified as recurrent (principal); N39.0 Urinary tract infection, site not specified; F33.9 Major depressive disorder, recurrent, unspecified; K21.9 Gastro-esophageal reflux disease without esophagitis; N40.1 Benign prostatic hyperplasia with lower urinary tract symptoms; B95.61 Methicillin susceptible Staphylococcus aureus infection as the cause of diseases classified elsewhere; S05.01XA Injury of conjunctiva and corneal abrasion without foreign body, right eye, initial encounter; X58.XXXA Exposure to other specified factors, initial encounter; R33.8 Other retention of urine; R39.14 Feeling of incomplete bladder emptying; F42.9 Obsessive-compulsive disorder, unspecified; F43.10 Post-traumatic stress disorder, unspecified; Z87.891 Personal history of nicotine dependence; Z79.899 Other long term (current) drug therapy
CPT/HCPCS: 36415; 74176; 80048; 80053; 80076; 85025; 85027; 86140; 87045; 87046; 87324; 87493; 89055; 97110; 97116; 97162; 99218; C1758; J1650